=== PATIENT | female | born 1975 | race Caucasian/White ===

== ENCOUNTER 2018-05-11 14:43 | Emergency (ER) | payer OTHER ==
--- NOTE | 2018-05-11 15:55 | ER ---
Nurse's Notes [facility] Name: Negin Earl Age: 43 yrs Sex: Female : 1975 Arrival Date: 05/11/2018 Time: 14:48 Bed Waiting Private MD: Diagnosis: ED Course: 05/11 14:48 Patient arrived in ED. mr 15:40 Patient's name was called from ER lobby. No response. ph 15:54 Patient's name was called from ER lobby. Unable to locate patient. Will disposition as ph left without being seen by a provider. Administered Medications: No medications were administered Outcome: 15:54 Patient left the ED. ph Signatures: Khalida Sargent Patricia, RN RN ph
== END 2018-05-11 15:54 | disposition left against medical advice (07) ==
LOC: ER 14:43
DX: Z53.21 Procedure and treatment not carried out due to patient leaving prior to being seen by health care provider (principal)

== ENCOUNTER 2018-12-18 06:21 | Observation (INO) | payer OTHER, SELFPAY ==
--- OUTSIDE RECORDS SUMMARY | 2018-12-18 06:23 | XMS REPORT ---
:1975 [facility] Address [address] [place] [address] Dr. Horne [address] [place] [id number] Care Team Providers Name Role Phone Unavailable Unavailable Unavailable Problems This patient has no known problems. Allergies, Adverse Reactions, Alerts This patient has no known allergies or adverse reactions. Medications This patient has no known medications.
[2018-12-18] MEDS ORDERED: NA CHLORIDE 0.9% 1,000 ML ONE (06:57)
[2018-12-18] MEDS ORDERED: MORPHINE 4 MG/ML SYR ONE (07:12)
--- NOTE | 2018-12-18 07:23 | ER ---
Nurse's Notes [facility] Name: Negin Earl Age: 43 yrs Sex: Female : 1975 Arrival Date: 12/18/2018 Time: 06:28 Bed 8 Private MD: Diagnosis: Fever, unspecified;Altered mental status, unspecified;Acute tubulo-interstitial nephritis;Bipolar disorder;Urinary tract infection, site not specified;Hypokalemia Presentation: 12/18 06:28 Presenting complaint: EMS states: Pt reports N/V/D for the past 24 hours, EMS reports ea pt temp 102.4 complaining of ABD and back pain. Pt given Zofran 4 mg. Transition of care: patient was not received from another setting of care. Onset of symptoms was December 18, 2018. Risk Assessment: Do you want to hurt yourself or someone else? Patient reports no desire to harm self or others. Initial Sepsis Screen: Does the patient meet any 2 criteria? HR > 90 bpm. Does the patient have a suspected source of infection? Yes: Acute abdominal pain. Care prior to arrival: Medication(s) given: zofran 4 mg. 06:28 Method Of Arrival: EMS: [facility] ea 06:28 Acuity: EVERT 3 ea Triage Assessment: 07:03 General: Appears uncomfortable, Behavior is calm, cooperative, appropriate for age. ea Pain: Complains of pain in right upper quadrant and right lower quadrant and right low back and right mid back and left mid back and left low back. Neuro: Level of Consciousness is awake, alert, obeys commands, Oriented to person, place, time, situation. GI: Reports diarrhea, nausea, vomiting. Derm: Skin is clammy, Skin is normal, Skin temperature is warm. 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 tw2 Historical: - Allergies: 06:59 PENICILLINS; ea - Home Meds: 06:59 Vistaril 50 mg Oral cap [Active]; prozac [Active]; Seroquel Oral [Active]; ea - PMHx: 06:59 Bipolar disorder; insomnia; ea - PSHx: 06:59 None; ea - Immunization history:: Adult Immunizations up to date. - Social history:: Smoking status: Patient/guardian denies using tobacco. - Family history:: not pertinent. - Ebola Screening: : No symptoms or risks identified at this time. Screenin:57 Abuse screen: Denies threats or abuse. Nutritional screening: No deficits noted. ea Tuberculosis screening: No symptoms or risk factors identified. Fall Risk None identified. Assessment: 07:10 General: Appears in no apparent distress. Behavior is calm, cooperative. Pain: Pain hb currently is 8 out of 10 on a pain scale. Neuro: Level of Consciousness is awake, alert, obeys commands, Oriented to person, place, time, situation. Cardiovascular: Heart tones S1 S2 present Capillary refill < 3 seconds Patient's skin is warm and dry. Respiratory: Airway is patent Respiratory effort is even, unlabored, Respiratory pattern is regular, symmetrical, Breath sounds are clear bilaterally. GI: Abdomen is distended, Bowel sounds present X 4 quads. : No signs and/or symptoms were reported regarding the genitourinary system. EENT: No signs and/or symptoms were reported regarding the EENT system. Derm: Skin is intact, is healthy with good turgor, Skin is pink, warm \T\ dry. Musculoskeletal: No signs and/or symptoms reported regarding the musculoskeletal system. 07:15 Reassessment: Pt c/o right flank pain that radiates to RLQ 8/10, requesting pain hb medication. Dr. Culver notified, Morphine and Zofran administered as ordered. Pt to CT via wheelchair with tech. 07:28 Reassessment: Pt returned from CT. Pt to bathroom with assistance, urine specimen hb provided. Assisted back to bed, on monitor. Bed locked in low position, call light within reach. 08:15 Reassessment: Patient appears in no apparent distress at this time. Patient and/or hb family updated on plan of care and expected duration. Pain level reassessed. Patient is alert, oriented x 3, equal unlabored respirations, skin warm/dry/pink. 09:15 Reassessment: Patient appears in no apparent distress at this time. Patient and/or tw2 family updated on plan of care and expected duration. Pain level reassessed. Patient is alert, oriented x 3, equal unlabored respirations, skin warm/dry/pink. Vital Signs: 06:28 BP 108 / 57; Pulse 112; Resp 20; Temp 98.6; Pulse Ox 99% ; ea 07:41 BP 108 / 70; Pulse 118; Resp 15; Temp 99; Pulse Ox 95% on R/A; Pain 5/10; hb 09:15 BP 112 / 66; Pulse 116; Resp 16; Temp 98.3(O); Pulse Ox 97% on R/A; tw2 ED Course: 06:28 Patient arrived in ED. bb 06:28 Patient has correct armband on for positive identification. Bed in low position. Call ea light in reach. Side rails up X 1. 06:28 Arm band placed on right wrist. Patient placed in an exam room, on a stretcher, on ea pulse oximetry. 06:29 Diogenes Culver MD is Attending Physician. elizabeth 06:57 Triage completed. ea 07:08 Jeimy Monaco RN is Primary Nurse. hb 07:17 Charo Angeles MD is Hospitalizing Provider. elizabeth 07:25 CT Stone Protocol In Process Unspecified. EDMS 07:39 XRAY Chest (1 view) In Process Unspecified. EDMS 08:38 EKG done, by aviation technician. reviewed by Jose Garcia MD. at1 08:50 Inserted saline lock: 22 gauge in right antecubital area, using aseptic technique. tw2 ,using aseptic technique. per DOMINIQUE Munson Blood collected. 09:19 Report given to DOMINIQUE Sheikh. tw2 09:19 No provider procedures requiring assistance completed. Patient admitted, IV remains in tw2 place. Administered Medications: 07:03 Drug: NS 0.9% 1000 ml Route: IV; Rate: 1 bolus; Site: right wrist; lp1 07:15 Drug: morphine 4 mg Route: IVP; Site: right antecubital; hb 07:42 Follow up: Response: No adverse reaction; Pain is decreased hb 07:15 Drug: Zofran 4 mg Route: IVP; Site: right antecubital; hb 07:42 Follow up: Response: No adverse reaction hb 07:40 Drug: Rocephin 1 grams Route: IV; Rate: per protocol; Site: right antecubital; hb 08:01 Drug: levofloxacin 750 mg Volume: 150 ml; Route: IVPB; Infused Over: 90 mins; Site: hb right antecubital; 09:17 Follow up: IV Status: Infusion continued upon admission tw2 08:01 Drug: Potassium Effervescent Tablet 25 mEq Route: PO; hb 09:16 Follow up: Response: No adverse reaction tw2 08:01 Drug: Potassium Chloride 20 mEq Route: IV; Rate: per protocol; Site: right antecubital; hb 09:16 Follow up: IV Status: Infusion continued upon admission tw2 09:17 Not Given (K+infusing at this time, will deliver to floor with pt): NS 0.9% with KCl 20 tw2 mEq/L 1000 ml IV at 125 ml/hr continuous Outcome: 07:22 Decision to Hospitalize by Provider. elizabeth 09:19 Admitted to Med/surg accompanied by tech, via wheelchair, room 426, Report called to caitie Sheikh RN 09:19 Condition: stable 09:19 Instructed on the need for admit. 09:21 Patient left the ED. tw2 Signatures: Dispatcher [employer] EDMS Diogenes Culver MD MD cha Ballard, Brenda, RN RN Pilar Zamudio RN RN lp1 Helen Fung, pleater hand EKG Tat1 Jeimy Monaco RN RN hb Wise, Tara, RN RN tw2 Annie Lai, RN DOMINIQUE ea Corrections: (The following items were deleted from the chart) 09:18 09:15 BP 112 / 66; Pulse 116bpm; Resp 16bpm; Pulse Ox 97% RA; tw2 tw2
--- NOTE | 2018-12-18 07:23 | EDPHYS ---
Physician Documentation [facility] Name: Negin Earl Age: 43 yrs Sex: Female : 1975 Arrival Date: 12/18/2018 Time: 06:28 Bed 8 Private MD: FARZANEH Physician Diogenes Culver HPI: 12/18 06:46 This 43 yrs old Female presents to ER via Unassigned with complaints of elizabeth fever, flank pain and ams. 06:46 The patient presents with abdominal pain. Onset: The symptoms/episode began/occurred 3 elizabeth day(s) ago. The patient presents with pain that is acute, with no known mechanism of injury. The symptoms are located in the left low back, left mid back, right mid back and right low back. Onset: The symptoms/episode began/occurred 3 day(s) ago. The pain does not radiate. hx bipolar, fever and pyelonephritis. 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 tw2 Historical: - Allergies: 06:59 PENICILLINS; ea - Home Meds: 06:59 Vistaril 50 mg Oral cap [Active]; prozac [Active]; Seroquel Oral [Active]; ea - PMHx: 06:59 Bipolar disorder; insomnia; ea - PSHx: 06:59 None; ea - Immunization history:: Adult Immunizations up to date. - Social history:: Smoking status: Patient/guardian denies using tobacco. - Family history:: not pertinent. - Ebola Screening: : No symptoms or risks identified at this time. ROS: 06:46 Eyes: Negative for injury, pain, redness, and discharge, ENT: Negative for injury, elizabeth pain, and discharge, Neck: Negative for injury, pain, and swelling, Cardiovascular: Negative for chest pain, palpitations, and edema, Respiratory: Negative for shortness of breath, cough, wheezing, and pleuritic chest pain, Abdomen/GI: Negative for abdominal pain, nausea, vomiting, diarrhea, and constipation, : Negative for injury, bleeding, discharge, and swelling, MS/Extremity: Negative for injury and deformity, Skin: Negative for injury, rash, and discoloration, Neuro: Negative for headache, weakness, numbness, tingling, and seizure, Psych: Negative for depression, anxiety, suicide ideation, homicidal ideation, and hallucinations, Allergy/Immunology: Negative for hives, rash, and allergies, Endocrine: Negative for neck swelling, polydipsia, polyuria, polyphagia, and marked weight changes, Hematologic/Lymphatic: Negative for swollen nodes, abnormal bleeding, and unusual bruising. 06:46 Constitutional: Positive for body aches, fever, malaise. 06:46 Back: Positive for flank pain, bilaterally. Exam: 06:46 Constitutional: This is a well developed, well nourished patient who is awake, alert, elizabeth and in no acute distress. Head/Face: Normocephalic, atraumatic. Eyes: Pupils equal round and reactive to light, extra-ocular motions intact. Lids and lashes normal. Conjunctiva and sclera are non-icteric and not injected. Cornea within normal limits. Periorbital areas with no swelling, redness, or edema. ENT: Nares patent. No nasal discharge, no septal abnormalities noted. Tympanic membranes are normal and external auditory canals are clear. Oropharynx with no redness, swelling, or masses, exudates, or evidence of obstruction, uvula midline. Mucous membranes moist. Neck: Trachea midline, no thyromegaly or masses palpated, and no cervical lymphadenopathy. Supple, full range of motion without nuchal rigidity, or vertebral point tenderness. No Meningismus. Chest/axilla: Normal chest wall appearance and motion. Nontender with no deformity. No lesions are appreciated. Cardiovascular: Regular rate and rhythm with a normal S1 and S2. No gallops, murmurs, or rubs. Normal PMI, no JVD. No pulse deficits. Respiratory: Lungs have equal breath sounds bilaterally, clear to auscultation and percussion. No rales, rhonchi or wheezes noted. No increased work of breathing, no retractions or nasal flaring. Female : Normal external genitalia. Skin: Warm, dry with normal turgor. Normal color with no rashes, no lesions, and no evidence of cellulitis. MS/ Extremity: Pulses equal, no cyanosis. Neurovascular intact. Full, normal range of motion. Neuro: Awake and alert, GCS 15, oriented to person, place, time, and situation. Cranial nerves II-XII grossly intact. Motor strength 5/5 in all extremities. Sensory grossly intact. Cerebellar exam normal. Normal gait. Psych: Awake, alert, with orientation to person, place and time. Behavior, mood, and affect are within normal limits. 06:46 Abdomen/GI: Inspection: abdomen appears normal, Bowel sounds: normal, Palpation: mild abdominal tenderness, in all quadrants, Liver: no appreciated palpable abnormalities, Hernia: not appreciated. 06:46 Back: pain, that is mild, that is moderate, of the left low back and left mid back. 07:49 Neck: ROM/movement: is normal, no acute changes, Meningeal signs: are not present, [facility] Kernig's sign is negative, Brudzinski's sign is negative. Vital Signs: 06:28 BP 108 / 57; Pulse 112; Resp 20; Temp 98.6; Pulse Ox 99% ; ea 07:41 BP 108 / 70; Pulse 118; Resp 15; Temp 99; Pulse Ox 95% on R/A; Pain 5/10; hb 09:15 BP 112 / 66; Pulse 116; Resp 16; Temp 98.3(O); Pulse Ox 97% on R/A; tw2 MDM: 06:29 Patient medically screened. [facility] 06:50 Data reviewed: vital signs, nurses notes, lab test result(s), EKG, radiologic studies, [facility] CT scan, plain films. 12/18 06:47 Order name: Basic Metabolic Panel [facility] 12/18 06:47 Order name: CBC with Diff [facility] 12/18 06:47 Order name: LFT's [facility] 12/18 06:47 Order name: Magnesium [facility] 12/18 06:47 Order name: NT PRO-BNP [facility] 12/18 06:47 Order name: PT-INR; Complete Time: 07:41 [facility] 12/18 06:47 Order name: Troponin (emerg Dept Use Only); Complete Time: 07:47 [facility] 12/18 06:47 Order name: Procalcitonin; Complete Time: 08:12 [facility] 12/18 06:47 Order name: Lactate; Complete Time: 07:47 [facility] 12/18 06:47 Order name: Blood Culture Adult (2) [facility] 12/18 06:47 Order name: Urine Culture [facility] 12/18 06:48 Order name: Basic Metabolic Panel; Complete Time: 07:47 EDMS 12/18 06:48 Order name: CBC with Automated Diff; Complete Time: 07:41 EDMS 12/18 06:48 Order name: Liver (Hepatic) Function; Complete Time: 07:47 EDMS 12/18 06:47 Order name: XRAY Chest (1 view) [facility] 12/18 06:47 Order name: EKG; Complete Time: 06:48 elizabeth 12/18 06:47 Order name: Cardiac monitoring; Complete Time: 07:42 elizabeth 12/18 06:47 Order name: EKG - Nurse/Tech [facility] 12/18 06:47 Order name: CT Stone Protocol; Complete Time: 07:42 elizabeth 12/18 06:48 Order name: Magnesium; Complete Time: 07:47 EDMS 12/18 06:48 Order name: NT PRO-BNP; Complete Time: 07:47 EDMS 12/18 07:43 Order name: Urine Dipstick--Ancillary (enter results); Complete Time: 07:47 em1 12/18 06:47 Order name: IV Saline Lock; Complete Time: 07:42 elizabeth 12/18 06:47 Order name: Labs collected and sent; Complete Time: 07:42 elizabeth 12/18 06:47 Order name: O2 Per Protocol; Complete Time: 07:42 [facility] 12/18 06:47 Order name: O2 Sat Monitoring; Complete Time: 07:42 elizabeth 12/18 06:47 Order name: Urine Dipstick-Ancillary (obtain specimen); Complete Time: 07:42 elizabeth 12/18 06:47 Order name: Urine Test (obtain specimen); Complete Time: 07:42 [facility] Administered Medications: 07:03 Drug: NS 0.9% 1000 ml Route: IV; Rate: 1 bolus; Site: right wrist; lp1 07:15 Drug: morphine 4 mg Route: IVP; Site: right antecubital; hb 07:42 Follow up: Response: No adverse reaction; Pain is decreased hb 07:15 Drug: Zofran 4 mg Route: IVP; Site: right antecubital; hb 07:42 Follow up: Response: No adverse reaction hb 07:40 Drug: Rocephin 1 grams Route: IV; Rate: per protocol; Site: right antecubital; hb 08:01 Drug: levofloxacin 750 mg Volume: 150 ml; Route: IVPB; Infused Over: 90 mins; Site: hb right antecubital; 09:17 Follow up: IV Status: Infusion continued upon admission tw2 08:01 Drug: Potassium Effervescent Tablet 25 mEq Route: PO; hb 09:16 Follow up: Response: No adverse reaction tw2 08:01 Drug: Potassium Chloride 20 mEq Route: IV; Rate: per protocol; Site: right antecubital; hb 09:16 Follow up: IV Status: Infusion continued upon admission tw2 09:17 Not Given (K+infusing at this time, will deliver to floor with pt): NS 0.9% with KCl 20 tw2 mEq/L 1000 ml IV at 125 ml/hr continuous Disposition: 12/18/18 07:22 Hospitalization ordered by Charo Angeles for Inpatient Admission. Preliminary diagnosis are Fever, unspecified, Altered mental status, unspecified, Acute tubulo-interstitial nephritis, Bipolar disorder, Urinary tract infection, site not specified, Hypokalemia. - Bed requested for Telemetry/MedSurg (Inpatient). - Status is Inpatient Admission. tw2 - Condition is Fair. - Problem is new. - Symptoms have improved. UTI on Admission? Yes Signatures: Dispatcher [employer] EDMS Glenny Wright Corey, MD MD cha Pena, Laura, RN RN lp1 Jeimy Monaco RN RN Virginia Porras RN RN tw2 Annie Lai RN DOMINIQUE ea Corrections: (The following items were deleted from the chart) 07:44 07:22 Hospitalization Ordered by Charo Angeles MD for Inpatient Admission. Preliminary [facility] diagnosis is Fever, unspecified; Altered mental status, unspecified; Acute tubulo-interstitial nephritis; Bipolar disorder. Bed requested for Telemetry/MedSurg (Inpatient). Status is Inpatient Admission. Condition is Fair. Problem is new. Symptoms have improved. UTI on Admission? Yes. [facility] 07:49 07:44 12/18/2018 07:22 Hospitalization Ordered by Charo Angeles MD for Inpatient elizabeth Admission. Preliminary diagnosis is Fever, unspecified; Altered mental status, unspecified; Acute tubulo-interstitial nephritis; Bipolar disorder; Urinary tract infection, site not specified. Bed requested for Telemetry/MedSurg (Inpatient). Status is Inpatient Admission. Condition is Fair. Problem is new. Symptoms have improved. UTI on Admission? Yes. elizabeth 08:22 07:49 12/18/2018 07:22 Hospitalization Ordered by Charo Angeles MD for Inpatient bd Admission. Preliminary diagnosis is Fever, unspecified; Altered mental status, unspecified; Acute tubulo-interstitial nephritis; Bipolar disorder; Urinary tract infection, site not specified; Hypokalemia. Bed requested for Telemetry/MedSurg (Inpatient). Status is Inpatient Admission. Condition is Fair. Problem is new. Symptoms have improved. UTI on Admission? Yes. [facility] 09:21 08:22 12/18/2018 07:22 Hospitalization Ordered by Charo Angeles MD for Inpatient tw2 Admission. Preliminary diagnosis is Fever, unspecified; Altered mental status, unspecified; Acute tubulo-interstitial nephritis; Bipolar disorder; Urinary tract infection, site not specified; Hypokalemia. Bed requested for Telemetry/MedSurg (Inpatient). Status is Inpatient Admission. Condition is Fair. Problem is new. Symptoms have improved. UTI on Admission? Yes. bd
[2018-12-18 07:35] LABS: Absolute Lymphocytes (CBC) 0.8 K/uL (0.7-4.9); Basophils % 0.3 % (0-1.3); Hematocrit 34.3 % (36.0-45.0); Lymphocytes % 7.2 % (15.3-44.8); Protime INR 1.09; RBC Red Blood Cell Count 3.88 M/uL (3.86-4.86)
--- NOTE | 2018-12-18 07:41 | RAD REPORT ---
EXAM DESCRIPTION: CT - Stone Protocol - 12/18/2018 7:24 am CLINICAL HISTORY: Abdominal pain, fever of 102, back pain COMPARISON: CT study December 2016 TECHNIQUE: Axial 5 mm thick images were obtained without oral or IV contrast. The [id number] span s the entirety of the system including uppermost abdomen and lung bases. All CT scans are performed using dose optimization technique as appropriate and may include automated exposure control or mA/KV adjustment according to patient size. FINDINGS: Mild dilatation of the right ureter is present including pelvic and caliceal mild dilatati on. No obstructing calculus present. Patient has numerous phleboliths in the pelvis which match up to the calcifications from 2017. No obstructing or nonobstructing calculi are present. There is no calc ulus within the bladder. Right kidney appears mildly edematous relative the left. No suspicious renal masses. Isodense masses and pyelonephritis are not excluded on a stone protocol CT scan. No bladder wall thickening or mass suspected. Bladder is only partially filled. No significant adrenal finding. Uterus and ovaries show no suspicious findings. Imaged portions of the liver, spleen and pancreas show no suspicious findings on non-contrast imaging . No gallbladder or biliary tree abnormality identified. No suspicious bowel findings. Appendix is normal. No hernia, mass or bulky lymphadenopathy noted. No free air, free fluid or pneumatosis. No significant bony abnormality. IMPRESSION: Mild right-sided hydronephrosis without obstructing or nonobstructing calculus present. Patient may have recently passed a stone. Blood within the ureter can cause an obstructive process. I nfectious/inflammatory debris from pyelonephritis or other infectious process can create this pattern . Isodense masses and pyelonephritis are not excluded on stone protocol technique. 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
[2018-12-18 07:47] LABS: ALT/SGPT 43 U/L (12-78); AST/SGOT 43 U/L (15-37); Albumin 3.3 g/dL (3.4-5.0); Alkaline Phosphatase 120 U/L (45-117); BUN Blood Urea Nitrogen 7 mg/dL (7-18); Bicarbonate 22 mmol/L (21-32); Bilirubin Direct < 0.1 mg/dL (0-0.2); Bilirubin Total 0.4 mg/dL (0.2-1.0); Glucose Level 109 mg/dL (74-106); NT PRO-BNP 45 pg/mL (<125); Protein, Total 7.5 g/dL (6.4-8.2); Sodium Level 131 mmol/L (136-145); Troponin (Emerg Dept Use Only) < 0.02 ng/mL (0.0-0.045)
[2018-12-18 07:47] LABS: Urine Blood 2+ (NEG); Urine Glucose NEGATIVE (NEG); Urine Protein 1+ (NEG); Urine Specific Gravity <1.005 (1.005-1.030); Urine pH 6.5 (5.0-7.0)
[2018-12-18] MEDS ORDERED: POTASSIUM 25 MEQ EFFERV TAB ONE (07:58)
[2018-12-18] MEDS ORDERED: Levofloxacin 750mg IV 750 MG/150 ML BAG IV ONE (07:59)
[2018-12-18] MEDS ORDERED: NS KCL 20MEQ 1,000 ML IV ONE (07:59)
[2018-12-18] MEDS ORDERED: KCL 20 MEQ/100 mL IVPB 20 MEQ/100 ML BAG IV ONE (07:59)
[2018-12-18] MEDS ORDERED: CEFTRIAXONE/SWI 1gm 1 GM/10 ML SYR ONE (07:59)
--- NOTE | 2018-12-18 08:47 | RAD REPORT ---
EXAM DESCRIPTION: RAD - Chest Single View - 12/18/2018 7:37 am CLINICAL HISTORY: Cough and congestion COMPARISON: None. TECHNIQUE: AP portable chest image was obtained 0727 hours . FINDINGS: No focal consolidation. There is stranding in each lung base, worse on the left. Baseline for the patient is unknown. This could be atelectasis or minimal interstitial infiltrate. No failure or volume overload findings. Heart and vasculature are normal. No measurable pleural effus ion and no pneumothorax. No acute bony abnormality seen. No acute aortic findings suspected. IMPRESSION: Baseline examination showing mild stranding in each lung base, worse on the left. Minimal left base interstitial infiltrate cannot be excluded.
--- NOTE | 2018-12-18 09:22 | EKG ---
Test Date: 2018-12-18 Test Time: 08:30:46 Motorcoach Operator: ISIDRO MEASUREMENT RESULTS: Intervals: Rate: 111 AR: 150 QRSD: 92 QT: 366 QTc: 497 [place]: P: -83 AR: 150 QRS: 2 T: -87 INTERPRETIVE STATEMENTS: Unusual P axis, possible ectopic atrial tachycardia T wave abnormality, consider anterior ischemia Abnormal ECG Compared to ECG 04/24/2015 08:51:23 Possible ischemia now present Sinus rhythm no longer present Prolonged QT interval no longer present T-wave abnormality still present Electronically Signed On 12-18-18 09:21:22 CDT by Nhan Ramirez
[2018-12-18] MEDS: NA CHLORIDE 0.9% 1,000 ML IV SCH ×2 (09:42→21:44)
[2018-12-18 10:48] LABS: Urine Appearance CLOUDY; Urine Bilirubin NEGATIVE (NEG); Urine Blood 2+ (NEG); Urine Color YELLOW; Urine Glucose NEGATIVE (NEG); Urine Microscopic Reflex ORDER UMIC; Urine Protein NEGATIVE (NEG); Urine Specific Gravity <=1.005 (1.005-1.030); Urine Urobilinogen 0.2 mg/dL (0.2-1.0); Urine pH 6.5 (5.0-7.0)
[2018-12-18 11:35] LABS: Urine Bacteria 20-50 /HPF (<20); Urine Culture Reflex Order REFLEXED; Urine RBC 20-50 /HPF (NONE SEEN)
--- NOTE | 2018-12-18 12:35 | P.HP ---
Certification for Inpatient Patient admitted to: Observation With expected LOS: <2 Midnights Practitioner: I am a practitioner with admitting privileges, knowledge of patient current condition, hospital course, and medical plan of care. Services: Services provided to patient in accordance with Admission requirements found in Title 42 Section 412.3 of the Code of Federal Regulations Patient History Date of Service: 12/18/18 Reason for admission: Right flank pain History of Present Illness: This is a 43 yr old female with a PMH of bipolar disease admitted for right flank pain that started 3 days ago. She is unable to describe the pain for me. She states that pain was radiating down her back. Pain was associated with nausea, vomiting, and fever. There were no alleviating or exacerbating factors. Pain was progressively worsening along wiht the fever, therefore EMS was called. EMS checked temperature to be 102.4, given tylenol and was brought to the ER. In the ED, her bp was 108/57, HR 112, RR 20, Afebrile in the ER, 99% on RA and a BMI of 27.1. Her labs were unremarkable. Her UA was with 3+ leukocyte esterase, nitrite and hematuria. Her abdominal CT was with mild right hydronephrosis without obstructive or non obstructive calculus. She received rocephin, IVF and pain control. At the time of my exam, she was AAOx3, in no acute distress and symptom free. She was tolerating a diet, ambulating without concerns. Allergies Penicillins Allergy (Mild, Verified 07/25/16 18:03) Hives/Rash No Known Allergy (Uncoded 01/14/17 12:47) Unknown Home medications list reviewed: Yes Home Medications: Fluoxetine HCl [Prozac*] 40 mg PO DAILY 07/25/16 Quetiapine Fumarate [Quetiapine Fumarate ER] 50 mg PO BEDTIME 12/18/18 hydrOXYzine HCl [Atarax] 50 mg PO TID 12/18/18 - Past Medical/Surgical History Has patient received pneumonia vaccine in the past: No -: Bipolar -: recurrent UTI -: anxiety -: hysterectomy -: adnoidectomy - Social History Smoking Status: Former smoker Alcohol use: No CD- Drugs: No Caffeine use: No Place of Residence: Home Review of Systems 10-point ROS is otherwise unremarkable Physical Examination - Vital Signs Temperature: 97.1 F Blood Pressure: 101/59 Pulse: 74 Respirations: 20 Pulse Ox (%): 97 - Physical Exam General: Alert, In no apparent distress, Oriented x3 HEENT: Atraumatic, PERRLA, Mucous membr. moist/pink, EOMI, Sclerae nonicteric Neck: Supple, 2+ carotid pulse no bruit, No LAD, Without JVD or thyroid abnormality Respiratory: Clear to auscultation bilaterally, Normal air movement Cardiovascular: Regular rate/rhythm, Normal S1 S2 Gastrointestinal: Normal bowel sounds, No tenderness Musculoskeletal: No tenderness, Other (Negative CVA tenderness) Integumentary: No rashes Neurological: Normal gait, Normal speech, Normal strength at 5/5 x4 extr, Normal tone, Normal affect Lymphatics: No axilla or inguinal lymphadenopathy - Studies Laboratory Data (last 24 hrs) 12/18/18 06:36: PT 12.8 H, INR 1.09 12/18/18 06:36: WBC 11.1 H, Hgb 11.9 L, Hct 34.3 L, Plt Count 298 12/18/18 06:36: Sodium 131 L, Potassium 3.0 L, BUN 7, Creatinine 0.61, Glucose 109 H, Magnesium 2.0, Total Bilirubin 0.4, AST 43 H, ALT 43, Alkaline Phosphatase 120 H Assessment and Plan - Problems (Diagnosis) (1) Right flank pain Current Visit: Yes Status: Acute Plan: Patient with right flank pain, -CT with Mild right-sided hydronephrosis without obstructing or nonobstructing calculus present. Blood within the ureter can cause an obstructive process. Infectious/inflammatory debris from pyelonephritis or other infectious process can create this pattern. Patient may have recently passed a stone. Isodense masses and pyelonephritis are not excluded on stone protocol technique. No acute GI or MARINE UNDERWRITER process. -DDx: Passed kidney stone, pyelonephritis, UTI -IVF -IV antibiotics with Rocephin -Pain control (2) Urinary tract infection Current Visit: Yes Status: Acute Plan: Patient states that she has a hx of multiple UTIs for many years now but has not seen a Urologist as she does not have insurance. -IV Rocephin. Urine cultures are pending. We will adjust antibiotics as needed -Patient may benefit from seeing a urologist as an outpatient. Qualifiers: Urinary tract infection type: acute cystitis Hematuria presence: with hematuria Qualified Code(s): N30.01 - Acute cystitis with hematuria (3) Pyelonephritis Onset Date: 07/26/16 Status: Suspected Plan: Will monitor WBC, vital signs and symptomatic improvement. - Continue IV antibiotics (4) Bipolar disorder Current Visit: No Status: Chronic Plan: Stable, will continue home medications. Qualifiers: Active/Remission status: remission status unspecified Qualified Code(s): F31.9 - Bipolar disorder, unspecified - Plan DVT prophylaxis: Lovenox GI prophylaxis: None Diet: Regular Disposition: Pending symptomatic improvement. Anticipate discharge in the next 24 hrs, if WBC improved, symptomatic improvement and afebrile for 24 hrs. - Advance Directives Does patient have a Living Will: No Does patient have a Durable POA for Healthcare: No
[2018-12-18] MEDS: MORPHINE 2 MG/ML SYR IV PRN ×2 (13:03→19:16)
[2018-12-18] MEDS: hydrOXYzine HCl 25 MG TAB PO SCH ×2 (13:04→21:45)
[2018-12-18] MEDS: ONDANSETRON 4 MG/2 ML VIAL IV PRN ×2 (13:04→19:16)
[2018-12-18] MEDS: ACETAMINOPHEN 500 MG TAB PO PRN (14:39)
[2018-12-18] MEDS: FAMOTIDINE 20 MG TAB PO SCH (21:44)
[2018-12-18] MEDS: QUETIAPINE 25 MG TAB PO SCH (21:45)
[2018-12-18] MEDS: CEFTRIAXONE/SWI 1gm 1 GM/10 ML SYR IV SCH (21:45)
[2018-12-19] MEDS: ONDANSETRON 4 MG/2 ML VIAL IV PRN ×3 (02:00→20:47)
[2018-12-19] MEDS: MORPHINE 2 MG/ML SYR IV PRN ×3 (02:00→15:55)
[2018-12-19 04:34] LABS: Absolute Lymphocytes (CBC) 1.4 K/uL (0.7-4.9); Basophils % 0.4 % (0-1.3); Hematocrit 29.1 % (36.0-45.0); Lymphocytes % 17.1 % (15.3-44.8); MPV 8.1 fL (7.6-11.3); RBC Red Blood Cell Count 3.26 M/uL (3.86-4.86)
[2018-12-19] MEDS: ACETAMINOPHEN 500 MG TAB PO PRN ×2 (04:34→08:26)
[2018-12-19 04:57] LABS: ALT/SGPT 33 U/L (12-78); AST/SGOT 25 U/L (15-37); Albumin 2.6 g/dL (3.4-5.0); Alkaline Phosphatase 95 U/L (45-117); BUN Blood Urea Nitrogen 2 mg/dL (7-18); Bicarbonate 25 mmol/L (21-32); Bilirubin Total 0.3 mg/dL (0.2-1.0); Glucose Level 100 mg/dL (74-106); Protein, Total 6.2 g/dL (6.4-8.2); Sodium Level 141 mmol/L (136-145)
[2018-12-19] MEDS: NA CHLORIDE 0.9% 1,000 ML IV SCH ×2 (06:52→15:53)
[2018-12-19] MEDS: FLUOXETINE 20 MG CAP PO SCH (08:26)
[2018-12-19] MEDS: hydrOXYzine HCl 25 MG TAB PO SCH ×3 (08:27→20:42)
[2018-12-19] MEDS: CEFTRIAXONE/SWI 1gm 1 GM/10 ML SYR IV SCH ×2 (09:00→20:41)
[2018-12-19] MEDS: FAMOTIDINE 20 MG TAB PO SCH ×2 (10:35→20:42)
--- NOTE | 2018-12-19 19:08 | PN ---
Date of Progress Note: 12/19/2018 Subjective: Patient is seen and examined. Chart reviewed and case discussed with RN. The patient s till having some pain on her right flank, complaining of some nausea. Medications: List reviewed. Physical Examination: Vital Signs: Temperature 97.1, heart rate 84, blood pressure 107/63, respirations 16, O2 100% on brianna m air. General: Awake, alert, and oriented x3, ill-appearing female, in mild distress. CV: S1, S2. Regular rate and rhythm. Peripheral pulses present. Respiratory: Moving air well bilaterally. No wheezing or stridor. Gastrointestinal: Abdomen is soft, nontender, nondistended. Positive bowel sounds. The patient has positive CVA tenderness, flank tenderness on the right. Extremities: No clubbing, cyanosis, or edema. Neuro: Cranial nerves 2 through 12 intact grossly. No focal neurological deficits. Speech is eliezer l. Skin: No rashes. Normal skin turgor. Laboratory Data: Sodium 141, potassium 3, chloride 110, CO2 25, BUN 2, creatinine 0.53, glucose 100, calcium 7.9, albumin 2.6. WBC 7.9, H and H 10.1 and 29.1, platelets 240. Blood cultures, no growth to date. Urine cultures growing 3+ gram-negative rods. Assessment And Plan: 1.Right flank pain. CT showed mild right-sided hydronephrosis without obstructing calculus, likely secondary to pyelonephritis or recently passed stone. We will continue with IV antibiotics. The pat ient still has tenderness on the right flank. 2.Acute pyelonephritis secondary to gram-negative rods. Continue with IV antibiotics and follow up on cultures. The patient does have history of multiple UTIs for several years and is at risk for mul ti-drug resistant bacteria. 3.Bipolar disorder, stable. 4.Hypokalemia. We will replace and monitor. 5.Moderate protein-calorie malnutrition. Albumin is 2.6. Plan: Continue with IV antibiotics. Follow up on urine culture. Likely discharge in the next 24 ho urs depending on clinical response. SA/MODL Voice ID: [id number] Report ID: [id number]
[2018-12-19] MEDS ORDERED: TRAMADOL HCL 50 MG TAB PO PRN (20:11)
[2018-12-19] MEDS: HYDROCODONE/APAP 7.5/325 MG TAB PO PRN (20:42)
[2018-12-19] MEDS: QUETIAPINE 25 MG TAB PO SCH (20:42)
[2018-12-20] MEDS: NA CHLORIDE 0.9% 1,000 ML IV SCH ×2 (02:28→11:42)
[2018-12-20] MEDS: HYDROCODONE/APAP 7.5/325 MG TAB PO PRN (07:54)
[2018-12-20] MEDS: FLUOXETINE 20 MG CAP PO SCH (08:10)
[2018-12-20] MEDS: hydrOXYzine HCl 25 MG TAB PO SCH (08:11)
[2018-12-20] MEDS: FAMOTIDINE 20 MG TAB PO SCH (08:11)
[2018-12-20] MEDS: CEFTRIAXONE/SWI 1gm 1 GM/10 ML SYR IV SCH (08:12)
--- NOTE | 2018-12-21 11:02 | DS ---
Date of Discharge: 12/20/2018 Admitting Diagnoses: 1.Acute right flank pain. 2.Urinary tract infection. 3.Pyelonephritis. 4.Bipolar disorder. Discharge Diagnoses: 1.Right flank pain secondary to pyelonephritis. 2.Acute pyelonephritis secondary to gram-negative rods. 3.Bipolar disorder, stable. 4.Hypokalemia, replaced. 5.Moderate protein-calorie malnutrition. Albumin 2.6. 6.Hypernatremia. Hospital Course: Patient is a 43-year-old female with past medical history of bipolar disorder, came in with right flank pain, was found to have pyelonephritis. CT scan of the abdomen did not show any kidney stones. She did well with IV antibiotics and IV fluids. Her culture showed gram-negative ro ds. ID and sensitivities are pending at this time. Her lactate level was normal; however, procalcit onin was elevated. She did not develop sepsis. She had some mild electrolyte abnormalities includin g hypernatremia and hypokalemia, which were corrected. Patient overall did well. She was able to am bulate. Her white blood cell count normalized. She was afebrile. Her confusion resolved. Her bloo d cultures were negative. Flank pain was improving. She understands that she will need to continue with IV hydration and follow up with primary care physician in the next week. Return to ER for worse mateo condition. Diet: Regular. Activity: As tolerated. Medications: As per medication reconciliation list. Physical Examination: General: Awake, alert, oriented x3. No acute distress. CV: S1, S2. No murmurs. Respiratory: Moving air well bilaterally. Abdomen: Soft, nontender, nondistended. Positive bowel sounds. Extremities: No clubbing, cyanosis, or edema. Neurologic: Nonfocal. Back: Patient does have some right-sided flank pain. SA/MODL Voice ID: [id number] Report ID: [id number]
== END 2018-12-20 12:25 | disposition home or self-care (01) ==
LOC: ER 06:21 → ERHOLD 07:48 → 4TH 09:17
PROVIDERS: ADMIT Family Medicine; ATTEND Family Medicine
DX: N10 Acute pyelonephritis (principal); N30.01 Acute cystitis with hematuria; F31.9 Bipolar disorder, unspecified; E87.6 Hypokalemia; E44.0 Moderate protein-calorie malnutrition; E87.0 Hyperosmolality and hypernatremia; Z79.899 Other long term (current) drug therapy; Z87.891 Personal history of nicotine dependence; Z87.440 Personal history of urinary (tract) infections; R94.31 Abnormal electrocardiogram [ECG] [EKG]
CPT/HCPCS: 96365; 96368; 93005; 87040 ×2; 87088; 85025 ×2; 87086; 80048; 36415; 83735; 85610; 80076; 83605; 87077; 87186; 84484; 80053; 84145; 83880; 76377; 74176; 71045; 94760 ×5; 96375; 99285; J2270 ×5; J0696 ×5; J7030 ×6; J2405 ×6; G0378 ×2; 81003; 81015

== ENCOUNTER 2019-09-02 19:03 | Emergency (ER) | payer OTHER ==
--- OUTSIDE RECORDS SUMMARY | 2019-09-02 19:05 | XMS REPORT ---
:1975 Author Organization [facility] t Address [address] [place] [address] [address] [place] [address] Care Team Providers Name Role Phone Unavailable Unavailable Unavailable Problems This patient has no known problems. Allergies, Adverse Reactions, Alerts This patient has no known allergies or adverse reactions. Medications This patient has no known medications.
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
--- OUTSIDE RECORDS SUMMARY | 2019-09-02 19:06 | XMS REPORT | Summary of Care ---
:1975 Author Organization [facility] Address [address] [place] [address] Care Team Providers Name Role Phone Miles Vinnie Pineda Primary Care Provider Reason for Visit Reason Comments ABNORMAL PAP Encounter Details Date Type Department Care Team Description 06/06/2019 [facility]phone [facility] Cherise Mcgarry, ABNORMAL PAP [address] [place] [address] [phone] [place]ANY[place] A [place], [place] [address] [phone] Allergies No Known Allergiesdocumented as of this encounter (statuses as of 06/06/2019) Medications Medication Sig Dispensed Refills Start Date [...] as of this encounter (statuses as of 06/06/2019) Active Problems Problem Noted Date Atypical squamous [...] as of this encounter (statuses as of 06/06/2019) Immunizations Name Administration Dates Next Due Td [...] BOX Medicare A & B t 2 [id number] [place] [phone] [facility] MEDICAID OF xxxxxxxxx 2019-Prese [phone] Medicaid [facility] [id number] [place] [address] documented as of this encounter
--- OUTSIDE RECORDS SUMMARY | 2019-09-02 19:06 | XMS REPORT | Summary of Care ---
:1975 Author Organization [facility] Address [address] [place] [address] Care Team Providers Name Role Phone Miles Vinnie Pineda Primary Care Provider Reason for Visit Reason Comments ABNORMAL PAP Encounter Details Date Type Department Care Team Description 06/06/2019 [facility] Cherise [facility]gar[facility], ABNORMAL PAP [address] [place] [address] [phone] [place], [place] [address] [phone] Allergies No Known Allergiesdocumented as of this [...] Treatment Date Type Specialty Care Team Description 06/19/2019 Office Visit OB Satellites Res-Colpo/Leep, [facility] Health Maintenance Due Date Last Done [...] BOX Medicare A & B t 2 [id number] [place] [phone] [facility] MEDICAID OF xxxxxxxxx 2019-Robbi [phone] [address] Medicaid [place] nt 0 [id number] [place] [address] documented as of this encounter
[2019-09-02] MEDS ORDERED: ONDANSETRON 4 MG/2 ML VIAL ONE ×2 (19:38→20:36)
[2019-09-02] MEDS ORDERED: NA CHLORIDE 0.9% 1,000 ML ONE (19:38)
[2019-09-02] MEDS ORDERED: KETOROLAC 30 MG/ML INJ ONE (19:38)
[2019-09-02 19:56] LABS: Urine Blood 2+ (NEG); Urine Glucose NEGATIVE (NEG); Urine Protein NEGATIVE (NEG); Urine pH 8.5 (5.0-7.0)
[2019-09-02 20:05] LABS: Absolute Lymphocytes (CBC) 1.9 K/uL (0.7-4.9); Basophils % 0.5 % (0-1.3); Hematocrit 39.2 % (36.0-45.0); Lymphocytes % 11.9 % (15.3-44.8); MPV 8.2 fL (7.6-11.3); RBC Red Blood Cell Count 4.41 M/uL (3.86-4.86)
[2019-09-02 20:10] LABS: Urine Bacteria 20-50 /HPF (<20); Urine Culture Reflex Order REFLEXED
[2019-09-02 20:19] LABS: ALT/SGPT 24 U/L (12-78); AST/SGOT 18 U/L (15-37); Albumin 3.8 g/dL (3.4-5.0); Alkaline Phosphatase 102 U/L (45-117); BUN Blood Urea Nitrogen 8 mg/dL (7-18); Bicarbonate 26 mmol/L (21-32); Bilirubin Direct < 0.1 mg/dL (0-0.2); Bilirubin Total 0.5 mg/dL (0.2-1.0); Glucose Level 104 mg/dL (74-106); Lipase 170 U/L (73-393); Potassium 3.6 mmol/L (3.5-5.1); Protein, Total 8.4 g/dL (6.4-8.2); Sodium Level 137 mmol/L (136-145)
--- NOTE | 2019-09-02 20:24 | RAD REPORT ---
EXAM DESCRIPTION: CT - Stone Protocol - 09/02/2019 8:09 pm CLINICAL HISTORY: FLANK PAIN COMPARISON: Stone Protocol dated 12/18/2018 TECHNIQUE: Axial 3 mm thick images were obtained without oral or IV contrast. The [id number] span s the entirety of the system including uppermost abdomen and lung bases. All CT scans are performed using dose optimization technique as appropriate and may include automated exposure control or mA/KV adjustment according to patient size. FINDINGS: No hydronephrosis is present and no obstructing ureteral calculi. No suspicious renal mass es. Isodense masses and pyelonephritis are not excluded on a stone protocol CT scan. No significant a drenal finding. Partially filled urinary bladder shows no suspicious findings. No uterine or ovarian suspicious finding. Phleboliths are present in the pelvis. Imaged portions of the liver, spleen and pancreas show no suspicious findings on non-contrast imaging . No gallbladder or biliary tree abnormality identified. No dilated bowel loops or bowel wall thickening. No bowel mass seen. Trace amount of stranding is see n in the mesenteric fat adjacent to the descending colon. This is not likely an acute process given t he history of bilateral back and flank pain and right lower extremity radiculopathy. No hernia, mass or bulky lymphadenopathy noted. No free air, free fluid or inflammatory stranding. No significant bony abnormality. Central canal detail is limited. However, no gross evidence for a la rge disc herniation or significant central canal finding. Facet degenerative changes are present. IMPRESSION: No hydronephrosis, obstructing calculus or acute finding. Isodense masses and pyelonephritis are not excluded on stone protocol technique. As detailed above, no acute findings are suspected.
[2019-09-02] MEDS ORDERED: MORPHINE 4 MG/ML SYR ONE (20:35)
[2019-09-02] MEDS ORDERED: NITROFURAN MACRO 100 MG CAP PO ONE (20:47)
--- NOTE | 2019-09-02 20:49 | ER ---
Nurse's Notes [facility] Name: Negin Earl Age: 44 yrs Sex: Female : 1975 Arrival Date: 09/02/2019 Time: 19:09 Bed 2 Private MD: Jose Cunningham E Diagnosis: Acute pyelonephritis Presentation: 09/01 19:14 Chief complaint: Patient states: Flank pain, both sides radiating down the R leg. ca1 Reports chronic kidney stones. Pt states, "I passed out last night, I got dizzy and fell, hurt L wrist, R shoulder". Reports burning with urination, urinary urgency and frequency. Coronavirus screen: Proceed with normal triage. Patient denies a cough. Patient denies shortness of breath or difficulty breathing. Patient denies measured and/or subjective temperature greater than 100.4F prior to today's visit. Patient denies travel on a cruise ship or to a country the [facility] currently lists as an affected area. Patient denies contact with known and/or suspected case of COVID-19. Ebola Screen: Patient negative for fever greater than or equal to 101.5 degrees Fahrenheit, and additional compatible Ebola Virus Disease symptoms Patient denies exposure to infectious person. Patient denies travel to an Ebola-affected area in the 21 days before illness onset. No symptoms or risks identified at this time. Initial Sepsis Screen: Does the patient meet any 2 criteria? No. Patient's initial sepsis screen is negative. Does the patient have a suspected source of infection? No. Patient's initial sepsis screen is negative. Risk Assessment: Do you want to hurt yourself or someone else? Patient reports no desire to harm self or others. Onset of symptoms was September 02, 2019. 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 - Social history:: Smoking status: Patient reports the use of cigarette tobacco products, smokes one-half pack cigarettes per day. Screenin:42 Abuse screen: Denies threats or abuse. Nutritional screening: No deficits noted. jd3 Tuberculosis screening: No symptoms or risk factors identified. Fall Risk IV access (20 points). Ambulatory Aid- None/Bed Rest/Nurse Assist (0 pts). Gait- Normal/Bed Rest/Wheelchair (0 pts) Mental Status- Oriented to own ability (0 pts). Total Reid Fall Scale indicates No Risk (0-24 pts). Assessment: 19:28 General: Appears in no apparent distress. uncomfortable, Behavior is calm, cooperative, jd3 appropriate for age. Pain: Complains of pain in left flank, right flank, right lower quadrant and left lower quadrant Quality of pain is described as radiating, sharp, tender. Neuro: Level of Consciousness is awake, alert, obeys commands, Oriented to person, place, time, situation. Cardiovascular: Denies chest pain, Capillary refill < 3 seconds Patient's skin is warm and dry. Respiratory: Airway is patent Respiratory effort is even, unlabored, Respiratory pattern is regular, symmetrical, Breath sounds are clear bilaterally. Denies cough, shortness of breath. GI: Abdomen is round Bowel sounds present X 4 quads. Abd is soft X 4 quads Abdomen is tender to palpation in right lower quadrant and left lower quadrant Reports nausea, Patient currently denies diarrhea. : Reports pain in bilateral flank(s), urinary frequency. EENT: No signs and/or symptoms were reported regarding the EENT system. Derm: Skin is intact, Skin is dry, Skin is normal, Skin temperature is warm. Musculoskeletal: Circulation, motion, and sensation intact. Range of motion: intact in all extremities. 20:36 Reassessment: No changes from previously documented assessment. Patient and/or family jd3 updated on plan of care and expected duration. Pain level reassessed. Patient is alert, oriented x 3, equal unlabored respirations, skin warm/dry/pink. 21:03 Reassessment: Patient appears in no apparent distress at this time. Patient and/or jd3 family updated on plan of care and expected duration. Pain level reassessed. Patient is alert, oriented x 3, equal unlabored respirations, skin warm/dry/pink. pt reported decreased pain, pt reported understanding of discharge instructions, even and steady gait to lobby to wait for a ride. Patient states feeling better. Vital Signs: 19:14 BP 114 / 66; Pulse 105; Resp 20; Temp 99.6(O); Pulse Ox 98% on R/A; Weight 86.18 kg; ca1 Height 5 ft. 5 in. (165.10 cm) (R); Pain 8/10; 20:36 BP 98 / 59; Pulse 97; Resp 17 S; Pulse Ox 96% on R/A; Pain 10/10; jd3 21:04 BP 101 / 60; Pulse 89; Resp 16 S; Pulse Ox 97% on R/A; Pain 3/10; jd3 19:14 Body Mass Index 31.62 (86.18 kg, 165.10 cm) ca1 ED Course: 19:09 Patient arrived in ED. mr 19:09 Jose Cunningham MD is Private Physician. mr 19:17 Luis Alberto Griffin MD is Attending Physician. tw4 19:18 Triage completed. ca1 19:19 Arm band placed on right wrist. ca1 19:24 Bee Vital RN is Primary Nurse. jl7 19:25 Urine collected: clean catch specimen, clear, odette colored. Patient maintains SpO2 jp3 saturation greater than 95% on room air. 19:26 Primary Nurse role handed off by Bee Vital RN jd3 19:26 Demond Davis RN is Primary Nurse. jd3 19:38 Initial lab(s) drawn, by me, sent to lab. Inserted saline lock: 20 gauge in right jp3 antecubital area, using aseptic technique. Blood collected. 19:41 Bed in low position. Call light in reach. Side rails up X 1. Warm blanket given. Verbal jp3 reassurance given. Pulse ox on. NIBP on. 20:08 CT Stone Protocol In Process Unspecified. EDMS 20:46 Jose Cunningham MD is Referral Physician. tw4 21:00 No provider procedures requiring assistance completed. IV discontinued, intact, jd3 bleeding controlled, No redness/swelling at site. Pressure dressing applied. Administered Medications: 19:41 Drug: NS 0.9% 1000 ml Route: IV; Rate: 1 bolus; Site: right antecubital; jd3 20:40 Follow up: Response: No adverse reaction; IV Status: Completed infusion; IV Intake: jd3 1000ml 19:41 Drug: TORadol 30 mg Route: IVP; Site: right antecubital; jd3 20:40 Follow up: Response: No adverse reaction jd3 19:41 Drug: Zofran (Ondansetron) 4 mg Route: IVP; Site: right antecubital; jd3 20:40 Follow up: Response: No adverse reaction jd3 20:34 CANCELLED (Duplicate Order): morphine 4 mg IVP once; RASS on ADMIN: Combtv4, Very jd3 Agttd3, Agttd2, Rstlss1, AlertClm0, Drwsy-1, Lt Sdtn-2, Mod Sdtn-3, Dp Sdtn-4, UnArsble-5 20:35 Drug: morphine 4 mg Route: IVP; Site: right antecubital; jd3 21:02 Follow up: Response: No adverse reaction; Pain is decreased; RASS: Alert and Calm (0) jd3 20:35 Drug: Zofran (Ondansetron) 4 mg Route: IVP; Site: right antecubital; jd3 21:03 Follow up: Response: No adverse reaction jd3 20:43 Drug: Macrobid 100 mg Route: PO; jd3 21:03 Follow up: Response: No adverse reaction jd3 Intake: 20:40 IV: 1000ml; Total: 1000ml. jd3 Outcome: 20:48 Discharge ordered by . tw4 21:00 Discharged to home ambulatory, with family. jd3 21:00 Condition: stable 21:00 Discharge instructions given to patient, Instructed on discharge instructions, follow up and referral plans. medication usage, Demonstrated understanding of instructions, follow-up care, medications, Prescriptions given X 2. 21:04 Patient left the ED. jd3 Signatures: Dispatcher [employer] EDCO Arie Khalida VitalBee RN RN jl7 Demond Davis RN RN jd3 Luis Alberto Griffin MD MD tw4 Castillo Barr jp3 Cha Yan RN RN ca1 Corrections: (The following items were deleted from the chart) 19:40 19:14 Chief complaint: Patient states: Flank pain, both sides radiating down the R leg. ca1 Reports chronic kidney stones. Pt states, "I passed out last night, I got dizzy and fell, hurt L wrist, R shoulder. Reports burning with urination, urinary urgency and frequency. ca1
--- NOTE | 2019-09-02 20:49 | EDPHYS ---
Physician Documentation [facility] Name: Negin Earl Age: 44 yrs Sex: Female : 1975 Arrival Date: 09/02/2019 Time: 19:09 Bed 2 Private MD: Jose Cunningham E ED Physician Luis Alberto Griffin HPI: 09/01 19:51 This 44 yrs old Female presents to ER via Wheelchair with complaints of Back tw4 Pain, Urinary Problem. 19:51 The patient presents with pain that is acute. The symptoms are located in the left low tw4 back. Onset: The symptoms/episode began/occurred 4 day(s) ago. The pain radiates to the right lower quadrant and left lower quadrant. Associated signs and symptoms: The patient has no apparent associated signs or symptoms. The problem was sustained from unknown cause. Modifying factors: The patient symptoms are alleviated by nothing, the patient symptoms are aggravated by any movement. The patient has not experienced similar symptoms in the past. 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 - Social history:: Smoking status: Patient reports the use of cigarette tobacco products, smokes one-half pack cigarettes per day. ROS: 19:51 Constitutional: Negative for fever, chills, and weight loss, Eyes: Negative for injury, tw4 pain, redness, and discharge, Cardiovascular: Negative for chest pain, palpitations, and edema, Respiratory: Negative for shortness of breath, cough, wheezing, and pleuritic chest pain, Abdomen/GI: Negative for abdominal pain, nausea, vomiting, diarrhea, and constipation, MS/Extremity: Negative for injury and deformity, Skin: Negative for injury, rash, and discoloration, Neuro: Negative for headache, weakness, numbness, tingling, and seizure. 19:51 Back: Positive for flank pain, bilaterally. Exam: 19:51 Constitutional: This is a well developed, well nourished patient who is awake, alert, tw4 and in no acute distress. Head/Face: Normocephalic, atraumatic. Cardiovascular: Regular rate and rhythm with a normal S1 and S2. No gallops, murmurs, or rubs. Normal PMI, no JVD. No pulse deficits. Respiratory: Lungs have equal breath sounds bilaterally, clear to auscultation and percussion. No rales, rhonchi or wheezes noted. No increased work of breathing, no retractions or nasal flaring. Abdomen/GI: Soft, non-tender, with normal bowel sounds. No distension or tympany. No guarding or rebound. No evidence of tenderness throughout. Back: No spinal tenderness. No costovertebral tenderness. Full range of motion. MS/ Extremity: Pulses equal, no cyanosis. Neurovascular intact. Full, normal range of motion. Neuro: Awake and alert, GCS 15, oriented to person, place, time, and situation. Cranial nerves II-XII grossly intact. Motor strength 5/5 in all extremities. Sensory grossly intact. Cerebellar exam normal. Normal gait. Vital Signs: 19:14 BP 114 / 66; Pulse 105; Resp 20; Temp 99.6(O); Pulse Ox 98% on R/A; Weight 86.18 kg; ca1 Height 5 ft. 5 in. (165.10 cm) (R); Pain 8/10; 20:36 BP 98 / 59; Pulse 97; Resp 17 S; Pulse Ox 96% on R/A; Pain 10/10; jd3 21:04 BP 101 / 60; Pulse 89; Resp 16 S; Pulse Ox 97% on R/A; Pain 3/10; jd3 19:14 Body Mass Index 31.62 (86.18 kg, 165.10 cm) ca1 MDM: 19:25 Patient medically screened. 09/01 19:18 Order name: Urine Microscopic Only; Complete Time: 20:30 09/01 20:30 Interpretation: Normal except: UBACT 20-50; UWBC 20-50; URBC 5-10. 09/01 19:32 Order name: Basic Metabolic Panel; Complete Time: 20:30 09/01 20:30 Interpretation: Normal except: GFR 72. 09/01 19:32 Order name: CBC with Diff; Complete Time: 20:30 09/01 20:31 Interpretation: Normal except: WBC 15.8; LYM% 11.9; MARTHA% 81.7; NEUT A 12.9. [facility] 09/01 19:32 Order name: Creatinine for Radiology; Complete Time: 20:30 [facility] 09/01 20:31 Interpretation: Within normal limits: CRE 0.85. 09/01 19:32 Order name: Hepatic Function; Complete Time: 20:30 [facility] 09/01 20:31 Interpretation: Normal except: TP 8.4; GLOB 4.6; A/G 0.8. 09/01 19:32 Order name: Lipase; Complete Time: 20:30 [facility] 09/01 20:31 Interpretation: Within normal limits: LIP 170. [facility] 09/01 19:47 Order name: CT Stone Protocol; Complete Time: 20:30 [facility] 09/01 19:48 Order name: Urine Dipstick--Ancillary (enter results); Complete Time: 20:30 [facility] 09/01 20:31 Interpretation: Normal except: UPH 8.5; UBLD 2+; UESTR TRACE. [facility] 09/01 19:48 Order name: Urine --Ancillary (enter results); Complete Time: 20:30 [facility] 09/01 20:32 Interpretation: Within normal limits: URINE PREG NEG. [facility] 09/01 20:11 Order name: Urine Culture [facility] 09/01 19:18 Order name: Urine Dipstick-Ancillary (obtain specimen); Complete Time: 19:31 [facility] 09/01 19:32 Order name: IV Saline Lock; Complete Time: 19:41 [facility] 09/01 19:32 Order name: Labs collected and sent; Complete Time: 19:41 Administered Medications: 19:41 Drug: NS 0.9% 1000 ml Route: IV; Rate: 1 bolus; Site: right antecubital; jd3 20:40 Follow up: Response: No adverse reaction; IV Status: Completed infusion; IV Intake: jd3 1000ml 19:41 Drug: TORadol 30 mg Route: IVP; Site: right antecubital; jd3 20:40 Follow up: Response: No adverse reaction jd3 19:41 Drug: Zofran (Ondansetron) 4 mg Route: IVP; Site: right antecubital; jd3 20:40 Follow up: Response: No adverse reaction jd3 20:34 CANCELLED (Duplicate Order): morphine 4 mg IVP once; RASS on ADMIN: Combtv4, Very jd3 Agttd3, Agttd2, Rstlss1, AlertClm0, Drwsy-1, Lt Sdtn-2, Mod Sdtn-3, Dp Sdtn-4, UnArsble-5 20:35 Drug: morphine 4 mg Route: IVP; Site: right antecubital; jd3 21:02 Follow up: Response: No adverse reaction; Pain is decreased; RASS: Alert and Calm (0) jd3 20:35 Drug: Zofran (Ondansetron) 4 mg Route: IVP; Site: right antecubital; jd3 21:03 Follow up: Response: No adverse reaction jd3 20:43 Drug: Macrobid 100 mg Route: PO; jd3 21:03 Follow up: Response: No adverse reaction jd3 Disposition: 09/02/19 20:48 Discharged to Home. Impression: Acute pyelonephritis. - Condition is Stable. - Discharge Instructions: Pyelonephritis, Adult, Smbn-et-Roxe. - Prescriptions for Ibuprofen 800 mg Oral Tablet - take 1 tablet by ORAL route every 8 hours As needed take with food; 30 tablet. Macrobid 100 mg Oral Capsule - take 1 capsule by ORAL route every 12 hours for 14 days; 28 capsule. - Medication Reconciliation Form, Thank You Letter, Antibiotic Education, Prescription Opioid Use form. - Follow up: Jose Cunningham MD; When: Upon discharge from the Emergency Department; Reason: Recheck today's complaints, Continuance of care, Re-evaluation by your physician. - Problem is new. - Symptoms have improved. Signatures: Dis[facility] Demond Huang RN RN jd3 Luis Alberto Griffin MD MD tw4 Cha Yan RN RN ca1 Corrections: (The following items were deleted from the chart) 20:34 20:34 morphine 4 mg IVP once; RASS on ADMIN: Combtv4, Very Agttd3, Agttd2, Rstlss1, jd3 AlertClm0, Drwsy-1, Lt Sdtn-2, Mod Sdtn-3, Dp Sdtn-4, UnArsble-5 ordered. jd3 21:04 20:48 09/02/2019 20:48 Discharged to Home. Impression: Acute pyelonephritis. Condition jd3 is Stable. Forms are Medication Reconciliation Form, Thank You Letter, Antibiotic Education, Prescription Opioid Use. Follow up: Jose Cunningham; When: Upon discharge from the Emergency Department; Reason: Recheck today's complaints, Continuance of care, Re-evaluation by your physician. Problem is new. Symptoms have improved. tw4
[2019-09-02 21:22] VITALS: TEMP 99.6
[2019-09-02 21:28] VITALS: BP 101/60; O2SAT 97
== END 2019-09-02 21:04 | disposition home or self-care (01) ==
LOC: ER 19:03
DX: N10 Acute pyelonephritis (principal); Z88.0 Allergy status to penicillin; F17.210 Nicotine dependence, cigarettes, uncomplicated
CPT/HCPCS: 87088; 85025; 87086; 80048; 36415; 81025; 80076; 83690; 76377; 74176; J7030; J2405 ×2; 81003; 81015; 96361; 96374; 96375; 99284

== ENCOUNTER 2019-11-07 23:02 | Emergency (ER) | payer OTHER ==
--- OUTSIDE RECORDS SUMMARY | 2019-11-07 23:04 | XMS REPORT | Continuity of Care Document ---
:1975 Author Organization [facility] t Address [address] [place] [address] Dr. Pined[address] [place] [address] Care Team Providers Name Role Phone Dinesh MCCOY Attending Clinician Betito DOWD Attending Clinician Doctor Unassigned, Name Attending Clinician Unavailable Problems This patient has no known problems. Allergies, Adverse Reactions, Alerts This patient has no known allergies or adverse reactions. Medications This patient has no known medications. Procedures This patient has no known procedures. Encounters Start End Encounter Admission Attending Care Care Encounter Source Date/Time Date/Time Type Type Clinicians Facility Department ID 2019-10-24 2019-10-24 Office NAVARRO Montiel [id number] 13:42:32 16:44:36 Visit Alfonso Zarate [id number] [facility] [id number] [facility] [id number] BLDG. [id number] 2019-10-24 2019-10-24 Ancillary NAVARRO Cisse [id number] 14:13:22 16:24:43 Visit Tiffany Tessa [id number] [facility] [id number] [facility] [id number] BLDG. [id number] 2019-10-24 2019-10-24 Orders Doctor JUNIOR [id number] 00:00:00 00:00:00 Only UnassignedBEKA [id number] [place] [facility] [id number] Results This patient has no known results.
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
--- OUTSIDE RECORDS SUMMARY | 2019-11-07 23:05 | XMS REPORT | Summary of Care ---
:1975 Author Organization [facility] - [facility] Address [address] [place] [address] Care Team Providers Name Role Phone Vinnie Aquino Primary Care Provider Reason for Referral (Routine) Status Reason Specialty Diagnoses / Referred By Referred To Procedures Contact Contact Authorized Audiology Procedures Alfonso Montiel MD CONSULT/REFERRAL 301 [facility] AUDIOLOGY [id number] [place] [address] Reason for Visit Reason Comments Loss Of Hearing Establish Care Encounter Details Date Type Department Care Team Description 10/24/[address] [facility] Ear, Nose Alfonso Montiel Bila teral otitis media with effusion (Primary Dx); & Th[facility]at Consultants- Mixed conductive and sensorineural heari ng loss, bilateral; [address] Asymmetrical left sensorineu ral hearing loss; [address] [place] [address]. [id number] Pulsatile tinnitus; [place], [place] Communication impairment [id number] Allergies No Known Allergiesdocumented as of this [...] Date: 10/24/2019 Name: Negin Earl MR No: [id number] Pre-Op Diagnosis- ICD9: ICD-10-CM ICD-9-CM 1. Bilateral [...] 5. Communication impairment F80.9 307.9 Treatment CPT: 29756-69 Bilateral Myringotomy with Tympanostomy with Tube Insertion [...] PM CDT Name: Negin Earl MR No: [id number] Provider: Alfonso Montiel M.D. Date: 10/24/2019 History: [...] (three) times daily as needed for Cough. tzmltssucxwbaga-waaprqlgwjjglez-DX (BROMFED DM) 2-30-10 mg/5 mL syrup Take [...] Description 11/01/2019 Office Visit OB Satellites Res-Colpo/Leep, [facility] 11/28/2019 Ancillary Visit Audiology , [facility] Audio Sound Suite 11/28/2019 Office Visit Otolaryngology Alfonso Montiel M D [address] [facility] [address] [place] [address] Health Maintenance Due Date Last Done [...] Effective Phone Address T ype Group Dates [facility] MEDICAID OF xxxxxxxxx 2019-Pre [phone] [address] [facility] [place] sent [phone] [place] [address] [facility] [id number] 2019-Pres Medica re HEALTHCARE - HEALTHCARE ent Adv HM O MANAGED DUAL COMPLETE MEDICARE HMO documented as of this encounter
--- OUTSIDE RECORDS SUMMARY | 2019-11-07 23:06 | XMS REPORT | Summary of Care ---
:1975 Author Organization [facility] Address [address] [place] [address] Care Team Providers Name Role Phone Vinnie Aquino Primary Care Provider Reason for Visit Reason Comments Loss Of Hearing (Routine) Status Reason Specialty Diagnoses / Referred By Referred To Procedures Contact Contact Authorized Audiology Procedures Alfonso Montiel MD CONSULT/REFERRAL 301 [facility] AUDIOLOGY [id number] [place] [address] Encounter Details Date Type Department Care Team Description 10/24/2019 Ancillary Visit [facility] Cntr Tiffany Cisse, NOEMÍ Bilateral hearing for Audiology & [address] loss, unspecified Speech [place], [place] [address] [facility] [phone] (Primary Dx) [address] [place] [address] [place] [address] Allergies No Known Allergiesdocumented as of this [...] Signs Not on filedocumented in this encounter Progress Notes Tiffany Cisse AUD - 10/24/2019 1:45 PM CDTAudiogram/Hearing Evaluation will be scanned and will be available in Chart Review under the Procedures tab. Mando Lopez, [facility]-A Clinical Audiologist documented in this encounter Plan of Treatment Date Type Specialty Care Team Description 11/01/2019 Office Visit OB Satellites Res-Colpo/Leep, [facility]-R[facility] 11/28/2019 Ancillary Visit Audiology 1, [facility] Audio Sound Suite 11/28/2019 Office Visit Otolaryngology Alfonso Montiel M D [address] [place] [address] Health Maintenance Due Date Last Done [...] in this encounter Visit Diagnoses Diagnosis Bilateral hearing loss, unspecified hear ing loss type - Primary documented in this encounter Insurance Payer Benefit Plan / Subscriber ID Effective Phone Address T ype Group Dates [facility] MEDICAID OF xxxxxxxxx 2019-Pre [phone] Medi caid [place] sent [phone] [place] [address] [facility] [id number] 2019-Pres Medica re HEALTHCARE - HEALTHCARE ent Adv HM O MANAGED DUAL COMPLETE MEDICARE HMO documented as of this encounter
--- OUTSIDE RECORDS SUMMARY | 2019-11-07 23:06 | XMS REPORT | Summary of Care ---
:1975 Author Organization [facility] - Health Address [address] [place] [address] Care Team Providers Name Role Phone Miles Vinnie Pineda Primary Care Provider Encounter Details Date Type Department Care Team Description 10/24/2019 Orders Only [facility] Doctor Unassigned, No [address] [facility] [address] [address] [place] [address] Allergies No Known Allergiesdocumented as of this encounter (statuses as of 10/26/2019) Medications Medication Sig Dispensed Refills Start Date [...] as of this encounter (statuses as of 10/26/2019) Active Problems Problem Noted Date Atypical squamous cell changes of undetermined signifi cance (ASCUS) on 06/06/2019 cervical cytology with positive high risk human papill mihaeal virus (HPV) Overview: See scanned results 03/2019 [...] as of this encounter (statuses as of 10/26/2019) Immunizations Name Administration Dates Next Due Td [...] Description 11/01/2019 Office Visit OB [facility]ell[facility], [facility] 11/28/2019 Ancillary Visit Audiology , [facility] 11/28/2019 Office Visit Otolaryngology Alfonso Montiel M D [address] [place] [id number] Health Maintenance Due Date Last Done [...] Name Priority Date/Time Associated Diagnosis Comme nts DISCLOSURE AND CONSENT, Routine 10/24/2019 12:01 AM MEDICAL AND SURGICAL CDT PROCEDURES documented in this encounter Results Not on filedocumented in this encounter Insurance Payer Benefit Plan / Subscriber ID Effective Phone Address T ype Group Dates [facility] [id number] 2019-Pres Medica re HEALTHCARE - HEALTHCARE ent Adv HM O MANAGED DUAL COMPLETE MEDICARE HMO [employer] MEDICAID OF xxxxxxxxx 2019-Pre [phone] [place] [place] [phone] [place] [address] documented as of this encounter
--- NOTE | 2019-11-08 00:20 | ER ---
Nurse's Notes [facility] Name: Negin Earl Age: 44 yrs Sex: Female : 1975 Arrival Date: 11/07/2019 Time: 23:05 Bed Waiting Private MD: Diagnosis: Presentation: 11/06 23:30 Chief complaint: Patient states: Bit by a spider 2 days ago to right forearm; abscess lp1 noted to right forearm, no drainage at this time. Coronavirus screen: Proceed with normal triage. Ebola Screen: No symptoms or risks identified at this time. Initial Sepsis Screen: Does the patient meet any 2 criteria? No. Patient's initial sepsis screen is negative. Does the patient have a suspected source of infection? No. Patient's initial sepsis screen is negative. Risk Assessment: Do you want to hurt yourself or someone else? Patient reports no desire to harm self or others. Onset of symptoms was November 05, 2019. 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 Vital Signs: 23:30 BP 110 / 60; Pulse 85; Resp 18; Temp 98.1(TE); Pulse Ox 98% on R/A; Weight 95.25 kg lp1 (R); Height 5 ft. 6 in. (167.64 cm); 23:30 Body Mass Index 33.89 (95.25 kg, 167.64 cm) lp1 ED Course: 23:05 Patient arrived in ED. cl3 23:31 Triage completed. lp1 Administered Medications: No medications were administered Outcome: 11/07 00:19 Patient left the ED. lp1 Signatures: Pilar Ely RN RN lp1 Michael Qiu cl3
[2019-11-08 01:02] VITALS: BP 110/60; TEMP 98.1; O2SAT 98
== END 2019-11-08 00:19 | disposition left against medical advice (07) ==
LOC: ER 23:02
DX: Z53.21 Procedure and treatment not carried out due to patient leaving prior to being seen by health care provider (principal)
CPT/HCPCS: 99281

== ENCOUNTER 2021-09-08 15:05 | Emergency (ER) | payer OTHER ==
--- OUTSIDE RECORDS SUMMARY | 2021-09-08 15:15 | XMS REPORT | Continuity of Care Document ---
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 HCl 2-04 mouth. ity of (CYMBALTA 21:22: [place] ORAL) [address] [place] [address] VITAMIN B 2018-05 Yes Take by [facility] COMPLEX 2-04 mouth. ity of ORAL 21:22: [address] FLUOXETINE 2018-05 Yes 30mg Take 30 mg [facility] nivers HCL (PROZAC 2-04 by mouth. ity of ORAL) 21:22: [address] hydrOXYzine 2018-05 Yes 50mg Take 50 mg [facility] (VISTARIL) 2-04 by mouth 3 ity of 50 mg 21:22: (three) [place] capsule 35 times Medical daily as Branch needed for Itching. DOCUSATE 2018-05 Yes Take by [facility] rs CALCIUM 2-04 mouth. ity of (STOOL 21:22: [place] [facility] Medical ORAL) Branch POT 2018-05 Yes Take by [facility] BICARB/POTA 2-04 mouth ity of SSIUM 21:22: daily. [place] [facility] Medical (POTASSIUM Branch BICARBONATE ORAL) POT 2018- Yes Take by [facility] BICARB/POTA 2-04 mouth ity of SSIUM 21:22: daily. [place] [facility] Medical (POTASSIUM Branch BICARBONATE ORAL) bupropion 2018- Yes Take by [facility] HCl 2-04 mouth. ity of (WELLBUTRIN 21:22: [place] ORAL) [address] [place] [address] Branch buspirone 2018- Yes Take by [facility] HCl (BUSPAR 2-04 mouth. ity of ORAL) 21:22: [address] duloxetine 2018- Yes Take by Uni vers HCl 2-04 mouth. ity of (CYMBALTA 21:22: [place] ORAL) [address] [place] [address] VITAMIN B 2018- Yes Take by [facility] COMPLEX 2-04 mouth. ity of ORAL 21:22: [address] FLUOXETINE 2018-05 Yes 30mg Take 30 mg [facility] nivers HCL (PROZAC 2-04 by mouth. ity of ORAL) 21:22: [address] hydrOXYzine 2018- Yes 50mg Take 50 mg [facility] (VISTARIL) 2-04 by mouth 3 ity of 50 mg 21:22: (three) [place] capsule 35 times Medical daily as Branch needed for Itching. DOCUSATE 2018- Yes Take by [facility] rs CALCIUM 2-04 mouth. ity of (STOOL 21:22: [place] [facility] 35 Medical ORAL) Branch POT 2018-05 Yes Take by [facility] BICARB/POTA 2-04 mouth ity of SSIUM 21:22: daily. [place] [facility] Medical (POTASSIUM Branch BICARBONATE ORAL) bupropion 2018- Yes Take by [facility] ers HCl 2-04 mouth. ity of (WELLBUTRIN 21:22: [place] ORAL) [address] [place] [address] buspirone 2018- Yes Take by [facility] HCl (BUSPAR 2-04 mouth. ity of ORAL) 21:22: [address] duloxetine 2018- Yes Take by Uni vers HCl 2-04 mouth. ity of (CYMBALTA 21:22: [place] ORAL) [address] [place] [address] VITAMIN B 2018- Yes Take by [facility] COMPLEX 2-04 mouth. ity of ORAL 21:22: [address] FLUOXETINE 2018-05 Yes 30mg Take 30 mg [facility] nivers HCL (PROZAC 2-04 by mouth. ity of ORAL) 21:22: [address] Branch hydrOXYzine 2018-05 Yes 50mg Take 50 mg [facility] (VISTARIL) 2-04 by mouth 3 ity of 50 mg 21:22: (three) [place] capsule 35 times Medical daily as Branch needed for Itching. DOCUSATE 2018-05 Yes Take by [facility] rs CALCIUM 2-04 mouth. ity of (STOOL 21:22: [place] [facility] Medical ORAL) Branch POT 2018-05 Yes Take by [facility] BICARB/POTA 2-04 mouth ity of SSIUM 21:22: daily. [place] [facility] Medical (POTASSIUM Branch BICARBONATE ORAL) bupropion 2018-05 Yes Take by [facility] ers HCl 2-04 mouth. ity of (WELLBUTRIN 21:22: [place] ORAL) [address] [place] [address] Branch buspirone 2018-05 Yes Take by [facility] HCl (BUSPAR 2-04 mouth. ity of ORAL) 21:22: [address] duloxetine 2018-05 Yes Take by Uni vers HCl 2-04 mouth. ity of (CYMBALTA 21:22: [place] ORAL) [address] [place] [address] Branch bupropion 2018-05 Yes Take by [facility] HCl 2-04 mouth. ity of (WELLBUTRIN 21:22: [place] ORAL) [address] [place] [address] Branch buspirone 2018-05 Yes Take by [facility] ers HCl (BUSPAR 2-04 mouth. ity of ORAL) 21:22: [address] VITAMIN B 2018-05 Yes Take by [facility] COMPLEX 2-04 mouth. ity of ORAL 21:22: [address] FLUOXETINE 2018-05 Yes 30mg Take 30 mg U nivers HCL (PROZAC 2-04 by mouth. ity of ORAL) 21:22: [address] Branch hydrOXYzine 2018-05 Yes 50mg Take 50 mg [facility] (VISTARIL) 2-04 by mouth 3 ity of 50 mg 21:22: (three) [place] capsule 35 times Medical daily as Branch needed for Itching. DOCUSATE 2018-05 Yes Take by [facility] rs CALCIUM 2-04 mouth. ity of (STOOL 21:22: [place] [facility] Medical ORAL) Branch POT 2018-05 Yes Take by [facility] BICARB/POTA 2-04 mouth ity of SSIUM 21:22: daily. [place] [facility] Medical (POTASSIUM Branch BICARBONATE ORAL) duloxetine 2018-05 Yes Take by Uni vers HCl 2-04 mouth. ity of (CYMBALTA 21:22: [place] ORAL) [address] [place] [address] Branch bupropion 2018- Yes Take by [facility] HCl 2-04 mouth. ity of (WELLBUTRIN 21:22: [place] ORAL) [address] [place] [address] Branch buspirone 2018-05 Yes Take by [facility] HCl (BUSPAR 2-04 mouth. ity of ORAL) 21:22: [address] duloxetine 2018- Yes Take by Uni vers HCl 2-04 mouth. ity of (CYMBALTA 21:22: [place] ORAL) [address] [place] [address] VITAMIN B 2018-05 Yes Take by [facility] COMPLEX 2-04 mouth. ity of ORAL 21:22: [address] FLUOXETINE 2018-05 Yes 30mg Take 30 mg U nivers HCL (PROZAC 2-04 by mouth. ity of ORAL) 21:22: [address] hydrOXYzine 2018-05 Yes 50mg Take 50 mg [facility] (VISTARIL) 2-04 by mouth 3 ity of 50 mg 21:22: (three) [place] capsule 35 times Medical daily as Branch needed for Itching. DOCUSATE 2018-05 Yes Take by [facility] rs CALCIUM 2-04 mouth. ity of (STOOL 21:22: [place] [facility] Medical ORAL) Branch POT 2018-05 Yes Take by [facility] BICARB/POTA 2-04 mouth ity of SSIUM 21:22: daily. [place] [facility] (POTASSIUM Branch BICARBONATE ORAL) bupropion 2018-05 Yes Take by [facility] HCl 2-04 mouth. ity of (WELLBUTRIN 21:22: [place] ORAL) [address] [place] [address] buspirone 2018-05 Yes Take by [facility] ers HCl (BUSPAR 2-04 mouth. ity of ORAL) 21:22: [address] duloxetine 2018- Yes Take by Uni vers HCl 2-04 mouth. ity of (CYMBALTA 21:22: [place] ORAL) [address] [place] [address] VITAMIN B 2018- Yes Take by [facility] COMPLEX 2-04 mouth. ity of ORAL 21:22: [address] FLUOXETINE 2018-05 Yes 30mg Take 30 mg U nivers HCL (PROZAC 2-04 by mouth. ity of ORAL) 21:22: [address] hydrOXYzine 2018- Yes 50mg Take 50 mg [facility] (VISTARIL) 2-04 by mouth 3 ity of 50 mg 21:22: (three) [place] capsule 35 times Medical daily as Branch needed for Itching. DOCUSATE 2018-05 Yes Take by [facility] rs CALCIUM 2-04 mouth. ity of (STOOL 21:22: [place] SOFT[facility] 35 Medical ORAL) Branch POT 2018-05 Yes Take by [facility] BICARB/POTA 2-04 mouth ity of SSIUM 21:22: daily. [place] [facility] (POTASSIUM Branch BICARBONATE ORAL) bupropion 2018- Yes Take by [facility] HCl 2-04 mouth. ity of (WELLBUTRIN 21:22: [place] ORAL) [address] [place] [address] Branch buspirone 2018- Yes Take by [facility] ers HCl (BUSPAR 2-04 mouth. ity of ORAL) 21:22: [address] duloxetine 2018-05 Yes Take by Uni vers HCl 2-04 mouth. ity of (CYMBALTA 21:22: [place] ORAL) [address] [place] [address] VITAMIN B 2018- Yes Take by [facility] COMPLEX 2-04 mouth. ity of ORAL 21:22: [address] FLUOXETINE 2018- Yes 30mg Take 30 mg U nivers HCL (PROZAC 2-04 by mouth. ity of ORAL) 21:22: [address] hydrOXYzine 2018- Yes 50mg Take 50 mg Univers (VISTARIL) 2-04 by mouth 3 ity of 50 mg 21:22: (three) [place] capsule 35 times Medical daily as Branch needed for Itching. DOCUSATE 2018-05 Yes Take by [facility] rs CALCIUM 2-04 mouth. ity of (STOOL 21:22: [place] [facility] Medical ORAL) Branch POT 2018-05 Yes Take by [facility] BICARB/POTA 2-04 mouth ity of SSIUM 21:22: daily. [place] [facility] (POTASSIUM Branch BICARBONATE ORAL) VITAMIN B 2018- Yes Take by [facility] COMPLEX 2-04 mouth. ity of ORAL 21:22: [address] bupropion 2018- Yes Take by [facility] HCl 2-04 mouth. ity of (WELLBUTRIN 21:22: [place] ORAL) [address] [place] [address] Branch buspirone 2018- Yes Take by [facility] ers HCl (BUSPAR 2-04 mouth. ity of ORAL) 21:22: [address] Branch duloxetine 2018-05 Yes Take by Uni vers HCl 2-04 mouth. ity of (CYMBALTA 21:22: [place] ORAL) [address] [place] [address] Branch VITAMIN B 2018- Yes Take by [facility] COMPLEX 2-04 mouth. ity of ORAL 21:22: [address] FLUOXETINE 2018-05 Yes 30mg Take 30 mg U nivers HCL (PROZAC 2-04 by mouth. ity of ORAL) 21:22: [address] FLUOXETINE 2018- Yes 30mg Take 30 mg U nivers HCL (PROZAC 2-04 by mouth. ity of ORAL) 21:22: [address] hydrOXYzine 2018-05 Yes 50mg Take 50 mg [facility] (VISTARIL) 2-04 by mouth 3 ity of 50 mg 21:22: (three) [place] capsule 35 times Medical daily as Branch needed for Itching. DOCUSATE 2018-05 Yes Take by Unive rs CALCIUM 2-04 mouth. ity of (STOOL 21:22: [place] [facility] Medical ORAL) Branch POT 2018-05 Yes Take by [facility] BICARB/POTA 2-04 mouth ity of SSIUM 21:22: daily. [place] [facility] Medical (POTASSIUM Branch BICARBONATE ORAL) hydrOXYzine 2018-05 Yes 50mg Take 50 mg Univers (VISTARIL) 2-04 by mouth 3 ity of 50 mg 21:22: (three) [place] capsule 35 times Medical daily as Branch needed for Itching. bupropion 2018- Yes Take by [facility] HCl 2-04 mouth. ity of (WELLBUTRIN 21:22: [place] ORAL) [address] [place] [address] Branch buspirone 2018- Yes Take by [facility] HCl (BUSPAR 2-04 mouth. ity of ORAL) 21:22: [address] Branch duloxetine 2018- Yes Take by Uni vers HCl 2-04 mouth. ity of (CYMBALTA 21:22: [place] ORAL) [address] [place] [address] Branch DOCUSATE 2018-05 Yes Take by [facility]ive rs CALCIUM 2-04 mouth. ity of (STOOL 21:22: [place] [facility] Medical ORAL) Branch POT 2018-05 Yes Take by [facility] BICARB/POTA 2-04 mouth ity of SSIUM 21:22: daily. [place] [facility] Medical (POTASSIUM Branch BICARBONATE ORAL) bupropion 2018- Yes Take by [facility] HCl 2-04 mouth. ity of (WELLBUTRIN 21:22: [place] ORAL) [address] [place] [address] Branch buspirone 2018-05 Yes Take by [facility] ers HCl (BUSPAR 2-04 mouth. ity of ORAL) 21:22: [address] duloxetine 2018-05 Yes Take by Uni vers HCl 2-04 mouth. ity of (CYMBALTA 21:22: [place] ORAL) [address] [place] [address] VITAMIN B 2018-05 Yes Take by [facility] ers COMPLEX 2-04 mouth. ity of ORAL 21:22: [address] FLUOXETINE 2018-05 Yes 30mg Take 30 mg U nivers HCL (PROZAC 2-04 by mouth. ity of ORAL) 21:22: [address] hydrOXYzine 2018-05 Yes 50mg Take 50 mg [facility] (VISTARIL) 2-04 by mouth 3 ity of 50 mg 21:22: (three) [place] capsule 35 times Medical daily as Branch needed for Itching. DOCUSATE 2018-05 Yes Take by [facility] rs CALCIUM 2-04 mouth. ity of (STOOL 21:22: [place] [facility] Medical ORAL) Branch POT 2018-05 Yes Take by [facility] BICARB/POTA 2-04 mouth ity of SSIUM 21:22: daily. [place] [facility] (POTASSIUM Branch BICARBONATE ORAL) bupropion 2018-05 Yes Take by [facility] HCl 2-04 mouth. ity of (WELLBUTRIN 21:22: [place] ORAL) [address] [place] [address] buspirone 2018-05 Yes Take by [facility] HCl (BUSPAR 2-04 mouth. ity of ORAL) 21:22: [address] duloxetine 2018-05 Yes Take by [facility] vers HCl 2-04 mouth. ity of (CYMBALTA 21:22: [place] ORAL) [address] [place] [address] VITAMIN B 2018- Yes Take by [facility] COMPLEX 2-04 mouth. ity of ORAL 21:22: [address] FLUOXETINE 2018- Yes 30mg Take 30 mg U nivers HCL (PROZAC 2-04 by mouth. ity of ORAL) 21:22: [address] hydrOXYzine 2018-05 Yes 50mg Take 50 mg [facility] (VISTARIL) 2-04 by mouth 3 ity of 50 mg 21:22: (three) [place] capsule 35 times Medical daily as Branch needed for Itching. DOCUSATE 2019- Yes Take by [facility]ive rs CALCIUM 2-04 mouth. ity of (STOOL 21:22: [place] SOFTENER 35 Medical ORAL) Branch POT 2019- Yes Take by [facility] BICARB/POTA 2-04 mouth ity of SSIUM 21:22: daily. [place] [facility] (POTASSIUM Branch BICARBONATE ORAL) bupropion 2018- Yes Take by [facility] ers HCl 2-04 mouth. ity of (WELLBUTRIN 21:22: [place] ORAL) 35 Medical Branch buspirone 2018- Yes Take by [facility] ers HCl (BUSPAR 2-04 mouth. ity of ORAL) 21:22: [place] [address] Medical Branch duloxetine 2018- Yes Take by Uni vers HCl 2-04 mouth. ity of (CYMBALTA 21:22: [place] ORAL) 35 Medical Branch QUEtiapine 2018-0 Yes 50mg Take 1 Unive rs (SEROQUEL) 8-22 tablet by ity of 50 mg 00:00: mouth 2 [place] tablet 00 (two) Medical times Branch daily. QUEtiapine 2018-0 Yes 50mg Take 1 Unive rs (SEROQUEL) 8-22 tablet by ity of 50 mg 00:00: mouth 2 [place] tablet 00 (two) Medical times Branch daily. QUEtiapine 2018-0 Yes 50mg Take 1 Unive rs (SEROQUEL) 8-22 tablet by ity of 50 mg 00:00: mouth 2 [place] tablet 00 (two) Medical times Branch daily. QUEtiapine 2018-0 Yes 50mg Take 1 Unive rs (SEROQUEL) 8-22 tablet by ity of 50 mg 00:00: mouth 2 [place] tablet 00 (two) Medical times Branch daily. QUEtiapine 2018-0 Yes 50mg Take 1 Unive rs (SEROQUEL) 8-22 tablet by ity of 50 mg 00:00: mouth 2 [place] tablet 00 (two) Medical times Branch daily. QUEtiapine 2018-0 Yes 50mg Take 1 Unive rs (SEROQUEL) 8-22 tablet by ity of 50 mg 00:00: mouth 2 [place] tablet 00 (two) Medical times Branch daily. QUEtiapine 2018-0 Yes 50mg Take 1 Unive rs (SEROQUEL) 8-22 tablet by ity of 50 mg 00:00: mouth 2 [place] tablet 00 (two) Medical times Branch daily. QUEtiapine 2018-0 Yes 50mg Take 1 Unive rs (SEROQUEL) 8-22 tablet by ity of 50 mg 00:00: mouth 2 [place] tablet 00 (two) Medical times Branch daily. QUEtiapine 2018-0 Yes 50mg Take 1 Unive rs (SEROQUEL) 8-22 tablet by ity of 50 mg 00:00: mouth 2 [place] tablet 00 (two) Medical times Branch daily. QUEtiapine 2018-0 Yes 50mg Take 1 Unive rs (SEROQUEL) 8-22 tablet by ity of 50 mg 00:00: mouth 2 [place] tablet 00 (two) Medical times Branch daily. QUEtiapine 2018-0 Yes 50mg Take 1 Unive rs (SEROQUEL) 8-22 tablet by ity of 50 mg 00:00: mouth 2 [place] tablet 00 (two) Medical times Branch daily. QUEtiapine 2018-0 Yes 50mg Take 1 Unive rs (SEROQUEL) 8-22 tablet by ity of 50 mg 00:00: mouth 2 [place] tablet 00 (two) Medical times Branch daily. QUEtiapine 2018-0 Yes 50mg Take 1 Unive rs (SEROQUEL) 8-22 tablet by ity of 50 mg 00:00: mouth 2 [place] tablet 00 (two) Medical times Branch daily. QUEtiapine 2018-0 Yes 50mg Take 1 Unive rs (SEROQUEL) 8-22 tablet by ity of 50 mg 00:00: mouth 2 [place] tablet 00 (two) Medical times Branch daily. QUEtiapine 2018-0 Yes 50mg Take 1 Unive rs (SEROQUEL) 8-22 tablet by ity of 50 mg 00:00: mouth 2 [place] tablet 00 (two) Medical times Branch daily. QUEtiapine 2018-0 Yes 50mg Take 1 Unive rs (SEROQUEL) 8-22 tablet by ity of 50 mg 00:00: mouth 2 [place] tablet 00 (two) Medical times Branch daily. QUEtiapine 2018-0 Yes 50mg Take 1 Unive rs (SEROQUEL) 8-22 tablet by ity of 50 mg 00:00: mouth 2 [place] tablet 00 (two) Medical times Branch daily. QUEtiapine 2018-0 Yes 50mg Take 1 Unive rs (SEROQUEL) 8-22 tablet by ity of 50 mg 00:00: mouth 2 [place] tablet 00 (two) Medical times Branch daily. QUEtiapine 2018-0 Yes 50mg Take 1 Unive rs (SEROQUEL) 8-22 tablet by ity of 50 mg 00:00: mouth 2 [place] tablet 00 (two) Medical times Branch daily. QUEtiapine 2018-0 Yes 50mg Take 1 Unive rs (SEROQUEL) 8-22 tablet by ity of 50 mg 00:00: mouth 2 [place] tablet 00 (two) Medical times Branch daily. QUEtiapine 2018-0 Yes 50mg Take 1 Unive rs (SEROQUEL) 8-22 tablet by ity of 50 mg 00:00: mouth 2 [place] tablet 00 (two) Medical times Branch daily. QUEtiapine 2018-0 Yes 50mg Take 1 Unive rs (SEROQUEL) 8-22 tablet by ity of 50 mg 00:00: mouth 2 [place] tablet 00 (two) Medical times Branch daily. QUEtiapine 2018-0 Yes 50mg Take 1 Unive rs (SEROQUEL) 8-22 tablet by ity of 50 mg 00:00: mouth 2 [place] tablet 00 (two) Medical times Branch daily. traMADOL 50 2018-0 Yes 50mg Take 1 Univ ers mg tablet 5-09 tablet by ity o f 00:00: mouth [place] 00 every 6 Medical (six) Branch hours as needed for Pain (scale 7-10). ibuprofen 2018-0 Yes 800mg Take 1 Unive rs 800 mg 5-09 tablet by ity of tablet 00:00: mouth 3 [place] 00 (three) Medical times Branch daily with meals. proMETHazin 2018-0 Yes 25mg Take 1 Univ ers e 25 mg 5-09 tablet by ity of tablet 00:00: mouth [place] 00 every 6 Medical (six) Branch hours as needed for Nausea and Vomiting (N/V). traMADOL 50 2018-0 Yes 50mg Take 1 [facility] ers mg tablet 5-09 tablet by ity o f 00:00: mouth [place] 00 every 6 Medical (six) Branch hours as needed for Pain (scale 7-10). ibuprofen 2018-0 Yes 800mg Take 1 Unive rs 800 mg 5-09 tablet by ity of tablet 00:00: mouth 3 [place] 00 (three) Medical times Branch daily with meals. proMETHazin 2018-0 Yes 25mg Take 1 [facility] ers e 25 mg 5-09 tablet by ity of tablet 00:00: mouth [place] 00 every 6 Medical (six) Branch hours as needed for Nausea and Vomiting (N/V). traMADOL 50 2018-0 Yes 50mg Take 1 [facility] ers mg tablet 5-09 tablet by ity o f 00:00: mouth [place] 00 every 6 Medical (six) Branch hours as needed for Pain (scale 7-10). ibuprofen 2018-0 Yes 800mg Take 1 Unive rs 800 mg 5-09 tablet by ity of tablet 00:00: mouth 3 [place] 00 (three) Medical times Branch daily with meals. proMETHazin 2018-0 Yes 25mg Take 1 [facility] ers e 25 mg 5-09 tablet by ity of tablet 00:00: mouth [place] 00 every 6 Medical (six) Branch hours as needed for Nausea and Vomiting (N/V). traMADOL 50 2018-0 Yes 50mg Take 1 [facility] ers mg tablet 5-09 tablet by ity o f 00:00: mouth [place] 00 every 6 Medical (six) Branch hours as needed for Pain (scale 7-10). ibuprofen 2018-0 Yes 800mg Take 1 Unive rs 800 mg 5-09 tablet by ity of tablet 00:00: mouth 3 00 (three) Medical times Branch daily with meals. proMETHazin 2018-0 Yes 25mg Take 1 [facility] ers e 25 mg 5-09 tablet by ity of tablet 00:00: mouth [place] 00 every 6 Medical (six) Branch hours as needed for Nausea and Vomiting (N/V). traMADOL 50 2018-0 Yes 50mg Take 1 [facility] ers mg tablet 5-09 tablet by ity o f 00:00: mouth [place] 00 every 6 Medical (six) Branch hours as needed for Pain (scale 7-10). ibuprofen 2018-0 Yes 800mg Take 1 Unive rs 800 mg 5-09 tablet by ity of tablet 00:00: mouth 3 00 (three) Medical times Branch daily with meals. proMETHazin 2018-0 Yes 25mg Take 1 Univ ers e 25 mg 5-09 tablet by ity of tablet 00:00: mouth [place] 00 every 6 Medical (six) Branch hours as needed for Nausea and Vomiting (N/V). traMADOL 50 2018-0 Yes 50mg Take 1 Univ ers mg tablet 5-09 tablet by ity o f 00:00: mouth [place] 00 every 6 Medical (six) Branch hours as needed for Pain (scale 7-10). ibuprofen 2018-0 Yes 800mg Take 1 Unive rs 800 mg 5-09 tablet by ity of tablet 00:00: mouth 3 [place] 00 (three) Medical times Branch daily with meals. proMETHazin 2018-0 Yes 25mg Take 1 [facility] ers e 25 mg 5-09 tablet by ity of tablet 00:00: mouth [place] 00 every 6 Medical (six) Branch hours as needed for Nausea and Vomiting (N/V). traMADOL 50 2018-0 Yes 50mg Take 1 [facility] ers mg tablet 5-09 tablet by ity o f 00:00: mouth [place] 00 every 6 Medical (six) Branch hours as needed for Pain (scale 7-10). ibuprofen 2018-0 Yes 800mg Take 1 Unive rs 800 mg 5-09 tablet by ity of tablet 00:00: mouth 3 [place] 00 (three) Medical times Branch daily with meals. proMETHazin 2018-0 Yes 25mg Take 1 Univ ers e 25 mg 5-09 tablet by ity of tablet 00:00: mouth [place] 00 every 6 Medical (six) Branch hours as needed for Nausea and Vomiting (N/V). traMADOL 50 2018-0 Yes 50mg Take 1 [facility] ers mg tablet 5-09 tablet by ity o f 00:00: mouth [place] 00 every 6 Medical (six) Branch hours as needed for Pain (scale 7-10). ibuprofen 2018-0 Yes 800mg Take 1 Unive rs 800 mg 5-09 tablet by ity of tablet 00:00: mouth 3 [place] 00 (three) Medical times Branch daily with meals. proMETHazin 2018-0 Yes 25mg Take 1 [facility] ers e 25 mg 5-09 tablet by ity of tablet 00:00: mouth [place] 00 every 6 Medical (six) Branch hours as needed for Nausea and Vomiting (N/V). traMADOL 50 2018-0 Yes 50mg Take 1 [facility] ers mg tablet 5-09 tablet by ity o f 00:00: mouth [place] 00 every 6 Medical (six) Branch hours as needed for Pain (scale 7-10). ibuprofen 2018-0 Yes 800mg Take 1 Unive rs 800 mg 5-09 tablet by ity of tablet 00:00: mouth 3 [place] 00 (three) Medical times Branch daily with meals. proMETHazin 2018-0 Yes 25mg Take 1 [facility] e 25 mg 5-09 tablet by ity of tablet 00:00: mouth [place] 00 every 6 Medical (six) Branch hours as needed for Nausea and Vomiting (N/V). traMADOL 50 2018-0 Yes 50mg Take 1 [facility] ers mg tablet 5-09 tablet by ity o f 00:00: mouth [place] 00 every 6 Medical (six) Branch hours as needed for Pain (scale 7-10). traMADOL 50 2018-0 Yes 50mg Take 1 [facility] ers mg tablet 5-09 tablet by ity o f 00:00: mouth [place] 00 every 6 Medical (six) Branch hours as needed for Pain (scale 7-10). ibuprofen 2018-0 Yes 800mg Take 1 Unive rs 800 mg 5-09 tablet by ity of tablet 00:00: mouth 3 [place] 00 (three) Medical times Branch daily with meals. ibuprofen 2018-0 Yes 800mg Take 1 Unive rs 800 mg 5-09 tablet by ity of tablet 00:00: mouth 3 [place] 00 (three) Medical times Branch daily with meals. proMETHazin 2018-0 Yes 25mg Take 1 [facility] ers e 25 mg 5-09 tablet by ity of tablet 00:00: mouth [place] 00 every 6 Medical (six) Branch hours as needed for Nausea and Vomiting (N/V). proMETHazin 2018-0 Yes 25mg Take 1 [facility] ers e 25 mg 5-09 tablet by ity of tablet 00:00: mouth [place] 00 every 6 Medical (six) Branch hours as needed for Nausea and Vomiting (N/V). traMADOL 50 2018-0 Yes 50mg Take 1 [facility] ers mg tablet 5-09 tablet by ity o f 00:00: mouth [place] 00 every 6 Medical (six) Branch hours as needed for Pain (scale 7-10). ibuprofen 2018-0 Yes 800mg Take 1 Unive rs 800 mg 5-09 tablet by ity of tablet 00:00: mouth 3 [place] 00 (three) Medical times Branch daily with meals. proMETHazin 2018-0 Yes 25mg Take 1 [facility] ers e 25 mg 5-09 tablet by ity of tablet 00:00: mouth [place] 00 every 6 Medical (six) Branch hours as needed for Nausea and Vomiting (N/V). traMADOL 50 2018-0 Yes 50mg Take 1 [facility] ers mg tablet 5-09 tablet by ity o f 00:00: mouth [place] 00 every 6 Medical (six) Branch hours as needed for Pain (scale 7-10). ibuprofen 2018-0 Yes 800mg Take 1 Unive rs 800 mg 5-09 tablet by ity of tablet 00:00: mouth 3 [place] 00 (three) Medical times Branch daily with meals. proMETHazin 2018-0 Yes 25mg Take 1 Univ ers e 25 mg 5-09 tablet by ity of tablet 00:00: mouth [place] 00 every 6 Medical (six) Branch hours as needed for Nausea and Vomiting (N/V). traMADOL 50 2018-0 Yes 50mg Take 1 [facility] ers mg tablet 5-09 tablet by ity o f 00:00: mouth [place] 00 every 6 Medical (six) Branch hours as needed for Pain (scale 7-10). ibuprofen 2018-0 Yes 800mg Take 1 Un[facility] rs 800 mg 5-09 tablet by ity of tablet 00:00: mouth 3 [place] 00 (three) Medical times Branch daily with meals. proMETHazin 2018-0 Yes 25mg Take 1 [facility] ers e 25 mg 5-09 tablet by ity of tablet 00:00: mouth [place] 00 every 6 Medical (six) Branch hours as needed for Nausea and Vomiting (N/V). traMADOL 50 2018-0 Yes 50mg Take 1 [facility] ers mg tablet 5-09 tablet by ity o f 00:00: mouth [place] 00 every 6 Medical (six) Branch hours as needed for Pain (scale 7-10). ibuprofen 2018-0 Yes 800mg Take 1 Un[facility] rs 800 mg 5-09 tablet by ity of tablet 00:00: mouth 3 [place] 00 (three) Medical times Branch daily with meals. proMETHazin 2018-0 Yes 25mg Take 1 [facility] ers e 25 mg 5-09 tablet by ity of tablet 00:00: mouth [place] 00 every 6 Medical (six) Branch hours as needed for Nausea and Vomiting (N/V). traMADOL 50 2018-0 Yes 50mg Take 1 Univ ers mg tablet 5-09 tablet by ity o f 00:00: mouth [place] 00 every 6 Medical (six) Branch hours as needed for Pain (scale 7-10). ibuprofen 2018-0 Yes 800mg Take 1 [facility] rs 800 mg 5-09 tablet by ity of tablet 00:00: mouth 3 [place] 00 (three) Medical times Branch daily with meals. proMETHazin 2018-0 Yes 25mg Take 1 Univ ers e 25 mg 5-09 tablet by ity of tablet 00:00: mouth [place] 00 every 6 Medical (six) Branch hours as needed for Nausea and Vomiting (N/V). traMADOL 50 2018-0 Yes 50mg Take 1 Univ ers mg tablet 5-09 tablet by ity o f 00:00: mouth [place] 00 every 6 Medical (six) Branch hours as needed for Pain (scale 7-10). ibuprofen 2018-0 Yes 800mg Take 1 [facility] rs 800 mg 5-09 tablet by ity of tablet 00:00: mouth 3 [place] 00 (three) Medical times Branch daily with meals. proMETHazin 2018-0 Yes 25mg Take 1 [facility] ers e 25 mg 5-09 tablet by ity of tablet 00:00: mouth [place] 00 every 6 Medical (six) Branch hours as needed for Nausea and Vomiting (N/V). traMADOL 50 2018-0 Yes 50mg Take 1 Univ ers mg tablet 5-09 tablet by ity o f 00:00: mouth [place] 00 every 6 Medical (six) Branch hours as needed for Pain (scale 7-10). ibuprofen 2018-0 Yes 800mg Take 1 [facility] rs 800 mg 5-09 tablet by ity of tablet 00:00: mouth 3 00 (three) Medical times Branch daily with meals. proMETHazin 2018-0 Yes 25mg Take 1 [facility] ers e 25 mg 5-09 tablet by ity of tablet 00:00: mouth [place] 00 every 6 Medical (six) Branch hours as needed for Nausea and Vomiting (N/V). traMADOL 50 2018-0 Yes 50mg Take 1 Univ ers mg tablet 5-09 tablet by ity o f 00:00: mouth [place] 00 every 6 Medical (six) Branch hours as needed for Pain (scale 7-10). ibuprofen 2018-0 Yes 800mg Take 1 [facility] rs 800 mg 5-09 tablet by ity of tablet 00:00: mouth 3 [place] 00 (three) Medical times Branch daily with meals. proMETHazin 2018-0 Yes 25mg Take 1 [facility] ers e 25 mg 5-09 tablet by ity of tablet 00:00: mouth [place] 00 every 6 Medical (six) Branch hours as needed for Nausea and Vomiting (N/V). traMADOL 50 2018-0 Yes 50mg Take 1 [facility] ers mg tablet 5-09 tablet by ity o f 00:00: mouth [place] 00 every 6 Medical (six) Branch hours as needed for Pain (scale 7-10). ibuprofen 2018-0 Yes 800mg Take 1 [facility] rs 800 mg 5-09 tablet by ity of tablet 00:00: mouth 3 [place] 00 (three) Medical times Branch daily with meals. proMETHazin 2018-0 Yes 25mg Take 1 [facility] ers e 25 mg 5-09 tablet by ity of tablet 00:00: mouth [place] 00 every 6 Medical (six) Branch hours as needed for Nausea and Vomiting (N/V). traMADOL 50 2018-0 Yes 50mg Take 1 [facility] ers mg tablet 5-09 tablet by ity o f 00:00: mouth [place] 00 every 6 Medical (six) Branch hours as needed for Pain (scale 7-10). ibuprofen 2018-0 Yes 800mg Take 1 [facility] rs 800 mg 5-09 tablet by ity of tablet 00:00: mouth 3 [place] 00 (three) Medical times Branch daily with meals. proMETHazin 2018-0 Yes 25mg Take 1 [facility] ers e 25 mg 5-09 tablet by ity of tablet 00:00: mouth [place] 00 every 6 Medical (six) Branch hours as needed for Nausea and Vomiting (N/V). traMADOL 50 2018-0 Yes 50mg Take 1 [facility] ers mg tablet 5-09 tablet by ity o f 00:00: mouth [place] 00 every 6 Medical (six) Branch hours as needed for Pain (scale 7-10). ibuprofen 2018-0 Yes 800mg Take 1 [facility] rs 800 mg 5-09 tablet by ity of tablet 00:00: mouth 3 [place] 00 (three) Medical times Branch daily with meals. proMETHazin 2018-0 Yes 25mg Take 1 [facility] ers e 25 mg 5-09 tablet by ity of tablet 00:00: mouth [place] 00 every 6 Medical (six) Branch hours as needed for Nausea and Vomiting (N/V). traMADOL 50 2018-0 Yes 50mg Take 1 [facility] ers mg tablet 5-09 tablet by ity o f 00:00: mouth [place] 00 every 6 Medical (six) Branch hours as needed for Pain (scale 7-10). ibuprofen 2018-0 Yes 800mg Take 1 [facility] rs 800 mg 5-09 tablet by ity of tablet 00:00: mouth 3 [place] 00 (three) Medical times Branch daily with meals. proMETHazin 2018-0 Yes 25mg Take 1 [facility] ers e 25 mg 5-09 tablet by ity of tablet 00:00: mouth every 6 Medical (six) Branch hours as needed for Nausea and Vomiting (N/V). benzonatate 2018-0 Yes [id number] 200mg Take 1 [facility] 200 mg 5-01 capsule by ity of capsule 00:00: mouth 3 (three) Medical times Branch daily as needed for Cough. bromphenira 2018-0 Yes [id number] 5mL Take 5 mL [facility] mine-pseudo 5-01 by mouth 4 it y of ephedrine-D 00:00: (four[place] times Medical DM) 2-30-10 daily as Bran ch mg/5 mL needed for syrup Congestion /Allergies . ipratropium 2018-0 Yes [id number] 2{spray Use 2 [facility] 0.03 % 5-01 } Sprays in ity of nasal spray 00:00: each nostril Medical every 12 Branch (twelve) hours. benzonatate 2018-0 Yes [id number] 200mg Take 1 [facility] 200 mg 5-01 capsule by ity of capsule 00:00: mouth (three) Medical times Branch daily as needed for Cough. bromphenira 2018-0 Yes [id number] 5mL Take 5 mL [facility] mine-pseudo 5-01 by mouth 4 it y of ephedrine-D 00:00: (four[place] ([facility] times Medical DM) 2-30-10 daily as Bran ch mg/5 mL needed for syrup Congestion /Allergies . ipratropium 2018-0 Yes [id number] 2{spray Use 2 [facility] 0.03 % 5-01 } Sprays in ity of nasal spray 00:00: each nostril Medical every 12 Branch (twelve) hours. benzonatate 2018-0 Yes [id number] 200mg Take 1 [facility] 200 mg 5-01 capsule by ity of capsule 00:00: mouth 3 (three) Medical times Branch daily as needed for Cough. bromphenira 2018-0 Yes [id number] 5mL Take 5 mL [facility] mine-pseudo 5-01 by mouth 4 it y of ephedrine-D 00:00: (four) [place] times Medical DM) 2-30-10 daily as Bran ch mg/5 mL needed for syrup Congestion /Allergies . ipratropium 2018-0 Yes [id number] 2{spray Use 2 [facility] 0.03 % 5-01 } Sprays in ity of nasal spray 00:00: each nostril Medical every 12 Branch (twelve) hours. benzonatate 2018-0 Yes [id number] 200mg Take 1 [facility] 200 mg 5-01 capsule by ity of capsule 00:00: mouth 3 (three) Medical times Branch daily as needed for Cough. bromphenira 2018-0 Yes [id number] 5mL Take 5 mL [facility] mine-pseudo 5-01 by mouth 4 it y of ephedrine-D 00:00: (four) [place] ([facility] times Medical DM) 2-30-10 daily as Bran ch mg/5 mL needed for syrup Congestion /Allergies . ipratropium 2018-0 Yes [id number] 2{spray Use 2 [facility] 0.03 % 5-01 } Sprays in ity of nasal spray 00:00: each nostril Medical every 12 Branch (twelve) hours. benzonatate 2018-0 Yes [id number] 200mg Take 1 [facility] 200 mg 5-01 capsule by ity of capsule 00:00: mouth 3 (three) Medical times Branch daily as needed for Cough. bromphenira 2018-0 Yes [id number] 5mL Take 5 mL [facility] mine-pseudo 5-01 by mouth 4 it y of ephedrine-D 00:00: (four) [place] times Medical DM) 2-30-10 daily as Bran ch mg/5 mL needed for syrup Congestion /Allergies . ipratropium 2018-0 Yes [id number] 2{spray Use 2 [facility] 0.03 % 5-01 } Sprays in ity of nasal spray 00:00: each nostril Medical every 12 Branch (twelve) hours. benzonatate 2018-0 Yes [id number] 200mg Take 1 [facility] 200 mg 5-01 capsule by ity of capsule 00:00: mouth 3 (three) Medical times Branch daily as needed for Cough. bromphenira 2018-0 Yes [id number] 5mL Take 5 mL [facility] mine-pseudo 5-01 by mouth 4 it y of ephedrine-D 00:00: (four) [place] times Medical DM) 2-30-10 daily as Bran ch mg/5 mL needed for syrup Congestion /Allergies . ipratropium 2018-0 Yes [id number] 2{spray Use 2 Univers 0.03 % 5-01 } Sprays in ity of nasal spray 00:00: each nostril Medical every 12 Branch (twelve) hours. benzonatate 2018-0 Yes [id number] 200mg Take 1 [facility] 200 mg 5-01 capsule by ity of capsule 00:00: mouth 3 (three) Medical times Branch daily as needed for Cough. bromphenira 2018-0 Yes [id number] 5mL Take 5 mL [facility] mine-pseudo 5-01 by mouth 4 it y of ephedrine-D 00:00: (four) [place] ([facility] times Medical DM) 2-30-10 daily as Bran ch mg/5 mL needed for syrup Congestion /Allergies . ipratropium 2018-0 Yes [id number] 2{spray Use 2 [facility] 0.03 % 5-01 } Sprays in ity of nasal spray 00:00: each nostril Medical every 12 Branch (twelve) hours. benzonatate 2018-0 Yes [id number] 200mg Take 1 [facility] 200 mg 5-01 capsule by ity of capsule 00:00: mouth 3 (three) Medical times Branch daily as needed for Cough. bromphenira 2018-0 Yes [id number] 5mL Take 5 mL [facility] mine-pseudo 5-01 by mouth 4 it y of ephedrine-D 00:00: (four) [place] ([facility] times Medical DM) 2-30-10 daily as Bran ch mg/5 mL needed for syrup Congestion /Allergies . ipratropium 2018-0 Yes [id number] 2{spray Use 2 [facility] 0.03 % 5-01 } Sprays in ity of nasal spray 00:00: each nostril Medical every 12 Branch (twelve) hours. benzonatate 2018-0 Yes [id number] 200mg Take 1 [facility] 200 mg 5-01 capsule by ity of capsule 00:00: mouth 3 (three) Medical times Branch daily as needed for Cough. bromphenira 2018-0 Yes [id number] 5mL Take 5 mL [facility] mine-pseudo 5-01 by mouth 4 it y of ephedrine-D 00:00: (four) [place] ([facility] times Medical DM) 2-30-10 daily as Bran ch mg/5 mL needed for syrup Congestion /Allergies . ipratropium 2018-0 Yes [id number] 2{spray Use 2 Univers 0.03 % 5-01 } Sprays in ity of nasal spray 00:00: each nostril Medical every 12 Branch (twelve) hours. benzonatate 2018-0 Yes [id number] 200mg Take 1 [facility] 200 mg 5-01 capsule by ity of capsule 00:00: mouth 3 [place] (three) Medical times Branch daily as needed for Cough. bromphenira 2018-0 Yes [id number] 5mL Take 5 mL [facility] mine-pseudo 5-01 by mouth 4 it y of ephedrine-D 00:00: (four) [place] ([facility] times Medical ) 2-30-10 daily as Bran ch mg/5 mL needed for syrup Congestion /Allergies . ipratropium 2018-0 Yes [id number] 2{spray Use 2 Univers 0.03 % 5-01 } Sprays in ity of nasal spray 00:00: each nostril Medical every 12 Branch (twelve) hours. benzonatate 2018-0 Yes [id number] 200mg Take 1 [facility] 200 mg 5-01 capsule by ity of capsule 00:00: mouth 3 [place] [address] (three) Medical times Branch daily as needed for Cough. bromphenira 2018-0 Yes [id number] 5mL Take 5 mL [facility] mine-pseudo 5-01 by mouth 4 it y of ephedrine-D 00:00: (four) [place] ([facility] times Medical DM) 2-30-10 daily as Bran ch mg/5 mL needed for syrup Congestion /Allergies . ipratropium 2018-0 Yes [id number] 2{spray Use 2 Univers 0.03 % 5-01 } Sprays in ity of nasal spray 00:00: each nostril Medical every 12 Branch (twelve) hours. bromphenira 2018-0 Yes [id number] 5mL Take 5 mL [facility] mine-pseudo 5-01 by mouth 4 it y of ephedrine-D 00:00: (four) [place] ([facility] times Medical DM) 2-30-10 daily as Bran ch mg/5 mL needed for syrup Congestion /Allergies . ipratropium 2018- Yes [id number] 2{spray Use 2 Univers 0.03 % 5-01 } Sprays in ity of nasal spray 00:00: each [place] nostril Medical every 12 Branch (twelve) hours. bromphenira 2018-0 Yes [id number] 5mL Take 5 mL [facility] mine-pseudo 5-01 by mouth 4 it y of ephedrine-D 00:00: (four) [place] ([facility] times Medical DM) 2-30-10 daily as Bran ch mg/5 mL needed for syrup Congestion /Allergies . ipratropium 2018- Yes [id number] 2{spray Use 2 Univers 0.03 % 5-01 } Sprays in ity of nasal spray 00:00: each [place] nostril Medical every 12 Branch (twelve) hours. bromphenira 2018-0 Yes [id number] 5mL Take 5 mL [facility] mine-pseudo 5-01 by mouth 4 it y of ephedrine-D 00:00: (four) [place] ([facility] times Medical DM) 2-30-10 daily as Bran ch mg/5 mL needed for syrup Congestion /Allergies . ipratropium 2018- Yes [id number] 2{spray Use 2 Univers 0.03 % 5-01 } Sprays in ity of nasal spray 00:00: each [place] nostril Medical every 12 Branch (twelve) hours. bromphenira 2018-0 Yes [id number] 5mL Take 5 mL [facility] mine-pseudo 5-01 by mouth 4 it y of ephedrine-D 00:00: (four) [place] ([facility] times Medical DM) 2-30-10 daily as Bran ch mg/5 mL needed for syrup Congestion /Allergies . ipratropium 2018-0 Yes [id number] 2{spray Use 2 Univers 0.03 % 5-01 } Sprays in ity of nasal spray 00:00: each [place] nostril Medical every 12 Branch (twelve) hours. bromphenira 2018-0 Yes [id number] 5mL Take 5 mL [facility] mine-pseudo 5-01 by mouth 4 it y of ephedrine-D 00:00: (four) [place] ([facility] times Medical DM) 2-30-10 daily as Bran ch mg/5 mL needed for syrup Congestion /Allergies . ipratropium 2018-0 Yes [id number] 2{spray Use 2 Univers 0.03 % 5-01 } Sprays in ity of nasal spray 00:00: each [place] 00 nostril Medical every 12 Branch (twelve) hours. bromphenira 2018-0 Yes [id number] 5mL Take 5 mL [facility] mine-pseudo 5-01 by mouth 4 it y of ephedrine-D 00:00: (four) [place] ([facility] times Medical DM) 2-30-10 daily as Bran ch mg/5 mL needed for syrup Congestion /Allergies . ipratropium 2018-0 Yes [id number] 2{spray Use 2 Univers 0.03 % 5-01 } Sprays in ity of nasal spray 00:00: each [place] nostril Medical every 12 Branch (twelve) hours. benzonatate 2018-0 Yes [id number] 200mg Take 1 [facility] 200 mg 5-01 capsule by ity of capsule 00:00: mouth 3 [place] [address] (three) Medical times Branch daily as needed for Cough. bromphenira 2018-0 Yes [id number] 5mL Take 5 mL [facility] mine-pseudo 5-01 by mouth 4 it y of ephedrine-D 00:00: (four) [place] ([facility] 00 times Medical DM) 2-30-10 daily as Bran ch mg/5 mL needed for syrup Congestion /Allergies . ipratropium 2018-0 Yes [id number] 2{spray Use 2 Univers 0.03 % 5-01 } Sprays in ity of nasal spray 00:00: each [place] 00 nostril Medical every 12 Branch (twelve) hours. bromphenira 2018-0 Yes [id number] 5mL Take 5 mL [facility] mine-pseudo 5-01 by mouth 4 it y of ephedrine-D 00:00: (four) [place] ([facility] 00 times Medical DM) 2-30-10 daily as Bran ch mg/5 mL needed for syrup Congestion /Allergies . ipratropium 2018-0 Yes [id number] 2{spray Use 2 Univers 0.03 % 5-01 } Sprays in ity of nasal spray 00:00: each 00 nostril Medical every 12 Branch (twelve) hours. bromphenira 2018-0 Yes [id number] 5mL Take 5 mL [facility] mine-pseudo 5-01 by mouth 4 it y of ephedrine-D 00:00: (four) [place] ([facility] 00 times Medical DM) 2-30-10 daily as Bran ch mg/5 mL needed for syrup Congestion /Allergies . ipratropium 2018- Yes [id number] 2{spray Use 2 Univers 0.03 % 5-01 } Sprays in ity of nasal spray 00:00: each [place] nostril Medical every 12 Branch (twelve) hours. benzonatate 2018-0 Yes [id number] 200mg Take 1 [facility] 200 mg 5-01 capsule by ity of capsule 00:00: mouth 3 [place] 00 (three) Medical times Branch daily as needed for Cough. bromphenira 2018-0 Yes [id number] 5mL Take 5 mL [facility] mine-pseudo 5-01 by mouth 4 it y of ephedrine-D 00:00: (four) [place] ([facility] times Medical DM) 2-30-10 daily as Bran ch mg/5 mL needed for syrup Congestion /Allergies . ipratropium 2018-0 Yes [id number] 2{spray Use 2 Univers 0.03 % 5-01 } Sprays in ity of nasal spray 00:00: each nostril Medical every 12 Branch (twelve) hours. bromphenira 2018-0 Yes [id number] 5mL Take 5 mL [facility] mine-pseudo 5-01 by mouth 4 it y of ephedrine-D 00:00: (four) [place] ([facility] 00 times Medical DM) 2-30-10 daily as Bran ch mg/5 mL needed for syrup Congestion /Allergies . ipratropium 2018-0 Yes [id number] 2{spray Use 2 Univers 0.03 % 5-01 } Sprays in ity of nasal spray 00:00: each 00 nostril Medical every 12 Branch (twelve) hours. benzonatate 2018-0 Yes [id number] 200mg Take 1 [facility] 200 mg 5-01 capsule by ity of capsule 00:00: mouth 3 [place] 00 (three) Medical times Branch daily as needed for Cough. bromphenira Yes [id number] 5mL Take 5 mL [facility] mine-pseudo 5- by mouth 4 it y of ephedrine-D 00:00: (four) [place] ([facility] 00 times Medical DM) 2-30-10 daily as Bran ch mg/5 mL needed for syrup Congestion /Allergies . ipratropium Yes [id number] 2{spray Use 2 Univers 0.03 % 09-13 } Sprays in ity of nasal spray 00:00: each [place] 00 nostril Medical every 12 Branch (twelve) hours. benzonatate 2020- No [id number] 200mg Take 1 [facility] 200 mg 5-01 11-10 capsule by ity of capsule 00:00: 00:00 mouth 3 [place] 00 :00 (three) Medical times Branch daily as needed for Cough. benzonatate 2020- No [id number] 200mg Take 1 [facility] 200 mg 5- 11-10 capsule by ity of capsule 00:00: 00:00 mouth 3 [place] 00 :00 (three) Medical times Branch daily as needed for Cough. benzonatate 2020- No [id number] 200mg Take 1 [facility] 200 mg 5- 11-10 capsule by ity of capsule 00:00: 00:00 mouth 3 [place] 00 :00 (three) Medical times Branch daily as needed for Cough. estradiol 2 Yes [id number] 2mg Take 1 [facility] mg tablet 4-18 tablet by ity o f 00:00: mouth [place] 00 daily. Medical Branch estradiol 2 Yes [id number] 2mg Take 1 [facility] mg tablet 4-18 tablet by ity o f 00:00: mouth [place] 00 daily. Medical Branch estradiol 2 Yes [id number] 2mg Take 1 [facility] mg tablet 4-18 tablet by ity o f 00:00: mouth [place] 00 daily. Medical Branch estradiol 2 Yes [id number] 2mg Take 1 [facility] mg tablet 4-18 tablet by ity o f 00:00: mouth [place] 00 daily. Medical Branch estradiol 2 Yes [id number] 2mg Take 1 [facility] mg tablet 4-18 tablet by ity o f 00:00: mouth [place] 00 daily. Medical Branch estradiol 2 Yes [id number] 2mg Take 1 [facility] mg tablet 4-18 tablet by ity o f 00:00: mouth [place] 00 daily. Medical Branch estradiol 2 Yes [id number] 2mg Take 1 [facility] mg tablet 4-18 tablet by ity o f 00:00: mouth [place] 00 daily. Medical Branch estradiol 2 Yes [id number] 2mg Take 1 [facility] mg tablet 4-18 tablet by ity o f 00:00: mouth [place] 00 daily. Medical Branch estradiol 2 Yes [id number] 2mg Take 1 [facility] mg tablet 4-18 tablet by ity o f 00:00: mouth [place] 00 daily. Medical Branch estradiol 2 Yes [id number] 2mg Take 1 [facility] mg tablet 4-18 tablet by ity o f 00:00: mouth [place] 00 daily. Medical Branch estradiol 2 Yes [id number] 2mg Take 1 [facility] mg tablet 4-18 tablet by ity o f 00:00: mouth [place] 00 daily. Medical Branch estradiol 2 Yes [id number] 2mg Take 1 [facility] mg tablet 4-18 tablet by ity o f 00:00: mouth [place] 00 daily. Medical Branch estradiol 2 Yes [id number] 2mg Take 1 [facility] mg tablet 4-18 tablet by ity o f 00:00: mouth [place] 00 daily. Medical Branch estradiol 2 Yes [id number] 2mg Take 1 [facility] mg tablet 4-18 tablet by ity o f 00:00: mouth [place] 00 daily. Medical Branch estradiol 2 Yes [id number] 2mg Take 1 [facility] mg tablet 4-18 tablet by ity o f 00:00: mouth [place] 00 daily. Medical Branch estradiol 2 Yes [id number] 2mg Take 1 [facility] mg tablet 4-18 tablet by ity o f 00:00: mouth [place] 00 daily. Medical Branch estradiol 2 Yes [id number] 2mg Take 1 [facility] mg tablet 4-18 tablet by ity o f 00:00: mouth [place] 00 daily. Medical Branch estradiol 2 Yes [id number] 2mg Take 1 [facility] mg tablet 4-18 tablet by ity o f 00:00: mouth [place] 00 daily. Medical Branch estradiol 2 Yes [id number] 2mg Take 1 [facility] mg tablet 4-18 tablet by ity o f 00:00: mouth [place] 00 daily. Medical Branch estradiol 2 2017- Yes [id number] 2mg Take 1 [facility] mg tablet 4-18 tablet by ity o f 00:00: mouth [place] 00 daily. Medical Branch estradiol 2 2017- Yes [id number] 2mg Take 1 [facility] mg tablet 4-18 tablet by ity o f 00:00: mouth [place] 00 daily. Medical Branch estradiol 2 2017- Yes [id number] 2mg Take 1 [facility] mg tablet 4-18 tablet by ity o f 00:00: mouth [place] 00 daily. Medical Branch estradiol 2 2017- Yes [id number] 2mg Take 1 [facility] mg tablet 4-18 tablet by ity o f 00:00: mouth [place] 00 daily. [facility] Branch Immunizations Ordered Filled Immunization Date Status Comments [facility] e Immunization Name Name Td 2003-05-16 Completed [facility] of 00:00:00 [facility] Td 2003-05-16 Completed [facility] of 00:00:00 [facility] Td 2003-05-16 Completed [facility] of 00:00:00 [facility] Td 2003-05-16 Completed University of 00:00:00 [facility] Td 2003-05-16 Completed [facility] of 00:00:00 [facility] Td 2003-05-16 Completed [facility] of 00:00:00 [facility] Td 2003-05-16 Completed University of 00:00:00 [facility] Td 2003-05-16 Completed University of 00:00:00 [facility] Td 2003-05-16 Completed [facility] of 00:00:00 [facility] Td 2003-05-16 Completed [facility] of 00:00:00 [facility] Td 2003-05-16 Completed University of 00:00:00 [facility] Td 2003-05-16 Completed University of 00:00:00 [facility] Td 2003-05-16 Completed [facility] of 00:00:00 [facility] Td 2003-05-16 Completed University of 00:00:00 [facility] Td 2003-05-16 Completed University of 00:00:00 [facility] Td 2003-05-16 Completed University of 00:00:00 [facility] Td 2003-05-16 Completed University of 00:00:00 [facility] Td 2003-05-16 Completed University of 00:00:00 [facility] Td 2003-05-16 Completed University of 00:00:00 [facility] Td 2003-05-16 Completed University of 00:00:00 [facility] Td 2003-05-16 Completed [facility] of 00:00:00 [place] [facility] Td 2003-05-16 Completed [facility] of 00:00:00 [place] [facility] Td 2003-05-16 Completed [facility] of 00:00:00 [facility] Vital Signs Vital Name Observation Time Observation Value Comments Source Systolic blood 2021-05-29 10:01:00 100 mm[Hg] Univer sity of pressure [facility] Diastolic blood 2021-05-29 10:01:00 60 mm[Hg] Unive rsity of pressure [facility] Heart rate 2021-05-29 10:01:00 74 /min [facility] [place] [facility] [place] Body temperature 2021-05-29 10:01:00 36.33 Tika Univ ersity of [facility] Respiratory rate 2021-05-29 10:01:00 18 /min [facility] [place] [facility] Body weight 2021-05-29 10:01:00 99.791 kg [facility] [place] [facility] [place] BMI 2021-05-29 10:01:00 35.11 kg/m2 [facility] [place] [facility] Oxygen saturation in 2021-05-29 10:01:00 95 /min [facility] of Arterial blood by [employer] [facility] oximetry Branch Body height 2021-05-28 01:32:00 168.6 cm [facility] [place] [facility] Systolic blood 2020-03-25 19:31:00 111 mm[Hg] Univer sity of pressure [facility] Diastolic blood 2020-03-25 19:31:00 74 mm[Hg] Unive rsity of pressure [facility] Heart rate 2020-03-25 19:31:00 77 /min [facility] [place] [facility] Body temperature 2020-03-25 19:31:00 37.06 Tika Univ ersity of [facility] Respiratory rate 2020-03-25 19:31:00 20 /min Univ ersity of [facility] Body height 2020-03-25 19:31:00 165.1 cm [facility] [place] [facility] Body weight 2020-03-25 19:31:00 100.517 kg [facility] [place] [facility] BMI 2020-03-25 19:31:00 36.88 kg/m2 [facility] [place] [facility] [place] Oxygen saturation in 2020-03-25 19:31:00 100 /min room air University of Arterial blood by [facility] Pulse oximetry Branch Systolic blood 2020-03-23 16:51:10 116 mm[Hg] Univer sity of pressure [place] [facility] Diastolic blood 2020-03-23 16:51:10 59 mm[Hg] Unive rsity of pressure [place] [facility] Heart rate 2020-03-23 16:51:10 84 /min [facility] [place] [facility] Respiratory rate 2020-03-23 16:51:10 20 /min [facility] [place] [facility] Oxygen saturation in 2020-03-23 16:51:10 97 /min [facility] of Arterial blood by [facility] Pulse oximetry Branch Body temperature 2020-03-23 14:38:00 37.5 Tika [facility] [place] [facility] Body weight 2020-03-23 14:38:00 97.523 kg [facility] [place] [facility] BMI 2020-03-23 14:38:00 34.70 kg/m2 [facility] [place] [facility] Systolic blood 2019-11-15 18:00:00 114 mm[Hg] Univer sity of pressure [facility] Branch Diastolic blood 2019-11-15 18:00:00 74 mm[Hg] Unive rsity of pressure [facility] Branch Heart rate 2019-11-15 18:00:00 81 /min [facility] [place] [facility] Body temperature 2019-11-15 18:00:00 36.67 Tika [facility] [place] [facility] Respiratory rate 2019-11-15 18:00:00 18 /min [facility] [place] [facility] Body weight 2019-11-15 18:00:00 98.068 kg [facility] [place] [facility] BMI 2019-11-15 18:00:00 34.90 kg/m2 [facility] [place] [facility] Body temperature 2019-10-24 19:00:00 36.67 Tika [facility] [place] [facility] Body height 2019-10-24 19:00:00 167.6 cm [facility] [place] [facility] Body weight 2019-10-24 19:00:00 95.89 kg [facility] [place] [facility] BMI 2019-10-24 19:00:00 34.12 kg/m2 Universi ty of [facility] Body temperature 2019-10-24 19:00:00 36.67 [facility] Body height 2019-10-24 19:00:00 167.6 cm [facility] Body weight 2019-10-24 19:00:00 95.89 kg [facility] BMI 2019-10-24 19:00:00 34.12 kg/m2 [facility] Procedures Procedure Date / Time Performing Clinician Source Performed MR LUMBAR SPINE WO 2021-08-27 20:20:25 Requisition, Paper [facility] CONTRAST [facility] CONSENT/REFUSAL FOR 2021-08-27 18:46:18 Doctor Unassigned, [facility] DIAGNOSIS AND TREATMENT [place] [facility] ASSIGNMENT OF BENEFITS 2021-08-27 18:46:08 Doctor Unassigned, [facility] BASIC METABOLIC PANEL 2021-05-29 10:22:00 Samreen Soto [facility] (NA, K, CL, CO2, GLUCOSE, Medica l Branch BUN, CREATININE, CA) CBC WITH DIFF 2021-05-29 10:22:00 Samreen Soto [facility] CAROTID DUPLEX BILATERAL 2021-05-28 17:50:00 Onel García [facility] - BY VASCULAR LAB [facility] MAGNESIUM 2021-05-28 07:11:00 Karan Mendez [facility] AMMONIA, PLASMA 2021-05-28 07:11:00 Vinnie Paulson [facility] COMP. METABOLIC PANEL 2021-05-28 07:11:00 Vinnie Paulson [facility] ([id number]) [facility] LIPID PANEL ([id number])(TOTAL 2021-05-28 07:11:00 Karan Mendez [facility] CHOLESTEROL, [facility] TRIGLYCERIDES, HDL) CBC WITH DIFF 2021-05-28 07:11:00 [facility] PRO-BNP 2021-05-28 07:11:00 Onel García [facility] AC VBG + LACTIC ACID 2021-05-28 07:11:00 Vinnie Paulson [facility] TROPONIN I 2021-05-28 04:19:00 [facility] 2021-05-27 22:02:00 Karan Mendez [facility] TRANSTHORACIC ECHO (TTE) 2021-05-27 19:57:[address] [facility] COMPLETE [facility] CONSENT/REFUSAL FOR 2021-05-27 16:25:09 Doctor Sharlenesssawyer [facility] DIAGNOSIS AND TREATMENT [facility] NOTICE OF PRIVACY 2021-05-27 16:24:35 Doctor Unassigned, [facility] PRACTICES [facility] HEAD WO CONTRAST 2021-05-27 15:59:51 Imer Cheung [facility] URINALYSIS 2021-05-27 15:33:00 Singer [facility] URINE DRUG (IMMUNOASSAY) 2021-05-27 15:33:00 Imer Cheung [facility] DRUG Medical Bra nch SCREEN W/O REFLEX POCT TEST 2021-05-27 15:32:00 Singer [facility] XR CHEST 1 VW 2021-05-27 15:26:29 Singer [facility] COVID-19 (ID NOW RAPID 2021-05-27 15:10:00 Singer [facility] TESTING) Medical Branch LAB ONLY COVID 2021-05-27 15:10:00 Singer [facility] INTERPRETATION [facility] MAGNESIUM 2021-05-27 15:05:00 Andrea [facility] TROPONIN I 2021-05-27 15:05:00 Singer [facility] THYROID STIMULATING 2021-05-27 15:05:00 [facility] COMP. METABOLIC PANEL 2021-05-27 15:05:00 Singer [facility] ([id number]) [facility] CBC WITH DIFF 2021-05-27 15:05:00 Singer [facility] GLYCOSYLATED HEMOGLOBIN 2021-05-27 15:05:00 Andrea [facility] (A1C) Medical Branch D-DIMER 2021-05-27 15:05:00 Singer [facility] HB ECG ROUTINE & RHYTHM 2021-05-27 14:54:32 Imer Cheung [facility] HOSPITAL ADMISSION 2021-05-27 06:01:00 Doctor Unassigned, [facility] [place] PATIENT CORRESPONDENCE 2020-05-01 06:01:00 Doctor Unassigned, [facility] (LETTERS, USPS [facility] DOCUMENTATION) GALV ONLY - INFLUENZA A B 2020-03-23 15:31:00 Evin ArcenioEdmond [facility] RSV PCR Medical Branch XR CHEST 1 VW 2020-03-23 15:23:17 Evin, [facility] POCT TEST 2020-03-23 15:20:00 Evin [facility] LIPASE 2020-03-23 15:17:00 Evin, [facility] TROPONIN I 2020-03-23 15:17:00 Evin, [facility] HEPATIC FUNCTION PANEL 2020-03-23 15:17:00 Evin, [facility] ([id number]) (ALB,T.PRO,BILI [facility] T,BU/BC,ALT,AST,ALK PHOS) BASIC METABOLIC PANEL 2020-03-23 15:17:00 Evin, [facility] (NA, K, CL, CO2, GLUCOSE, Medica l Branch BUN, CREATININE, CA) CBC WITH DIFF 2020-03-23 15:17:00 Evin [facility] URINALYSIS 2020-03-23 15:17:00 Evin, [facility] N-TERMINAL PRO-BNP 2020-03-23 15:17:00 Evin, [facility] EXTRA TUBE LT. BLUE 2020-03-23 15:17:00 Evin, [facility] EXTRA TUBE ORANGE 2020-03-23 15:17:00 Evin, [facility] COVID-19 (ID NOW RAPID 2020-03-23 15:17:00 Evin, Arcenio-David [facility] DISCLOSURE AND CONSENT, 2019-10-24 05:01:00 Doctor Unassigned, [facility] MEDICAL AND SURGICAL [facility] PROCEDURES EXTERNAL PROVIDER RECORDS 2019-05-30 06:01:00 Doctor Unassigned, [facility] Encounters Start End Encounter Admission Attending Care Care Encounter Source Date/Time Date/Time Type Type Clinicians Facility Department ID 2021-03-14 Emergency [facility] [id number] Univers 03:55:18 ity of [facility] 2021-08-27 2021-08-27 Outpatient R RADIOLOGY [facility] [id number] Univers 13:47:25 23:59:00 ity [facility] 2021-08-27 2021-08-27 Hospital Radiology [facility] [id number] Univers 13:47:25 23:59:00 [facility] [place] [id number] 4[facility]2.7.2.686 [facility] [id number] [facility] 804 Branch 2021-08-27 2021-08-27 Outpatient R RADIOLOGY [facility] [id number] Univers 00:00:00 00:00:00 [id number] ity [facility] 2021-08-27 2021-08-27 Orders Doctor JUNIOR 1.2.840.114 [id number] Univers 00:00:00 00:00:00 Only Unassigned, BEKA [id number] ity [place] [facility] 4.2.7.2.686 [facility] [id number] [facility] 009 Branch 2021-07-17 2021-07-17 Outpatient R RADIOLOGY [facility] [id number] Univers 00:00:00 00:00:00 [id number] ity [facility] 2021-07-10 2021-07-10 Outpatient R RADIOLOGY [facility] [id number] Univers 00:00:00 00:00:00 [id number] [facility] 2021-05-27 2021-05-29 Inpatient X ANDREA, [facility] MARQUIS [id number] Univers 09:00:00 08:25:00 [facility] 2021-05-27 2021-05-29 [facility] Imer Cheung [facility] [id number] Univers 09:00:00 08:25:00 Encounter Karan Mendez [id number] ity of [place] [id number] [facility] 081 Branch 2021-05-27 2021-05-27 Outpatient R RADIOLOGY [facility] [id number] Univers 13:00:00 13:00:00 [id number] ity of [facility] 2021-05-27 2021-05-27 Outpatient R RADIOLOGY [facility] [id number] Univers 00:00:00 00:00:00 ity of [facility] 2021-05-11 2021-05-11 Outpatient R RADIOLOGY [facility] [id number] Univers 09:30:00 09:30:00 [id number] ity of [facility] 2021-05-11 2021-05-11 Outpatient R RADIOLOGY [facility] [id number] Univers 00:00:00 00:00:00 ity of [facility] 2020-06-23 2020-06-23 Outpatient R [facility] [id number] Univers 13:20:00 13:20:00 [id number] ity of [facility] 2020-06-23 2020-06-23 Outpatient R JANET, [facility] [id number] Univers 13:20:00 13:20:00 LIV connors o f [facility] 2020-05-01 2020-05-01 Orders Doctor VERNON 1.2.840.114 [id number] Univers 00:00:00 00:00:00 Only Unassigned, BEKA 350.1.13.10 ity of [place] [facility] 4.2.7.2.686 Greg as [phone] [facility] 009 Branch 2020-04-24 2020-04-24 NAVARRO Mccracken [id number] Univers 00:00:00 00:00:00 Management [facility] [id number] ity of [place] [id number] [facility] 113 Branch 2020-04-06 2020-04-06 JOCELINE MccrackenIT [id number] Univers 00:00:00 00:00:00 Management Kassandra Y HEALTH [id number] it[place] [id number] [facility] 113 Branch 2020-03-25 2020-03-25 Office Jaydon Calderon [facility] 1.2.840.11 [id number] Univers 12:49:01 13:09:01 Visit Osbaldo Reyna PRIMARY [id number] ity of [facility] 4.2.7.2.686 [place] PAVILLI [id number] Co dical 042 Branch 2020-03-25 2020-03-25 Outpatient R [facility] [id number] -[id number] Univers 13:00:00 13:00:00 ity of [facility] 2020-03-25 2020-03-25 [facility] [id number] Univers 13:00:00 13:00:00 OSBALDO ity of [facility] 2020-03-24 2020-03-24 [facility] [id number] Univers 00:00:00 00:00:00 [place] PRIMARY [id number] it [place] [id number] Co dical 044 Branch 2020-03-23 2020-03-23 Emergency Evin, TRAU[place] [id number] Univers 08:40:00 14:22:00 [facility] 350.1.13.10 [place] [id number] [facility] 014 Branch 2020-03-14 2020-03-14 JOCELINE MccrackenIT [id number] Univers 00:00:00 00:00:00 Management Kassandra Y HEALTH [id number] ity [place] [id number] [facility] 113 Branch 2020-01-22 2020-01-22 Outpatient R [facility] [id number] -[id number] Univers 10:00:00 10:00:00 ity [facility] 2019-12-25 2019-12-25 Outpatient R DAVID [facility] [id number] Univers 10:30:00 10:30:00 DENNY [id number] ity [facility] 2019-12-25 2019-12-25 Outpatient R DAVID [facility] [id number] Univers 10:30:00 10:30:00 DENNY ity [facility] 2019-12-24 2019-12-24 Outpatient R [facility] [id number] -[id number] Univers 13:00:00 13:00:00 ity [facility] 2019-11-28 2019-11-28 Outpatient R KARON [facility] [id number] -[id number] Univers 15:00:00 15:00:00 ALFONSO [id number] [facility] 2019-11-28 2019-11-28 [facility] [id number] Univers 11:15:00 11:15:00 [facility] 2019-11-15 2019-11-15 [facility] [id number]-20 Univers 13:00:00 13:00:00 OTILIA [facility] 2019-11-15 2019-11-15 Outpatient [facility] [id number] Univers 13:00:00 13:00:00 [facility] 2019-11-15 2019-11-15 Office [facility] 1.2.840.114 [id number] Univers 12:31:16 12:51:16 Visit Otilia [facility] [id number] it y of CARE 4.2.7.2.686 Joseluis MCFADDEN [id number] [address] 2019-11-06 2019-11-06 [facility] [id number] Univers 10:15:00 10:15:00 BRIAN [id number] smotohy o f [facility] 2019-11-06 2019-11-06 Outpatient [facility] [id number] Univers 10:15:00 10:15:00 BRIAN connors o f [facility] 2019-11-01 2019-11-01 Outpatient R [facility] [id number] Univers 08:30:00 08:30:00 [id number] ity [facility] 2019-11-01 2019-11-01 Outpatient R [facility] [id number] Univers 08:30:00 08:30:00 ity [facility] 2019-10-29 2019-10-29 Outpatient R GRIGGS, [facility] [id number] Univers 08:15:00 08:15:00 BRIAN [id number] ity o f [facility] 2019-10-24 2019-10-24 Office Karon, UNIVERSIT [id number] 13:42:32 16:44:36 Visit Alfonso Y [id number] NATIONAL 4.2.7.2.686 BANK [id number] BLDG. 144 2019-10-24 2019-10-24 Office Karon, UNIVERSIT [id number] Univers 13:42:32 16:44:36 Visit [place] Y 350.1.13.10 it y of NATIONAL 4.2.7.2.686 Greg as BANK [id number] [facility]ai BLDG. 144 [place] 2019-10-24 2019-10-24 Ancillary Betito, UN[facility]ERS[facility] 1.2.840.114 [id number] 14:13:22 16:24:43 Visit Tiffany Y 350.1.13.10 NATIONAL 4.2.7.2.686 BANK [id number] BLDG. 141 2019-10-24 2019-10-24 Ancillary Betito, UNIVERSIT 1.2.840.114 [id number] Univers 14:13:22 16:24:43 Visit Tiffany Y 350.1.13.10 it y of NATIONAL 4.2.7.2.686 Greg as BANK [phone] [facility] BLDG. 141 [place] 2019-10-24 2019-10-24 Outpatient R KARON [facility] [id number] Univers 14:15:00 14:15:00 ALFONSO ity [facility] 2019-10-24 2019-10-24 Outpatient R ITZEL, [facility] [id number] Univers 10:00:00 10:00:00 REEMA ity [facility] 2019-10-24 2019-10-24 Orders Doctor JUNIOR 1.2.840.114 [id number] Univers 00:00:00 00:00:00 Only Unassigned, [place] 350.1.13.10 ity of [place] [facility] 4.2.7.2.686 Greg as [id number] [facility] 009 [place] 2019-10-24 2019-10-24 Orders Doctor JUNIOR 1.2.840.114 [id number] 00:00:00 00:00:00 Only Unassigned, [place] 350.1.13.10 Republic [facility] 4.2.7.2.686 [id number] 2019-10-23 2019-10-23 [facility] [id number] Univers 14:30:00 14:30:00 MARY ALICE ity [facility] 2019-10-23 2019-10-23 Outpatient [facility] [id number] Univers 14:30:00 14:30:00 MARY ALICE ity [facility] 2019-08-02 2019-08-02 Outpatient R [facility] [id number] Univers 15:00:00 15:00:00 [id number] ity [facility] 2019-08-02 2019-08-02 Outpatient R [facility] [id number] Univers 15:00:00 15:00:00 ity [facility] 2019-07-25 2019-07-25 Telephone NAVARRO Magana 1.2.840.114 [id number] Univers 00:00:00 00:00:00 [facility] [id number] i ty of [facility] [place] [id number] [facility] 113 Branch 2019-06-06 2019-06-06 Telephone Courtney [facility] 1.2.840.114 [id number] Univers 00:00:00 00:00:00 Keisha James CASE MAKER 350.1.13.10 ity of [facility] 4.2.7.2.686 Greg as MATERNAL [id number] Med ical & CHILD [address] [place] [address] 2019-05-30 2019-05-30 Orders Doctor JUNIOR 1.2.840.114 [id number] Univers 00:00:00 00:00:00 Only Unassigned, BEKA 350.1.13.10 ity of [place] [facility] 4.2.7.2.686 [facility] as [id number] [address] 2019-05-04 2019-05-04 Outpatient R COURTNEY, [facility] [id number] [facility] 16:48:40 23:59:00 KEISHA laura f [facility] 2019-04-18 2019-04-18 Outpatient [facility] [id number] [facility] 13:45:00 15:54:30 MALICK waylon [facility] Results Test Description Test Time Test Comments Results Result Comments Source COMPREHENSIVE METABOLIC PANEL 2021-08-22 07:00:47 Test Item Value Reference Range Interpretation Comme nts GLUCOSE (test code = 2217) 89 MG/DL 70-99 BUN (test code = 2208) 11 MG/DL 6-20 CREATININE (test code = 0.54 MG/DL 0.60-1.30 L 2213) eGFR (2020 CKD-EPI) (test 116 ML/MIN/1.73 >60 code = 35791) CALC BUN/CREAT (test code = 20 RATIO 6-28 2234) SODIUM (test code = 2231) 140 MEQ/L 133-146 POTASSIUM (test code = 2228) 4.5 MEQ/L 3.5-5.4 CHLORIDE (test code = 2215) 102 MEQ/L 95-107 CARBON DIOXIDE (test code = 27 MEQ/L 19-31 2205) CALCIUM (test code = 2209) 10.0 MG/DL 8.5-10.5 PROTEIN, TOTAL (test code = 7.2 G/DL 6.1-8.3 2228) ALBUMIN (test code = 2201) 4.6 G/DL 3.5-5.2 CALC GLOBULIN (test code = 2.6 G/DL 1.9-3.7 2239) CALC A/G RATIO (test code = 1.8 RATIO 1.0-2.6 2233) BILIRUBIN, TOTAL (test code <0.2 MG/DL See_Comment [Automated message] The = 2206) system which ge nerated this result transmit martinez reference range : <=1.2. The reference range was not used to interpr et this result as eliezer l/abnormal. ALKALINE PHOSPHATASE (test 93 U/L 40-116 code = 2204) AST (test code = 2218) 14 U/L 9-40 ALT (test code = 2219) 15 U/L 5-40 TSH, THIRD [id number] 06:20:41 Test Item Value Reference Range Interpretation Comments TSH, THIRD 1.500 UIU/ML 0.400-4.100 UNLESS GENERATION (test OTHERWISE I NDICATED, code = 2821) ALL TESTING PER FORMED ATCLINICAL PATH OLOGY LABORATORIES, I [place]. [address] [place] [address] LABORATORY DIRE CTOR: TELLO FLORIAN M.D. CLIA NUMBER [id number] CAP ACCREDITATION N O. [id number] CBC W/AUTO DIFF WITH [id number] 03:22:30 Test Item Value Reference Range Interpretation Comments WBC (test code = 6.1 K/UL 3.5-11.0 1001) RBC (test code = 4.35 M/UL 3.80-5.40 1002) HEMOGLOBIN (test code 13.2 G/DL 11.5-15.5 = 1003) HEMATOCRIT (test code 38.4 % 34.0-45.0 = 1004) MCV (test code = 88.3 fL 80.0-99.0 1005) MCH (test code = 30.3 PG 25.0-33.0 1006) MCHC (test code = 34.4 G/DL 31.0-36.0 1007) RDW (test code = 12.7 % 11.5-15.0 1038) NEUTROPHILS (test 50.9 % code = 1008) LYMPHOCYTES (test 39.8 % code = 1010) MONOCYTES (test code 6.1 % = 1011) EOSINOPHILS (test 2.3 % code = 1012) BASOPHILS (test code 0.7 % = 1013) IMMATURE GRANULOCYTES 0.2 % (test code = 1036) NUCLEATED RBCS (test 0.0 /100 See_Comment [Autom ated code = 1065) WBC'S message] The sy stem which generated this result transmitted reference range : 0.0. The refere nce range was not u sed to interpret th is result as normal/abnormal . PLATELET COUNT (test 323 K/UL 130-400 code = 1015) ABSOLUTE NEUTROPHILS 3.12 K/UL 1.50-7.50 (test code = 1066) ABSOLUTE LYMPHOCYTES 2.43 K/UL 1.00-4.00 (test code = 1067) ABSOLUTE MONOCYTES 0.37 K/UL 0.20-1.00 (test code = 1068) ABSOLUTE EOSINOPHILS 0.14 K/UL 0.00-0.50 (test code = 1040) ABSOLUTE BASOPHILS 0.04 K/UL 0.00-0.20 (test code = 1069) ABS IMMATURE 0.01 K/UL 0.00-0.10 GRANULOCYTES (test code = 1020) ABS NUCLEATED RBCS 0.00 K/UL 0.00-0.11 (test code = 49714) BASIC METABOLIC PANEL (NA, K, CL, CO2, GLUCOSE, BUN, CREATININE, CA)2021-05-29 11:36:22 Test Item Value Reference Range Interpretation Comments NA (test code = 138 mmol/L 135-145 5676709332) K (test code = 3.8 mmol/L 3.5-5.0 4659021331) CL (test code = 105 mmol/L 98-108 5757087245) CO2 TOTAL (test code 29 mmol/L 23-31 = 3263818524) AGAP (test code = 2-16 5858544070) BUN (test code = 10 mg/dL 7-23 9435839004) GLUCOSE (test code = 94 mg/dL 70-110 7412069088) CREATININE (test code 0.60 mg/dL 0.50-1.04 = 9742837049) CALCIUM (test code = 9.0 mg/dL 8.6-10.6 1297720786) eGFR (test code = mL/min/1.73m2 5564989081) RICHA (test code = RICHA) Association of Glomerular Filtration Rate (GFR) and Staging of Kidney Disease* + + +- +| GFR (mL/min/1.73 m2) ?| With Kidney Damage ?| ?Without Kidney Damage+ ------+ ----+ ------+| ?>90 ?| ?Stage one ?| ? Normal ?+ -+ + -+| ?60-89 ?| ?Stage two ?| ? Decreased GFR ? + + +- +| ?30-59 ?| ?Stage three ?| ? Stage three ? + + +- +| ?15-29 ?| ?Stage four ? | ? Stage four ?+ -+ + -+| ?<15 (or dialysis) ? ?| ?Stage five ? | ? Stage five ?+ -+ + -+ *Each stage assumes the associated GFR level has been in effect for at least three months. ?Stages 1 to 5, with or without kidney disease, indicate chronic kidney disease. Notes: Determination of stages one and two (with eGFR >59mL/min/1.73 m2) requires estimation of kidney damage for at least three months as defined by structural or functional abnormalities of the kidney, manifested by either:Pathological abnormalities or Markers of kidney damage (including abnormalities in the composition of the blood or urine or abnormalities in imaging tests). [facility] WITH [id number] 11:06:36 Test Item Value Reference Range Interpretation Comments WBC (test code = See_Comment [Automated 1190-2) message] The sy stem which generated this result transmitted reference range : 4.30 - 11.10 10*3/?L. The reference range was not used to interpret this result as normal/abnormal . RBC (test code = See_Comment L [Automated 319-8) message] The sy stem which generated this result transmitted reference range : 3.93 - 5.25 10*6/?L. The reference range was not used to interpret this result as normal/abnormal . HGB (test code = 11.9 g/dL 11.6-15.0 718-7) HCT (test code = 36.0 % 35.7-45.2 4544-3) MCV (test code = 93.0 fL 80.6-95.5 787-2) MCH (test code = 30.7 pg 25.9-32.8 785-6) MCHC (test code = 33.1 g/dL 31.6-35.1 786-4) RDW-SD (test code = 42.1 fL 39.0-49.9 43169-6) RDW-CV (test code = 12.1 % 12.0-15.5 788-0) PLT (test code = See_Comment [Automated 777-3) message] The sy stem which generated this result transmitted reference range : 166 - 358 10*3/ ?L. The reference r fatou was not used to interpret this result as normal/abnormal . MPV (test code = 9.6 fL 9.5-12.9 86166-5) NRBC/100 WBC (test See_Comment [Automat ed code = 8047486723) message] The system which generated this result transmitted reference range : 0.0 - 10.0 /100 WBCs. The refer ence range was not u sed to interpret th is result as normal/abnormal . NRBC x10^3 (test code <0.01 See_Comment [Auto mated = 5182022577) message] The s ystem which generated this result transmitted reference range : 10*3/?L. The reference range was not used to interpret this result as normal/abnormal . GRAN MAT (NEUT) % 49.2 % (test code = 770-8) IMM GRAN % (test code 0.20 % = 9717171642) LYMPH % (test code = 41.4 % 736-9) MONO % (test code = 5.9 % 5905-5) EOS % (test code = 2.5 % 713-8) BASO % (test code = 0.8 % 706-2) GRAN MAT x10^3(ANC) 2.57 10*3/uL 1.88-7.09 (test code = 5812168111) IMM GRAN x10^3 (test <0.03 0.00-0.06 code = 9585814183) LYMPH x10^3 (test code 2.16 10*3/uL 1.32-3.29 = 731-0) MONO x10^3 (test code 0.31 10*3/uL 0.33-0.92 L = 742-7) EOS x10^3 (test code = 0.13 10*3/uL 0.03-0.39 711-2) BASO x10^3 (test code 0.04 10*3/uL 0.01-0.07 = 704-7) Lab Interpretation Abnormal (test code = 50712-2) [id number] 15:12:50 Test Item Value Reference Range Interpretation Comments NT-proBNP (test code 38 pg/mL See_Comment [Autom ated = 8115949910) message] The system which generated this result transmitted reference range : <=125. The reference range was not used to interpret this result as normal/abnormal . RICHA (test code = RICHA) Biotin has been reported to cause a negative bias, interpret results relative to patient's use of biotin. Lab Interpretation Normal (test code = 86254-6) [facility] (Total Cholesterol, Triglycerides, HDL)2021-05-28 09:00:45 Test Item Value Reference Range Interpretation Comments CHOL (test code = 293 mg/dL 120-200 H 4643933913) HDL (test code = 49 mg/dL >50 L 1440927486) HDLC RATIO (test code = See_Comment H [Au tomated message] 8896414639) The system [employer] generated this result transmit martinez reference range : <=4.5. The refe rence range was not u sed to interpret th is result as normal/abnormal . TRIG (test code = 194 mg/dL 30-170 H [id number]) LDL CHOL (test code = 205 mg/dL See_Comment H [Auto mated message] 28301-3) The system [employer] generated this result transmit martinez reference range : <=160. The refe rence range was not u sed to interpret th is result as normal/abnormal . VLDL (test code = 39 mg/dL 5-60 [id number]) Lab Interpretation (test Abnormal code = 46858-9) [facility]:25 Test Item Value Reference Range Interpretation Comments MAGNESIUM (test code = 3522800371) 2.1 mg/dL 1.7-2.4 Lab Interpretation (test code = Normal 50332-7) [facility]28 09:00:25 Test Item Value Reference Range Interpretation Comments NA (test code = 136 mmol/L 135-145 [id number]) K (test code = 4.1 mmol/L 3.5-5.0 [id number]) CL (test code = 106 mmol/L 98-108 4270371858) CO2 TOTAL (test code = 28 mmol/L 23-31 0736496027) AGAP (test code = 2-16 2565000597) BUN (test code = 10 mg/dL 7-23 1747824929) GLUCOSE (test code = 92 mg/dL 70-110 2878257504) CREATININE (test code = 0.56 mg/dL 0.50-1.04 4655020599) TOTAL BILI (test code = 0.5 mg/dL 0.1-1.8 8729798233) CALCIUM (test code = 8.5 mg/dL 8.6-10.6 L 9975726466) T PROTEIN (test code = 6.5 g/dL 6.3-8.2 9225966781) ALBUMIN (test code = 3.6 g/dL 3.5-5.0 3065014736) ALK PHOS (test code = 80 U/L 34-122 0754144145) ALTv (test code = 28 U/L 5-35 1742-6) AST(SGOT) (test code = 31 U/L 13-40 3150856243) eGFR (test code = mL/min/1.73m2 9965330427) RICHA (test code = RICHA) Association of Glomerular Filtration Rate (GFR) and Staging of Kidney Disease* + --+ --+ ------+| GFR (mL/min/1.73 m2) ?| With Kidney Damage ?| ?Without Kidney Damage+ --------+ --------+ +| ?>90 ?| ?Stage one ?| ? Normal ?+ ---+ ---+ -------+| ?60-89 ?| ?Stage two ?| ? Decreased GFR ? + --+ --+ ------+| ?30-59 ?| ?Stage three ?| ? Stage three ? + --+ --+ ------+| ?15-29 ?| ?Stage four ? | ? Stage four ?+ ---+ ---+ -------+| ?<15 (or dialysis) ? ?| ?Stage five ? | ? Stage five ?+ ---+ ---+ -------+ *Each stage assumes the associated GFR level has been in effect for at least three months. ?Stages 1 to 5, with or without kidney disease, indicate chronic kidney disease. Notes: Determination of stages one and two (with eGFR >59mL/min/1.73 m2) requires estimation of kidney damage for at least three months as defined by structural or functional abnormalities of the kidney, manifested by either:Pathological abnormalities or Markers of kidney damage (including abnormalities in the composition of the blood or urine or abnormalities in imaging tests). Lab Interpretation Abnormal (test code = 44225-1) [facility] [id number] 07:59:11 Test Item Value Reference Range Interpretation Comments AMMONIA (test code = 6090198974) 9 umol/L 933 Lab Interpretation (test code = Normal 88723-1) [facility] with [id number] 07:54:31 Test Item Value Reference Range Interpretation Comments WBC (test code = See_Comment [Automated 9790-2) message] The sy stem which generated this result transmitted reference range : 4.30 - 11.10 10*3/?L. The reference range was not used to interpret this result as normal/abnormal . RBC (test code = See_Comment L [Automated 319-8) message] The sy stem which generated this result transmitted reference range : 3.93 - 5.25 10*6/?L. The reference range was not used to interpret this result as normal/abnormal . HGB (test code = 11.7 g/dL 11.6-15.0 718-7) HCT (test code = 35.7 % 35.7-45.2 4544-3) MCV (test code = 93.2 fL 80.6-95.5 787-2) MCH (test code = 30.5 pg 25.9-32.8 785-6) MCHC (test code = 32.8 g/dL 31.6-35.1 786-4) RDW-SD (test code = 41.8 fL 39.0-49.9 13731-2) RDW-CV (test code = 12.2 % 12.0-15.5 788-0) PLT (test code = See_Comment [Automated 777-3) message] The sy stem which generated this result transmitted reference range : 166 - 358 10*3/ ?L. The reference r fatou was not used to interpret this result as normal/abnormal . MPV (test code = 9.5 fL 9.5-12.9 19347-7) NRBC/100 WBC (test See_Comment [Automat ed code = 5072702233) message] The system which generated this result transmitted reference range : 0.0 - 10.0 /100 WBCs. The refer ence range was not u sed to interpret th is result as normal/abnormal . NRBC x10^3 (test code <0.01 See_Comment [Auto mated = 2230283490) message] The s ystem which generated this result transmitted reference range : 10*3/?L. The reference range was not used to interpret this result as normal/abnormal . GRAN MAT (NEUT) % 53.3 % (test code = 770-8) IMM GRAN % (test code 0.50 % = 8877138003) LYMPH % (test code = 36.6 % 736-9) MONO % (test code = 6.5 % 5905-5) EOS % (test code = 2.5 % 713-8) BASO % (test code = 0.6 % 706-2) GRAN MAT x10^3(ANC) 3.36 10*3/uL 1.88-7.09 (test code = 8832376807) IMM GRAN x10^3 (test 0.03 10*3/uL 0.00-0.06 code = 6872405366) LYMPH x10^3 (test code 2.31 10*3/uL 1.32-3.29 = 731-0) MONO x10^3 (test code 0.41 10*3/uL 0.33-0.92 = 742-7) EOS x10^3 (test code = 0.16 10*3/uL 0.03-0.39 711-2) BASO x10^3 (test code 0.04 10*3/uL 0.01-0.07 = 704-7) Lab Interpretation Abnormal (test code = 00151-3) [facility] [id number] 05:04:40 Test Item Value Reference Interpretation Comments Range TROPONIN I (test 0.008 ng/mL See_Comment [Automated code = 4923055669) message] The system which generated this result transmitted reference range : <=0.034. The reference range was not used to interpret this result as normal/abnormal . RICHA (test code = Reference (Normal) RICHA) Range (defined by the 99th percentile reference limit): <= 0.034 ng/mL Note: Cardiac troponin begins to rise 3-4 hours after the onset of ischemia. Repeat in 4-6 hours if the sample was drawn within 3-4 hours of the onset of the symptom and found normal. Diagnosis of myocardial injury is made with acute changes in cTn concentrations with at least one serial sample above the 99th percentile upper reference limit (URL), taken together with the patient's clinical presentation. Biotin has been reported to cause a negative bias, interpret results relative to patient's use of biotin. Lab Interpretation Normal (test code = 93935-0) [facility] AllenTroponin [id number] 22:42:55 Test Item Value Reference Interpretation Comments Range TROPONIN I (test 0.004 ng/mL See_Comment [Automated code = 3697554775) message] The system which generated this result transmitted reference range : <=0.034. The reference range was not used to interpret this result as normal/abnormal . RICHA (test code = Reference (Normal) RICHA) Range (defined by the 99th percentile reference limit): <= 0.034 ng/mL Note: Cardiac troponin begins to rise 3-4 hours after the onset of ischemia. Repeat in 4-6 hours if the sample was drawn within 3-4 hours of the onset of the symptom and found normal. Diagnosis of myocardial injury is made with acute changes in cTn concentrations with at least one serial sample above the 99th percentile upper reference limit (URL), taken together with the patient's clinical presentation. Biotin has been reported to cause a negative bias, interpret results relative to patient's use of biotin. Lab Interpretation Normal (test code = 78421-2) [facility] Allen[facility]cos[facility] Hemoglobin (A1C)2021-05-27 21:12:25 Test Item Value Reference Range Interpretation Comments HGB A1C (test code = 5.2 % 4.0-5.7 4548-4) RICHA (test code = RICHA) Reference RangesNormal: <5.7%Prediabetes: 5.7 - 6.4%Diabetes: > 6.5% Lab Interpretation (test Normal code = 47372-8) [facility] AllenThyroid Stimulating Hormone (TSH)2021-05-27 20:10:33 Test Item Value Reference Range Interpretation Comments TSH (test code = See_Comment [Automated message] 4157251009) The system [employer] generated this result transmitted ref erence range: 0.45 - 4 .70 mIU/L. The refe rence range was not u sed to interpret this result as normal/abnor mal. Lab Interpretation (test Normal code = 90651-8) [facility]MAGNESIUM2022-01-12 19:39:01 Test Item Value Reference Range Interpretation Comments MAGNESIUM (test code = 6579587770) 2.1 mg/dL 1.7-2.4 Lab Interpretation (test code = Normal 00009-6) [facility] AllenD-[id number] 15:46:40 Test Item Value Reference Interpretation Comments Range D-DIMER (test code = <0.27 See_Comment [Autom ated 1188759363) message] The system which generated this result transmitted reference range : <0.41 ?g/mL (FEU). The reference range was not used to interpret this result as normal/abnormal . RICHA (test code = This test may be RICHA) used in conjunction with a clinical pretest probability (PTP) assessment model to exclude venous thromboembolism (VTE) in patients suspected of deep venous thrombosis (DVT) and pulmonary embolism (PE) A D-Dimer value less than 0.50 ?g/ml (FEU) has a negative predicative value of 96 to 100% (95% CI)and 97 to 100% (95% CI) as an aid in the diagnosis of deep vein thrombosis (DVT) and pulmonary embolism when there is low or moderate pretest probability of PE or DVT. D-Dimer values are expressed in initial fibrinogen equivalent units (FEU)" The assay results should be used with other information, including the clinical context, in forming a diagnosis. Lab Interpretation Normal (test code = 00779-5) [facility] AllenTROPONIN [id number] 15:40:08 Test Item Value Reference Interpretation Comments Range TROPONIN I (test 0.005 ng/mL See_Comment [Automated code = 5136808033) message] The system which generated this result transmitted reference range : <=0.034. The reference range was not used to interpret this result as normal/abnormal . RICHA (test code = Reference (Normal) RICHA) Range (defined by the 99th percentile reference limit): <= 0.034 ng/mL Note: Cardiac troponin begins to rise 3-4 hours after the onset of ischemia. Repeat in 4-6 hours if the sample was drawn within 3-4 hours of the onset of the symptom and found normal. Diagnosis of myocardial injury is made with acute changes in cTn concentrations with at least one serial sample above the 99th percentile upper reference limit (URL), taken together with the patient's clinical presentation. Biotin has been reported to cause a negative bias, interpret results relative to patient's use of biotin. Lab Interpretation Normal (test code = 96046-2) [facility] AllenPO[facility] [id number] 15:32:00 Test Item Value Reference Range Interpretation Comments POCT PREG (test code = 1605) negative On board controls acceptable with present C Line (test code = 3574) POCT PREG LOT # (test code = 3575) [id number] POCT PREG TEST DATE (test 07/13/2022 code = 3576) Lab Interpretation (test code = Normal 41678-1) [facility]. METABOLIC PANEL (17534)2021-05-27 15:28:28 Test Item Value Reference Range Interpretation Comments NA (test code = 136 mmol/L 135-145 5420131149) K (test code = 4.6 mmol/L 3.5-5.0 3324466634) CL (test code = 103 mmol/L 98-108 7146273877) CO2 TOTAL (test code 27 mmol/L 23-31 = 5953385522) AGAP (test code = 2-16 6880639028) BUN (test code = 14 mg/dL 7-23 1010958545) GLUCOSE (test code = 92 mg/dL 70-110 7864254063) CREATININE (test code 0.55 mg/dL 0.50-1.04 = 8955226182) TOTAL BILI (test code 0.4 mg/dL 0.1-1.1 = 3312114878) CALCIUM (test code = 9.1 mg/dL 8.6-10.6 5127177128) T PROTEIN (test code 7.2 g/dL 6.3-8.2 = 6878806234) ALBUMIN (test code = 4.2 g/dL 3.5-5.0 7390918852) ALK PHOS (test code = 89 U/L 34-122 2260691285) ALTv (test code = 30 U/L 5-35 2-6) AST(SGOT) (test code 30 U/L 13-40 = 3375820501) eGFR (test code = mL/min/1.73m2 1281273568) RICHA (test code = RICHA) Association of Glomerular Filtration Rate (GFR) and Staging of Kidney Disease* + + +- +| GFR (mL/min/1.73 m2) ?| With Kidney Damage ?| ?Without Kidney Damage+ ------+ ----+ ------+| ?>90 ?| ?Stage one ?| ? Normal ?+ -+ + -+| ?60-89 ?| ?Stage two ?| ? Decreased GFR ? + + +- +| ?30-59 ?| ?Stage three ?| ? Stage three ? + + +- +| ?15-29 ?| ?Stage four ? | ? Stage four ?+ -+ + -+| ?<15 (or dialysis) ? ?| ?Stage five ? | ? Stage five ?+ -+ + -+ *Each stage assumes the associated GFR level has been in effect for at least three months. ?Stages 1 to 5, with or without kidney disease, indicate chronic kidney disease. Notes: Determination of stages one and two (with eGFR >59mL/min/1.73 m2) requires estimation of kidney damage for at least three months as defined by structural or functional abnormalities of the kidney, manifested by either:Pathological abnormalities or Markers of kidney damage (including abnormalities in the composition of the blood or urine or abnormalities in imaging tests). [facility] WITH [id number] 15:17:22 Test Item Value Reference Range Interpretation Comments WBC (test code = See_Comment [Automated message] 6690-2) The system [employer] generated this result transmitted ref erence range: 4.30 - 1 1.10 10*3/?L. The re ference range was not u sed to interpret this result as normal/abnor mal. RBC (test code = See_Comment [Automated message] 789-8) The system [employer] generated this result transmitted ref erence range: 3.93 - 5 .25 10*6/?L. The re ference range was not u sed to interpret this result as normal/abnor mal. HGB (test code = 12.3 g/dL 11.6-15.0 718-7) HCT (test code = 36.3 % 35.7-45.2 4544-3) MCV (test code = 91.9 fL 80.6-95.5 787-2) MCH (test code = 31.1 pg 25.9-32.8 785-6) MCHC (test code = 33.9 g/dL 31.6-35.1 786-4) RDW-SD (test code 40.8 fL 39.0-49.9 = 09008-5) RDW-CV (test code 12.1 % 12.0-15.5 = 788-0) PLT (test code = See_Comment [Automated message] 777-3) The system [employer] generated this result transmitted ref erence range: 166 - 35 8 10*3/?L. The re ference range was not u sed to interpret this result as normal/abnor mal. MPV (test code = 9.5 fL 9.5-12.9 24277-3) NRBC/100 WBC (test See_Comment [Automat ed message] code = 3215969444) The syste m which generated this result transmitted ref erence range: 0.0 - 10 .0 /100 WBCs. The refer ence range was not u sed to interpret this result as normal/abnor mal. NRBC x10^3 (test <0.01 See_Comment [Automated message] code = 3016715276) The syste m which generated this result transmitted ref erence range: 10*3/?L. The reference range was not used to interpr et this result as normal/abnormal . GRAN MAT (NEUT) % 57.3 % (test code = 770-8) IMM GRAN % (test 0.40 % code = 4397298166) LYMPH % (test code 33.3 % = 736-9) MONO % (test code 6.3 % = 5905-5) EOS % (test code = 1.9 % 713-8) BASO % (test code 0.8 % = 706-2) GRAN MAT 4.16 10*3/uL 1.88-7.09 x10^3(ANC) (test code = 1496643433) IMM GRAN x10^3 0.03 10*3/uL 0.00-0.06 (test code = 3301234904) LYMPH x10^3 (test 2.42 10*3/uL 1.32-3.29 code = 731-0) MONO x10^3 (test 0.46 10*3/uL 0.33-0.92 code = 742-7) EOS x10^3 (test 0.14 10*3/uL 0.03-0.39 code = 711-2) BASO x10^3 (test 0.06 10*3/uL 0.01-0.07 code = 704-7) [facility] - INFLU[facility] A B RSV [id number] 18:18:00 Test Item Value Reference Range Interpretation Comments Influenza A virus by PCR (test code Negative Negative = 85399-4) Influenza B virus by PCR (test code Negative Negative = 08266-6) RSV by PCR (test code = 74632-6) Positive Negative A Lab Interpretation (test code = Abnormal 82139-4) [facility]COVID[facility] (ID NOW RAPID TESTING)2020-03-23 16:19:00 Test Item Value Reference Range Interpretation Comments SARS-CoV-2 Rapid ID NOW Not Detected Not Detected (test code = 93736-3) RICHA (test code = RICHA) ID NOW COVID-19 Assay is an isothermal nucleic acid amplification test intended for the qualitative detection of nucleic acid from SARS-CoV-2 viral RNA in nasopharyngeal (DAIRY AND FOOD LABORATORY ASSISTANT) specimens. It is used under Emergency Use Authorization (EUA) by FDA. The limit of detection (LOD) of the assay is 125 Genome Equivalents/mL. A positive result is indicative of the presence of SARS-CoV-2 RNA. ?Clinical correlation with patient history and other diagnostic information is necessary to determine patient infection status. A negative (Not Detected) result does not preclude SARS-CoV-2 infection. In patients with clinical symptoms and other tests that are consistent with SARS-CoV-2 infection, negative results should be treated as presumptive negative and a new specimen should be tested with alternative PCR molecular test. Invalid: Please collect a new specimen for repeat patient testing if clinically indicated. Lab Interpretation Normal (test code = 00888-9) [facility] AllenTroponin [id number] 16:08:00 Test Item Value Reference Range Interpretation Comments TROPONIN I (test 0.003 ng/mL See_Comment [Automated code = 5058906121) message] The system which generated this result transmitted reference range : <=0.034. The reference range was not used to interpret this result as normal/abnormal . RICAH (test code = Equal or Less than RICHA) 0.034 ng/ml---Normal ?Note: Cardiac troponin begins to rise 3-4 hours after the onset of ischemia. Repeat in 4-6 hours if the sample was drawn within 3-4 hours of the onset of the symptom and found normal. Between 0.035 and 0.120 ng/mL--- Borderline. Questionable myocardial injury or necrosis ? ?Note: Serial measurement may be necessary to confirm or exclude the diagnosis of myocardial injury or necrosis; Clinical correlation (symptoms, EKGs, imaging studies, and others) required; Repeat in 4-6 hours if clinically indicated. ? Equal or Higher than 0.121 ng/mL---Abnormal. Myocardial Injury or Necrosis Likely ? Biotin has been reported to cause a negative bias, interpret results relative to patient's use of biotin. ? Lab Interpretation Normal (test code = 16872-2) [facility] AllenN-TERMINAL [id number] 16:08:00 Test Item Value Reference Range Interpretation Comments NT-proBNP (test code 51 pg/mL See_Comment [Autom ated = 0376386692) message] The system which generated this result transmitted reference range : <=125. The reference range was not used to interpret this result as normal/abnormal . RICHA (test code = RICHA) Biotin has been reported to cause a negative bias, interpret results relative to patient's use of biotin. Lab Interpretation Normal (test code = 79304-5) [facility] AllenUrinalysis2020-11-08 16:05:00 Test Item Value Reference Range Interpretation Comments APPEARANCE (test code = Clear Clear 1148017954) COLOR (test code = Colorless Yellow A 4672478209) PH (test code = 4.8-8.0 7186727466) SP GRAVITY (test code = 1.003-1.030 9836858285) GLU U QUAL (test code = Normal Normal 1300441171) BLOOD (test code = 2+ Negative A 8269465932) KETONES (test code = Negative Negative 0149158173) PROTEIN (test code = Negative Negative 2887-8) UROBILIN (test code = Normal Normal 2341275416) BILIRUBIN (test code = Negative Negative 5708235433) NITRITE (test code = Negative Negative 5352833387) LEUK TORO (test code = Negative Negative 8804511428) RBC/HPF (test code = <1 See_Comment [Autom ated message] 5159931312) The system [employer] generated this result transmit martinez reference range : 0 - 3 HPF. The refe rence range was not u sed to interpret th is result as normal/abnormal . WBC/HPF (test code = <1 See_Comment [Autom ated message] 8037314789) The system [employer] generated this result transmit martinez reference range : 0 - 5 HPF. The refe rence range was not u sed to interpret th is result as normal/abnormal . BACTERIA (test code = Negative Negative 8975856903) SQ EPITH (test code = See_Comment [Auto mated message] 4587010278) The system [employer] generated this result transmit martinez reference range : <=2 HPF. The refere nce range was not u sed to interpret th is result as normal/abnormal . Lab Interpretation (test Abnormal code = 91372-9) [facility] AllenBasi Metabolic Panel (NA, K, CL, CO2, GLUCOSE, BUN, CREATININE, CA)2020-03-23 15:59:00 Test Item Value Reference Range Interpretation Comments NA (test code = 138 mmol/L 135-145 3993041853) K (test code = 4.0 mmol/L 3.5-5 9472066529) CL (test code = 107 mmol/L 98-108 1679242748) CO2 TOTAL (test code = 25 mmol/L 23-31 4789006470) AGAP (test code = 2-16 7792155420) BUN (test code = 7 mg/dL 7-23 1978448899) GLUCOSE (test code = 98 mg/dL 70-110 1123975946) CREATININE (test code 0.59 mg/dL 0.5-1.04 = 9619650652) CALCIUM (test code = 8.7 mg/dL 8.6-10.6 0931498327) eGFR Calculation mL/min/1.73m2 (Non-) (test code = 4574646879) eGFR Calculation mL/min/1.73m2 () (test code = 9351849633) RICHA (test code = RICHA) Association of Glomerular Filtration Rate (GFR) and Staging of Kidney Disease* + -+ + ---+| GFR (mL/min/1.73 m2) ?| With Kidney Damage ?| ?Without Kidney Damage+ -------+ ------+ ---------+| ?>90 ?| ?Stage one ?| ? Normal ?+ --+ -+ ----+| ?60-89 ?| ?Stage two ?| ? Decreased GFR ? + -+ + ---+| ?30-59 ?| ?Stage three ?| ? Stage three ? + -+ + ---+| ?15-29 ?| ?Stage four ? | ? Stage four ?+ --+ -+ ----+| ?<15 (or dialysis) ? ?| ?Stage five ? | ? Stage five ?+ --+ -+ ----+ *Each stage assumes the associated GFR level has been in effect for at least three months. ?Stages 1 to 5, with or without kidney disease, indicate chronic kidney disease. Notes: Determination of stages one and two (with eGFR >59mL/min/1.73 m2) requires estimation of kidney damage for at least three months as defined by structural or functional abnormalities of the kidney, manifested by either:Pathological abnormalities or Markers of kidney damage (including abnormalities in the composition of the blood or urine or abnormalities in imaging tests). [facility] Panel (ALB, T.PRO, BILI T, BU/BC, ALT, AST, ALK PHOS)2020-03-23 15:59:00 Test Item Value Reference Range Interpretation Comments TOTAL BILI (test code = 7002086788) 0.6 mg/dL 0.1-1.1 BILI UNCON (test code = 0806887313) 0.4 mg/dL 0.1-1.1 BILI CONJ (test code = 0580304804) 0.0 mg/dL 0-0.3 T PROTEIN (test code = 2157995999) 7.1 g/dL 6.3-8.2 ALBUMIN (test code = 0697889954) 3.8 g/dL 3.5-5 ALK PHOS (test code = 9887983826) 88 U/L 34-122 ALTv (test code = 1742-6) 16 U/L 5-35 AST(SGOT) (test code = 3830964673) 42 U/L 13-40 H Lab Interpretation (test code = Abnormal 10616-4) [facility] AllenLipase [id number] 15:59:00 Test Item Value Reference Range Interpretation Comments LIPASE (test code = 9058487512) 120 U/L 0-220 Lab Interpretation (test code = Normal 95748-9) [facility] AllenCB with [id number] 15:54:00 Test Item Value Reference Range Interpretation Comments WBC (test code = See_Comment [Automated 9516-2) message] The sy stem which generated this result transmitted reference range : 4.30 - 11.10 10*3/?L. The reference range was not used to interpret this result as normal/abnormal . RBC (test code = See_Comment L [Automated 347-8) message] The sy stem which generated this result transmitted reference range : 3.93 - 5.25 10*6/?L. The reference range was not used to interpret this result as normal/abnormal . HGB (test code = 11.8 g/dL 11.6-15 718-7) HCT (test code = 35.2 % 35.7-45.2 L 4544-3) MCV (test code = 91.7 fL 80.6-95.5 787-2) MCH (test code = 30.7 pg 25.9-32.8 785-6) MCHC (test code = 33.5 g/dL 31.6-35.1 786-4) RDW-SD (test code = 45.6 fL 39-49.9 80546-7) RDW-CV (test code = 13.5 % 12-15.5 788-0) PLT (test code = See_Comment [Automated 777-3) message] The sy stem which generated this result transmitted reference range : 166 - 358 10*3/ ?L. The reference r fatou was not used to interpret this result as normal/abnormal . MPV (test code = 10.3 fL 9.5-12.9 95013-7) NRBC/100 WBC (test See_Comment [Automat ed code = 9377094180) message] The system which generated this result transmitted reference range : 0.0 - 10.0 /100 WBCs. The refer ence range was not u sed to interpret th is result as normal/abnormal . NRBC x10^3 (test code <0.01 See_Comment [Auto mated = 6510422875) message] The s ystem which generated this result transmitted reference range : 10*3/?L. The reference range was not used to interpret this result as normal/abnormal . GRAN MAT (NEUT) % 77.3 % (test code = 770-8) IMM GRAN % (test code 0.40 % = 8769697733) LYMPH % (test code = 13.1 % 736-9) MONO % (test code = 5.2 % 5905-5) EOS % (test code = 3.4 % 713-8) BASO % (test code = 0.6 % 706-2) GRAN MAT x10^3(ANC) 6.28 10*3/uL 1.88-7.09 (test code = 7712131634) IMM GRAN x10^3 (test 0.03 10*3/uL 0-0.06 code = 6748988492) LYMPH x10^3 (test code 1.06 10*3/uL 1.32-3.29 L = 731-0) MONO x10^3 (test code 0.42 10*3/uL 0.33-0.92 = 742-7) EOS x10^3 (test code = 0.28 10*3/uL 0.03-0.39 711-2) BASO x10^3 (test code 0.05 10*3/uL 0.01-0.07 = 704-7) Lab Interpretation Abnormal (test code = 48270-4) [facility] AllenXR [facility] [id number] 15:29:23 No acute cardiopulmonary abnormality Preliminary Report Dictated by Resident: Speedy Melgar MD., have reviewed this study and agree with theabove report.XR CHEST 1 VW HISTORY:45 years-old; Female; cough COMPARISON: None TECHNIQUE: frontal radiograph of the chest was obtained. FINDINGS: The lungs are clear with no focal consolidation. There is no pleuraleffusion or pneumothorax.The cardiomediastinal silhouette is normal.No acute osseous abnormality is identified. [facility], Radiant Results Inft User - 03/23/2020 9:30 AM CSTXR CHEST 1 VWHISTORY: 45 years-old; Female; cough COMPARISON: NoneTECHNIQUE: frontal radiograph of the chest was obtained.FINDINGS: The lungs are clear with no focal consolidation. There is no pleuraleffusion or pneumothorax.The cardiomediastinal silhouette is normal.No acute osseous abnormality is identified.IMPRESSIONNo acute cardiopulmonary abnormalityPreliminary Report Dictated by Resident: Speedy Thomason MD., have reviewed this study and agree with theabove report.[id number] 15:20:00 Test Item Value Reference Range Interpretation Comments POCT PREG (test code = 1605) negative On board controls acceptable with present C Line (test code = 3574) POCT PREG LOT # (test code = 3575) [id number] POCT PREG TEST DATE (test 08/13/2021 code = 3576) Lab Interpretation (test code = Normal 69342-8) [facility]
[2021-09-08 15:39] LABS: Urine Blood 2+ (Negative); Urine Glucose Negative (Negative); Urine Protein Negative (Negative); Urine Specific Gravity 1.015 (1.005-1.030); Urine pH 6.5 (5.0-7.0)
[2021-09-08 15:46] LABS: Urine Specific Gravity/Preg 1.015 (1.005-1.030)
[2021-09-08] MEDS ORDERED: ONDANSETRON 4 MG/2 ML VIAL ONE (16:05)
[2021-09-08] MEDS ORDERED: FAMOTIDINE 20 MG/2 ML VIAL IV ONE (16:05)
[2021-09-08] MEDS ORDERED: KETOROLAC 30 MG/ML INJ ONE (16:05)
[2021-09-08 16:11] LABS: Hematocrit 38.8 % (36.0-45.0); Lymphocytes % 12.6 % (15.3-44.8); MPV 8.1 fL (7.6-11.3); RBC Red Blood Cell Count 4.35 M/uL (3.86-4.86)
[2021-09-08 16:27] LABS: ALT/SGPT 20 U/L (12-78); AST/SGOT 18 U/L (15-37); Albumin 3.6 g/dL (3.4-5.0); Alkaline Phosphatase 85 U/L (45-117); BUN Blood Urea Nitrogen 5 mg/dL (7-18); Bicarbonate 26 mmol/L (21-32); Bilirubin Total 0.2 mg/dL (0.2-1.0); Glucose Level 96 mg/dL (74-106); Lipase 131 U/L (73-393); NT PRO-BNP 32 pg/mL (<125); Potassium 3.5 mmol/L (3.5-5.1); Protein, Total 7.3 g/dL (6.4-8.2); Sodium Level 136 mmol/L (136-145)
[2021-09-08 16:30] LABS: Bilirubin Direct < 0.1 mg/dL (0-0.2); Troponin High Sensitivity < 3.0 pg/mL (<58.9)
--- NOTE | 2021-09-08 16:35 | RAD REPORT ---
EXAM DESCRIPTION: RAD - Chest Single View - 09/08/2021 4:14 pm CLINICAL HISTORY: CHEST PAIN COMPARISON: Chest Single View dated 12/18/2018; Abdomen 1 View (KUB) dated 07/26/2016; ABDOMEN 1 VIEW K UB dated 01/08/2014 FINDINGS: Lines: None. Lungs: Linear atelectasis at the left lung base. No consolidative airspace disease . Pleural: No significant pleural effusions or pneumothorax. Cardiac: The heart size is within normal limits. Bones: No acute fractures. Other: IMPRESSION: No acute cardiopulmonary disease.
[2021-09-08] MEDS ORDERED: NA CHLORIDE 0.9% 500 ML ONE (16:55)
--- NOTE | 2021-09-08 18:18 | RAD REPORT ---
EXAM DESCRIPTION: CT - Chest For Pe Angio - 09/08/2021 5:56 pm CLINICAL HISTORY: chest pain COMPARISON: No comparisons FINDINGS: Chest Wall: No suspicious thyroid nodules or pathologic lymphadenopathy. Lungs: No acute abnormality. Pleura: No significant effusions or pneumothorax. Mediastinum/nii: No pathologic lymphadenopathy. Mild thickening of the distal esophagus which may re flect esophagitis. Pulmonary arteries/Aorta: No filling defect identified. No aortic aneurysm. Heart: No significant pericardial effusion. Normal heart size. Upper abdomen: No acute abnormality. Bones: No acute abnormality. All CT scans are performed using dose optimization technique as appropriate and may include automated exposure control or mA/KV adjustment according to patient size. IMPRESSION: Negative for pulmonary embolism. No other acute findings in the chest.
--- NOTE | 2021-09-08 18:48 | RAD REPORT ---
EXAM DESCRIPTION: US - Abdomen Exam Limited - 09/08/2021 6:35 pm CLINICAL HISTORY: RUQ tenderness COMPARISON: Stone Protocol dated 09/02/2019 FINDINGS: Cholelithiasis noted. The gallbladder wall measures 2 millimeters. No pericholecystic flui d. Negative sonographic Miranda's sign. No biliary ductal dilatation. The common bile duct measures 3 millimeters. IMPRESSION: Cholelithiasis without sonographic evidence of acute cholecystitis.
[2021-09-08] MEDS ORDERED: FENTANYL CITR 100 MCG/2 ML ONE (19:43)
--- NOTE | 2021-09-08 20:19 | ER ---
Nurse's Notes [facility] Name: Negin Earl Age: 46 yrs Sex: Female : 1975 Arrival Date: 09/08/2021 Time: 15:08 Bed 6 Private MD: Diagnosis: Chest pain, unspecified;Other cholelithiasis without obstruction Presentation: 09/08 15:12 Chief complaint: Patient states: Chest pain with SOB began last night, states pain has vg1 become worse throughout the day; also states headache and NV. Coronavirus screen: Vaccine status: Patient reports being unvaccinated. Client denies travel out of the [place] in the last 14 days. Ebola Screen: Patient denies exposure to infectious person. Patient denies travel to an Ebola-affected area in the 21 days before illness onset. Initial Sepsis Screen: Does the patient meet any 2 criteria? No. Patient's initial sepsis screen is negative. Does the patient have a suspected source of infection? No. Patient's initial sepsis screen is negative. Risk Assessment: Do you want to hurt yourself or someone else? Patient reports no desire to harm self or others. Onset of symptoms was September 07, 2021. 15:12 Method Of Arrival: Ambulatory vg1 15:12 Acuity: EVERT 2 vg1 Triage Assessment: 15:14 General: Appears uncomfortable, Behavior is calm, cooperative. Pain: Complains of pain vg1 in chest Pain radiates to left arm Pain currently is 10 out of 10 on a pain scale. Cardiovascular: Patient's skin is warm and dry. Historical: - Allergies: 15:14 PENICILLINS; vg1 - Home Meds: 15:14 prozac [Active]; Seroquel Oral [Active]; Trazodone Oral [Active]; vg1 - PMHx: 15:14 Bipolar disorder; Depression; insomnia; Kidney stones; vg1 - Immunization history:: Client reports having NOT received the Covid vaccine. - Social history:: Smoking status: Patient reports the use of cigarette tobacco products, smokes one-half pack cigarettes per day. Screenin:30 Abuse screen: Denies threats or abuse. Denies injuries from another. Nutritional bp screening: No deficits noted. Tuberculosis screening: No symptoms or risk factors identified. Fall Risk None identified. Assessment: 15:30 General: SEE TRIAGE NOTE. bp 17:30 Reassessment: No changes from previously documented assessment. Patient and/or family bp updated on plan of care and expected duration. Pain level reassessed. 19:00 Reassessment: No changes from previously documented assessment. Patient is alert, bp oriented x 3, equal unlabored respirations, skin warm/dry/pink. 19:18 General: pt ambulating back from bathroom . Pain: Complains of pain in chest Pain as6 currently is 8 out of 10 on a pain scale. Quality of pain is described as burning. Cardiovascular: Chest pain quality is burning. Respiratory: Respiratory effort is even, unlabored, Respiratory pattern is regular, symmetrical. Vital Signs: 15:12 BP 103 / 66; Pulse 90; Resp 18; Temp 99.0(TE); Pulse Ox 100% on R/A; Weight 102.06 kg; vg1 Height 5 ft. 6 in. (167.64 cm); Pain 10/10; 16:37 BP 108 / 66; Pulse 85; Resp 22; Pulse Ox 97% ; bp 17:00 BP 104 / 54; Pulse 85; Resp 15; Pulse Ox 97% ; bp 18:00 BP 107 / 61; Pulse 89; Resp 20; Pulse Ox 99% ; bp 19:00 BP 106 / 64; Pulse 86; Resp 16; Pulse Ox 100% ; bp 15:12 Body Mass Index 36.32 (102.06 kg, 167.64 cm) vg1 ED Course: 15:08 Patient arrived in ED. as 15:14 Triage completed. vg1 15:14 Arm band placed on. vg1 15:16 Diogenes Ortiz PA is PHCP. cp 15:16 Agustín Narayan MD is Attending Physician. cp 15:21 Gordon Kern, DOMINIQUE is Primary Nurse. bp 15:30 Patient has correct armband on for positive identification. Bed in low position. Call bp light in reach. Side rails up X2. monitoring engineer on. Pulse ox on. NIBP on. 16:00 Inserted saline lock: 22 gauge in right forearm, using aseptic technique. Blood bp collected. 16:16 XRAY Chest (1 view) In Process Unspecified. EDMS 17:57 Chest For Pe Angio In Process Unspecified. EDMS 18:36 Abdomen Exam Limited In Process Unspecified. EDMS 20:18 Kovacev, Ace, MD is Referral Physician. cp 20:29 No provider procedures requiring assistance completed. IV discontinued, intact, as6 bleeding controlled, No redness/swelling at site. Pressure dressing applied. Patient maintains SpO2 saturation greater than 95% on room air. Administered Medications: 16:00 Drug: Zofran (Ondansetron) 4 mg Route: IVP; Site: right forearm; bp 20:28 Follow up: Response: No adverse reaction as6 16:00 Drug: Pepcid (famotidine) 20 mg Route: IVP; Site: right antecubital; bp 20:28 Follow up: Response: No adverse reaction as6 16:00 Drug: Ketorolac 15 mg Route: IVP; Site: right forearm; bp 20:28 Follow up: Response: No adverse reaction as6 16:53 Drug: NS 0.9% 500 ml Route: IV; Rate: bolus; Site: right forearm; jb4 20:28 Follow up: Response: No adverse reaction; IV Status: Completed infusion; IV Intake: as6 500ml 19:42 Drug: fentaNYL (PF) 25 mcg Route: IVP; Site: right forearm; as6 20:28 Follow up: Response: No adverse reaction; RASS: Alert and Calm (0) as6 Intake: 20:28 IV: 500ml; Total: 500ml. as6 Outcome: 20:19 Discharge ordered by MD. cp 20:29 Discharged to home ambulatory. as6 20:29 Condition: stable 20:29 Discharge instructions given to patient, Instructed on discharge instructions, follow up and referral plans. medication usage, Demonstrated understanding of instructions, follow-up care, medications, Prescriptions given X 2. 20:30 Patient left the ED. as6 Signatures: Dispatcher [employer] EDMS Jaki Harding as Diogenes Ortiz PA PA cp Feroz Rodríguez, RN RN jb4 Gordon Kern RN RN bp Garcia, Victoria, DOMINIQUE RN vg1 Ruddy Ch RN RN as6 Corrections: (The following items were deleted from the chart) 20:33 20:29 Discharge instructions given to patient, Instructed on discharge instructions, as6 follow up and referral plans. medication usage, Demonstrated understanding of instructions, follow-up care, medications, Prescriptions given X 3, as6
--- NOTE | 2021-09-08 20:19 | EDPHYS ---
Physician Documentation [facility] Name: Negin Earl Age: 46 yrs Sex: Female : 1975 Arrival Date: 09/08/2021 Time: 15:08 Bed 6 Private MD: ED Physician Agustín Narayan HPI: 09/08 15:40 This 46 yrs old Female presents to ER via Ambulatory with complaints of Chest Pain. cp 15:40 The patient or guardian reports chest pain that is located primarily in the anterior cp chest wall, left. 15:40 Onset: last night, and became worse today. cp 15:40 The pain radiates to back. Associated signs and symptoms: Pertinent positives: cp abdominal pain, dizziness, headache, shortness of breath, Pertinent negatives: cough, diaphoresis, lower extremity pain, lower extremity swelling, syncope. The chest pain is described as burning. Duration: The patient or guardian reports a single episode, that is still ongoing, and worsening. 15:40 Modifying factors: the symptoms are aggravated by deep breath, movement. cp 15:40 Severity of pain: in the emergency department the pain is unchanged despite home cp interventions. Historical: - Allergies: 15:14 PENICILLINS; vg1 - Home Meds: 15:14 prozac [Active]; Seroquel Oral [Active]; Trazodone Oral [Active]; vg1 - PMHx: 15:14 Bipolar disorder; Depression; insomnia; Kidney stones; vg1 - Immunization history:: Client reports having NOT received the Covid vaccine. - Social history:: Smoking status: Patient reports the use of cigarette tobacco products, smokes one-half pack cigarettes per day. ROS: 15:45 Constitutional: Negative for body aches, chills, fever, poor PO intake. cp 15:45 Cardiovascular: Positive for chest pain, of the left side of chest, Negative for edema, cp palpitations. 15:45 Eyes: Negative for injury, pain, redness, and discharge. cp 15:45 ENT: Negative for drainage from ear(s), ear pain, sore throat, difficulty swallowing, difficulty handling secretions. 15:45 Respiratory: Positive for shortness of breath, Negative for cough, wheezing. 15:45 Abdomen/GI: Positive for abdominal pain, Negative for vomiting, diarrhea, constipation. 15:45 Back: Positive for radiated pain. 15:45 : Negative for urinary symptoms. 15:45 Neuro: Positive for dizziness, headache, Negative for altered mental status, syncope, weakness. 15:45 All other systems are negative. Exam: 15:38 ECG was reviewed by the Attending Physician. cp 15:50 Constitutional: The patient appears in no acute distress, alert, awake, cp non-diaphoretic, non-toxic, well developed, well nourished, obese, uncomfortable. 15:50 Head/Face: Normocephalic, atraumatic. cp 15:50 Eyes: Periorbital structures: appear normal, Conjunctiva: normal, no exudate, no injection, Sclera: no appreciated abnormality, Lids and lashes: appear normal, bilaterally. 15:50 ENT: External ear(s): are unremarkable, Nose: is normal, Mouth: Lips: moist, Oral mucosa: pink and intact, moist, Posterior pharynx: Airway: no evidence of obstruction, patent, swelling, is not appreciated, erythema, is not appreciated, exudate, is not appreciated. 15:50 Neck: ROM/movement: is normal, is supple, without pain, no range of motions limitations, no nuchal rigidity. 15:50 Chest/axilla: Inspection: normal, Palpation: crepitus, is not appreciated, tenderness, that is moderate, of the anterior aspect of left upper chest. 15:50 Cardiovascular: Rate: normal, Rhythm: regular, Heart sounds: murmur, not appreciated, Edema: is not appreciated, JVD: is not appreciated. 15:50 Respiratory: the patient does not display signs of respiratory distress, Respirations: normal, no use of accessory muscles, no retractions, labored breathing, is not present, Breath sounds: are clear throughout, no decreased breath sounds, no stridor, no wheezing. 15:50 Abdomen/GI: Inspection: abdomen appears normal, Bowel sounds: active, all quadrants, Palpation: soft, in all quadrants, mild abdominal tenderness, in the epigastric area and right upper quadrant, rebound tenderness, is not appreciated, voluntary guarding, is not appreciated, involuntary guarding, is not appreciated. 15:50 Back: ROM is normal, CVA tenderness, is absent. 15:50 Skin: cellulitis, is not appreciated, no rash present. 15:50 Neuro: Orientation: is normal, Mentation: is normal, Motor: moves all fours, strength is normal, Sensation: is normal. Vital Signs: 15:12 BP 103 / 66; Pulse 90; Resp 18; Temp 99.0(TE); Pulse Ox 100% on R/A; Weight 102.06 kg; vg1 Height 5 ft. 6 in. (167.64 cm); Pain 10/10; 16:37 BP 108 / 66; Pulse 85; Resp 22; Pulse Ox 97% ; bp 17:00 BP 104 / 54; Pulse 85; Resp 15; Pulse Ox 97% ; bp 18:00 BP 107 / 61; Pulse 89; Resp 20; Pulse Ox 99% ; bp 19:00 BP 106 / 64; Pulse 86; Resp 16; Pulse Ox 100% ; bp 15:12 Body Mass Index 36.32 (102.06 kg, 167.64 cm) vg1 MDM: 15:25 Patient medically screened. cp 09/08 15:32 Order name: Basic Metabolic Panel; Complete Time: 16:38 cp 09/08 16:38 Interpretation: Normal except: BUN 5. cp 09/08 15:32 Order name: CBC with Diff; Complete Time: 16:38 cp 09/08 16:38 Interpretation: Normal except: MCV 89.3; MARTHA% 82.4; LYM% 12.6. cp 09/08 15:32 Order name: D-Dimer; Complete Time: 16:38 cp 09/08 20:06 Interpretation: Reviewed. cp 09/08 15:32 Order name: LFT's; Complete Time: 16:38 cp 09/08 15:32 Order name: Magnesium; Complete Time: 16:38 cp 09/08 15:32 Order name: NT PRO-BNP; Complete Time: 16:38 cp 09/08 15:32 Order name: PT-INR; Complete Time: 16:38 cp 09/08 15:32 Order name: Troponin HS; Complete Time: 16:38 cp 09/08 15:32 Order name: XRAY Chest (1 view); Complete Time: 16:38 cp 09/08 15:32 Order name: Lipase; Complete Time: 16:38 cp 09/08 15:39 Order name: Urine --Ancillary (enter results); Complete Time: 16:38 bd 09/08 15:40 Order name: Urine Dipstick-Ancillary; Complete Time: 16:38 EDMS 09/08 20:06 Interpretation: UBLD 2+; UESTR Trace. 09/08 19:21 Order name: Troponin High Sensitivity; Complete Time: 20:15 09/08 15:32 Order name: EKG; Complete Time: 15:33 cp 09/08 15:32 Order name: Cardiac monitoring; Complete Time: 15:56 09/08 15:32 Order name: EKG - Nurse/Tech; Complete Time: 15:39 09/08 15:32 Order name: IV Saline Lock; Complete Time: 15:56 09/08 15:32 Order name: Labs collected and sent; Complete Time: 15:56 09/08 15:32 Order name: O2 Per Protocol; Complete Time: 15:39 09/08 15:32 Order name: O2 Sat Monitoring; Complete Time: 15:39 09/08 17:28 Order name: Chest For Pe Angio; Complete Time: 18:50 EDMS 09/08 18:50 Interpretation: Report reviewed. 09/08 17:29 Order name: Abdomen Exam Limited; Complete Time: 18:50 EDMS EC:38 Rate is 90 beats/min. Rhythm is regular. OH interval is normal. QRS interval is normal. cp QT interval is normal. Interpreted by me. Reviewed by me. Administered Medications: 16:00 Drug: Zofran (Ondansetron) 4 mg Route: IVP; Site: right forearm; bp 20:28 Follow up: Response: No adverse reaction as6 16:00 Drug: Pepcid (famotidine) 20 mg Route: IVP; Site: right antecubital; bp 20:28 Follow up: Response: No adverse reaction as6 16:00 Drug: Ketorolac 15 mg Route: IVP; Site: right forearm; bp 20:28 Follow up: Response: No adverse reaction as6 16:53 Drug: NS 0.9% 500 ml Route: IV; Rate: bolus; Site: right forearm; jb4 20:28 Follow up: Response: No adverse reaction; IV Status: Completed infusion; IV Intake: as6 500ml 19:42 Drug: fentaNYL (PF) 25 mcg Route: IVP; Site: right forearm; as6 20:28 Follow up: Response: No adverse reaction; RASS: Alert and Calm (0) as6 Disposition Summary: 09/08/21 20:19 Discharge Ordered Location: Home cp Problem: new cp Symptoms: have improved cp Condition: Stable cp Diagnosis - Chest pain, unspecified cp - Other cholelithiasis without obstruction cp Followup: cp - With: Ace Mercer MD - When: 2 - 3 days - Reason: gallstones Discharge Instructions: - Discharge Summary Sheet cp - Nonspecific Chest Pain, Adult cp - Cholelithiasis cp - Aspirin and Your Heart cp Forms: - Medication Reconciliation Form cp - Thank You Letter cp - Antibiotic Education cp - Prescription Opioid Use cp Prescriptions: - Zofran 4 mg Oral Tablet - take 1 tablet by ORAL route every 12 hours As needed; 20 tablet; Refills: 0, cp Product Selection Permitted - Diclofenac Sodium 75 mg Oral tablet,delayed release (DR/EC) - take 1 tablet by ORAL route 2 times per day; 20 tablet; Refills: 0, Product cp Selection Permitted - dicyclomine 20 mg Oral Tablet - take 1 tablet by ORAL route 4 times per day; 30 tablet; Refills: 0, Product cp Selection Permitted Signatures: Dispatcher [employer] EDMS Diogenes Ortiz PA PA cp Feroz Rodríguez, RN RN jb4 Gordon Kern RN RN Aletha Serrano RN RN vg1 Ruddy Ch RN RN as6 Corrections: (The following items were deleted from the chart) 09/09 20:02 09/08 15:40 The chest pain is described as sharp, cp cp 09/09 20:04 20:02 Respiratory: Positive for shortness of breath, Negative for cough, wheezing, cp cp 20:04 20:02 Abdomen/GI: Positive for abdominal pain, Negative for vomiting, diarrhea, cp constipation, cp 20:04 20:02 Eyes: Negative for injury, pain, redness, and discharge, cp cp 20:04 20:02 ENT: Negative for drainage from ear(s), ear pain, sore throat, difficulty cp swallowing, difficulty handling secretions, cp 20:04 20:02 Back: Positive for radiated pain, cp cp 20:04 20:02 Neuro: Positive for dizziness, headache, Negative for altered mental status, cp syncope, weakness, cp 20:04 20:02 : Negative for urinary symptoms, cp cp 20:04 20:02 All other systems are negative, cp cp
[2021-09-08 23:22] VITALS: TEMP 99
[2021-09-08 23:27] VITALS: BP 106/64; O2SAT 100
== END 2021-09-08 20:30 | disposition home or self-care (01) ==
LOC: ER 15:05
DX: K80.80 Other cholelithiasis without obstruction (principal); F17.210 Nicotine dependence, cigarettes, uncomplicated; F31.9 Bipolar disorder, unspecified; Z88.0 Allergy status to penicillin
CPT/HCPCS: 85025; 80048; 36415; 83735; 81025; 85610; 85379; 80076; 81003; 84484 ×2; 83690; 83880; 71275; 71045; 76705; Q9967; J3010; J7040; J2405; J3490; 99285

== ENCOUNTER 2021-09-25 08:50 | Day surgery (SDC) | payer OTHER ==
[~2021-09-25 08:50] MED LIST: CEFOXITIN 2 GM in NA CHLORIDE 0.9% 100 ML IVPB ONE
[2021-09-25] MEDS ORDERED: Ringers Lactate 1,000 ML IV ONE ×2 (09:06→12:09)
[2021-09-25] MEDS ORDERED: FENTANYL CITR 100 MCG/2 ML ONE (09:27)
[2021-09-25] MEDS ORDERED: ROCURONIUM 50 MG/5 ML VIAL IV ONE (09:27)
[2021-09-25] MEDS ORDERED: LIDOCAINE 1% MPF 5 ML VIAL ONE (09:27)
[2021-09-25] MEDS ORDERED: MIDAZOLAM HCL 2 MG/2 ML INJ ONE ×2 (09:27→12:09)
[2021-09-25] MEDS ORDERED: propofoL 200 MG/20 ML VIAL IV ONE (09:27)
[2021-09-25] MEDS ORDERED: BUPIVACAINE 0.25% PF 10 ML VIAL ONE (09:36)
[2021-09-25] MEDS ORDERED: dexAMETHasone 10 MG/ML VIAL ONE (10:21)
[2021-09-25] MEDS ORDERED: ONDANSETRON 4 MG/2 ML VIAL ONE ×2 (10:22→11:48)
--- NOTE | 2021-09-25 11:19 | P.OP ---
Preoperative diagnosis: Cholecystitis with Cholelithiasis Postoperative diagnosis: Cholecystitis with Cholelithiasis Primary procedure: Laparoscopic Cholecystectomy with ICG Cholangiography Anesthesia: GETA + Local Estimated blood loss: <10cc Specimen: Gallbladder Findings: Disteneded Gallbladder, gallstones Complications: None Transferred to: Recovery Room Condition: Good
[2021-09-25] MEDS ORDERED: KETOROLAC 30 MG/ML INJ ONE (11:23)
[2021-09-25] MEDS ORDERED: MORPHINE 10 MG/ML VIAL ONE (11:24)
[2021-09-25] MEDS: MORPHINE 4 MG/ML SYR ONE ×2 (11:45→11:52)
[2021-09-25] MEDS: HYDROMORPHONE HCL 1 MG/ML INJ ONE ×4 (11:47→12:15)
[2021-09-25] MEDS ORDERED: HYDROCODONE/APAP 7.5/325 MG TAB PO ONE (12:46)
[2021-09-25] MEDS ORDERED: METOCLOPRAMIDE 10 MG/2mL INJ ONE (12:53)
[2021-09-25 12:54] VITALS: O2SAT 96
[2021-09-25] MEDS ORDERED: METOCLOPRAMIDE 10 MG/2mL INJ IV SCH (13:00)
[2021-09-25] MEDS ORDERED: HYDROCODONE/APAP 7.5/325 MG TAB ONE (13:09)
[2021-09-25 14:17] VITALS: BP 121/78; TEMP 97.2
--- NOTE | 2021-09-25 23:43 | OP ---
Date of Procedure: 09/25/2021 Surgeon: Ace Mercer MD, Preoperative Diagnosis: Cholecystitis with cholelithiasis. Postoperative Diagnosis: Cholecystitis with cholelithiasis. Procedure Performed: Laparoscopic cholecystectomy with ICG cholangiography. Anesthesia: General endotracheal plus local with 0.25% Marcaine. Estimated Blood Loss: Less than 10 cc. Specimen: Gallbladder. Findings: Distended gallbladder and gallstones evident. Complications: None. Condition: Patient transferred to recovery room in good condition. Procedure In Detail: After informed consent was obtained, patient was brought to the operating room, prepped in usual sterile fashion. After adequate anesthesia achieved, a supraumbilical area was ane sthetized with 0.25% Marcaine, sharply incised. A 5 mm trocar was placed under direct visualization without any complication. Insufflation was obtained to 15 mmHg at this time. There was no injury to vital structures upon entering the abdomen. Two additional trocars were placed, one in the epigastr ium and one in the right upper quadrant. All of these were similarly anesthetized and sharply incise d. A 5 mm trocar was placed under direct vision without evidence of any complication. The umbilical trocar was then up-sized to a 12 mm under direct visualization without any complication. Patient po sitioned head up right-side position. A Ratcheted grasper was used to attempt to grasp the patient's gallbladder which required decompression with decompression needle, which was performed at this time . Dark discolored bile was appreciated emanating from the gallbladder fundus. After it was complete ly decompressed, the gallbladder was grasped and paced toward the patient's right shoulder and dissec tion continued down toward the Sebastian's pouch of the gallbladder. ICG cholangiography was performe d to allow for visualization of the cystic duct, common duct junction, and the anatomy was clearly de fined at this point. I skeletonized the structures, identified as both the cystic duct and cystic ar temitope. Both of these were completely skeletonized. The critical view of safety was obtained and the structures were then doubly clipped on the proximal side and singly on the distal side of both cystic duct and cystic artery. Endo Jesus were then used to ligate the structure. The gallbladder was re moved from the hepatic fossa with electrocautery without evidence of any complication. The gallbladd er was then placed in an EndoCatch bag, removed through the umbilical trocar and sent off for patholo gic examination. The abdomen was insufflated at this point. The area was copiously irrigated multip le times until completely clear. The abdomen was then suctioned out in its entirety. After completi on of the neutral position, no additional hemostats were required and clips were found to be in good anatomic position at the end of the procedure. At this point, the umbilical trocar site was closed u sing a Ulices-Belle suture passer with 0 Vicryl in interrupted fashion with good approximation of tissues. The abdomen was then completely desufflated under direct visualization without evidence of complication. All remaining trocar sites were copiously irrigated and closed with a 4-0 Monocryl in a running fashion. Dermabond was placed over the top. The patient tolerated the procedure well with out evidence of complication, transferred to PACU in good condition. All counts were correct at the end of the case. PAUL/PADMINI Voice ID: [id number] Report ID: [id number]
== END 2021-09-25 13:25 | disposition home or self-care (01) ==
LOC: OR 08:50
PROVIDERS: ATTEND Surgery
PROC: BF13YZZ Fluoroscopy of Gallbladder and Bile Ducts using Other Contrast (ICD-10-PCS; 2021-09-25)
PROC: 0FT44ZZ Resection of Gallbladder, Percutaneous Endoscopic Approach (ICD-10-PCS; principal; 2021-09-25 10:30)
DX: K80.10 Calculus of gallbladder with chronic cholecystitis without obstruction (principal); Z20.822 Contact with and (suspected) exposure to COVID-19
CPT/HCPCS: 36415; 88304; 85730; 47563; U0003; J2704; J2765; J2250 ×2; J3010; J1100; J1170 ×2; J7120 ×2; J0694; J2405 ×2

== ENCOUNTER 2021-12-02 07:15 | Emergency (ER) | payer OTHER ==
[2021-12-02] MEDS ORDERED: NA CHLORIDE 0.9% 1,000 ML ONE (07:42)
[2021-12-02] MEDS ORDERED: ASPIRIN 81 MG CHEWABLE TABLET ONE (07:42)
[2021-12-02 08:22] LABS: Absolute Lymphocytes (CBC) 1.6 K/uL (0.7-4.9); Hematocrit 38.3 % (36.0-45.0); Lymphocytes % 20.1 % (15.3-44.8); MCV 88.4 fL (80-100); MPV 8.4 fL (7.6-11.3); RBC Red Blood Cell Count 4.33 M/uL (3.86-4.86)
[2021-12-02 08:33] LABS: BUN Blood Urea Nitrogen 16 mg/dL (7-18); Bicarbonate 23 mmol/L (21-32); Glomerular Filtration Rate 113 ml/min (=/>90); Glucose Level 104 mg/dL (74-106); Potassium 3.8 mmol/L (3.5-5.1); Sodium Level 140 mmol/L (136-145)
[2021-12-02 08:45] LABS: Troponin High Sensitivity < 3.0 pg/mL (<58.9)
[2021-12-02] MEDS ORDERED: ACETAMINOPHEN 500 MG TAB ONE (08:48)
--- NOTE | 2021-12-02 09:32 | RAD REPORT ---
EXAM DESCRIPTION: RAD - Chest Single View - 12/02/2021 8:28 am CLINICAL HISTORY: CHEST PAIN Chest pain. COMPARISON: Chest Single View dated 09/08/2021; Chest Single View dated 12/18/2018; Abdomen 1 View (KUB ) dated 07/26/2016; ABDOMEN 1 VIEW KUB dated 01/08/2014 FINDINGS: Portable technique limits examination quality. The lungs are grossly clear. The heart is normal in size. No displaced fractures. IMPRESSION: No acute intrathoracic process suspected.
--- NOTE | 2021-12-02 10:13 | ER ---
Nurse's Notes [facility] Name: Negin Earl Age: 46 yrs Sex: Female : 1975 Arrival Date: 12/02/2021 Time: 07:16 Bed 6 Private MD: Celestino Figueroa Diagnosis: Chest pain, unspecified Presentation: 12/02 07:30 Chief complaint: Patient states: states sharp chest pain that started yesterday, worse jh6 today. Coronavirus screen: Vaccine status: Patient reports being unvaccinated. Ebola Screen: Patient negative for fever greater than or equal to 101.5 degrees Fahrenheit, and additional compatible Ebola Virus Disease symptoms Patient denies exposure to infectious person. Patient denies travel to an Ebola-affected area in the 21 days before illness onset. Initial Sepsis Screen: Does the patient meet any 2 criteria? RR > 20 per min. No. Patient's initial sepsis screen is negative. Does the patient have a suspected source of infection? No. Patient's initial sepsis screen is negative. Risk Assessment: Do you want to hurt yourself or someone else? Patient reports no desire to harm self or others. Onset of symptoms was December 01, 2021. 07:30 Method Of Arrival: Ambulatory [facility] 07:30 Acuity: EVERT [address] [facility] VALVE TECHNICIAN: 10:50 LMP N/A - control method kr3 Historical: - Allergies: 07:31 PENICILLINS; [facility] - Home Meds: 07:31 prozac [Active]; [facility] - PMHx: 07:31 Bipolar disorder; Depression; insomnia; Kidney stones; [facility] - Immunization history:: Client reports having NOT received the Covid vaccine. - Social history:: Smoking status: Patient/guardian denies using tobacco. Screenin:48 Abuse screen: Denies threats or abuse. Nutritional screening: No deficits noted. kr3 Tuberculosis screening: No symptoms or risk factors identified. Fall Risk Total Reid Fall Scale indicates No Risk (0-24 pts). Assessment: 08:11 General: Appears distressed, uncomfortable, Behavior is calm, cooperative. Pain: kr3 Complains of pain in chest Pain radiates to back Pain began. Cardiovascular: Capillary refill < 3 seconds Patient's skin is warm and dry. Rhythm is sinus rhythm Chest pain. Cardiovascular: Chest pain radiates to right jaw(s) neck. 09:33 Reassessment: No changes from previously documented assessment. Patient and/or family kr3 updated on plan of care and expected duration. Pain level reassessed. Vital Signs: 07:30 BP 112 / 69; Pulse 121; Resp 22; Temp 98.6(O); Pulse Ox 99% ; Weight 99.79 kg; Height 5 jh6 ft. 6 in. (167.64 cm); Pain 10/10; 08:15 BP 113 / 83; Pulse 112; Resp 18; Pulse Ox 99% on R/A; kr3 09:34 BP 114 / 62; Pulse 69; Resp 16; Pulse Ox 99% on R/A; kr3 10:10 BP 111 / 71; Pulse 106; Resp 16; Pulse Ox 97% on R/A; kr3 07:30 Body Mass Index 35.51 (99.79 kg, 167.64 cm) jh6 ED Course: 07:16 Patient arrived in ED. mr 07:16 Celestino Figueroa DO is Private Physician. mr 07:20 Reymundo Valles DO is Attending Physician. ms3 07:21 Arm band placed on Patient placed in an exam room, on a stretcher. kr3 07:31 Triage completed. jh6 07:33 Ana Qiu, RN is Primary Nurse. ll1 08:09 Inserted saline lock: 22 gauge in left wrist, using aseptic technique. kr3 08:23 XRAY Chest (1 view) In Process Unspecified. EDMS 10:12 Celestino Figueroa DO is Referral Physician. ms3 10:48 Bed in low position. Call light in reach. Side rails up X 1. Client placed on kr3 continuous cardiac and pulse oximetry monitoring. NIBP monitoring applied. 10:49 No provider procedures requiring assistance completed. IV discontinued, intact, kr3 bleeding controlled, No redness/swelling at site. Pressure dressing applied. Patient maintains SpO2 saturation greater than 95% on room air. Administered Medications: 07:45 Drug: Aspirin Chewable Tablet 324 mg Route: PO; kr3 09:33 Follow up: Response: No adverse reaction kr3 07:55 Drug: NS 0.9% 1000 ml Route: IV; Rate: 1000 ml; Site: left wrist; kr3 10:51 Follow up: Response: No adverse reaction; IV Status: Completed infusion; IV Intake: kr3 1000ml 08:45 Drug: Tylenol 1000 mg Route: PO; kr3 09:33 Follow up: Response: No adverse reaction kr3 Medication: 10:50 VIS not applicable for this client. kr3 Intake: 10:51 IV: 1000ml; Total: 1000ml. kr3 Outcome: 10:13 Discharge ordered by . ms3 10:34 Patient left the ED. ll1 10:49 Discharged to home kr3 10:49 Condition: stable 10:49 Discharge instructions given to patient, Instructed on discharge instructions, follow up and referral plans. medication usage, Demonstrated understanding of instructions, follow-up care. Signatures: Dispatcher [employer] FARZANEHCA Khalida Sargent mr Ana Qiu, RN RN ll1 Reymundo Valles, DO ms3 Paradise Little, RN RN jh6 Gail Kumar RN RN kr3
--- NOTE | 2021-12-02 10:13 | EDPHYS ---
Physician Documentation [facility] Name: Negin Earl Age: 46 yrs Sex: Female : 1975 Arrival Date: 12/02/2021 Time: 07:16 Bed 6 Private MD: [facility] ED Physician Reymundo Valles HPI: 12/02 08:47 This 46 yrs old Female presents to ER via Ambulatory with complaints of Chest Pain. ms3 08:47 The patient or guardian reports chest pain that is located primarily in the substernal ms3 area. Onset: yesterday. The pain does not radiate. Associated signs and symptoms: The patient has no apparent associated signs or symptoms. The chest pain is described as sharp. Duration: The patient or guardian reports a single episode. Modifying factors: the symptoms are aggravated by laying down. Severity of pain: At its worst the pain was severe in the emergency department the pain is unchanged. 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 - Social history:: Smoking status: Patient/guardian denies using tobacco. ROS: 08:47 Constitutional: Negative for fever, and chills. ENT: Negative for injury, pain, and ms3 discharge, Neck: Negative for injury, pain, and swelling. 08:47 Abdomen/GI: Negative for abdominal pain, nausea, vomiting, diarrhea, and constipation, MS/Extremity: Negative for injury and deformity, Skin: Negative for injury, rash, and discoloration, Allergy/Immunology: Negative for hives, rash, and allergies. 08:47 Cardiovascular: Positive for chest pain. 08:47 Respiratory: Positive for shortness of breath. 08:47 All other systems are negative. Exam: 07:24 ECG was reviewed by the Attending Physician. ms3 08:47 Constitutional: This is a well developed, well nourished patient who is awake, alert, ms3 and in no acute distress. Head/Face: Normocephalic, atraumatic. ENT: Nares patent. No nasal discharge, no septal abnormalities noted. Tympanic membranes are normal and external auditory canals are clear. Oropharynx with no redness, swelling, or masses, exudates, or evidence of obstruction, uvula midline. Mucous membranes moist. Chest/axilla: Normal chest wall appearance and motion. Nontender with no deformity. 08:47 Respiratory: Lungs have equal breath sounds bilaterally, clear to auscultation and percussion. No rales, rhonchi or wheezes noted. No increased work of breathing, no retractions or nasal flaring. Abdomen/GI: Soft, non-tender, with normal bowel sounds. No distension or tympany. No guarding or rebound. No evidence of tenderness throughout. Skin: Warm, dry with normal turgor. Normal color with no rashes, no lesions, and no evidence of cellulitis. MS/ Extremity: Pulses equal, no cyanosis. Neurovascular intact. Full, normal range of motion. Psych: Awake, alert, with orientation to person, place and time. Behavior, mood, and affect are within normal limits. 08:47 Cardiovascular: Rate: tachycardic, Rhythm: regular, Pulses: no pulse deficits are appreciated, Heart sounds: normal. Vital Signs: 07:30 BP 112 / 69; Pulse 121; Resp 22; Temp 98.6(O); Pulse Ox 99% ; Weight 99.79 kg; Height 5 6 ft. 6 in. (167.64 cm); Pain 10/10; 08:15 BP 113 / 83; Pulse 112; Resp 18; Pulse Ox 99% on R/A; kr3 09:34 BP 114 / 62; Pulse 69; Resp 16; Pulse Ox 99% on R/A; kr3 10:10 BP 111 / 71; Pulse 106; Resp 16; Pulse Ox 97% on R/A; kr3 07:30 Body Mass Index 35.51 (99.79 kg, 167.64 cm) [facility] MDM: 07:29 Patient medically screened. ms3 10:13 Differential diagnosis: abnormal EKG, acute myocardial infarction, coronary artery ms3 disease gastritis, pneumonia, pneumothorax, pulmonary embolus. HEART Score: History: Slightly Suspicious (0), ECG: Normal (0), Age: < or = 45 years (0), Risk Factors: No Risk Factors Known (0), Troponin: < or = 1 x Normal Limit (0), Total Score = 0. Data reviewed: vital signs, nurses notes, lab test result(s), EKG, radiologic studies, and as a result, I will discharge patient. Data interpreted: monitoring engineer: rate is 105 beats/min, rhythm is sinus tachycardia, with no ectopy, Interpretation: normal rate, normal rhythm. Counseling: I had a detailed discussion with the patient and/or guardian regarding: the historical points, exam findings, and any diagnostic results supporting the discharge/admit diagnosis, lab results, radiology results, the need for outpatient follow up, to return to the emergency department if symptoms worsen or persist or if there are any questions or concerns that arise at home. ED course: Patient is improved, in NAD, non-toxic appearing, ambulatory in ED, speaking full sentences.. 12/02 07:21 Order name: Basic Metabolic Panel; Complete Time: 08:47 ms3 12/02 07:21 Order name: CBC with Diff; Complete Time: 08:47 ms3 12/02 07:21 Order name: Troponin HS; Complete Time: 08:47 ms3 12/02 07:21 Order name: XRAY Chest (1 view); Complete Time: 10:07 ms3 12/02 07:29 Order name: D-Dimer; Complete Time: 08:47 ms3 12/02 07:21 Order name: EKG; Complete Time: 07:21 ms3 12/02 07:21 Order name: Cardiac monitoring; Complete Time: 07:33 ms3 12/02 07:21 Order name: EKG - Nurse/Tech; Complete Time: 07:33 ms3 12/02 07:21 Order name: IV Saline Lock; Complete Time: 08:09 ms3 12/02 07:21 Order name: Labs collected and sent; Complete Time: 08:09 ms3 12/02 07:21 Order name: O2 Per Protocol; Complete Time: 08:09 ms3 12/02 07:21 Order name: O2 Sat Monitoring; Complete Time: 08:09 ms3 EC:24 Rate is 117 beats/min. Rhythm is regular. QRS [place] is Normal. T waves are Normal. ms3 Clinical impression: Sinus tachycardia and with non-specific st changes. Interpreted by me. Reviewed by me. Administered Medications: 07:45 Drug: Aspirin Chewable Tablet 324 mg Route: PO; kr3 09:33 Follow up: Response: No adverse reaction kr3 07:55 Drug: NS 0.9% 1000 ml Route: IV; Rate: 1000 ml; Site: left wrist; kr3 10:51 Follow up: Response: No adverse reaction; IV Status: Completed infusion; IV Intake: kr3 1000ml 08:45 Drug: Tylenol 1000 mg Route: PO; kr3 09:33 Follow up: Response: No adverse reaction kr3 Disposition Summary: 12/02/21 10:13 Discharge Ordered Location: Home ms3 Condition: Stable ms3 Diagnosis - Chest pain, unspecified ms3 Followup: ms3 - With: Celestino Figueroa DO - When: 2 - 3 days - Reason: Discharge Instructions: - Discharge Summary Sheet ms3 - Nonspecific Chest Pain, Adult ms3 Forms: - Medication Reconciliation Form ms3 - Thank You Letter ms3 - Antibiotic Education ms3 - Prescription Opioid Use ms3 Signatures: Dispatcher [employer] EDReymundo Shah DO DO ms3 Paradise Little RN RN jh6 Gail Kumar RN RN kr3
[2021-12-02 10:48] VITALS: TEMP 98.6; O2SAT 99
[2021-12-02 10:54] VITALS: BP 114/62
--- NOTE | 2021-12-03 08:51 | EKG ---
Test Date: 2021-12-02 Test Time: 07:24:26 Bulb Sorter: IVETT MEASUREMENT RESULTS: Intervals: Rate: 117 WV: 148 QRSD: 76 QT: 324 QTc: 451 [place]: P: WV: 148 QRS: -7 T: -55 INTERPRETIVE STATEMENTS: Sinus tachycardia Nonspecific ST and T wave abnormality Abnormal ECG Compared to ECG 09/08/2021 15:31:12 ST (T wave) deviation now present Sinus rhythm no longer present T-wave abnormality no longer present Electronically Signed On 12-03-21 08:47:12 CDT by Avelino Park
--- OUTSIDE RECORDS SUMMARY | 2021-12-03 15:23 | XMS REPORT | Continuity of Care Document ---
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 hydrOXYzine 2018-05 Yes 50mg Take 50 mg [facility] (VISTARIL) 2-04 by mouth 3 ity of 50 mg 21:22: (three) [place] capsule 35 times Medical daily as Branch needed for Itching. DOCUSATE 2018-05 Yes [facility]-04 mouth. ity of (STOOL 21:22: [place] SOFT[facility] Medical ORAL) Branch POT 2018-05 Yes Take by [facility] BICARB/POTA 2-04 mouth ity of SSIUM 21:22: daily. [place] CIT/CA 35 Medical (POTASSIUM Branch BICARBONATE ORAL) bupropion 2018- Yes Take by Univ ers HCl 2-04 mouth. ity of (WELLBUTRIN 21:22: [place] ORAL) [address] [place] [address] buspirone 2018- Yes Take by Univ ers HCl (BUSPAR 2-04 mouth. ity of ORAL) 21:22: [address] duloxetine 2018- Yes Take by Uni vers HCl 2-04 mouth. ity of (CYMBALTA 21:22: [place] ORAL) [address] [place] [address] VITAMIN B 2018- Yes Take by Univ ers COMPLEX 2-04 mouth. ity of ORAL 21:22: [address] FLUOXETINE 2018- Yes 30mg Take 30 mg U nivers HCL (PROZAC 2-04 by mouth. ity of ORAL) 21:22: [address] Branch hydrOXYzine 2018-05 Yes 50mg Take 50 mg [facility] (VISTARIL) 2-04 by mouth 3 ity of 50 mg 21:22: (three) [place] capsule 35 times Medical daily as Branch needed for Itching. DOCUSATE 2018-05 Yes Take by Unive rs CALCIUM 2-04 mouth. ity of (STOOL 21:22: [place] SOFTENER Medical ORAL) Branch POT 2018-05 Yes Take by [facility] BICARB/POTA 2-04 mouth ity of SSIUM 21:22: daily. [place] [facility] Medical (POTASSIUM Branch BICARBONATE ORAL) bupropion 2018-05 Yes Take by Univ ers HCl 2-04 mouth. ity of (WELLBUTRIN 21:22: [place] ORAL) [address] [place] [address] Branch buspirone 2018-05 Yes Take by Univ ers HCl (BUSPAR 2-04 mouth. ity of ORAL) 21:22: [address] Branch duloxetine 2018-05 Yes Take by Uni vers HCl 2-04 mouth. ity of (CYMBALTA 21:22: [place] ORAL) [address] [place] [address] Branch bupropion 2018-05 Yes Take by Univ ers HCl 2-04 mouth. ity of (WELLBUTRIN 21:22: [place] ORAL) [address] [place] [address] Branch buspirone 2018-05 Yes Take by Univ ers HCl (BUSPAR 2-04 mouth. ity of ORAL) 21:22: [address] VITAMIN B 2018-05 Yes Take by Univ ers COMPLEX 2-04 mouth. ity of ORAL 21:22: [address] FLUOXETINE 2018- Yes 30mg Take 30 mg U nivers HCL (PROZAC 2-04 by mouth. ity of ORAL) 21:22: [address] Branch hydrOXYzine 2018-05 Yes 50mg Take [...] 2-04 mouth ity of SSIUM 21:22: daily. [place] CIT/CA 35 Medical (POTASSIUM Branch BICARBONATE ORAL) duloxetine 2018-05 Yes Take by Uni vers HCl 2-04 mouth. ity of (CYMBALTA 21:22: [place] ORAL) [address] [place] [address] Branch bupropion 2018- Yes Take by Univ ers HCl 2-04 mouth. ity of (WELLBUTRIN 21:22: [place] ORAL) [address] [place] [address] buspirone 2018-05 Yes Take by Univ ers HCl (BUSPAR 2-04 mouth. ity of ORAL) 21:22: [address] duloxetine 2018- Yes Take by Uni vers HCl 2-04 mouth. ity of (CYMBALTA 21:22: [place] ORAL) [address] [place] [address] VITAMIN B 2018-05 Yes Take by Univ ers COMPLEX 2-04 mouth. ity of ORAL 21:22: [address] FLUOXETINE 2018-05 Yes 30mg Take 30 mg U nivers HCL (PROZAC 2-04 by mouth. ity of ORAL) 21:22: [address] hydrOXYzine 2018-05 Yes 50mg Take 50 mg [facility] (VISTARIL) 2-04 by mouth 3 ity of 50 mg 21:22: (three) [place] capsule 35 times Medical daily as Branch needed for Itching. DOCUSATE 2018-05 Yes Take by Unive rs CALCIUM 2-04 mouth. ity of (STOOL 21:22: [place] SOFT[facility] Medical ORAL) Branch POT 2018-05 Yes Take by [facility] BICARB/POTA 2-04 mouth ity of SSIUM 21:22: daily. [place] CIT/CA 35 Medical (POTASSIUM Branch BICARBONATE ORAL) bupropion 2018-05 Yes Take by Univ ers HCl 2-04 mouth. ity of (WELLBUTRIN 21:22: [place] ORAL) [address] [place] [address] buspirone 2018-05 Yes Take by Univ ers HCl (BUSPAR 2-04 mouth. ity of ORAL) 21:22: [address] duloxetine 2018- Yes Take by Uni vers HCl 2-04 mouth. ity of (CYMBALTA 21:22: [place] ORAL) [address] [place] [address] VITAMIN B 2018- Yes Take by Univ ers COMPLEX 2-04 mouth. ity of ORAL 21:22: [address] FLUOXETINE 2018-05 Yes 30mg Take 30 mg U nivers HCL (PROZAC 2-04 by mouth. ity of ORAL) 21:22: [address] hydrOXYzine 2018- Yes 50mg Take 50 [...] 2-04 mouth ity of SSIUM 21:22: daily. [place] [facility] Medical (POTASSIUM Branch BICARBONATE ORAL) bupropion 2018- Yes Take by Univ ers HCl 2-04 mouth. ity of (WELLBUTRIN 21:22: [place] ORAL) [address] [place] [address] Branch buspirone 2018- Yes Take by Univ ers HCl (BUSPAR 2-04 mouth. ity of ORAL) 21:22: [address] duloxetine 2018-05 Yes Take by Uni vers HCl 2-04 mouth. ity of (CYMBALTA 21:22: [place] ORAL) [address] [place] [address] VITAMIN B 2018- Yes Take by Univ ers COMPLEX 2-04 mouth. ity of ORAL 21:22: [address] FLUOXETINE 2018- Yes 30mg Take 30 mg U nivers HCL (PROZAC 2-04 by mouth. ity of ORAL) 21:22: [address] hydrOXYzine 2018- Yes 50mg Take 50 [...] 2-04 mouth ity of SSIUM 21:22: daily. [place] [facility] Medical (POTASSIUM Branch BICARBONATE ORAL) VITAMIN B 2018- Yes Take by Univ ers COMPLEX 2-04 mouth. ity of ORAL 21:22: [address] bupropion 2018- Yes Take by Univ ers HCl 2-04 mouth. ity of (WELLBUTRIN 21:22: [place] ORAL) [address] [place] [address] Branch buspirone 2018- Yes Take by Univ ers HCl (BUSPAR 2-04 mouth. ity of ORAL) 21:22: [address] Branch duloxetine 2018- Yes Take by Uni vers HCl 2-04 mouth. ity of (CYMBALTA 21:22: [place] ORAL) [address] [place] [address] Branch VITAMIN B 2018- Yes Take by Univ ers COMPLEX 2-04 mouth. ity of ORAL 21:22: [address] FLUOXETINE 2018-05 Yes 30mg Take 30 mg U nivers HCL (PROZAC 2-04 by mouth. ity of ORAL) 21:22: [address] FLUOXETINE 2018- Yes 30mg Take 30 mg U nivers HCL (PROZAC 2-04 by mouth. ity of ORAL) 21:22: [address] hydrOXYzine 2018-05 Yes 50mg Take 50 [...] 2-04 mouth ity of SSIUM 21:22: daily. [place] [facility] Medical (POTASSIUM Branch BICARBONATE ORAL) hydrOXYzine 2018-05 Yes 50mg Take 50 mg [facility] (VISTARIL) 2-04 by mouth 3 ity of 50 mg 21:22: (three) [place] capsule 35 times Medical daily as Branch needed for Itching. bupropion 2018- Yes Take by Univ ers HCl 2-04 mouth. ity of (WELLBUTRIN 21:22: [place] ORAL) [address] [place] [address] Branch buspirone 2018- Yes Take by Univ ers HCl (BUSPAR 2-04 mouth. ity of ORAL) 21:22: [address] Branch duloxetine 2018- Yes Take by Uni vers HCl 2-04 mouth. ity of (CYMBALTA 21:22: [place] ORAL) [address] [place] [address] Branch DOCUSATE 2018- Yes Take by Unive rs CALCIUM 2-04 mouth. ity of (STOOL 21:22: [place] SOFTENER Medical ORAL) Branch POT 2018-05 Yes Take by [facility] BICARB/POTA 2-04 mouth ity of SSIUM 21:22: daily. [place] CIT/CA 35 Medical (POTASSIUM Branch BICARBONATE ORAL) bupropion 2018- Yes Take by Univ ers HCl 2-04 mouth. ity of (WELLBUTRIN 21:22: [place] ORAL) [address] [place] [address] Branch buspirone 2018-05 Yes Take by Univ ers HCl (BUSPAR 2-04 mouth. ity of ORAL) 21:22: [address] duloxetine 2018-05 Yes Take by Uni vers HCl 2-04 mouth. ity of (CYMBALTA 21:22: [place] ORAL) [address] [place] [address] VITAMIN B 2018- Yes Take by Univ ers COMPLEX 2-04 mouth. ity of ORAL 21:22: [address] FLUOXETINE 2018-05 Yes 30mg Take 30 mg U nivers HCL (PROZAC 2-04 by mouth. ity of ORAL) 21:22: [address] hydrOXYzine 2018-05 Yes 50mg Take 50 mg [facility] (VISTARIL) 2-04 by mouth 3 ity of 50 mg 21:22: (three) [place] capsule 35 times Medical daily as Branch needed for Itching. DOCUSATE 2018-05 Yes [facility] 2-04 mouth. ity of (STOOL 21:22: [place] SOFT[facility] Medical ORAL) Branch POT 2018-05 Yes Take by [facility] BICARB/POTA 2-04 mouth ity of SSIUM 21:22: daily. [place] CIT/CA 35 Medical (POTASSIUM Branch BICARBONATE ORAL) bupropion 2018-05 Yes Take by Univ ers HCl 2-04 mouth. ity of (WELLBUTRIN 21:22: [place] ORAL) [address] [place] [address] buspirone 2018-05 Yes Take by Univ ers HCl (BUSPAR 2-04 mouth. ity of ORAL) 21:22: [address] duloxetine 2018-05 Yes Take by Uni vers HCl 2-04 mouth. ity of (CYMBALTA 21:22: [place] ORAL) [address] [place] [address] VITAMIN B 2018- Yes Take by Univ ers COMPLEX 2-04 mouth. ity of ORAL 21:22: [address] FLUOXETINE 2018- Yes 30mg Take 30 mg U nivers HCL (PROZAC 2-04 by mouth. ity of ORAL) 21:22: [address] hydrOXYzine 2018- Yes 50mg Take 50 [...] 2-04 mouth ity of SSIUM 21:22: daily. [place] [facility] (POTASSIUM Branch BICARBONATE ORAL) bupropion 2018- Yes Take by Univ ers HCl 2-04 mouth. ity of (WELLBUTRIN 21:22: [place] ORAL) 35 Medical Branch buspirone 2018- Yes Take by Univ ers HCl (BUSPAR 2-04 mouth. ity of ORAL) 21:22: [place] [address] Medical Branch duloxetine 2018- Yes Take by [...] by ity of tablet 00:00: mouth 3 (three) Medical times Branch daily with meals. [...] by ity of tablet 00:00: mouth 3 (three) Medical times Branch daily with meals. ibuprofen 2018-0 Yes 800mg Take 1 Unive rs 800 mg 5-09 tablet by ity of tablet 00:00: mouth 3 (three) Medical times Branch daily with meals. [...] tablet by ity of tablet 00:00: mouth 00 every 6 Medical (six) Branch hours as needed for Nausea and Vomiting (N/V). ibuprofen 2018-0 Yes 800mg Take 1 Unive rs 800 mg 5-09 tablet by ity of tablet 00:00: mouth 3 (three) Medical times Branch daily with meals. proMETHazin 2018-0 Yes 25mg Take 1 Univ ers e 25 mg 5-09 tablet by ity of tablet 00:00: mouth 00 every 6 Medical (six) Branch hours as needed for Nausea and Vomiting (N/V). traMADOL 50 2018-0 Yes 50mg Take 1 Univ ers mg tablet 5-09 tablet by ity o f 00:00: mouth every 6 Medical (six) Branch hours as needed for Pain (scale 7-10). ibuprofen 2018-0 Yes 800mg Take 1 Unive rs 800 mg 5-09 tablet by ity of tablet 00:00: mouth (three) Medical times Branch daily with meals. proMETHazin 2018-0 Yes 25mg Take 1 Univ ers e 25 mg 5-09 tablet by ity of tablet 00:00: mouth every 6 Medical (six) Branch hours as needed for Nausea and Vomiting (N/V). benzonatate 2018-0 Yes [id number] 200mg Take 1 [facility] 200 mg 5-01 capsule by ity of capsule 00:00: mouth (three) Medical times Branch daily as needed for Cough. bromphenira 2018-0 Yes [id number] 5mL Take 5 mL [facility] mine-pseudo 5-01 by mouth 4 it y of ephedrine-D 00:00: (four) [place] (BROMFED 00 times Medical DM) 2-30-10 daily as Bran ch mg/5 mL needed for syrup Congestion /Allergies . ipratropium 2018-0 Yes [id number] 2{spray Use 2 Univers 0.03 % 5-01 } Sprays in ity of nasal spray 00:00: each nostril Medical every 12 Branch (twelve) hours. benzonatate 2018-0 Yes [id number] 200mg Take 1 [facility] 200 mg 5-01 capsule by ity of capsule 00:00: mouth 3 (three) Medical times Branch daily as needed for Cough. bromphenira 2018-0 Yes [id number] 5mL Take 5 mL [facility] mine-pseudo 5-01 by mouth 4 it y of ephedrine-D 00:00: (four) [place] (BROMFED 00 times Medical DM) 2-30-10 daily as Bran ch mg/5 mL needed for syrup Congestion /Allergies . ipratropium 2018-0 Yes [id number] 2{spray Use 2 Univers 0.03 % 5-01 } Sprays in ity of nasal spray 00:00: each nostril Medical every 12 Branch (twelve) hours. benzonatate 2018-0 Yes [id number] 200mg Take 1 [facility] 200 mg 5-01 capsule by ity of capsule 00:00: mouth 3 (three) Medical times Branch daily as needed for Cough. bromphenira 2018-0 Yes [id number] 5mL Take 5 mL [facility] mine-pseudo 5-01 by mouth 4 it y of ephedrine-D 00:00: (four) [place] (BROMFED 00 times Medical DM) 2-30-10 daily as Bran ch mg/5 mL needed for syrup Congestion /Allergies . ipratropium 2018-0 Yes [id number] 2{spray Use 2 Univers 0.03 % 5-01 } Sprays in ity of nasal spray 00:00: each nostril Medical every 12 Branch (twelve) hours. benzonatate 2018-0 Yes [id number] 200mg Take 1 [facility] 200 mg 5-01 capsule by ity of capsule 00:00: mouth 3 (three) Medical times Branch daily as needed for Cough. bromphenira 2018-0 Yes [id number] 5mL Take 5 mL [facility] mine-pseudo 5-01 by mouth 4 it y of ephedrine-D 00:00: (four) [place] (BROMFED 00 times Medical DM) 2-30-10 daily as Bran ch mg/5 mL needed for syrup Congestion /Allergies . ipratropium 2018-0 Yes [id number] 2{spray Use 2 Univers 0.03 % 5-01 } Sprays in ity of nasal spray 00:00: each nostril Medical every 12 Branch (twelve) hours. benzonatate 2018-0 Yes [id number] 200mg Take 1 [facility] 200 mg 5-01 capsule by ity of capsule 00:00: mouth 3 (three) Medical times Branch daily as needed for Cough. bromphenira 2018-0 Yes [id number] 5mL Take 5 mL [facility] mine-pseudo 5-01 by mouth 4 it y of ephedrine-D 00:00: (four) [place] (BROMFED 00 times Medical DM) 2-30-10 daily as Bran ch mg/5 mL needed for syrup Congestion /Allergies . ipratropium 2018-0 Yes [id number] 2{spray Use 2 Univers 0.03 % 5-01 } Sprays in ity of nasal spray 00:00: each 00 nostril Medical every 12 Branch (twelve) hours. benzonatate 2018-0 Yes [id number] 200mg Take 1 [facility] 200 mg 5-01 capsule by ity of capsule 00:00: mouth 3 [place] (three) Medical times Branch daily as needed for Cough. bromphenira 2018-0 Yes [id number] 5mL Take 5 mL [facility] mine-pseudo 5-01 by mouth 4 it y of ephedrine-D 00:00: (four) [place] (BROMFED times Medical ) 2-30-10 daily as Bran ch mg/5 mL needed for syrup Congestion /Allergies . ipratropium 2018-0 Yes [id number] 2{spray Use 2 Univers 0.03 % 5-01 } Sprays in ity of nasal spray 00:00: each nostril Medical every 12 Branch (twelve) hours. benzonatate 2018-0 Yes [id number] 200mg Take 1 [facility] 200 mg 5-01 capsule by ity of capsule 00:00: mouth 3 [place] [address] (three) Medical times Branch daily as needed for Cough. bromphenira 2018-0 Yes [id number] 5mL Take 5 mL [facility] mine-pseudo 5-01 by mouth 4 it y of ephedrine-D 00:00: (four) [place] (BROMFED 00 times Medical DM) 2-30-10 daily as Bran ch mg/5 mL needed for syrup Congestion /Allergies . ipratropium 2018-0 Yes [id number] 2{spray Use 2 Univers 0.03 % 5-01 } Sprays in ity of nasal spray 00:00: each 00 nostril Medical every 12 Branch (twelve) hours. benzonatate 2018-0 Yes [id number] 200mg Take 1 [facility] 200 mg 5-01 capsule by ity of capsule 00:00: mouth 3 [place] (three) Medical times Branch daily as needed for Cough. bromphenira 2018-0 Yes [id number] 5mL Take 5 mL [facility] mine-pseudo 5-01 by mouth 4 it y of ephedrine-D 00:00: (four) [place] (BROMFED times Medical DM) 2-30-10 daily as Bran ch mg/5 mL needed for syrup Congestion /Allergies . ipratropium 2018-0 Yes [id number] 2{spray Use 2 Univers 0.03 % 5-01 } Sprays in ity of nasal spray 00:00: each nostril Medical every 12 Branch (twelve) hours. benzonatate 2018-0 Yes [id number] 200mg Take 1 [facility] 200 mg 5-01 capsule by ity of capsule 00:00: mouth 3 [place] (three) Medical times Branch daily as needed for Cough. bromphenira 2018-0 Yes [id number] 5mL Take 5 mL [facility] mine-pseudo 5-01 by mouth 4 it y of ephedrine-D 00:00: (four) [place] (BROMFED times Medical ) 2-30-10 daily as Bran ch mg/5 mL needed for syrup Congestion /Allergies . ipratropium 2018-0 Yes [id number] 2{spray Use 2 Univers 0.03 % 5-01 } Sprays in ity of nasal spray 00:00: each nostril Medical every 12 Branch (twelve) hours. benzonatate 2018-0 Yes [id number] 200mg Take 1 [facility] 200 mg 5-01 capsule by ity of capsule 00:00: mouth 3 [place] [address] (three) Medical times Branch daily as needed for Cough. bromphenira 2018-0 Yes [id number] 5mL Take 5 mL [facility] mine-pseudo 5-01 by mouth 4 it y of ephedrine-D 00:00: (four) [place] (BROMFED times Medical DM) 2-30-10 daily as Bran ch mg/5 mL needed for syrup Congestion /Allergies . ipratropium 2018-0 Yes [id number] 2{spray Use 2 Univers 0.03 % 5-01 } Sprays in ity of nasal spray 00:00: each nostril Medical every 12 Branch (twelve) hours. benzonatate 2018-0 Yes [id number] 200mg Take 1 [facility] 200 mg 5-01 capsule by ity of capsule 00:00: mouth 3 [place] 00 (three) Medical times Branch daily as needed for Cough. bromphenira 2018-0 Yes [id number] 5mL Take 5 mL [facility] mine-pseudo 5-01 by mouth 4 it y of ephedrine-D 00:00: (four) [place] (BROMFED times Medical DM) 2-30-10 daily as Bran ch mg/5 mL needed for syrup Congestion /Allergies . ipratropium 2018- Yes [id number] 2{spray Use 2 Univers 0.03 % 5-01 } Sprays in ity of nasal spray 00:00: each [place] nostril Medical every 12 Branch (twelve) hours. bromphenira 2018-0 Yes [id number] 5mL Take 5 mL [facility] mine-pseudo 5-01 by mouth 4 it y of ephedrine-D 00:00: (four) [place] ([facility] times Medical ) 2-30-10 daily as Bran ch mg/5 mL needed for syrup Congestion /Allergies . ipratropium 2018- Yes [id number] 2{spray Use 2 Univers 0.03 % 5-01 } Sprays in ity of nasal spray 00:00: each [place] nostril Medical every 12 Branch (twelve) hours. bromphenira 2017-0 Yes [id number] 5mL Take 5 mL [facility] mine-pseudo 5-01 by mouth 4 it y of ephedrine-D 00:00: (four) [place] (BROMFED 00 times Medical DM) 2-30-10 daily as Bran ch mg/5 mL needed for syrup Congestion /Allergies . ipratropium 2018- Yes [id number] 2{spray Use 2 Univers 0.03 % 5-01 } Sprays in ity of nasal spray 00:00: each [place] nostril Medical every 12 Branch (twelve) hours. bromphenira 2018-0 Yes [id number] 5mL Take 5 mL [facility] mine-pseudo 5-01 by mouth 4 it y of ephedrine-D 00:00: (four) [place] (BROMFED 00 times Medical DM) 2-30-10 daily as Bran ch mg/5 mL needed for syrup Congestion /Allergies . ipratropium 2018-0 Yes [id number] 2{spray Use 2 Univers 0.03 % 5-01 } Sprays in ity of nasal spray 00:00: each nostril Medical every 12 Branch (twelve) hours. bromphenira 2018-0 Yes [id number] 5mL Take 5 mL [facility] mine-pseudo 5-01 by mouth 4 it y of ephedrine-D 00:00: (four) [place] (BROMFED times Medical DM) 2-30-10 daily as Bran ch mg/5 mL needed for syrup Congestion /Allergies . ipratropium 2018-0 Yes [id number] 2{spray Use 2 Univers 0.03 % 5-01 } Sprays in ity of nasal spray 00:00: each [place] nostril Medical every 12 Branch (twelve) hours. bromphenira 2018-0 Yes [id number] 5mL Take 5 mL [facility] mine-pseudo 5-01 by mouth 4 it y of ephedrine-D 00:00: (four) [place] (BROMFED 00 times Medical DM) 2-30-10 daily as Bran ch mg/5 mL needed for syrup Congestion /Allergies . ipratropium 2018- Yes [id number] 2{spray Use 2 Univers 0.03 % 5-01 } Sprays in ity of nasal spray 00:00: each [place] nostril Medical every 12 Branch (twelve) hours. bromphenira 2018-0 Yes [id number] 5mL Take 5 mL [facility] mine-pseudo 5-01 by mouth 4 it y of ephedrine-D 00:00: (four) [place] (BROMFED 00 times Medical DM) 2-30-10 daily as Bran ch mg/5 mL needed for syrup Congestion /Allergies . ipratropium 2018-0 Yes [id number] 2{spray Use 2 Univers 0.03 % 5-01 } Sprays in ity of nasal spray 00:00: each nostril Medical every 12 Branch (twelve) hours. benzonatate 2018-0 Yes [id number] 200mg Take 1 [facility] 200 mg 5-01 capsule by ity of capsule 00:00: mouth 3 [place] (three) Medical times Branch daily as needed for Cough. bromphenira 2018-0 Yes [id number] 5mL Take 5 mL [facility] mine-pseudo 5-01 by mouth 4 it y of ephedrine-D 00:00: (four) [place] (BROMFED times Medical DM) 2-30-10 daily as Bran ch mg/5 mL needed for syrup Congestion /Allergies . ipratropium 2018-0 Yes [id number] 2{spray Use 2 Univers 0.03 % 5-01 } Sprays in ity of nasal spray 00:00: each [place] nostril Medical every 12 Branch (twelve) hours. bromphenira 2018-0 Yes [id number] 5mL Take 5 mL [facility] mine-pseudo 5-01 by mouth 4 it y of ephedrine-D 00:00: (four) [place] (BROMFED times Medical DM) 2-30-10 daily as Bran ch mg/5 mL needed for syrup Congestion /Allergies . ipratropium 2018-0 Yes [id number] 2{spray Use 2 [facility] 0.03 % 5-01 } Sprays in ity of nasal spray 00:00: each [place] nostril Medical every 12 Branch (twelve) hours. bromphenira 2018-0 Yes [id number] 5mL Take 5 mL [facility] mine-pseudo 5-01 by mouth 4 it y of ephedrine-D 00:00: (four) [place] (BROMFED times Medical DM) 2-30-10 daily as Bran ch mg/5 mL needed for syrup Congestion /Allergies . ipratropium 2018- Yes [id number] 2{spray Use 2 [facility] 0.03 % 5-01 } Sprays in ity of nasal spray 00:00: each [place] [address] nostril Medical every 12 Branch (twelve) hours. benzonatate 2018-0 Yes [id number] 200mg Take 1 [facility] 200 mg 5-01 capsule by ity of capsule 00:00: mouth 3 [place] (three) Medical times Branch daily as needed for Cough. bromphenira 2018-0 Yes [id number] 5mL Take 5 mL [facility] mine-pseudo 5-01 by mouth 4 it y of ephedrine-D 00:00: (four) [place] (BROMFED 00 times Medical DM) 2-30-10 daily as Bran ch mg/5 mL needed for syrup Congestion /Allergies . ipratropium 2018-0 Yes [id number] 2{spray Use 2 Univers 0.03 % 5-01 } Sprays in ity of nasal spray 00:00: each [place] 00 nostril Medical every 12 Branch (twelve) hours. bromphenira 2018-0 Yes [id number] 5mL Take 5 mL [facility] mine-pseudo 5-01 by mouth 4 it y of ephedrine-D 00:00: (four) [place] (BROMFED 00 times Medical DM) 2-30-10 daily as Bran ch mg/5 mL needed for syrup Congestion /Allergies . ipratropium 2018-0 Yes [id number] 2{spray Use 2 [facility] 0.03 % 5-01 } Sprays in ity of nasal spray 00:00: each [place] 00 nostril Medical every 12 Branch (twelve) hours. bromphenira 2018-0 Yes [id number] 5mL Take 5 mL [facility] mine-pseudo 5-01 by mouth 4 it y of ephedrine-D 00:00: (four) [place] (BROMFED 00 times Medical DM) 2-30-10 daily as Bran ch mg/5 mL needed for syrup Congestion /Allergies . ipratropium 2018-0 Yes [id number] 2{spray Use 2 [facility] 0.03 % 5-01 } Sprays in ity of nasal spray 00:00: each [place] nostril Medical every 12 Branch (twelve) hours. benzonatate 2018-0 Yes [id number] 200mg Take 1 [facility] 200 mg 5-01 capsule by ity of capsule 00:00: mouth 3 [place] 00 (three) Medical times Branch daily as needed for Cough. bromphenira 2018-0 Yes [id number] 5mL Take 5 mL [facility] mine-pseudo 5-01 by mouth 4 it y of ephedrine-D 00:00: (four) [place] (BROMFED 00 times Medical DM) 2-30-10 daily as Bran ch mg/5 mL needed for syrup Congestion /Allergies . ipratropium 2018-0 Yes [id number] 2{spray Use 2 [facility] 0.03 % 5-01 } Sprays in ity of nasal spray 00:00: each [place] 00 nostril Medical every 12 Branch (twelve) hours. benzonatate 2018-0 2020- No [id number] 200mg Take 1 [facility] 200 mg 5-01 11-10 capsule by ity of capsule 00:00: 00:00 mouth 3 [place] 00 :00 (three) Medical times Branch daily as needed for Cough. benzonatate 2020- No [id number] 200mg Take 1 [facility] 200 mg 5- 11-10 capsule by ity of capsule 00:00: 00:00 mouth 3 [place] 00 :00 (three) Medical times Branch daily as needed for Cough. benzonatate 2020- No [id number] 200mg Take 1 [facility] 200 mg 5- 11-10 capsule by ity of capsule 00:00: 00:00 mouth 3 [place] 00 :00 (three) Medical times Branch daily as needed for Cough. estradiol 2 Yes [id number] 2mg Take 1 [facility] mg tablet 4-18 tablet by ity o f 00:00: mouth [place] 00 daily. Medical Branch estradiol 2 Yes [id number] 2mg Take 1 [facility] mg tablet 4-18 tablet by ity o f 00:00: mouth [place] 00 daily. Medical Branch estradiol 2 Yes [id number] 2mg Take 1 [facility] mg tablet 4-18 tablet by ity o f 00:00: mouth [place] 00 daily. Medical Branch estradiol 2 Yes [id number] 2mg Take 1 Univers mg tablet 4-18 tablet by ity o f 00:00: mouth [place] 00 daily. Medical Branch estradiol 2 Yes [id number] 2mg Take 1 Univers mg tablet 4-18 tablet by ity o f 00:00: mouth [place] 00 daily. Medical [facility] estradiol 2 Yes [id number] 2mg Take 1 Univers mg tablet 4-18 tablet by ity o f 00:00: mouth [place] 00 daily. [facility] estradiol 2 Yes [id number] 2mg Take 1 Univers mg tablet 4-18 tablet by ity o f 00:00: mouth [place] 00 daily. [facility] estradiol 2 Yes [id number] 2mg Take 1 Univers mg tablet 4-18 tablet by ity o f 00:00: mouth [place] 00 daily. [facility] Branch estradiol 2 Yes [id number] 2mg Take 1 Univers mg tablet 4-18 tablet by ity o f 00:00: mouth [place] 00 daily. Medical [facility] estradiol 2 Yes [id number] 2mg Take 1 Univers mg tablet 4-18 tablet by ity o f 00:00: mouth [place] 00 daily. [facility] Branch estradiol 2 Yes [id number] 2mg Take 1 Univers mg tablet 4-18 tablet by ity o f 00:00: mouth [place] 00 daily. Medical Branch estradiol 2 Yes [id number] 2mg Take 1 Univers mg tablet 4-18 tablet by ity o f 00:00: mouth [place] 00 daily. [facility] Branch estradiol 2 Yes [id number] 2mg Take 1 Univers mg tablet 4-18 tablet by ity o f 00:00: mouth [place] 00 daily. [facility] Branch estradiol 2 Yes [id number] 2mg Take 1 Univers mg tablet 4-18 tablet by ity o f 00:00: mouth [place] 00 daily. [facility] Branch estradiol 2 Yes [id number] 2mg Take 1 Univers mg tablet 4-18 tablet by ity o f 00:00: mouth [place] 00 daily. [facility] Branch estradiol 2 Yes [id number] 2mg Take 1 Univers mg tablet 4-18 tablet by ity o f 00:00: mouth [place] 00 daily. [facility] Branch estradiol 2 Yes [id number] 2mg Take 1 Univers mg tablet 4-18 tablet by ity o f 00:00: mouth [place] 00 daily. [facility] Branch estradiol 2 Yes [id number] 2mg Take 1 Univers mg tablet 4-18 tablet by ity o f 00:00: mouth [place] 00 daily. [facility] Branch estradiol 2 Yes [id number] 2mg Take 1 Univers mg tablet 4-18 tablet by ity o f 00:00: mouth [place] 00 daily. [facility] Branch estradiol 2 Yes [id number] 2mg Take 1 Univers mg tablet 4-18 tablet by ity o f 00:00: mouth [place] 00 daily. [facility] Branch estradiol 2 Yes [id number] 2mg Take 1 Univers mg tablet 4-18 tablet by ity o f 00:00: mouth [place] 00 daily. [facility] Branch estradiol 2 Yes [id number] 2mg Take 1 Univers mg tablet 4-18 tablet by ity o f 00:00: mouth [place] 00 daily. [facility] Branch estradiol 2 Yes [id number] 2mg Take 1 Univers mg tablet 4-18 tablet by ity o f 00:00: mouth [place] 00 daily. [facility] Branch estradiol 2 Yes [id number] 2mg Take 1 Univers mg tablet 4-18 tablet by ity o f 00:00: mouth [place] 00 daily. [facility] Branch Immunizations Ordered Filled Immunization Date Status Comments Sour e Immunization Name Name Td 2003-05-16 Completed University of 00:00:00 [place] [facility] Td 2003-05-16 Completed University of 00:00:00 [place] [facility] Td 2003-05-16 Completed University of 00:00:00 [place] [facility] Td 2003-05-16 Completed University of 00:00:00 [place] [facility] Td 2003-05-16 Completed University of 00:00:00 [facility] Td 2003-05-16 Completed University of 00:00:00 [place] [facility] Td 2003-05-16 Completed University of 00:00:00 [facility] Td 2003-05-16 Completed University of 00:00:00 [facility] Td 2003-05-16 Completed University of 00:00:00 [facility] Td 2003-05-16 Completed University of 00:00:00 [facility] Td 2003-05-16 Completed University of 00:00:00 [facility] Td 2003-05-16 Completed University of 00:00:00 [facility] Td 2003-05-16 Completed University of 00:00:00 [facility] Td 2003-05-16 Completed University of 00:00:00 [facility] Td 2003-05-16 Completed University of 00:00:00 [facility] Td 2003-05-16 Completed University of 00:00:00 [facility] Td 2003-05-16 Completed University of 00:00:00 [facility] Td 2003-05-16 Completed University of 00:00:00 [place] [facility] Td 2003-05-16 Completed University of 00:00:00 [facility] Branch Td 2003-05-16 Completed University of 00:00:00 [place] [facility] Td 2003-05-16 Completed University of 00:00:00 [facility] Td 2003-05-16 Completed University of 00:00:00 [facility] Td 2003-05-16 Completed University of 00:00:00 [facility] Branch Td 2003-05-16 Completed University of 00:00:00 [facility] Branch Vital Signs Vital Name Observation Time Observation Value Comments Source Systolic blood 2021-05-29 10:01:00 100 mm[Hg] Univer sity of pressure [facility] Diastolic blood 2021-05-29 10:01:00 60 mm[Hg] Unive rsity of pressure [facility] Heart rate 2021-05-29 10:01:00 74 /min Universi [facility] [place] [facility] Body temperature 2021-05-29 10:01:00 36.33 Tika Univ ersity of [place] [facility] Respiratory rate 2021-05-29 10:01:00 18 /min Univ ersity of [place] [facility] Body weight 2021-05-29 10:01:00 99.791 kg [facility]i [facility] [place] [facility] BMI 2021-05-29 10:01:00 35.11 kg/m2 [facility]i [facility] [place] [facility] Oxygen saturation in 2021-05-29 10:01:00 95 /min University of Arterial blood by Cartour Pulse oximetry Branch Body height 2021-05-28 01:32:00 168.6 cm Universi ty of [place] [facility] Systolic blood 2020-03-25 19:31:00 111 mm[Hg] Univer sity of pressure [place] [facility] Diastolic blood 2020-03-25 19:31:00 74 mm[Hg] Unive rsity of pressure [facility] [place] Heart rate 2020-03-25 19:31:00 77 /min Universi ty of [place] [facility] Body temperature 2020-03-25 19:31:00 37.06 Tika Univ ersity of [place] [facility] Respiratory rate 2020-03-25 19:31:00 20 /min Univ ersity of [place] [facility] Body height 2020-03-25 19:31:00 165.1 cm [facility]i [facility] [place] [facility] Body weight 2020-03-25 19:31:00 100.517 kg [facility]i [facility] [place] [facility] BMI 2020-03-25 19:31:00 36.88 kg/m2 [facility]i [facility] [place] [facility] Oxygen saturation in 2020-03-25 19:31:00 100 /min room air University of Arterial blood by [facility] Pulse oximetry Branch Systolic blood 2020-03-23 16:51:10 116 mm[Hg] Univer sity of pressure [place] [facility] Diastolic blood 2020-03-23 16:51:10 59 mm[Hg] Unive rsity of pressure [place] [facility] Heart rate 2020-03-23 16:51:10 84 /min Universi ty [facility] [place] [facility] Respiratory rate 2020-03-23 16:51:10 20 /min Univ ersity of [place] [facility] [place] Oxygen saturation in 2020-03-23 16:51:10 97 /min University of Arterial blood by [place] [facility] Pulse oximetry Branch Body temperature 2020-03-23 14:38:00 37.5 Tika Univ ersity of [place] [facility] Body weight 2020-03-23 14:38:00 97.523 kg Universi ty of [place] [facility] BMI 2020-03-23 14:38:00 34.70 kg/m2 Universi ty of [place] [facility] Systolic blood 2019-11-15 18:00:00 114 mm[Hg] Univer sity of pressure [facility] Diastolic blood 2019-11-15 18:00:00 74 mm[Hg] Unive rsity of pressure [facility] Heart rate 2019-11-15 18:00:00 81 /min Universi ty of [place] [facility] Body temperature 2019-11-15 18:00:00 36.67 Tika Univ ersity of [place] [facility] Respiratory rate 2019-11-15 18:00:00 18 /min Univ ersity of [place] [facility] Body weight 2019-11-15 18:00:00 98.068 kg Universi ty of [place] [facility] BMI 2019-11-15 18:00:00 34.90 kg/m2 Universi ty of [place] [facility] Body temperature 2019-10-24 19:00:00 36.67 Tika Univ ersity of [place] [facility] Body height 2019-10-24 19:00:00 167.6 cm Universi ty of [place] [facility] Body weight 2019-10-24 19:00:00 95.89 kg [facility]i [facility] [place] [facility] BMI 2019-10-24 19:00:00 34.12 kg/m2 Universi ty of [place] [facility] Body temperature 2019-10-24 19:00:00 36.67 Tika Univ ersity of [place] [facility] Body height 2019-10-24 19:00:00 167.6 cm Universi ty of [place] [facility] Body weight 2019-10-24 19:00:00 95.89 kg Universi ty of [facility] Branch BMI 2019-10-24 19:00:00 34.12 kg/m2 Universi ty of [facility] Branch Procedures Procedure Date / Time Performing Clinician Source Performed AUTHORIZATION FOR RELEASE 2021-10-05 05:01:00 Doctor Unassigned, [facility] [place] [facility] MR LUMBAR SPINE WO 2021-08-27 20:20:25 Requisition, Paper Univer [facility] CONSENT/REFUSAL FOR 2021-08-27 18:46:18 Doctor Martine, [facility] DIAGNOSIS AND TREATMENT [place] [facility] [place] ASSIGNMENT OF BENEFITS 2021-08-27 18:46:08 Doctor Martine, [facility] Name Medical [place] BASIC METABOLIC PANEL 2021-05-29 10:22:00 Samreen Soto [facility] (NA, K, CL, CO2, GLUCOSE, Medica l Branch BUN, CREATININE, CA) CBC WITH DIFF 2021-05-29 10:22:00 Samreen Soto [facility] CAROTID DUPLEX BILATERAL 2021-05-28 17:50:00 Onel García [facility] - BY VASCULAR LAB [facility] MAGNESIUM 2021-05-28 07:11:00 Andrea [facility] AMMONIA, PLASMA 2021-05-28 07:11:00 Vinnie Paulson [facility] COMP. METABOLIC PANEL 2021-05-28 07:11:00 Vinnie Paulson [facility] ([id number]) [facility] LIPID PANEL ([id number])(TOTAL 2021-05-28 07:11:00 Karan Mendez [facility] CHOLESTEROL, [facility] TRIGLYCERIDES, HDL) CBC WITH DIFF 2021-05-28 07:11:00 Andrea [facility] N-TERMINAL PRO-BNP 2021-05-28 07:11:00 Onel García [facility] AC VBG + LACTIC ACID 2021-05-28 07:11:00 Vinnie Paulson [facility] TROPONIN I 2021-05-28 04:19:00 [facility] 2021-05-27 22:02:00 Andrea [facility] TRANSTHORACIC ECHO (TTE) 2021-05-27 19:57:00 Karan Mendez [facility] COMPLETE Medical [place] CONSENT/REFUSAL FOR 2021-05-27 16:25:09 Doctor Farley [facility] DIAGNOSIS AND TREATMENT [place] [facility] [place] NOTICE OF PRIVACY 2021-05-27 16:24:35 [facility] [place] [facility] CT HEAD WO CONTRAST 2021-05-27 15:59:51 Singer [facility] URINALYSIS 2021-05-27 15:33:00 Singer [facility] URINE DRUG (IMMUNOASSAY) 2021-05-27 15:33:00 Imer Cheung [facility] - COMPREHENSIVE DRUG Medical Bra nch SCREEN W/O REFLEX POCT TEST 2021-05-27 15:32:00 Singer [facility] XR CHEST 1 VW 2021-05-27 15:26:29 [facility] COVID-19 (ID NOW RAPID 2021-05-27 15:10:00 Singer Imer [facility] TESTING) Medical Branch LAB ONLY COVID 2021-05-27 15:10:00 Singer [facility] INTERPRETATION [facility] MAGNESIUM 2021-05-27 15:05:00 Andrea [facility] TROPONIN I 2021-05-27 15:05:00 [facility] THYROID STIMULATING 2021-05-27 15:05:00 Andrea [facility] HORMONE [facility] COMP. METABOLIC PANEL 2021-05-27 15:05:00 Singer [facility] ([id number]) [facility] CBC WITH DIFF 2021-05-27 15:05:00 Singer [facility] GLYCOSYLATED HEMOGLOBIN 2021-05-27 15:05:00 Andrea [facility] (A1C) [facility] D-DIMER 2021-05-27 15:05:00 Singer [facility] HB ECG ROUTINE & RHYTHM 2021-05-27 14:54:32 Singer [facility] Branch HOSPITAL ADMISSION 2021-05-27 06:01:00 Doctor Unassigned, [facility] Name Medical [place] PATIENT CORRESPONDENCE 2020-05-01 06:01:00 Doctor Unassigned, [facility] (LETTERS, USPS [place] [facility] DOCUMENTATION) GALV ONLY - INFLUENZA A B 2020-03-23 15:31:00 EvinKirill laura [facility] RSV PCR Medical Branch XR CHEST 1 VW 2020-03-23 15:23:17 Evin, [facility] POCT TEST 2020-03-23 15:20:00 Evin, [facility] LIPASE 2020-03-23 15:17:00 Evin, [facility] TROPONIN I 2020-03-23 15:17:00 Evin, [facility] HEPATIC FUNCTION PANEL 2020-03-23 15:17:00 Evin, [facility] ([id number]) (ALB,T.PRO,BILI [facility] T,BU/BC,ALT,AST,ALK PHOS) BASIC METABOLIC PANEL 2020-03-23 15:17:00 Evin, [facility] (NA, K, CL, CO2, GLUCOSE, Medica l Branch BUN, CREATININE, CA) CBC WITH DIFF 2020-03-23 15:17:00 Evin, [facility] URINALYSIS 2020-03-23 15:17:00 Evin, [facility] N-TERMINAL PRO-BNP 2020-03-23 15:17:00 Evin, [facility] EXTRA TUBE LT. BLUE 2020-03-23 15:17:00 Evin, [facility] EXTRA TUBE ORANGE 2020-03-23 15:17:00 Evin, [facility] COVID-19 (ID NOW RAPID 2020-03-23 15:17:00 Evin, [facility] TESTING) Medical Branch DISCLOSURE AND CONSENT, 2019-10-24 05:01:00 Doctor Unassigned, [facility] MEDICAL AND SURGICAL [place] [facility] PROCEDURES EXTERNAL PROVIDER RECORDS 2019-05-30 06:01:00 Doctor Unassigned, [facility] [place] [facility] Encounters Start End Encounter Admission Attending Care Care Encounter Source Date/Time Date/Time Type Type Clinicians Facility Department ID 2021-12-01 Outpatient STLMLC STLMLC [id number] Common 09:29:01 [facility] 2021-11-17 Outpatient STLMLC STLMLC [id number] Common 09:42:00 [facility] 2021-11-12 Outpatient Jose, STLMLC STLMLC [id number] Common 11:00:01 Yves [facility] 2021-03-14 Emergency [facility] [id number] Univers 03:55:18 ity of [facility] 2021-11-24 2021-11-24 ambulatory STLMLC STLMLC [id number] Common 00:00:00 00:00:00 [facility] 2021-10-05 2021-10-05 Orders Doctor VERNON [id number] Univers 00:00:00 00:00:00 Only Unassigned, BEKA [id number] ity of [place] [facility] [id number] Greg as [phone] [facility] 009 [place] 2021-08-27 2021-08-27 Outpatient R RADIOLOGY [facility] [id number] Univers 13:47:25 23:59:00 ity of [facility] 2021-08-27 2021-08-[address] [facility] [id number] Univers 13:47:25 23:59:00 Encounter [place] [id number] ity [facility] [id number] [facility] [id number] [facility] 804 Branch 2021-08-27 2021-08-27 Outpatient R RADIOLOGY [facility] [id number] Univers 00:00:00 00:00:00 [id number] ity of [facility] 2021-08-27 2021-08-27 Orders Doctor VERNON [id number] Univers 00:00:00 00:00:00 Only Unassigned, [place] [id number] ity of [place] [facility] [id number] Greg as [id number] [facility] 009 Branch 2021-07-17 2021-07-17 Outpatient R RADIOLOGY [facility] [id number] Univers 00:00:00 00:00:00 [id number] ity [facility] 2021-07-10 2021-07-10 Outpatient R RADIOLOGY [facility] [id number] Univers 00:00:00 00:00:00 [id number] ity [facility] 2021-05-27 2021-05-29 Inpatient X ANDREA MICARLOS ALBERTO MARQUIS [id number] Univers 09:00:00 08:25:00 KARAN ity [facility] 2021-05-27 2021-05-29 [facility] Imer Cheung [facility] [id number] Univers 09:00:00 08:25:00 Encounter Karan Mendez [place] [id number] ity [facility] [id number] [facility] [id number] [place] [address] Branch 2021-05-27 2021-05-27 Outpatient R RADIOLOGY [facility] [id number] Univers 13:00:00 13:00:00 [id number] ity [facility] 2021-05-27 2021-05-27 Outpatient R RADIOLOGY [facility] [id number] Univers 00:00:00 00:00:00 ity [facility] 2021-05-11 2021-05-11 Outpatient R RADIOLOGY [facility] [id number] Univers 09:30:00 09:30:00 [id number] ity of [facility] 2021-05-11 2021-05-11 Outpatient R RADIOLOGY [facility] [id number] Univers 00:00:00 00:00:00 ity [facility] 2020-06-23 2020-06-23 Outpatient R [facility] [id number] Univers 13:20:00 13:20:00 [id number] ity [facility] 2020-06-23 2020-06-23 Outpatient R JANET, [facility] [id number] Univers 13:20:00 13:20:00 LIV laura f [facility] 2020-05-01 2020-05-01 Jh JUNIOR [id number] Univers 00:00:00 00:00:00 Only Unassigned, [place] [id number] ity of [place] [facility] [id number] Greg as [id number] [facility] 009 Branch 2020-04-24 2020-04-24 Abraham Magana UNIVERSIT [id number] Univers 00:00:00 00:00:00 Management Kassandra Y HEALTH [id number] ity [place] [id number] [facility] 113 Branch 2020-04-06 2020-04-06 Abraham Magana, UNIVERSIT [id number] Univers 00:00:00 00:00:00 Management Kassandra Y HEALTH [id number] ity [id number] [id number] [facility] 113 [place] 2020-03-25 2020-03-[address] [facility] [id number] Univers 12:49:01 13:09:01 Visit Osbaldo Reyna PRIMARY [id number] ity of [facility] [id number] [facility] [id number] Vt dical 042 Branch 2020-03-25 2020-03-25 Outpatient R [facility] [id number] Univers 13:00:00 13:00:00 [id number] ity of [facility] 2020-03-25 2020-03-25 [facility] [id number] Univers 13:00:00 13:00:00 OSBALDO ity of [facility] 2020-03-24 2020-03-[address] [facility] [id number] Univers 00:00:00 00:00:00 Alfonso PRIMARY [id number] it y of [id number] [facility] [id number] Vt dical 044 Branch 2020-03-23 2020-03-23 Emergency Evin, TRAU[facility] [id number] Univers 08:40:00 14:22:00 [facility] [id number] [id number] [phone] [facility] 014 Branch 2020-03-14 2020-03-14 NAVARRO Mccracken [id number] Univers 00:00:00 00:00:00 Management [facility] [id number] ity [place] [id number] [facility] 113 Branch 2020-01-22 2020-01-22 Outpatient R [facility] [id number] Univers 10:00:00 10:00:00 ity [facility] 2019-12-25 2019-12-25 [facility] [id number] Univers 10:30:00 10:30:00 DENNY [id number] ity [facility] 2019-12-25 2019-12-25 Out[facility] [id number] Univers 10:30:00 10:30:00 DENNY y [facility] 2019-12-24 2019-12-24 Outpatient R [facility] [id number] Univers 13:00:00 13:00:00 ity [facility] 2019-11-28 2019-11-28 Outpatient R KARON, [facility] [id number] Univers 15:00:00 15:00:00 ALFONSO [id number] ity [facility] 2019-11-28 2019-11-28 Outpatient [facility] [id number] Univers 11:15:00 11:15:00 JAYDON [facility] 2019-11-15 2019-11-15 Outpatient R JASMYNE [facility] [id number] Univers 13:00:00 13:00:00 CHENCHO Hinojosa02 ity [facility] 2019-11-15 2019-11-15 Outpatient [facility] [id number] Univers 13:00:00 13:00:00 CHENCHO [facility] 2019-11-15 2019-11-[address] [facility] [id number] Univers 12:31:16 12:51:16 Visit [facility] [id number] it y of CARE [id number] Joseluis MCFADDEN [id number] Vt dical [address] [place] [address] 2019-11-06 2019-11-06 Outpatient [facility] [id number] Univers 10:15:00 10:15:00 BRIAN [id number] ity o f [facility] 2019-11-06 2019-11-06 Outpatient [facility] [id number] Univers 10:15:00 10:15:00 BRIAN ity o f [facility] 2019-11-01 2019-11-01 Outpatient R [facility] [id number] Univers 08:30:00 08:30:00 [id number] ity [facility] 2019-11-01 2019-11-01 Outpatient R [facility] [id number] Univers 08:30:00 08:30:00 ity [facility] 2019-10-29 2019-10-29 Outpatient [facility] [id number] Univers 08:15:00 08:15:00 BRIAN [id number] ity o f [facility] 2019-10-24 2019-10-24 Office Karon, UNIVERSIT [id number] 13:42:32 16:44:36 Visit Alfonso Zarate [id number] NATIONAL [id number] BANK [id number] BLDG. 144 2019-10-24 2019-10-24 Office Karon, UNIVERSIT [id number] Univers 13:42:32 16:44:36 Visit Alfonso Zarate [id number] it y of NATIONAL [id number] Greg as BANK [id number] [facility] BLDG. 144 [place] 2019-10-24 2019-10-24 Ancillary Betito, UNIVERSIT [id number] 14:13:22 16:24:43 Visit Tiffany Zarate [id number] NATIONAL [id number] BANK [id number] BLDG. 141 2019-10-24 2019-10-24 Ancillary Betito, UNIVERSIT 1.2.840.114 [id number] Univers 14:13:22 16:24:43 Visit Tiffany Zarate [id number] it y of [facility] [id number] Greg as BANK [id number] [facility] BLDG. 141 [place] 2019-10-24 2019-10-24 Outpatient [facility] [id number] Univers 14:15:00 14:15:00 ALFONSO ity [facility] 2019-10-24 2019-10-24 Outpatient [facility] [id number] Univers 10:00:00 10:00:00 REEMA ity [facility] 2019-10-24 2019-10-24 Orders Doctor JUNIOR [id number] 00:00:00 00:00:00 Only Unassigned, [place] [id number] [place] [facility] 4.2.7.2.686 [id number] 2019-10-24 2019-10-24 Orders Doctor JUNIOR [id number] Univers 00:00:00 00:00:00 Only Unassigned, [place] [id number] ity of [place] [facility] [id number] Greg as [id number] [facility] 009 [place] 2019-10-23 2019-10-23 Outpatient R [facility] [id number] Univers 14:30:00 14:30:00 MARY ALICE ity [facility] 2019-10-23 2019-10-23 Outpatient [facility] [id number] Univers 14:30:00 14:30:00 MARY ALICE ity [facility] 2019-08-02 2019-08-02 Outpatient R [facility] [id number] Univers 15:00:00 15:00:00 [id number] ity of [facility] 2019-08-02 2019-08-02 Outpatient R [facility] [id number] Univers 15:00:00 15:00:00 ity [facility] 2019-07-25 2019-07-25 Telephone NAVARRO Magana 1.2.840.114 [id number] Univers 00:00:00 00:00:00 [facility] [id number] i ty [place] [id number] [facility] 113 Branch 2019-06-06 2019-06-[address] [facility] [id number] Univers 00:00:00 00:00:00 Keisha James [employer] [id number] [facility] [id number] Greg as MATERNAL [phone] Med ical & CHILD [address] [place] [address] 2019-05-30 2019-05-30 Orders Doctor VERNON 1.2.840.114 [id number] Univers 00:00:00 00:00:00 Only Unassigned, [place] [id number] ity of [place] [facility] 4.2.7.2.686 Greg as [id number] [facility] 009 [place] 2019-05-04 2019-05-04 Outpatient [facility] [id number] Univers 16:48:40 23:59:00 KEISHA laura f [facility] 2019-04-18 2019-04-18 [facility]patient [facility] [id number] [facility] 13:45:00 15:54:30 MALICK connors [facility] Results Test Description Test Time Test Comments Results Result Comments Source VAGINAL PATHOGENS DNA PANEL 2021-10-27 14:21:23 Test Item Value Reference Range Interpretation Comme nts [place] SPECIES (test code = POSITIVE NEGATIVE A ) G. VAGINALIS (test code = NEGATIVE NEGATIVE ) T. VAGINALIS (test code = NEGATIVE NEGATIVE UNLESS OTHERWISE INDICATED, ) ALL TESTING PER [facility] [address] [place] [address] LABORATORY DIRE CTOR: TELLO OHARA M.D. CLIA NUMBER [id number] [place]. [id number] CULTURE, [id number] 16:46:52SPECIMEN NUMBER: [id number] CULTURE, URINE SPECIMEN NUMBER: [id number] SPECIMEN COMMENT: URINE SOURCE: URINE REPORT STATUS: FINAL ISOLATE NUMBER 1: IDENTIFICATION: 10/17/2021 >100,000 CFU/ML BETA-STREPTOCOCCUS GROUP B ADDITIONAL OBSERVATIONS: PENICILLIN AND AMPICILLIN ARE DRUGS OF CHOICE FOR TREATMENT OF B-HEMOLYTIC STREPTOCOCCAL INFECTIONS. SUSCEPTIBILITY TESTING OF PENICILLIN AND OTHER B-LACTAMS APPROVED BY THE US FOOD AND DRUG ADMINISTRATION FOR TREATMENT OF B-HEMOLYTIC STREPTOCOCCAL INFECTIONS NEED NOT BE PERFORMED ROUTINELY. ISOLATE NUMBER 2: ORGANISM: 10/17/2021 10-50,000 CFU/ML GRAM NEGATIVE BACILLI IDENTIFICATION: 10/18/2021 DUSTIN ROSA AMOXICILLIN/CA INTERMED 16/8AMPICILLIN RESISTANT >16CEFAZOLIN RESISTANT >16CEFTRI AXONE SENSITIVE <=1CIPROFLOXACIN SENSITIVE <=1LEVOFLOXACIN SENSITIVE <=2NITROFURANTOIN SENSITIVE <=32PIP/TAZOBAC SENSITIVE <=16TETRACYCLINE RESISTANT >8TOBRAMYCIN SENSITIVE <=4TRIMETH/SULFA RESISTANT > NOTE: NUMBERS DISPLAYED REP RESENT MINIMUM INHIBITORY CONCENTRATION (TIFFANY) WHICH IS EXPRESSED IN MCG/ML. UNLESS OTHERWISE INDICATED, ALL TESTING PER[facility]MED [facility] [address] [place] [address] DRYER OPERATOR: TELLO OHARA M.D. CLIA NUMBER [id number] [facility] [place]. [id number] METABOLIC [id number] 07:00:47 Test Item Value Reference Range Interpretation Comments GLUCOSE (test code = 89 MG/DL 70-99 2216) BUN (test code = 11 MG/DL -2207) CREATININE (test 0.54 MG/DL 0.60-1.30 L code = 2214) eGFR (2020 CKD-EPI) 116 >60 (test code = 43060) ML/MIN/1.73 CALC BUN/CREAT (test 20 RATIO 6-28 code = 2235) SODIUM (test code = 140 MEQ/L 314-063 3319) POTASSIUM (test code 4.5 MEQ/L 3.5-5.4 = 8) CHLORIDE (test code 102 MEQ/L 95-107 = 2215) CARBON DIOXIDE (test 27 MEQ/L 19-31 code = 2206) CALCIUM (test code = 10.0 MG/DL 8.5-10.5 2208) PROTEIN, TOTAL (test 7.2 G/DL 6.1-8.3 code = 2229) ALBUMIN (test code = 4.6 G/DL 3.5-5.2 220) CALC GLOBULIN (test 2.6 G/DL 1.9-3.7 code = 2240) CALC A/G RATIO (test 1.8 RATIO 1.0-2.6 code = 2234) BILIRUBIN, TOTAL <0.2 MG/DL See_Comment [Automated message] (test code = 2207) The syste m which generated this result transmit martinez reference range : <=1.2. The refe rence range was not u sed to interpret th is result as normal/abnormal . ALKALINE PHOSPHATASE 93 U/L 40-116 (test code = 2204) AST (test code = 14 U/L 9-40 2217) ALT (test code = 15 U/L 5-40 2218) TSH, THIRD [id number] 06:20:41 Test Item Value Reference Range Interpretation Comments TSH, THIRD 1.500 UIU/ML 0.400-4.100 UNLESS GENERATION (test OTHERWISE I NDICATED, code = 2821) ALL TESTING PER [facility] [place]. [address] [place] [address] LABORATORY DIRE CTOR: TELLO FLORIAN M.D. CLIA NUMBER [id number] CAP ACCREDITATION N O. [id number] CBC W/AUTO DIFF WITH [id number] 03:22:30 Test Item Value Reference Range Interpretation [...] RBCS 0.00 K/UL 0.00-0.11 (test code = 44853) BASIC METABOLIC PANEL (NA, K, CL, CO2, GLUCOSE, BUN, CREATININE, CA)2021-05-29 11:36:22 Test Item Value Reference Range Interpretation Comments NA (test code = 138 mmol/L 135-145 5655900108) K (test code = 3.8 mmol/L 3.5-5.0 6269489674) CL (test code = 105 mmol/L 98-108 2627251974) CO2 TOTAL (test code 29 mmol/L 23-31 = 6792956899) AGAP (test code = 2-16 9457173563) BUN (test code = 10 mg/dL 7-23 2432333553) GLUCOSE (test code = 94 mg/dL 70-110 2048285215) CREATININE (test code 0.60 mg/dL 0.50-1.04 = 5080597192) CALCIUM (test code = 9.0 mg/dL 8.6-10.6 7350879887) eGFR (test code = mL/min/1.73m2 0207824350) RICHA (test code = RICHA) Association of [...] or urine or abnormalities in imaging tests). [facility] WITH [id number] 11:06:36 Test Item Value Reference Range Interpretation Comments WBC (test code = See_Comment [Automated 8001-2) message] The sy stem which generated this result transmitted reference range : 4.30 - 11.10 10*3/?L. The reference range was not used to interpret this result as normal/abnormal . RBC (test code = See_Comment L [Automated 461-8) message] The sy stem which generated this [...] RDW-SD (test code = 42.1 fL 39.0-49.9 24954-4) RDW-CV (test code = 12.1 % 12.0-15.5 788-0) PLT (test code = See_Comment [Automated 777-3) message] The sy stem which generated this result transmitted reference range : 166 - 358 10*3/ ?L. The reference r fatou was not used to interpret this result as normal/abnormal . MPV (test code = 9.6 fL 9.5-12.9 21562-9) NRBC/100 WBC (test See_Comment [Automat ed code = 0857075531) message] The system which generated this result transmitted reference range : 0.0 - 10.0 /100 WBCs. The refer ence range was not u sed to interpret th is result as normal/abnormal . NRBC x10^3 (test code <0.01 See_Comment [Auto mated = 5041350707) message] The s ystem which generated this result transmitted reference range : 10*3/?L. The reference range was not used to interpret this result as normal/abnormal . GRAN MAT (NEUT) % 49.2 % (test code = 770-8) IMM GRAN % (test code 0.20 % = 7544626664) LYMPH % (test code = 41.4 % 736-9) MONO % (test code = 5.9 % 5905-5) EOS % (test code = 2.5 % 713-8) BASO % (test code = 0.8 % 706-2) GRAN MAT x10^3(ANC) 2.57 10*3/uL 1.88-7.09 (test code = 7035972769) IMM GRAN x10^3 (test <0.03 0.00-0.06 code = 2962370853) LYMPH x10^3 (test code 2.16 10*3/uL 1.32-3.29 = 731-0) MONO x10^3 (test code 0.31 10*3/uL 0.33-0.92 L = 742-7) EOS x10^3 (test code = 0.13 10*3/uL 0.03-0.39 711-2) BASO x10^3 (test code 0.04 10*3/uL 0.01-0.07 = 704-7) Lab Interpretation Abnormal (test code = 07511-6) [id number] 15:12:50 Test Item Value Reference Range Interpretation Comments NT-proBNP (test code 38 pg/mL See_Comment [Autom ated = 6890408590) message] The system which generated this result transmitted reference range : <=125. The reference range was not used to interpret this result as normal/abnormal . RICHA (test code = RICHA) Biotin has been reported to cause a negative bias, interpret results relative to patient's use of biotin. Lab Interpretation Normal (test code = 03591-1) [facility] (Total Cholesterol, Triglycerides, HDL)2021-05-28 09:00:45 Test Item Value Reference Range Interpretation Comments CHOL (test code = 293 mg/dL 120-200 H 1533807338) HDL (test code = 49 mg/dL >50 L 4523464883) HDLC RATIO (test code = See_Comment H [Au tomated message] 6879763868) The system [employer] generated this result transmit martinez reference range : <=4.5. The refe rence range was not u sed to interpret th is result as normal/abnormal . TRIG (test code = 194 mg/dL 30-170 H 4345371379) LDL CHOL (test code = 205 mg/dL See_Comment H [Auto mated message] 24011-2) The system [employer] generated this result transmit martinez reference range : <=160. The refe rence range was not u sed to interpret th is result as normal/abnormal . VLDL (test code = 39 mg/dL 5-60 8414726640) Lab Interpretation (test Abnormal code = 22584-9) [facility] HospitalMagn[facility] [id number] 09:00:25 Test Item Value Reference Range Interpretation Comments MAGNESIUM (test code = 5716018371) 2.1 mg/dL 1.7-2.4 Lab Interpretation (test code = Normal 05429-9) [facility]. METABOLIC PANEL (18008)2021-05-28 09:00:25 Test Item Value Reference Range Interpretation Comments NA (test code = 136 mmol/L 135-145 1133294205) K (test code = 4.1 mmol/L 3.5-5.0 1500042053) CL (test code = 106 mmol/L 98-108 2734118957) CO2 TOTAL (test code = 28 mmol/L 23-31 4433245825) AGAP (test code = 2-16 2228814046) BUN (test code = 10 mg/dL 7-23 8567427176) GLUCOSE (test code = 92 mg/dL 70-110 5824051391) CREATININE (test code = 0.56 mg/dL 0.50-1.04 1886128140) TOTAL BILI (test code = 0.5 mg/dL 0.1-1.3 0218870301) CALCIUM (test code = 8.5 mg/dL 8.6-10.6 L 4648521740) T PROTEIN (test code = 6.5 g/dL 6.3-8.2 1087295077) ALBUMIN (test code = 3.6 g/dL 3.5-5.0 4440657830) ALK PHOS (test code = 80 U/L 34-122 7490663360) ALTv (test code = 28 U/L 5-35 1742-6) AST(SGOT) (test code = 31 U/L 13-40 3075536020) eGFR (test code = mL/min/1.73m2 4625210495) RICHA (test code = RICHA) Association of [...] tests). Lab Interpretation Abnormal (test code = 77420-1) [facility]AMMON[facility], [id number] 07:59:11 Test Item Value Reference Range Interpretation Comments AMMONIA (test code = 1923951101) 9 umol/L 933 Lab Interpretation (test code = Normal 80383-7) [facility] with [id number] 07:54:31 Test Item Value Reference Range Interpretation Comments WBC (test code = See_Comment [Automated 8690-2) message] The sy stem which generated this result transmitted reference range : 4.30 - 11.10 10*3/?L. The reference range was not used to interpret this result as normal/abnormal . RBC (test code = See_Comment L [Automated 149-8) message] The sy stem which generated this [...] RDW-SD (test code = 41.8 fL 39.0-49.9 46667-9) RDW-CV (test code = 12.2 % 12.0-15.5 788-0) PLT (test code = See_Comment [Automated 777-3) message] The sy stem which generated this result transmitted reference range : 166 - 358 10*3/ ?L. The reference r fatou was not used to interpret this result as normal/abnormal . MPV (test code = 9.5 fL 9.5-12.9 71307-2) NRBC/100 WBC (test See_Comment [Automat ed code = 5972027953) message] The system which generated this result transmitted reference range : 0.0 - 10.0 /100 WBCs. The refer ence range was not u sed to interpret th is result as normal/abnormal . NRBC x10^3 (test code <0.01 See_Comment [Auto mated = 5589558142) message] The s ystem which generated this result transmitted reference range : 10*3/?L. The reference range was not used to interpret this result as normal/abnormal . GRAN MAT (NEUT) % 53.3 % (test code = 770-8) IMM GRAN % (test code 0.50 % = 2905762633) LYMPH % (test code = 36.6 % 736-9) MONO % (test code = 6.5 % 5905-5) EOS % (test code = 2.5 % 713-8) BASO % (test code = 0.6 % 706-2) GRAN MAT x10^3(ANC) 3.36 10*3/uL 1.88-7.09 (test code = 0120994761) IMM GRAN x10^3 (test 0.03 10*3/uL 0.00-0.06 code = 6777502348) LYMPH x10^3 (test code 2.31 10*3/uL 1.32-3.29 = 731-0) MONO x10^3 (test code 0.41 10*3/uL 0.33-0.92 = 742-7) EOS x10^3 (test code = 0.16 10*3/uL 0.03-0.39 711-2) BASO x10^3 (test code 0.04 10*3/uL 0.01-0.07 = 704-7) Lab Interpretation Abnormal (test code = 26316-3) [facility] [id number] 05:04:40 Test Item Value Reference Interpretation Comments Range TROPONIN I (test 0.008 ng/mL See_Comment [Automated code = 5683944208) message] The system which generated this result [...] biotin. Lab Interpretation Normal (test code = 00530-8) [facility] [id number] 22:42:55 Test Item Value Reference Interpretation Comments Range TROPONIN I (test 0.004 ng/mL See_Comment [Automated code = 3173225343) message] The system which generated this result [...] biotin. Lab Interpretation Normal (test code = 76975-5) [facility]2021-[facility]-27 21:12:25 Test Item Value Reference Range Interpretation Comments HGB A1C (test code = 5.2 % 4.0-5.7 4548-4) RICHA (test code = RICHA) Reference RangesNormal: <5.7%Prediabetes: 5.7 - 6.4%Diabetes: > 6.5% Lab Interpretation (test Normal code = 99372-0) [facility] HospitalThyroid Stimulating Hormone (TSH)2021-05-27 20:10:33 Test Item Value Reference Range Interpretation Comments TSH (test code = See_Comment [Automated message] 7203973625) The system [employer] generated this result transmitted ref erence range: 0.45 - 4 .70 mIU/L. The refe rence range was not u sed to interpret this result as normal/abnor mal. Lab Interpretation (test Normal code = 22495-8) [facility]MAGN[facility]IUM2022-01-12 19:39:01 Test Item Value Reference Range Interpretation Comments MAGNESIUM (test code = 5253589155) 2.1 mg/dL 1.7-2.4 Lab Interpretation (test code = Normal 01370-0) [facility] HospitalD-[id number] 15:46:40 Test Item Value Reference Interpretation Comments Range D-DIMER (test code = <0.27 See_Comment [Autom ated 1216717178) message] The system which generated this result [...] diagnosis. Lab Interpretation Normal (test code = 55063-2) [facility] HospitalTROPONIN [id number] 15:40:08 Test Item Value Reference Interpretation Comments Range TROPONIN I (test 0.005 ng/mL See_Comment [Automated code = 6742397339) message] The system which generated this result [...] biotin. Lab Interpretation Normal (test code = 46422-3) [facility] HospitalPOCT [id number] 15:32:00 Test Item Value Reference Range Interpretation Comments POCT PREG (test code = 1605) negative On board controls acceptable with present C Line (test code = 3574) POCT PREG LOT # (test code = 3575) [id number] POCT PREG TEST DATE (test 07/13/2022 code = 3576) Lab Interpretation (test code = Normal 98890-8) [facility]COMP. METABOLIC PANEL (17626)2021-05-27 15:28:28 Test Item Value Reference Range Interpretation Comments NA (test code = 136 mmol/L 135-145 3220885032) K (test code = 4.6 mmol/L 3.5-5.0 8380990400) CL (test code = 103 mmol/L 98-108 1979253710) CO2 TOTAL (test code 27 mmol/L 23-31 = 2556732005) AGAP (test code = 2-16 9401123251) BUN (test code = 14 mg/dL 7-23 2350852307) GLUCOSE (test code = 92 mg/dL 70-110 9319462222) CREATININE (test code 0.55 mg/dL 0.50-1.04 = 2580492628) TOTAL BILI (test code 0.4 mg/dL 0.1-1.1 = 4164894857) CALCIUM (test code = 9.1 mg/dL 8.6-10.6 6017795672) T PROTEIN (test code 7.2 g/dL 6.3-8.2 = 9612964870) ALBUMIN (test code = 4.2 g/dL 3.5-5.0 2597481630) ALK PHOS (test code = 89 U/L 34-122 1456009484) ALTv (test code = 30 U/L 5-35 2-6) AST(SGOT) (test code 30 U/L 13-40 = 9097827226) eGFR (test code = mL/min/1.73m2 5027876506) RICHA (test code = RICHA) Association of [...] or urine or abnormalities in imaging tests). [facility] WITH [id number] 15:17:22 Test Item Value Reference Range Interpretation Comments WBC (test code = See_Comment [Automated message] 6690-2) The system [employer] generated this result transmitted ref erence range: 4.30 - 1 1.10 10*3/?L. The re ference range was not u sed to interpret this result as normal/abnor mal. RBC (test code = See_Comment [Automated message] 789-8) The system [employer] generated this result transmitted ref erence range: [...] RDW-SD (test code 40.8 fL 39.0-49.9 = 94480-4) RDW-CV (test code 12.1 % 12.0-15.5 = 788-0) PLT (test code = See_Comment [Automated message] 117-3) The system [employer] generated this result transmitted ref erence range: 166 - 35 8 10*3/?L. The re ference range was not u sed to interpret this result as normal/abnor mal. MPV (test code = 9.5 fL 9.5-12.9 67432-5) NRBC/100 WBC (test See_Comment [Automat ed message] code = 7195608315) The [employer] which generated this result transmitted ref erence range: 0.0 - 10 .0 /100 WBCs. The refer ence range was not u sed to interpret this result as normal/abnor mal. NRBC x10^3 (test <0.01 See_Comment [Automated message] code = 2112080086) The syste m which generated this result transmitted ref erence range: 10*3/?L. The reference range was not used to interpr et this result as normal/abnormal . GRAN MAT (NEUT) % 57.3 % (test code = 770-8) IMM GRAN % (test 0.40 % code = 7049369931) LYMPH % (test code 33.3 % = 736-9) MONO % (test code 6.3 % = 5905-5) EOS % (test code = 1.9 % 713-8) BASO % (test code 0.8 % = 706-2) GRAN MAT 4.16 10*3/uL 1.88-7.09 x10^3(ANC) (test code = 8952525763) IMM GRAN x10^3 0.03 10*3/uL 0.00-0.06 (test code = 0652068405) LYMPH x10^3 (test 2.42 10*3/uL 1.32-3.29 code = 731-0) MONO x10^3 (test 0.46 10*3/uL 0.33-0.92 code = 742-7) EOS x10^3 (test 0.14 10*3/uL 0.03-0.39 code = 711-2) BASO x10^3 (test 0.06 10*3/uL 0.01-0.07 code = 704-7) [facility]GALV ONLY - INFLUENZA A B RSV [id number] 18:18:00 Test Item Value Reference Range Interpretation Comments Influenza A virus by PCR (test code Negative Negative = 60629-0) Influenza B virus by PCR (test code Negative Negative = 52327-4) RSV by PCR (test code = 07679-1) Positive Negative A Lab Interpretation (test code = Abnormal 68555-9) [facility]COVID[facility] (ID NOW RAPID TESTING)2020-03-23 16:19:00 Test Item Value Reference Range Interpretation Comments SARS-CoV-2 Rapid ID NOW Not Detected Not Detected (test code = 24265-1) RICHA (test code = RICHA) ID NOW COVID-19 Assay is an isothermal nucleic acid amplification test intended for the qualitative detection of nucleic acid from SARS-CoV-2 viral RNA in nasopharyngeal (WELLNESS CONSULTANT) specimens. It is used under Emergency Use [...] indicated. Lab Interpretation Normal (test code = 58222-4) [facility] [id number] 16:08:00 Test Item Value Reference Range Interpretation Comments TROPONIN I (test 0.003 ng/mL See_Comment [Automated code = 2206268324) message] The system which generated this result transmitted reference range : <=0.034. The reference range was not used to interpret this result as normal/abnormal . RICHA (test code = Equal or Less than [...] ? Lab Interpretation Normal (test code = 00280-7) [facility] [id number] 16:08:00 Test Item Value Reference Range Interpretation Comments NT-proBNP (test code 51 pg/mL See_Comment [Autom ated = 4536520279) message] The system which generated this result transmitted reference range : <=125. The reference range was not used to interpret this result as normal/abnormal . RICHA (test code = RICHA) Biotin has been reported to cause a negative bias, interpret results relative to patient's use of biotin. Lab Interpretation Normal (test code = 50668-7) [facility] HospitalUrinalysis2020-11-08 16:05:00 Test Item Value Reference Range Interpretation Comments APPEARANCE (test code = Clear Clear 8210723886) COLOR (test code = Colorless Yellow A 5310677278) PH (test code = 4.8-8.0 9069835534) SP GRAVITY (test code = 1.003-1.030 3015465460) GLU U QUAL (test code = Normal Normal 5439426248) BLOOD (test code = 2+ Negative A 9377570211) KETONES (test code = Negative Negative 0112549595) PROTEIN (test code = Negative Negative 2887-8) UROBILIN (test code = Normal Normal 9060111847) BILIRUBIN (test code = Negative Negative 7749359490) NITRITE (test code = Negative Negative 3950408988) LEUK TORO (test code = Negative Negative 8623739760) RBC/HPF (test code = <1 See_Comment [Autom ated message] 2732408783) The system [employer] generated this result transmit martinez reference range : 0 - 3 HPF. The refe rence range was not u sed to interpret th is result as normal/abnormal . WBC/HPF (test code = <1 See_Comment [Autom ated message] 5088547704) The system [employer] generated this result transmit martinez reference range : 0 - 5 HPF. The refe rence range was not u sed to interpret th is result as normal/abnormal . BACTERIA (test code = Negative Negative 7681983313) SQ EPITH (test code = See_Comment [Auto mated message] 0423795015) The system [employer] generated this result transmit martinez reference range : <=2 HPF. The refere nce range was not u sed to interpret th is result as normal/abnormal . Lab Interpretation (test Abnormal code = 63946-2) [facility] (NA, K, CL, CO2, GLUCOSE, BUN, CREATININE, CA)2020-03-23 15:59:00 Test Item Value Reference Range Interpretation Comments NA (test code = 138 mmol/L 135-145 4490237562) K (test code = 4.0 mmol/L 3.5-5 9529922691) CL (test code = 107 mmol/L 98-108 1715842963) CO2 TOTAL (test code = 25 mmol/L 23-31 7894654616) AGAP (test code = 2-16 8637424251) BUN (test code = 7 mg/dL 7-23 8715909731) GLUCOSE (test code = 98 mg/dL 70-110 6836209965) CREATININE (test code 0.59 mg/dL 0.5-1.04 = 1936193167) CALCIUM (test code = 8.7 mg/dL 8.6-10.6 7976794640) eGFR Calculation mL/min/1.73m2 (Non-) (test code = 5200241693) eGFR Calculation mL/min/1.73m2 () (test code = 7604412108) RICHA (test code = RICHA) Association of [...] or urine or abnormalities in imaging tests). [facility] HospitalHepatic Function Panel (ALB, T.PRO, BILI T, BU/BC, ALT, AST, ALK PHOS)2020-03-23 15:59:00 Test Item Value Reference Range Interpretation Comments TOTAL BILI (test code = 6968003700) 0.6 mg/dL 0.1-1.1 BILI UNCON (test code = 4365805862) 0.4 mg/dL 0.1-1.1 BILI CONJ (test code = 0255968385) 0.0 mg/dL 0-0.3 T PROTEIN (test code = 7224821132) 7.1 g/dL 6.3-8.2 ALBUMIN (test code = 7543371454) 3.8 g/dL 3.5-5 ALK PHOS (test code = 5774486456) 88 U/L 34-122 ALTv (test code = 1742-6) 16 U/L 5-35 AST(SGOT) (test code = 4300354076) 42 U/L 13-40 H Lab Interpretation (test code = Abnormal 22316-7) [facility] HospitalLipase [id number] 15:59:00 Test Item Value Reference Range Interpretation Comments LIPASE (test code = 7771710193) 120 U/L 0-220 Lab Interpretation (test code = Normal 98165-1) [facility] HospitalCBC with [id number] 15:54:00 Test Item Value Reference Range Interpretation Comments WBC (test code = See_Comment [Automated 6690-2) message] The sy stem which generated this result transmitted reference range : 4.30 - 11.10 10*3/?L. The reference range was not used to interpret this result as normal/abnormal . RBC (test code = See_Comment L [Automated 789-8) message] The sy stem which generated this [...] RDW-SD (test code = 45.6 fL 39-49.9 35174-1) RDW-CV (test code = 13.5 % 12-15.5 788-0) PLT (test code = See_Comment [Automated 777-3) message] The sy stem which generated this result transmitted reference range : 166 - 358 10*3/ ?L. The reference r fatou was not used to interpret this result as normal/abnormal . MPV (test code = 10.3 fL 9.5-12.9 49429-7) NRBC/100 WBC (test See_Comment [Automat ed code = 9893866509) message] The system which generated this result transmitted reference range : 0.0 - 10.0 /100 WBCs. The refer ence range was not u sed to interpret th is result as normal/abnormal . NRBC x10^3 (test code <0.01 See_Comment [Auto mated = 6051624215) message] The s ystem which generated this result transmitted reference range : 10*3/?L. The reference range was not used to interpret this result as normal/abnormal . GRAN MAT (NEUT) % 77.3 % (test code = 770-8) IMM GRAN % (test code 0.40 % = 2844163448) LYMPH % (test code = 13.1 % 736-9) MONO % (test code = 5.2 % 5905-5) EOS % (test code = 3.4 % 713-8) BASO % (test code = 0.6 % 706-2) GRAN MAT x10^3(ANC) 6.28 10*3/uL 1.88-7.09 (test code = 6944840108) IMM GRAN x10^3 (test 0.03 10*3/uL 0-0.06 code = 6882076813) LYMPH x10^3 (test code 1.06 10*3/uL 1.32-3.29 L = 731-0) MONO x10^3 (test code 0.42 10*3/uL 0.33-0.92 = 742-7) EOS x10^3 (test code = 0.28 10*3/uL 0.03-0.39 711-2) BASO x10^3 (test code 0.05 10*3/uL 0.01-0.07 = 704-7) Lab Interpretation Abnormal (test code = 89002-3) [facility] [id number] 15:29:23 No acute cardiopulmonary abnormality Preliminary Report [...] reviewed this study and agree with theabove report.[id number] 15:20[facility]00 Test Item Value Reference Range Interpretation Comments POCT PREG (test code = 1605) negative On board controls acceptable with present C Line (test code = 3574) POCT PREG LOT # (test code = 3575) [id number] POCT PREG TEST DATE (test 08/13/2021 code = 3576) Lab Interpretation (test code = Normal 38406-0) [facility]
== END 2021-12-02 10:34 | disposition home or self-care (01) ==
LOC: ER 07:15
DX: R07.89 Other chest pain (principal); R06.02 Shortness of breath; Z88.0 Allergy status to penicillin
CPT/HCPCS: 85025; 80048; 36415; 85379; 84484; 71045; J7030; 93005

== ENCOUNTER 2022-01-27 06:05 | Emergency (ER) | payer OTHER ==
--- OUTSIDE RECORDS SUMMARY | 2022-01-27 06:14 | XMS REPORT | Continuity of Care Document ---
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 Unive rs COMPLEX 2-04 mouth. ity of ORAL 21:22: [address] Branch FLUOXETINE 2018- Yes 30mg Take 30 mg U nivers HCL (PROZAC 2-04 by mouth. ity of ORAL) 21:22: [address] Branch hydrOXYzine 2018- Yes 50mg Take 50 mg [facility] (VISTARIL) 2-04 by mouth 3 ity of 50 mg 21:22: (three) [place] capsule 35 times Medical daily as Branch needed for Itching. DOCUSATE 2018-05 Yes Take by Univer s CALCIUM 2-04 mouth. ity of (STOOL 21:22: [place] SOFT[facility] Medical ORAL) Branch hydrOXYzine 2018- Yes 50mg Take 50 mg [facility] (VISTARIL) 2-04 by mouth 3 ity of 50 mg 21:22: (three) [place] capsule 35 times Medical daily as Branch needed for Itching. POT 2018- Yes Take by [facility] BICARB/POTA 2-04 mouth ity of SSIUM 21:22: daily. [place] [facility] Medical (POTASSIUM Branch BICARBONATE ORAL) bupropion 2018- Yes Take by Unive rs HCl 2-04 mouth. ity of (WELLBUTRIN 21:22: [place] ORAL) Medical Branch DOCUSATE 2018- Yes Take by Univer s CALCIUM 2-04 mouth. ity of (STOOL 21:22: [place] SOFTENER 35 Medical ORAL) Branch buspirone 2018- Yes Take by Unive rs HCl (BUSPAR 2-04 mouth. ity of ORAL) 21:22: [address] Branch duloxetine 2018- Yes Take by Univ ers HCl 2-04 mouth. ity of (CYMBALTA 21:22: [place] ORAL) [address] [place] [address] VITAMIN B 2018- Yes Take by Unive rs COMPLEX 2-04 mouth. ity of ORAL 21:22: [address] FLUOXETINE 2018- Yes 30mg Take 30 mg U nivers HCL (PROZAC 2-04 by mouth. ity of ORAL) 21:22: [address] hydrOXYzine 2018- Yes 50mg Take 50 mg [facility] (VISTARIL) 2-04 by mouth 3 ity of 50 mg 21:22: (three) [place] capsule 35 times Medical daily as Branch needed for Itching. DOCUSATE 2018- Yes Take by Univer s CALCIUM 2-04 mouth. ity of (STOOL 21:22: [place] SO[facility] Medical ORAL) Branch POT 2018-05 Yes Take by [facility] BICARB/POTA 2-04 mouth ity of SSIUM 21:22: daily. [place] [facility] Medical (POTASSIUM Branch BICARBONATE ORAL) POT 2018-05 Yes Take by Univers BICARB/POTA 2-04 mouth ity of SSIUM 21:22: daily. [place] [facility] Medical (POTASSIUM Branch BICARBONATE ORAL) bupropion 2018- Yes Take by Unive rs HCl 2-04 mouth. ity of (WELLBUTRIN 21:22: [place] ORAL) [address] [place] [address] buspirone 2018- Yes Take by Unive rs HCl (BUSPAR 2-04 mouth. ity of ORAL) 21:22: [address] duloxetine 2018- Yes Take by Univ ers HCl 2-04 mouth. ity of (CYMBALTA 21:22: [place] ORAL) [address] [place] [address] VITAMIN B 2018- Yes Take by Unive rs COMPLEX 2-04 mouth. ity of ORAL 21:22: [address] FLUOXETINE 2018- Yes 30mg Take 30 mg U nivers HCL (PROZAC 2-04 by mouth. ity of ORAL) 21:22: [address] hydrOXYzine 2018- Yes 50mg Take 50 mg [facility] (VISTARIL) 2-04 by mouth 3 ity of 50 mg 21:22: (three) [place] capsule 35 times Medical daily as Branch needed for Itching. DOCUSATE 2018- Yes Take by Univer s CALCIUM 2-04 mouth. ity of (STOOL 21:22: [place] SOFTENER 35 Medical ORAL) Branch POT 2018-05 Yes Take by Univers BICARB/POTA 2-04 mouth ity of SSIUM 21:22: daily. [place] CIT/CA 35 Medical (POTASSIUM Branch BICARBONATE ORAL) bupropion 2018- Yes Take by Unive rs HCl 2-04 mouth. ity of (WELLBUTRIN 21:22: [place] ORAL) [address] [place] [address] Branch buspirone 2018-05 Yes Take by Unive rs HCl (BUSPAR 2-04 mouth. ity of ORAL) 21:22: [address] Branch duloxetine 2018- Yes Take by Univ ers HCl 2-04 mouth. ity of (CYMBALTA 21:22: [place] ORAL) [address] [place] [address] VITAMIN B 2018- Yes Take by Unive rs COMPLEX 2-04 mouth. ity of ORAL 21:22: [address] FLUOXETINE 2018-05 Yes 30mg Take 30 mg U nivers HCL (PROZAC 2-04 by mouth. ity of ORAL) 21:22: [address] hydrOXYzine 2018-05 Yes 50mg Take 50 mg Univers (VISTARIL) 2-04 by mouth 3 ity of 50 mg 21:22: (three) [place] capsule 35 times Medical daily as Branch needed for Itching. DOCUSATE 2018-05 Yes Take by Univer s CALCIUM 2-04 mouth. ity of (STOOL 21:22: [place] SOFTENER Medical ORAL) Branch POT 2018-05 Yes Take by Univers BICARB/POTA 2-04 mouth ity of SSIUM 21:22: daily. [place] CIT/CA 35 Medical (POTASSIUM Branch BICARBONATE ORAL) bupropion 2018- Yes Take by Unive rs HCl 2-04 mouth. ity of (WELLBUTRIN 21:22: [place] ORAL) [address] [place] [address] Branch buspirone 2018- Yes Take by Unive rs HCl (BUSPAR 2-04 mouth. ity of ORAL) 21:22: [address] duloxetine 2018- Yes Take by Univ ers HCl 2-04 mouth. ity of (CYMBALTA 21:22: [place] ORAL) [address] [place] [address] Branch bupropion 2018- Yes Take by Unive rs HCl 2-04 mouth. ity of (WELLBUTRIN 21:22: [place] ORAL) [address] [place] [address] Branch buspirone 2018-05 Yes Take by Unive rs HCl (BUSPAR 2-04 mouth. ity of ORAL) 21:22: [address] Branch VITAMIN B 2018- Yes Take by Unive rs COMPLEX 2-04 mouth. ity of ORAL 21:22: [address] FLUOXETINE 2018- Yes 30mg Take 30 mg U nivers HCL (PROZAC 2-04 by mouth. ity of ORAL) 21:22: [address] hydrOXYzine 2018- Yes 50mg Take 50 mg Univers (VISTARIL) 2-04 by mouth 3 ity of 50 mg 21:22: (three) [place] capsule 35 times Medical daily as Branch needed for Itching. DOCUSATE 2018-05 Yes Take by Univer s CALCIUM 2-04 mouth. ity of (STOOL 21:22: [place] SOFTENER Medical ORAL) Branch POT 2018-05 Yes Take by Univers BICARB/POTA 2-04 mouth ity of SSIUM 21:22: daily. [place] [facility] Medical (POTASSIUM Branch BICARBONATE ORAL) duloxetine 2018-05 Yes Take by Univ ers HCl 2-04 mouth. ity of (CYMBALTA 21:22: [place] ORAL) [address] [place] [address] Branch bupropion 2018- Yes Take by Unive rs HCl 2-04 mouth. ity of (WELLBUTRIN 21:22: [place] ORAL) [address] [place] [address] Branch buspirone 2018- Yes Take by Unive rs HCl (BUSPAR 2-04 mouth. ity of ORAL) 21:22: [address] duloxetine 2018- Yes Take by Univ ers HCl 2-04 mouth. ity of (CYMBALTA 21:22: [place] ORAL) [address] [place] [address] VITAMIN B 2018- Yes Take by Unive rs COMPLEX 2-04 mouth. ity of ORAL 21:22: [address] FLUOXETINE 2018- Yes 30mg Take 30 mg U nivers HCL (PROZAC 2-04 by mouth. ity of ORAL) 21:22: [address] Branch hydrOXYzine 2018- Yes 50mg Take 50 mg Univers (VISTARIL) 2-04 by mouth 3 ity of 50 mg 21:22: (three) [place] capsule 35 times Medical daily as Branch needed for Itching. DOCUSATE 2018-05 Yes Take by Univer s CALCIUM 2-04 mouth. ity of (STOOL 21:22: [place] SOFTENER Medical ORAL) Branch POT 2018-05 Yes Take by Univers BICARB/POTA 2-04 mouth ity of SSIUM 21:22: daily. [place] CIT/CA 35 Medical (POTASSIUM Branch BICARBONATE ORAL) bupropion 2018- Yes Take by Unive rs HCl 2-04 mouth. ity of (WELLBUTRIN 21:22: [place] ORAL) [address] [place] [address] Branch buspirone 2018- Yes Take by Unive rs HCl (BUSPAR 2-04 mouth. ity of ORAL) 21:22: [address] duloxetine 2018- Yes Take by Univ ers HCl 2-04 mouth. ity of (CYMBALTA 21:22: [place] ORAL) [address] [place] [address] VITAMIN B 2018- Yes Take by Unive rs COMPLEX 2-04 mouth. ity of ORAL 21:22: [address] FLUOXETINE 2018- Yes 30mg Take 30 mg U nivers HCL (PROZAC 2-04 by mouth. ity of ORAL) 21:22: [address] hydrOXYzine 2018-05 Yes 50mg Take 50 mg Univers (VISTARIL) 2-04 by mouth 3 ity of 50 mg 21:22: (three) [place] capsule 35 times Medical daily as Branch needed for Itching. DOCUSATE 2018- Yes Take by Univer s CALCIUM 2-04 mouth. ity of (STOOL 21:22: [place] SOFTENER Medical ORAL) Branch POT 2018-05 Yes Take by Univers BICARB/POTA 2-04 mouth ity of SSIUM 21:22: daily. [place] CIT/CA 35 Medical (POTASSIUM Branch BICARBONATE ORAL) bupropion 2018- Yes Take by Unive rs HCl 2-04 mouth. ity of (WELLBUTRIN 21:22: [place] ORAL) [address] [place] [address] buspirone 2018- Yes Take by Unive rs HCl (BUSPAR 2-04 mouth. ity of ORAL) 21:22: [address] duloxetine 2018- Yes Take by Univ ers HCl 2-04 mouth. ity of (CYMBALTA 21:22: [place] ORAL) [address] [place] [address] VITAMIN B 2018- Yes Take by Unive rs COMPLEX 2-04 mouth. ity of ORAL 21:22: [address] FLUOXETINE 2018- Yes 30mg Take 30 mg U nivers HCL (PROZAC 2-04 by mouth. ity of ORAL) 21:22: [address] hydrOXYzine 2018- Yes 50mg Take 50 mg Univers (VISTARIL) 2-04 by mouth 3 ity of 50 mg 21:22: (three) [place] capsule 35 times Medical daily as Branch needed for Itching. DOCUSATE 2018-05 Yes Take by Univer s CALCIUM 2-04 mouth. ity of (STOOL 21:22: [place] SOFTENER 35 Medical ORAL) Branch POT 2018-05 Yes Take by Univers BICARB/POTA 2-04 mouth ity of SSIUM 21:22: daily. [place] [facility] Medical (POTASSIUM Branch BICARBONATE ORAL) VITAMIN B 2018-05 Yes Take by Unive rs COMPLEX 2-04 mouth. ity of ORAL 21:22: [address] bupropion 2018-05 Yes Take by Unive rs HCl 2-04 mouth. ity of (WELLBUTRIN 21:22: [place] ORAL) [address] [place] [address] buspirone 2018-05 Yes Take by Unive rs HCl (BUSPAR 2-04 mouth. ity of ORAL) 21:22: [address] duloxetine 2018-05 Yes Take by Univ ers HCl 2-04 mouth. ity of (CYMBALTA 21:22: [place] ORAL) [address] [place] [address] VITAMIN B 2018-05 Yes Take by Unive rs COMPLEX 2-04 mouth. ity of ORAL 21:22: [address] FLUOXETINE 2018-05 Yes 30mg Take 30 mg U nivers HCL (PROZAC 2-04 by mouth. ity of ORAL) 21:22: [address] FLUOXETINE 2018- Yes 30mg Take 30 mg U nivers HCL (PROZAC 2-04 by mouth. ity of ORAL) 21:22: [address] hydrOXYzine 2018- Yes 50mg Take 50 mg Univers (VISTARIL) 2-04 by mouth 3 ity of 50 mg 21:22: (three) [place] capsule 35 times Medical daily as Branch needed for Itching. DOCUSATE 2018-05 Yes Take by Univer s CALCIUM 2-04 mouth. ity of (STOOL 21:22: [place] SOFTENER 35 Medical ORAL) Branch POT 2018-05 Yes Take by Univers BICARB/POTA 2-04 mouth ity of SSIUM 21:22: daily. [place] CIT/CA 35 Medical (POTASSIUM Branch BICARBONATE ORAL) hydrOXYzine 2018-05 Yes 50mg Take 50 mg Univers (VISTARIL) 2-04 by mouth 3 ity of 50 mg 21:22: (three) [place] capsule 35 times Medical daily as Branch needed for Itching. bupropion 2018- Yes Take by Unive rs HCl 2-04 mouth. ity of (WELLBUTRIN 21:22: [place] ORAL) [address] [place] [address] Branch buspirone 2018- Yes Take by Unive rs HCl (BUSPAR 2-04 mouth. ity of ORAL) 21:22: [address] duloxetine 2018- Yes Take by Univ ers HCl 2-04 mouth. ity of (CYMBALTA 21:22: [place] ORAL) [address] [place] [address] Branch DOCUSATE 2018- Yes Take by Univer s CALCIUM 2-04 mouth. ity of (STOOL 21:22: [place] SOFTENER Medical ORAL) Branch POT 2018- Yes Take by Univers BICARB/POTA 2-04 mouth ity of SSIUM 21:22: daily. [place] [facility] Medical (POTASSIUM Branch BICARBONATE ORAL) bupropion 2018- Yes Take by Unive rs HCl 2-04 mouth. ity of (WELLBUTRIN 21:22: [place] ORAL) [address] [place] [address] buspirone 2018- Yes Take by Unive rs HCl (BUSPAR 2-04 mouth. ity of ORAL) 21:22: [address] duloxetine 2018- Yes Take by Univ ers HCl 2-04 mouth. ity of (CYMBALTA 21:22: [place] ORAL) [address] [place] [address] VITAMIN B 2018- Yes Take by Unive rs COMPLEX 2-04 mouth. ity of ORAL 21:22: [address] FLUOXETINE 2018- Yes 30mg Take 30 mg U nivers HCL (PROZAC 2-04 by mouth. ity of ORAL) 21:22: [address] hydrOXYzine 2018- Yes 50mg Take 50 mg Univers (VISTARIL) 2-04 by mouth 3 ity of 50 mg 21:22: (three) [place] capsule 35 times Medical daily as Branch needed for Itching. DOCUSATE 2018-05 Yes Take by Unive rs CALCIUM 2-04 mouth. ity of (STOOL 21:22: [place] SOFTENER Medical ORAL) Branch POT 2018- Yes Take by Univers BICARB/POTA 2-04 mouth ity of SSIUM 21:22: daily. [place] CIT/CA 35 Medical (POTASSIUM Branch BICARBONATE ORAL) bupropion 2018- Yes Take by Unive rs HCl 2-04 mouth. ity of (WELLBUTRIN 21:22: [place] ORAL) Medical Branch buspirone 2018- Yes Take by Unive rs HCl (BUSPAR 2-04 mouth. ity of ORAL) 21:22: [address] Branch duloxetine 2018- Yes Take by Univ ers HCl 2-04 mouth. ity of (CYMBALTA 21:22: [place] ORAL) [address] [place] [address] Branch VITAMIN B 2018- Yes Take by Unive rs COMPLEX 2-04 mouth. ity of ORAL 21:22: [address] FLUOXETINE 2018- Yes 30mg Take 30 mg U nivers HCL (PROZAC 2-04 by mouth. ity of ORAL) 21:22: [address] hydrOXYzine 2018- Yes 50mg Take 50 mg Univers (VISTARIL) 2-04 by mouth 3 ity of 50 mg 21:22: (three) [place] capsule 35 times Medical daily as Branch needed for Itching. DOCUSATE 2018- Yes [facility]-04 mouth. ity of (STOOL 21:22: [place] SOFTENER Medical ORAL) Branch POT 2018- Yes Take by [facility] BICARB/POTA 2-04 mouth ity of SSIUM 21:22: daily. [place] [facility] Medical (POTASSIUM Branch BICARBONATE ORAL) bupropion 2018- Yes Take by Unive rs HCl 2-04 mouth. ity of (WELLBUTRIN 21:22: [place] ORAL) [address] [place] [address] Branch buspirone 2018- Yes Take by Unive rs HCl (BUSPAR 2-04 mouth. ity of ORAL) 21:22: [address] Branch duloxetine 2018- Yes Take by Univ ers HCl 2-04 mouth. ity of (CYMBALTA 21:22: [place] ORAL) [address] [place] [address] Branch QUEtiapine 2018-0 Yes 50mg Take 1 [...] Nausea and Vomiting (N/V). benzonatate 2018-0 Yes [id number] 200mg Take 1 [facility] 200 mg 5-01 capsule by ity of capsule 00:00: mouth 3 [place] 00 (three) Medical times Branch daily as needed for Cough. bromphenira 2018-0 Yes [id number] 5mL Take 5 mL Univers mine-pseudo 5-01 by mouth 4 it y of ephedrine-D 00:00: (four) [place] [facility] 2-[facility]10 daily as Bran ch mg/5 mL needed for syrup Congestion /Allergies . ipratropium 2018-0 Yes [id number] 2{spray Use 2 Univers 0.03 % 5-01 } Sprays in ity of nasal spray 00:00: each [place] [address] nostril Medical every 12 Branch (twelve) hours. benzonatate 2018-0 Yes [id number] 200mg Take 1 Univers 200 mg 5-01 capsule by ity of capsule 00:00: mouth 3 [place] [address] [address]) Medical times Branch daily as needed for Cough. bromphenira 2018-0 Yes [id number] 5mL Take 5 mL [facility] mine-pseudo 5-01 by mouth 4 it y of ephedrine-D 00:00: (four[place] ([address]) 2-30-10 daily as Bran ch mg/5 mL needed for syrup Congestion /Allergies . ipratropium 2018-0 Yes [id number] 2{spray Use 2 Univers 0.03 % 5-01 } Sprays in ity of nasal spray 00:00: each [place] [address] nostril Medical every 12 Branch (twelve) hours. benzonatate 2018-0 Yes [id number] 200mg Take 1 [facility] 200 mg 5-01 capsule by ity of capsule 00:00: mouth 3 [place] [address] (three) Medical times Branch daily as needed for Cough. bromphenira 2018-0 Yes [id number] 5mL Take 5 mL [facility] mine-pseudo 5-01 by mouth 4 it y of ephedrine-D 00:00: (four) [place] ([place] [address] times Medical ) 2-30-10 daily as Bran ch mg/5 mL needed for syrup Congestion /Allergies . ipratropium 2018-0 Yes [id number] 2{spray Use 2 Univers 0.03 % 5-01 } Sprays in ity of nasal spray 00:00: each [place] [address] nostril Medical every 12 Branch (twelve) hours. benzonatate 2018-0 Yes [id number] 200mg Take 1 [facility] 200 mg 5-01 capsule by ity of capsule 00:00: mouth 3 [place] (three) Medical times Branch daily as needed for Cough. bromphenira 2018-0 Yes [id number] 5mL Take 5 mL [facility] mine-pseudo 5-01 by mouth 4 it y of ephedrine-D 00:00: (four) [place] ([facility] times Medical DM) 2-30-10 daily as Bran ch mg/5 mL needed for syrup Congestion /Allergies . ipratropium 2018-0 Yes [id number] 2{spray Use 2 Univers 0.03 % 5-01 } Sprays in ity of nasal spray 00:00: each nostril Medical every 12 Branch (twelve) hours. benzonatate 2018-0 Yes [id number] 200mg Take 1 [facility] 200 mg 5-01 capsule by ity of capsule 00:00: mouth 3 (three) Medical times Branch daily as needed for Cough. bromphenira 2018-0 Yes [id number] 5mL Take 5 mL [facility] mine-pseudo 5-01 by mouth 4 it y of ephedrine-D 00:00: (four[place] ([facility] times Medical DM) 2-30-10 daily as Bran ch mg/5 mL needed for syrup Congestion /Allergies . ipratropium 2018-0 Yes [id number] 2{spray Use 2 Univers 0.03 % 5-01 } Sprays in ity of nasal spray 00:00: each nostril Medical every 12 Branch (twelve) hours. benzonatate 2018-0 Yes [id number] 200mg Take 1 [facility] 200 mg 5-01 capsule by ity of capsule 00:00: mouth 3 [place] [address] (three) Medical times Branch daily as needed for Cough. bromphenira 2018-0 Yes [id number] 5mL Take 5 mL [facility] mine-pseudo 5-01 by mouth 4 it y of ephedrine-D 00:00: (four) [place] ([facility]OMF[facility] 00 times Medical DM) 2-30-10 daily as Bran ch mg/5 mL needed for syrup Congestion /Allergies . ipratropium 2018-0 Yes [id number] 2{spray Use 2 Univers 0.03 % 5-01 } Sprays in ity of nasal spray 00:00: each nostril Medical every 12 Branch (twelve) hours. benzonatate 2018-0 Yes [id number] 200mg Take 1 [facility] 200 mg 5-01 capsule by ity of capsule 00:00: mouth 3 (three) Medical times Branch daily as needed for Cough. bromphenira 2018-0 Yes [id number] 5mL Take 5 mL [facility] mine-pseudo 5-01 by mouth 4 it y of ephedrine-D 00:00: (four[place] [facility]) 2-30-10 daily as Bran ch mg/5 mL needed for syrup Congestion /Allergies . ipratropium 2018-0 Yes [id number] 2{spray Use 2 Univers 0.03 % 5-01 } Sprays in ity of nasal spray 00:00: each nostril Medical every 12 Branch (twelve) hours. benzonatate 2018-0 Yes [id number] 200mg Take 1 [facility] 200 mg 5-01 capsule by ity of capsule 00:00: mouth 3 [place] (three) Medical times Branch daily as needed for Cough. bromphenira 2018-0 Yes [id number] 5mL Take 5 mL [facility] mine-pseudo 5-01 by mouth 4 it y of ephedrine-D 00:00: (four) [place] [facility] 2-30-10 daily as Bran ch mg/5 mL needed for syrup Congestion /Allergies . ipratropium 2018-0 Yes [id number] 2{spray Use 2 Univers 0.03 % 5-01 } Sprays in ity of nasal spray 00:00: each nostril Medical every 12 Branch (twelve) hours. benzonatate 2018-0 Yes [id number] 200mg Take 1 [facility] 200 mg 5-01 capsule by ity of capsule 00:00: mouth 3 [place] (three) Medical times Branch daily as needed for Cough. bromphenira 2018-0 Yes [id number] 5mL Take 5 mL [facility] mine-pseudo 5-01 by mouth 4 it y of ephedrine-D 00:00: (four[place] ([facility] 00 times Medical DM) 2-30-10 daily as Bran ch mg/5 mL needed for syrup Congestion /Allergies . ipratropium 2018-0 Yes [id number] 2{spray Use 2 Univers 0.03 % 5-01 } Sprays in ity of nasal spray 00:00: each nostril Medical every 12 Branch (twelve) hours. benzonatate 2018-0 Yes [id number] 200mg Take 1 [facility] 200 mg 5-01 capsule by ity of capsule 00:00: mouth 3 [place] (three) Medical times Branch daily as needed for Cough. bromphenira 2018-0 Yes [id number] 5mL Take 5 mL [facility] mine-pseudo 5-01 by mouth 4 it y of ephedrine-D 00:00: (four) [place] ([facility] 00 times Medical DM) 2-30-10 daily as Bran ch mg/5 mL needed for syrup Congestion /Allergies . ipratropium 2018-0 Yes [id number] 2{spray Use 2 [facility] 0.03 % 5-01 } Sprays in ity of nasal spray 00:00: each nostril Medical every 12 Branch (twelve) hours. benzonatate 2018-0 Yes [id number] 200mg Take 1 [facility] 200 mg 5-01 capsule by ity of capsule 00:00: mouth 3 [place] [address] (three) Medical times Branch daily as needed for Cough. bromphenira 2018-0 Yes [id number] 5mL Take 5 mL [facility] mine-pseudo 5-01 by mouth 4 it y of ephedrine-D 00:00: (four) [place] ([facility] 00 times Medical DM) 2-30-10 daily as Bran ch mg/5 mL needed for syrup Congestion /Allergies . ipratropium 2018-0 Yes [id number] 2{spray Use 2 Univers 0.03 % 5-01 } Sprays in ity of nasal spray 00:00: each nostril Medical every 12 Branch (twelve) hours. bromphenira 2018-0 Yes [id number] 5mL Take 5 mL [facility] mine-pseudo 5-01 by mouth 4 it y of ephedrine-D 00:00: (four) [place] ([facility] 00 times Medical DM) 2-30-10 daily as Bran ch mg/5 mL needed for syrup Congestion /Allergies . ipratropium 2018-0 Yes [id number] 2{spray Use 2 Univers 0.03 % 5-01 } Sprays in ity of nasal spray 00:00: each nostril Medical every 12 Branch (twelve) hours. bromphenira 2018-0 Yes [id number] 5mL Take 5 mL [facility] mine-pseudo 5-01 by mouth 4 it y of ephedrine-D 00:00: (four) [place] ([facility] 00 times Medical DM) 2-30-10 daily as Bran ch mg/5 mL needed for syrup Congestion /Allergies . ipratropium 2018-0 Yes [id number] 2{spray Use 2 Univers 0.03 % 5-01 } Sprays in ity of nasal spray 00:00: each [place] nostril Medical every 12 Branch (twelve) hours. bromphenira 2018-0 Yes [id number] 5mL Take 5 mL [facility] mine-pseudo 5-01 by mouth 4 it y of ephedrine-D 00:00: (four) [place] ([facility] 00 times Medical DM) 2-30-10 daily as Bran ch mg/5 mL needed for syrup Congestion /Allergies . ipratropium 2018- Yes [id number] 2{spray Use 2 [facility] 0.03 % 5-01 } Sprays in ity of nasal spray 00:00: each [place] nostril Medical every 12 Branch (twelve) hours. bromphenira 2018-0 Yes [id number] 5mL Take 5 mL [facility] mine-pseudo 5-01 by mouth 4 it y of ephedrine-D 00:00: (four) [place] ([facility] 00 times Medical DM) 2-30-10 daily as Bran ch mg/5 mL needed for syrup Congestion /Allergies . ipratropium 2018-0 Yes [id number] 2{spray Use 2 [facility] 0.03 % 5-01 } Sprays in ity of nasal spray 00:00: each nostril Medical every 12 Branch (twelve) hours. bromphenira 2018-0 Yes [id number] 5mL Take 5 mL [facility] mine-pseudo 5-01 by mouth 4 it y of ephedrine-D 00:00: (four) [place] ([facility] 00 times Medical DM) 2-30-10 daily as Bran ch mg/5 mL needed for syrup Congestion /Allergies . ipratropium 2018-0 Yes [id number] 2{spray Use 2 Univers 0.03 % 5-01 } Sprays in ity of nasal spray 00:00: each nostril Medical every 12 Branch (twelve) hours. bromphenira 2018-0 Yes [id number] 5mL Take 5 mL [facility] mine-pseudo 5-01 by mouth 4 it y of ephedrine-D 00:00: (four[place] ([facility] times Medical ) 2-30-10 daily as Bran ch mg/5 mL needed for syrup Congestion /Allergies . ipratropium 2018-0 Yes [id number] 2{spray Use 2 [facility] 0.03 % 5-01 } Sprays in ity of nasal spray 00:00: each nostril Medical every 12 Branch (twelve) hours. benzonatate 2018-0 Yes [id number] 200mg Take 1 [facility] 200 mg 5-01 capsule by ity of capsule 00:00: mouth 3 (three) Medical times Branch daily as needed for Cough. bromphenira 2018-0 Yes [id number] 5mL Take 5 mL [facility] mine-pseudo 5-01 by mouth 4 it y of ephedrine-D 00:00: (four[place] ([facility]) 2-30-10 daily as Bran ch mg/5 mL needed for syrup Congestion /Allergies . ipratropium 2018-0 Yes [id number] 2{spray Use 2 [facility] 0.03 % 5-01 } Sprays in ity of nasal spray 00:00: each nostril Medical every 12 Branch (twelve) hours. bromphenira 2018-0 Yes [id number] 5mL Take 5 mL [facility] mine-pseudo 5-01 by mouth 4 it y of ephedrine-D 00:00: (four[place] ([facility] times Medical ) 2-30-10 daily as Bran ch mg/5 mL needed for syrup Congestion /Allergies . ipratropium 2018-0 Yes [id number] 2{spray Use 2 [facility] 0.03 % 5-01 } Sprays in ity of nasal spray 00:00: each nostril Medical every 12 Branch (twelve) hours. bromphenira 2018-0 Yes [id number] 5mL Take 5 mL [facility] mine-pseudo 5-01 by mouth 4 it y of ephed[place]-D 00:00: [place] [facility] ) 2-30-10 daily as Bran ch mg/5 mL needed for syrup Congestion /Allergies . ipratropium 2018- Yes [id number] 2{spray Use 2 Univers 0.03 % 5-01 } Sprays in ity of nasal spray 00:00: each [place] nostril Medical every 12 Branch (twelve) hours. benzonatate 2018-0 Yes [id number] 200mg Take 1 Univers 200 mg 5-01 capsule by ity of capsule 00:00: mouth 3 [place] [id number] (three) Medical times Branch daily as needed for Cough. bromphenira 2018-0 Yes [id number] 5mL Take 5 mL Univers mine-pseudo 5-01 by mouth 4 it y of [place]hedrine-D 00:00: ([place] ([facility] times Medical DM) 2-30-10 daily as Bran ch mg/5 mL needed for syrup Congestion /Allergies . ipratropium 2018- Yes [id number] 2{spray Use 2 Univers 0.03 % 5-01 } Sprays in ity of nasal spray 00:00: each [place] nostril Medical every 12 Branch (twelve) hours. bromphenira 2018-0 Yes [id number] 5mL Take 5 mL Univers mine-pseudo 5-01 by mouth 4 it y of [place]hedrine-D 00:00: ([place] ([facility] times Medical DM) 2-30-10 daily as Bran ch mg/5 mL needed for syrup Congestion /Allergies . ipratropium 2018- Yes [id number] 2{spray Use 2 Univers 0.03 % 5-01 } Sprays in ity of nasal spray 00:00: each [place] nostril Medical every 12 Branch (twelve) hours. bromphenira 2018-0 Yes [id number] 5mL Take 5 mL Univers mine-pseudo 5-01 by mouth 4 it y of [place]hedrine-D 00:00: (four[place] ([facility] times Medical DM) 2-30-10 daily as Bran ch mg/5 mL needed for syrup Congestion /Allergies . ipratropium 2018- Yes [id number] 2{spray Use 2 Univers 0.03 % 5-01 } Sprays in ity of nasal spray 00:00: each nostril Medical every 12 Branch (twelve) hours. benzonatate 2018-0 Yes [id number] 200mg Take 1 Univers 200 mg 5-01 capsule by ity of capsule 00:00: mouth 3 [place] 00 (three) Medical times Branch daily as needed for Cough. bromphenira Yes [id number] 5mL Take 5 mL Univers mine-pseudo 5-01 by mouth 4 it y of ephedrine-D 00:00: (four[place] ([facility]OM[facility] 00 times Medical DM) 2-30-10 daily as Bran ch mg/5 mL needed for syrup Congestion /Allergies . ipratropium Yes [id number] 2{spray Use 2 Univers 0.03 % 5- } Sprays in ity of nasal spray 00:00: each [place] 00 nostril Medical every 12 Branch (twelve) hours. benzonatate 2019- No [id number] 200mg Take 1 Univers 200 mg 5-01 11-10 capsule by ity of capsule 00:00: 00:00 mouth 3 [place] 00 :00 (three) Medical times Branch daily as needed for Cough. benzonatate 2020- No [id number] 200mg Take 1 Univers 200 mg 5-01 11-10 capsule by ity of capsule 00:00: 00:00 mouth 3 [place] 00 :00 (three) Medical times Branch daily as needed for Cough. benzonatate 2020- No [id number] 200mg Take 1 Univers 200 mg 5-01 11-10 capsule by ity of capsule 00:00: 00:00 mouth 3 [place] 00 :00 (three) Medical times Branch daily as needed for Cough. estradiol 2 Yes [id number] 2mg Take 1 Univers mg tablet 4-18 tablet by ity o f 00:00: mouth [place] 00 daily. Medical Branch estradiol 2 Yes [id number] 2mg Take 1 Univers mg tablet 4-18 tablet by ity o f 00:00: mouth [place] 00 daily. Medical Branch estradiol 2 Yes [id number] 2mg Take 1 Univers mg tablet 4-18 tablet by ity o f 00:00: mouth [place] 00 daily. Medical Branch estradiol 2 Yes [id number] 2mg Take 1 Univers mg tablet 4-18 tablet by ity o f 00:00: mouth [place] 00 daily. Medical Branch estradiol 2 Yes [id number] 2mg Take 1 Univers mg tablet 4-18 tablet by ity o f 00:00: mouth [place] 00 daily. Medical Branch estradiol 2 Yes [id number] 2mg Take 1 Univers mg tablet 4-18 tablet by ity o f 00:00: mouth [place] 00 daily. Medical Branch estradiol 2 Yes [id number] 2mg Take 1 Univers mg tablet 4-18 tablet by ity o f 00:00: mouth [place] 00 daily. Medical Branch estradiol 2 Yes [id number] 2mg Take 1 Univers mg tablet 4-18 tablet by ity o f 00:00: mouth [place] 00 daily. Medical Branch estradiol 2 Yes [id number] 2mg Take 1 Univers mg tablet 4-18 tablet by ity o f 00:00: mouth [place] 00 daily. Medical Branch estradiol 2 Yes [id number] 2mg Take 1 Univers mg tablet 4-18 tablet by ity o f 00:00: mouth [place] 00 daily. Medical Branch estradiol 2 Yes [id number] 2mg Take 1 Univers mg tablet 4-18 tablet by ity o f 00:00: mouth [place] 00 daily. Medical Branch estradiol 2 Yes [id number] 2mg Take 1 Univers mg tablet 4-18 tablet by ity o f 00:00: mouth [place] 00 daily. Medical Branch estradiol 2 Yes [id number] 2mg Take 1 Univers mg tablet 4-18 tablet by ity o f 00:00: mouth [place] 00 daily. Medical Branch estradiol 2 Yes [id number] 2mg Take 1 Univers mg tablet 4-18 tablet by ity o f 00:00: mouth [place] 00 daily. [facility] Branch estradiol 2 Yes [id number] 2mg Take 1 Univers mg tablet 4-18 tablet by ity o f 00:00: mouth [place] 00 daily. Medical Branch estradiol 2 Yes [id number] 2mg Take 1 Univers mg tablet 4-18 tablet by ity o f 00:00: mouth [place] 00 daily. [facility] Branch estradiol 2 Yes [id number] 2mg Take 1 Univers mg tablet 4-18 tablet by ity o f 00:00: mouth [place] 00 daily. Medical Branch estradiol 2 Yes [id number] 2mg Take 1 Univers mg tablet 4-18 tablet by ity o f 00:00: mouth [place] 00 daily. [facility] Branch estradiol 2 Yes [id number] 2mg Take 1 Univers mg tablet 4-18 tablet by ity o f 00:00: mouth [place] 00 daily. Medical Branch estradiol 2 2017- Yes [id number] 2mg Take 1 Univers mg tablet 4-18 tablet by ity o f 00:00: mouth [place] 00 daily. Medical Branch estradiol 2 2017- Yes [id number] 2mg Take 1 Univers mg tablet 4-18 tablet by ity o f 00:00: mouth [place] 00 daily. Medical Branch estradiol 2 Yes [id number] 2mg Take 1 Univers mg tablet 4-18 tablet by ity o f 00:00: mouth [place] 00 daily. Medical Branch estradiol 2 Yes [id number] 2mg Take 1 Univers mg tablet 4-18 tablet by ity o f 00:00: mouth [place] 00 daily. Medical Branch estradiol 2 Yes [id number] 2mg Take 1 Univers mg tablet 4-18 tablet by ity o f 00:00: mouth [place] 00 daily. [facility] Immunizations Ordered Filled Immunization Date Status Comments Sour e Immunization Name Name Td 2003-05-16 Completed University of 00:00:00 [facility] [place] Td 2003-05-16 Completed University of 00:00:00 [facility] [place] Td 2003-05-16 Completed University of 00:00:00 [facility] [place] Td 2003-05-16 Completed University of 00:00:00 [facility] [place] Td 2003-05-16 Completed University of 00:00:00 [facility] [place] Td 2003-05-16 Completed University of 00:00:00 [facility] [place] Td 2003-05-16 Completed University of 00:00:00 [facility] [place] Td 2003-05-16 Completed University of 00:00:00 [facility] [place] Td 2003-05-16 Completed University of 00:00:00 [facility] [place] Td 2003-05-16 Completed University of 00:00:00 [facility] [place] Td 2003-05-16 Completed University of 00:00:00 [facility] [place] Td 2003-05-16 Completed University of 00:00:00 [facility] [place] Td 2003-05-16 Completed University of 00:00:00 [facility] [place] Td 2003-05-16 Completed University of 00:00:00 [facility] [place] Td 2003-05-16 Completed University of 00:00:00 [facility] [place] Td 2003-05-16 Completed University of 00:00:00 [facility] [place] Td 2003-05-16 Completed University of 00:00:00 [place] [facility] Td 2003-05-16 Completed University of 00:00:00 [place] [facility] Td 2003-05-16 Completed University of 00:00:00 [place] [facility] Td 2003-05-16 Completed University of 00:00:00 [place] [facility] Td 2003-05-16 Completed University of 00:00:00 [place] [facility] Td 2003-05-16 Completed University of 00:00:00 [place] [facility] Td 2003-05-16 Completed University of 00:00:00 [place] [facility] Td 2003-05-16 Completed University of 00:00:00 [facility] [place] Vital Signs Vital Name Observation Time Observation Value Comments Source Systolic blood 2021-05-29 10:01:00 100 mm[Hg] Univer sity of pressure [facility] [place] Diastolic blood 2021-05-29 10:01:00 60 mm[Hg] Unive rsity of pressure [facility] [place] Heart rate 2021-05-29 10:01:00 74 /min Universi ty [facility] Body temperature 2021-05-29 10:01:00 36.33 [facility] Res[facility] rate 2021-05-29 10:01:00 18 /min [facility] Body weight 2021-05-29 10:01:00 99.791 kg Universi ty [facility] BMI 2021-05-29 10:01:00 35.11 kg/m2 Universi ty [facility] Oxygen saturation in 2021-05-29 10:01:00 95 /min University of Arterial blood by [facility] Pulse oximetry [place] Body height 2021-05-28 01:32:00 168.6 cm Universi ty [facility] Systolic blood 2020-03-25 19:31:00 111 mm[Hg] Univer sity of pressure [facility] [place] Diastolic blood 2020-03-25 19:31:00 74 mm[Hg] Unive rsity of pressure [facility] [place] Heart rate 2020-03-25 19:31:00 77 /min Universi ty of [facility] [place] Body temperature 2020-03-25 19:31:00 37.06 Tika Univ ersity of [facility] [place] Respiratory rate 2020-03-25 19:31:00 20 /min Univ ersity of [facility] [place] Body height 2020-03-25 19:31:00 165.1 cm Universi ty of [place] [facility] Body weight 2020-03-25 19:31:00 100.517 kg Universi ty of [place] [facility] BMI 2020-03-25 19:31:00 36.88 kg/m2 Universi ty of [place] [facility] Oxygen saturation in 2020-03-25 19:31:00 100 /min room air University of Arterial blood by [facility] Pulse oximetry Branch Systolic blood 2020-03-23 16:51:10 116 mm[Hg] Univer sity of pressure [place] [facility] Diastolic blood 2020-03-23 16:51:10 59 mm[Hg] Unive rsity of pressure [place] [facility] Heart rate 2020-03-23 16:51:10 84 /min Universi ty of [place] [facility] Respiratory rate 2020-03-23 16:51:10 20 /min Univ ersity of [place] [facility] Oxygen saturation in 2020-03-23 16:51:10 97 /min University of Arterial blood by [facility] Pulse oximetry Branch Body temperature 2020-03-23 14:38:00 37.5 Tika Univ ersity of [place] [facility] Body weight 2020-03-23 14:38:00 97.523 kg Universi ty of [place] [facility] BMI 2020-03-23 14:38:00 34.70 kg/m2 Universi ty of [place] [facility] Systolic blood 2019-11-15 18:00:00 114 mm[Hg] Univer sity of pressure [place] [facility] Diastolic blood 2019-11-15 18:00:00 74 mm[Hg] Unive rsity of pressure [place] [facility] Heart rate 2019-11-15 18:00:00 81 /min Universi ty of [place] [facility] Body temperature 2019-11-15 18:00:00 36.67 Tika Univ ersity of [place] [facility] Respiratory rate 2019-11-15 18:00:00 18 /min Univ ersity of [place] [facility] Body weight 2019-11-15 18:00:00 98.068 kg Universi ty of [place] [facility] BMI 2019-11-15 18:00:00 34.90 kg/m2 Universi ty of [place] [facility] Body temperature 2019-10-24 19:00:00 36.67 Tika Univ ersity of [place] [facility] Body height 2019-10-24 19:00:00 167.6 cm Universi ty of [place] [facility] Body weight 2019-10-24 19:00:00 95.89 kg [facility] BMI 2019-10-24 19:00:00 34.12 kg/m2 [facility] Body temperature 2019-10-24 19:00:00 36.67 Tika [facility] Body height 2019-10-24 19:00:00 167.6 cm [facility] Body weight 2019-10-24 19:00:00 95.89 kg [facility] BMI 2019-10-24 19:00:00 34.12 kg/m2 [facility] Procedures Procedure Date / Time Performing Clinician Source Performed AUTHORIZATION FOR RELEASE 2021-10-05 05:01:00 Doctor Unassigned, [facility] [place] [facility] [place] MR LUMBAR SPINE WO 2021-08-27 20:20:25 Requisition, Paper [facility] CONSENT/REFUSAL FOR 2021-08-27 18:46:18 Doctor Unasssawyer, [facility] DIAGNOSIS AND TREATMENT [place] [facility] [place] ASSIGNMENT OF BENEFITS 2021-08-27 18:46:08 Doctor Unassigned, [facility] [place] [facility] BASIC METABOLIC PANEL 2021-05-29 10:22:00 Samreen Soto [facility] (NA, K, CL, CO2, GLUCOSE, Medica l Branch BUN, CREATININE, CA) CBC WITH DIFF 2021-05-29 10:22:00 Samreen Soto [facility] CAROTID DUPLEX BILATERAL 2021-05-28 17:50:00 Onel García [facility] - BY VASCULAR LAB [facility] Branch MAGNESIUM 2021-05-28 07:11:00 Andrea Karan [facility] AMMONIA, PLASMA 2021-05-28 07:11:00 Vinnie Paulson [facility] COMP. METABOLIC PANEL 2021-05-28 07:11:00 Vinnie Paulson [facility] ([id number]) [facility] LIPID PANEL ([id number])(TOTAL 2021-05-28 07:11:00 Andrea Karan [facility] CHOLESTEROL, [facility] TRIGLYCERIDES, HDL) CBC WITH DIFF 2021-05-28 07:11:[address] [facility] N-TERMINAL PRO-BNP 2021-05-28 07:11:00 Onel García [facility] AC VBG + LACTIC ACID 2021-05-28 07:11:00 Vinnie Paulson [facility] TROPONIN I 2021-05-28 04:19:00 [facility] 2021-05-27 22:02:[address] [facility] TRANSTHORACIC ECHO (TTE) 2021-05-27 19:57:00 Karan Mendez [facility] CONSENT/REFUSAL FOR 2021-05-27 16:25:09 Doctor Unaabbi [facility] DIAGNOSIS AND TREATMENT [place] [facility] NOTICE OF PRIVACY 2021-05-27 16:24:35 Doctor Unaabbi, [facility] PRACTICES [place] [facility] [place] CT HEAD WO CONTRAST 2021-05-27 15:59:51 Imer Cheung [facility] URINALYSIS 2021-05-27 15:33:00 [facility] URINE DRUG (IMMUNOASSAY) 2021-05-27 15:33:00 Imer Cheung [facility] DRUG Medical [facility] SCREEN W/O REFLEX POCT TEST 2021-05-27 15:32:00 Imer Cheung [facility] XR CHEST 1 VW 2021-05-27 15:26:29 Singer [facility] COVID-19 (ID NOW RAPID 2021-05-27 15:10:00 Imer Cheung [facility] TESTING) Medical Branch LAB ONLY COVID 2021-05-27 15:10:00 Singer [facility] INTERPRETATION [facility] MAGNESIUM 2021-05-27 15:05:[address] [facility] TROPONIN I 2021-05-27 15:05:00 Singer [facility] THYROID STIMULATING 2021-05-27 15:05:00 Karan Mendez [facility] HORMONE [facility] COMP. METABOLIC PANEL 2021-05-27 15:05:00 Singer [facility] ([id number]) Medical Branch CBC WITH DIFF 2021-05-27 15:05:00 Singer [facility] GLYCOSYLATED HEMOGLOBIN 2021-05-27 15:05:00 Karan Mendez [facility] (A1C) Medical Branch D-DIMER 2021-05-27 15:05:00 [facility] HB ECG ROUTINE & RHYTHM 2021-05-27 14:54:32 Singer [facility] STRIP [facility] Branch HOSPITAL ADMISSION 2021-05-27 06:01:00 Doctor Unassigned, [facility] [place] [facility] PATIENT CORRESPONDENCE 2020-05-01 06:01:00 Doctor Unassigned, [facility] (LETTERS, USPS [place] [facility] DOCUMENTATION) GALV ONLY - INFLUENZA A B 2020-03-23 15:31:00 Kirill Cleary [facility] RSV PCR Medical Branch XR CHEST 1 VW 2020-03-23 15:23:17 Evin [facility] [place] POCT TEST 2020-03-23 15:20:00 Arcenio ClearyDavid [facility] LIPASE 2020-03-23 15:17:00 Evin [facility] [place] TROPONIN I 2020-03-23 15:17:00 Evin [facility] [place] HEPATIC FUNCTION PANEL 2020-03-23 15:17:00 [facility] ([id number]) (ALB,T.PRO,BILI [facility] Branch T,BU/BC,ALT,AST,ALK PHOS) BASIC METABOLIC PANEL 2020-03-23 15:17:00 Evin [facility] (NA, K, CL, CO2, GLUCOSE, Medica l Branch BUN, CREATININE, CA) CBC WITH DIFF 2020-03-23 15:17:00 Evin [facility] [place] URINALYSIS 2020-03-23 15:17:00 Evin [facility] [place] N-TERMINAL PRO-BNP 2020-03-23 15:17:00 Kirill Cleary [facility] EXTRA TUBE LT. BLUE 2020-03-23 15:17:[address] [facility] ty [facility] EXTRA TUBE ORANGE 2020-03-23 15:17:00 Kirill Cleary [facility] COVID-19 (ID NOW RAPID 2020-03-23 15:17:00 Kirill Cleary [facility] TESTING) [facility] DISCLOSURE AND CONSENT, 2019-10-24 05:01:00 Doctor [facility] MEDICAL AND SURGICAL [place] [facility] PROCEDURES EXTERNAL PROVIDER RECORDS 2019-05-30 06:01:00 Doctor Unassigned, [facility] [place] [facility] Branch Encounters Start End Encounter Admission Attending Care Care Encounter Source Date/Time Date/Time Type Type Clinicians Facility Department ID 2022-01-05 Outpatient [facility], STLMLC STLMLC [id number] Common 12:35:00 Avnee [facility] 2022-01-01 Outpatient Sol[facility], STLMLC STLMLC [id number] Common 15:38:00 Avnee [facility] 2021-12-04 Outpatient [facility], STLMLC STLMLC [id number] Common 08:49:00 Avnee [facility] 2021-12-01 Outpatient STLMLC STLMLC [id number] Common 09:29:01 [facility] 2021-11-17 Outpatient STLMLC STLMLC [id number] Common 09:42:00 [facility] 2021-11-12 Outpatient zzzGowda, STLMLC STLMLC [id number] Common 11:00:01 Yves [facility] 2021-03-14 Emergency [facility] [id number] Univers 03:55:18 ity [facility] 2022-01-19 2022-01-19 ambulatory STLMLC STLMLC [id number] Common 00:00:00 00:00:00 [facility] 2022-01-04 2022-01-04 ambulatory STLMLC STLMLC [id number] Common 00:00:00 00:00:00 [facility] 2022-01-04 2022-01-04 ambulatory STLMLC STLMLC [id number] Common 00:00:00 00:00:00 [facility] 2021-12-14 2021-12-14 ambulatory STLMLC STLMLC [id number] Common 00:00:00 00:00:00 [facility] 2021-12-04 2021-12-04 ambulatory STLMLC STLMLC [id number] Common 00:00:00 00:00:00 [facility] 2021-12-04 2021-12-04 ambulatory STLMLC STLMLC [id number] Common 00:00:00 00:00:00 [facility] 2021-11-24 2021-11-24 ambulatory STLMLC STLMLC [id number] Common 00:00:00 00:00:00 [facility] 2021-10-05 2021-10-05 Orders Doctor JUNIOR [id number] Univers 00:00:00 00:00:00 Only Unassigned, [place] [id number] ity of Community [facility] [id number] [facility] [phone] [facility] 009 Branch 2021-08-27 2021-08-27 Outpatient R RADIOLOGY [facility] [id number] Univers 13:47:25 23:59:00 ity of [facility] [place] 2021-08-27 2021-08-[address] [facility] [id number] Univers 13:47:25 23:59:00 Encounter [place] [id number] ity [facility] [id number] [facility] [phone] [facility] 804 Branch 2021-08-27 2021-08-27 Outpatient R RADIOLOGY [facility] [id number] Univers 00:00:00 00:00:00 [id number] ity [facility] 2021-08-27 2021-08-27 Orders Doctor VERNON [id number] Univers 00:00:00 00:00:00 Only Unassigned, [place] [id number] ity of Community [facility] [id number] [facility] [phone] [facility] 009 Branch 2021-07-17 2021-07-17 Outpatient R RADIOLOGY [facility] [id number] Univers 00:00:00 00:00:00 [id number] ity [facility] 2021-07-10 2021-07-10 Outpatient R RADIOLOGY [facility] [id number] Univers 00:00:00 00:00:00 [id number] ity [facility] 2021-05-27 2021-05-29 Inpatient X ANDREA MOCARLOS ALBERTO MARQUIS [id number] Univers 09:00:00 08:25:00 KARAN ity [facility] 2021-05-27 2021-05-29 [facility] Imer Cheung [facility] [id number] Univers 09:00:00 08:25:00 Encounter Karan Mendez [facility] [id number] ity [facility] [id number] [facility] [phone] [facility] 081 Branch 2021-05-27 2021-05-27 Outpatient R RADIOLOGY [facility] [id number] Univers 13:00:00 13:00:00 [id number] ity [facility] 2021-05-27 2021-05-27 Outpatient R RADIOLOGY [facility] [id number] Univers 00:00:00 00:00:00 ity of [facility] [place] 2021-05-11 2021-05-11 Outpatient R RADIOLOGY [facility] [id number] Univers 09:30:00 09:30:00 [id number] ity of [facility] [place] 2021-05-11 2021-05-11 Outpatient R RADIOLOGY [facility] [id number] Univers 00:00:00 00:00:00 ity of [facility] [place] 2020-06-23 2020-06-23 Outpatient R [facility] [id number] Univers 13:20:00 13:20:00 [id number] ity [facility] 2020-06-23 2020-06-23 Outpatient R JANET, [facility] [id number] Univers 13:20:00 13:20:00 LIV rebollary o f [facility] [place] 2020-05-01 2020-05-01 Orders Doctor VERNON [id number] Univers 00:00:00 00:00:00 Only Unassigned, [place] [id number] ity of [place] [facility] [id number] Greg as [id number] [address] 2020-04-24 2020-04-24 Case [place], [facility] [id number] Univers 00:00:00 00:00:00 Management [facility] HEALTH [id number] ity of [id number] [id number] [facility] [address] [place] 2020-04-06 2020-04-06 Abraham Magana, [facility] [id number] Univers 00:00:00 00:00:00 Management [facility] HEALTH [id number] ity [id number] [id number] [address] 2020-03-25 2020-03-25 Office Jaydon Calderon [facility] [id number] Univers 12:49:01 13:09:01 Visit Osbaldo Reyna PRIMARY [id number] ity of [place] [id number] [facility] [id number] [address] 2020-03-25 2020-03-25 Outpatient R [facility] [id number] Univers 13:00:00 13:00:00 [id number] ity of [facility] [place] 2020-03-25 2020-03-25 Outpatient R CON [facility] [id number] Univers 13:00:00 13:00:00 OSBALDO ity of [facility] [place] 2020-03-24 2020-03-[address] [facility] [id number] Univers 00:00:00 00:00:00 [place] PRIMARY [id number] it y of [id number] [id number] [facility] 044 Branch 2020-03-23 2020-03-23 Emergency Evin, TRAUMA [id number] Univers 08:40:00 14:22:00 [facility] [id number] [id number] [id number] [facility] 014 Branch 2020-03-14 2020-03-14 Case [place], UNIVERSIT [id number] Univers 00:00:00 00:00:00 Management [facility] [id number] ity of [id number] [id number] [facility] 113 Branch 2020-01-22 2020-01-22 Outpatient R [facility] [id number] Univers 10:00[facility]00 [facility] 2019-12-25 [facility] [id number] P-20 Univers 10:30:00 10:30:00 DENNY [id number] ity [facility] 2019-12-25 2019-12-25 Outpatient R DAVID, [facility] [id number] Univers 10:30:00 10:30:00 DENNY [facility] 2019-12-24 2019-12-24 Outpatient R [facility] [id number] -[id number] Univers 13:00:00 13:00:00 ity [facility] 2019-11-28 2019-11-28 Outpatient R KARON [facility] [id number] -[id number] Univers 15:00:00 15:00:00 ALFONSO [id number] ity [facility] 2019-11-28 2019-11-28 Outpatient R CHRISTINA, [facility] [id number] Univers 11:15:00 11:15:00 [facility] 2019-11-15 2019-11-15 [facility] [id number] P-20 Univers 13:00:00 13:00:00 OTILIA ity [facility] 2019-11-15 2019-11-15 Outpatient [facility] [id number] Univers 13:00:00 13:00:00 OTILIA connors [facility] 2019-11-15 2019-11-[address] [facility] 1.2.840.114 [id number] Univers 12:31:16 12:51:16 Visit Otilia GORDON 350.1.13.10 it y [place] [phone] Co dical [address] [place] 2019-11-06 2019-11-06 [facility] [id number] P-20 Univers 10:15:00 10:15:00 BRIAN [id number] ity o f [facility] 2019-11-06 2019-11-06 Outpatient [facility] [id number] Univers 10:15:00 10:15:00 BRIAN rebollary o f [facility] 2019-11-01 2019-11-01 Outpatient R [facility] [id number] -[id number] Univers 08:30:00 08:30:00 [id number] ity [facility] 2019-11-01 2019-11-01 Outpatient R [facility] [id number] Univers 08:30:00 08:30:00 ity [facility] 2019-10-29 2019-10-29 Outpatient [facility] [id number] P-20 Univers 08:15:00 08:15:00 BRIAN [id number] ity o f [facility] 2019-10-24 2019-10-24 Office Karon UNIVERSIT [id number] Univers 13:42:32 16:44:36 Visit Alfonso Zarate 350.1.13.10 it y of NATIONAL 4.2.7.2.686 Greg as BANK [phone] [facility] BLDG. [address] 2019-10-24 2019-10-24 Office Karon, UNIVERSIT [id number] 2037 13:42:32 16:44:36 Visit Alfonso Y 350.1.13.10 NATIONAL 4.2.7.2.686 BANK [phone] BLDG. 144 2019-10-24 2019-10-24 Ancillary JOCELINE CisseIT 1.2.840.114 [id number] Univers 14:13:22 16:24:43 Visit Tiffany Zarate 350.1.13.10 it y of NATIONAL 4.2.7.2.686 Greg as BANK [phone] [facility]. [address] [place] 2019-10-24 2019-10-24 Ancillary JOCELINE CisseIT 1.2.840.114 [id number] 14:13:22 16:24:43 Visit Tiffany Zarate 350.1.13.10 NATIONAL 4.2.7.2.686 BANK [phone] [facility]. 141 2019-10-24 2019-10-24 [facility]patient [facility] [id number] Univers 14:15:00 14:15:00 ALFONSO ity [facility] 2019-10-24 2019-10-24 Outpatient [facility] [id number] P-20 Univers 10:00:00 10:00:00 REEMA ity [facility] 2019-10-24 2019-10-24 Orders Doctor JUNIOR 1.2.840.114 [id number] Univers 00:00:00 00:00:00 Only Unassigned, BEKA 350.1.13.10 ity of [place] [facility] 4.2.7.2.686 Greg as [phone] [facility] [address] [place] 2019-10-24 2019-10-24 Orders Doctor JUNIOR 1.2.840.114 [id number] 00:00:00 00:00:00 Only Unassigned, BEKA 350.1.13.10 [place] [facility] 4.2.7.2.686 [id number] 009 2019-10-23 2019-10-23 Outpatient R [facility] [id number] -[id number] Univers 14:30:00 14:30:00 MARY ALICE ity [facility] 2019-10-23 2019-10-23 Outpatient R [facility] [id number] Univers 14:30:00 14:30:00 MARY ALICE ity [facility] 2019-08-02 2019-08-02 Outpatient R [facility] [id number] -[id number] Univers 15:00:00 15:00:00 [id number] ity [facility] 2019-08-02 2019-08-02 Outpatient R [facility] [id number] Univers 15:00:00 15:00:00 ity of [facility] 2019-07-25 2019-07-25 Telephone NAVARRO Magana 1.2.840.114 [id number] Univers 00:00:00 00:00:00 Kassandra Y HEALTH 350.1.13.[address] [facility] [place] [phone] [facility] [address] 2019-06-06 2019-06-06 Telephone [facility] 1.2.840.114 [id number] Univers 00:00:00 00:00:00 Keisha James ASSEMBLER TYPE BAR AND SEGMENT 350.1.13.10 ity of [facility] 4.2.7.2.686 Greg as MATERNAL [phone] Med ical & CHILD [address] [place] [address] 2019-05-30 2019-05-30 Orders Doctor VERNON 1.2.840.114 [id number] Univers 00:00:00 00:00:00 Only Unassigned, BEKA 350.1.13.10 ity of [place] [facility] 4.2.7.2.686 Greg as [phone] [facility] [address] 2019-05-04 2019-05-04 Outpatient [facility] [id number] [facility] 16:48:40 23:59:00 KEISHA laura f [facility] 2019-04-18 2019-04-18 Outpatient [facility] [id number] [facility] 13:45:00 15:54:30 MALICK connors [facility] Results Test Description Test Time Test Comments Results Result Comments Source VAGINAL PATHOGENS DNA PANEL 2021-10-27 14:21:23 Test Item Value Reference Range Interpretation Comme nts [place] SPECIES (test code = POSITIVE NEGATIVE A ) G. VAGINALIS (test code = NEGATIVE NEGATIVE ) T. VAGINALIS (test code = NEGATIVE NEGATIVE UNLESS OTHERWISE INDICATED, ALL ) TESTING PERFORM ED ATCLINICAL PATHOLOGY LABOR [facility]ENTERMemory [employer], [employer] [address] [place] [address] LABORATORY DIRE CTOR: TELLO OHARA M.D. CLIA NUMBER [id number] [place]. [id number] CULTURE, [id number] 16:46:52SPECIMEN NUMBER: [id number] CULTURE, URINE SPECIMEN NUMBER: [id number] SPECIMEN COMMENT: URINE SOURCE:URINE REPORT STATUS: FINAL ISOLATE NUMBER 1: IDENTIFICATION: 10/17/2021 >100,000 CFU/ML BETA-STREP TOCOCCUS GROUP B ADDITIONAL OBSERVATIONS: PENICILLIN AND AMPICILLIN ARE DRUGS OF CHOICE FOR TREATMENT OF B-HEMOLYTIC STREPTOCOCCAL INFECTIONS. SUSCEPTIBILITY TESTING OF PENICILLIN AND OTHER B-LACTAMS APPROVED BY THE US FOOD AND DRUG ADMINISTRATION FOR TREATMENT OF B-HEMOLYTIC STREPTOCOCCAL INFECTIONSNEED NOT BE PERFORMED ROUTINELY. ISOLATE NUMBER 2: ORGANISM: 10/17/2021 10-50,000 CFU/ML GRAM NEGATIVE BACILLI IDENTIFICATION: 10/18/2021 KLANABELA ASCORBATA Angie. ASCORBATA AMOXICILLIN/CA INTERMED 16/8AMPICILLIN RESISTANT >16CEFAZOLIN RESISTANT >16CEFTRIAXONE SENSITIVE <=1CIPROFLOXACIN SENSITIVE <=1LEVOFLOXACIN SENSITIVE <=2NITROFURANTOIN SENSITIVE <=32PIP/TAZOBAC SENSITIVE <=16TETRACYCLINE RESISTANT >8TOBRAMYCIN SENSITIVE <=4TRIMETH/SULFA RESISTANT >2/38 NOTE: NUMBERS DISPLAYED REPRESENT MINIMUM INHIBITORY CONCENTRATION (TIFFANY) WHICH IS EXPRESSED IN MCG/ML. UNLESS OTHERWISE INDICATED, ALL TESTING PERFORMED ATCLINICAL PATHOLOGY LABORATORIES, INC. [address] [place] [address] ANESTHETIST: TELLO OHARA M.D. CLIA NUMBER [id number] [facility] [place]. [id number] COMPREHENSIVE METABOLIC [id number] 07:00:47 Test Item Value Reference Range Interpretation Comments GLUCOSE (test code = 89 MG/DL 70-99 2216) BUN (test code = 11 MG/DL -2207) CREATININE (test 0.54 MG/DL 0.60-1.30 L code = 2214) eGFR (2020 CKD-EPI) 116 >60 (test code = 15788) ML/MIN/1.73 CALC BUN/CREAT (test 20 RATIO - code = 2235) SODIUM (test code = 140 MEQ/L 558-323 2534) POTASSIUM (test code 4.5 MEQ/L 3.5-5.4 = 8) CHLORIDE (test code 102 MEQ/L 95-107 = 2215) CARBON DIOXIDE (test 27 MEQ/L 19-31 code = 220) CALCIUM (test code = 10.0 MG/DL 8.5-10.5 2208) PROTEIN, TOTAL (test 7.2 G/DL 6.1-8.3 code = 222) ALBUMIN (test code = 4.6 G/DL 3.5-5.2 2200) CALC GLOBULIN (test 2.6 G/DL 1.9-3.7 code = 224) CALC A/G RATIO (test 1.8 RATIO 1.0-2.6 code = 223) BILIRUBIN, TOTAL <0.2 MG/DL See_Comment [Automated message] (test code = 2206) The syste m which generated this result transmit martinez reference range : <=1.2. The refe rence range was not u sed to interpret th is result as normal/abnormal . ALKALINE PHOSPHATASE 93 U/L 40-116 (test code = 2203) AST (test code = 14 U/L 9-40 2217) ALT (test code = 15 U/L 5-40 2218) TSH, THIRD [id number] 06:20:41 Test Item Value Reference Range Interpretation Comments TSH, THIRD 1.500 UIU/ML 0.400-4.100 UNLESS OTHERWI SE GENERATION (test INDICATED, ALL TESTING code = 2821) PERFORMED [facility], [facility]. [address] [place] [address] DIRECTOR: TELLO OHARA M.D. CLIA NUMBER [id number] CAP ACCREDITATION N O. [id number] CBC W/AUTO DIFF WITH [id number] 03:22:30 Test Item Value Reference Range Interpretation [...] = 1036) NUCLEATED RBCS (test 0.0 /100 WBC'S See_Comment [Aut omated code = 1065) message] The sy stem which generated this [...] RBCS 0.00 K/UL 0.00-0.11 (test code = 16591) BASIC METABOLIC PANEL (NA, K, CL, CO2, GLUCOSE, BUN, CREATININE, CA)2021-05-29 11:36:22 Test Item Value Reference Range Interpretation Comments NA (test code = 138 mmol/L 135-145 3306336753) K (test code = 3.8 mmol/L 3.5-5.0 6749071440) CL (test code = 105 mmol/L 98-108 7622136141) CO2 TOTAL (test code 29 mmol/L 23-31 = 9657284813) AGAP (test code = 2-16 1988330639) BUN (test code = 10 mg/dL 7-23 7504793243) GLUCOSE (test code = 94 mg/dL 70-110 9467222919) CREATININE (test code 0.60 mg/dL 0.50-1.04 = 7027112934) CALCIUM (test code = 9.0 mg/dL 8.6-10.6 8392260641) eGFR (test code = mL/min/1.73m2 7304051429) RICHA (test code = RICHA) Association of [...] or urine or abnormalities in imaging tests). [facility] WITH [id number] 11:06:36 Test Item Value Reference Range Interpretation Comments WBC (test code = See_Comment [Automated 4988-2) message] The sy stem which generated this result transmitted reference range : 4.30 - 11.10 10*3/?L. The reference range was not used to interpret this result as normal/abnormal . RBC (test code = See_Comment L [Automated 709-8) message] The sy stem which generated this [...] RDW-SD (test code = 42.1 fL 39.0-49.9 96918-1) RDW-CV (test code = 12.1 % 12.0-15.5 788-0) PLT (test code = See_Comment [Automated 777-3) message] The sy stem which generated this result transmitted reference range : 166 - 358 10*3/ ?L. The reference r fatou was not used to interpret this result as normal/abnormal . MPV (test code = 9.6 fL 9.5-12.9 56167-3) NRBC/100 WBC (test See_Comment [Automat ed code = 2908482345) message] The system which generated this result transmitted reference range : 0.0 - 10.0 /100 WBCs. The refer ence range was not u sed to interpret th is result as normal/abnormal . NRBC x10^3 (test code <0.01 See_Comment [Auto mated = 1645144999) message] The s ystem which generated this result transmitted reference range : 10*3/?L. The reference range was not used to interpret this result as normal/abnormal . GRAN MAT (NEUT) % 49.2 % (test code = 770-8) IMM GRAN % (test code 0.20 % = 9366447558) LYMPH % (test code = 41.4 % 736-9) MONO % (test code = 5.9 % 5905-5) EOS % (test code = 2.5 % 713-8) BASO % (test code = 0.8 % 706-2) GRAN MAT x10^3(ANC) 2.57 10*3/uL 1.88-7.09 (test code = 2481144352) IMM GRAN x10^3 (test <0.03 0.00-0.06 code = 7580070977) LYMPH x10^3 (test code 2.16 10*3/uL 1.32-3.29 = 731-0) MONO x10^3 (test code 0.31 10*3/uL 0.33-0.92 L = 742-7) EOS x10^3 (test code = 0.13 10*3/uL 0.03-0.39 711-2) BASO x10^3 (test code 0.04 10*3/uL 0.01-0.07 = 704-7) Lab Interpretation Abnormal (test code = 56015-2) [facility] [id number] 15:12:50 Test Item Value Reference Range Interpretation Comments NT-proBNP (test code 38 pg/mL See_Comment [Autom ated = 2218724313) message] The system which generated this result transmitted reference range : <=125. The reference range was not used to interpret this result as normal/abnormal . RICHA (test code = RICHA) Biotin has been reported to cause a negative bias, interpret results relative to patient's use of biotin. Lab Interpretation Normal (test code = 66052-2) [facility]ie[facility]id Panel (Total Cholesterol, Triglycerides, HDL)2021-05-28 09:00:45 Test Item Value Reference Range Interpretation Comments CHOL (test code = 293 mg/dL 120-200 H 0311298945) HDL (test code = 49 mg/dL >50 L 3421238709) HDLC RATIO (test code = See_Comment H [Au tomated message] 4920012936) The system [employer] generated this result transmit martinez reference range : <=4.5. The refe rence range was not u sed to interpret th is result as normal/abnormal . TRIG (test code = 194 mg/dL 30-170 H 6040777774) LDL CHOL (test code = 205 mg/dL See_Comment H [Auto mated message] 97083-2) The system [employer] generated this result transmit martinez reference range : <=160. The refe rence range was not u sed to interpret th is result as normal/abnormal . VLDL (test code = 39 mg/dL 5-60 5639571512) Lab Interpretation (test Abnormal code = 04027-3) [facility]ieMagnesium [id number] 09:00:25 Test Item Value Reference Range Interpretation Comments MAGNESIUM (test code = 2507064054) 2.1 mg/dL 1.7-2.4 Lab Interpretation (test code = Normal 30397-6) [facility]ieCOMP. METABOLIC PANEL (51521)2021-05-28 09:00:25 Test Item Value Reference Range Interpretation Comments NA (test code = 136 mmol/L 135-145 2187284595) K (test code = 4.1 mmol/L 3.5-5.0 1786083659) CL (test code = 106 mmol/L 98-108 5454278482) CO2 TOTAL (test code = 28 mmol/L 23-31 9019615402) AGAP (test code = 2-16 5094951609) BUN (test code = 10 mg/dL 7-23 2172145579) GLUCOSE (test code = 92 mg/dL 70-110 6582276665) CREATININE (test code = 0.56 mg/dL 0.50-1.04 0864383424) TOTAL BILI (test code = 0.5 mg/dL 0.1-1.0 9298673567) CALCIUM (test code = 8.5 mg/dL 8.6-10.6 L 3530069365) T PROTEIN (test code = 6.5 g/dL 6.3-8.2 4555932141) ALBUMIN (test code = 3.6 g/dL 3.5-5.0 4865219603) ALK PHOS (test code = 80 U/L 34-122 2737185458) ALTv (test code = 28 U/L 5-35 1742-6) AST(SGOT) (test code = 31 U/L 13-40 0739812098) eGFR (test code = mL/min/1.73m2 9158210629) RICHA (test code = RICHA) Association of [...] tests). Lab Interpretation Abnormal (test code = 53069-1) [facility]ieAMMONIA, [id number] 07:59:11 Test Item Value Reference Range Interpretation Comments AMMONIA (test code = 0295707296) 9 umol/L 9-33 Lab Interpretation (test code = Normal 10091-4) [facility] with [id number] 07:54:31 Test Item Value Reference Range Interpretation Comments WBC (test code = See_Comment [Automated 6948-2) message] The sy stem which generated this result transmitted reference range : 4.30 - 11.10 10*3/?L. The reference range was not used to interpret this result as normal/abnormal . RBC (test code = See_Comment L [Automated 203-4) message] The sy stem which generated this [...] RDW-SD (test code = 41.8 fL 39.0-49.9 03498-6) RDW-CV (test code = 12.2 % 12.0-15.5 788-0) PLT (test code = See_Comment [Automated 777-3) message] The sy stem which generated this result transmitted reference range : 166 - 358 10*3/ ?L. The reference r fatou was not used to interpret this result as normal/abnormal . MPV (test code = 9.5 fL 9.5-12.9 23008-2) NRBC/100 WBC (test See_Comment [Automat ed code = 7722134494) message] The system which generated this result transmitted reference range : 0.0 - 10.0 /100 WBCs. The refer ence range was not u sed to interpret th is result as normal/abnormal . NRBC x10^3 (test code <0.01 See_Comment [Auto mated = 8955012670) message] The s ystem which generated this result transmitted reference range : 10*3/?L. The reference range was not used to interpret this result as normal/abnormal . GRAN MAT (NEUT) % 53.3 % (test code = 770-8) IMM GRAN % (test code 0.50 % = 7438733040) LYMPH % (test code = 36.6 % 736-9) MONO % (test code = 6.5 % 5905-5) EOS % (test code = 2.5 % 713-8) BASO % (test code = 0.6 % 706-2) GRAN MAT x10^3(ANC) 3.36 10*3/uL 1.88-7.09 (test code = 8236632088) IMM GRAN x10^3 (test 0.03 10*3/uL 0.00-0.06 code = 5529560530) LYMPH x10^3 (test code 2.31 10*3/uL 1.32-3.29 = 731-0) MONO x10^3 (test code 0.41 10*3/uL 0.33-0.92 = 742-7) EOS x10^3 (test code = 0.16 10*3/uL 0.03-0.39 711-2) BASO x10^3 (test code 0.04 10*3/uL 0.01-0.07 = 704-7) Lab Interpretation Abnormal (test code = 01977-2) [facility] [id number] 05:04:40 Test Item Value Reference Interpretation Comments Range TROPONIN I (test 0.008 ng/mL See_Comment [Automated code = 0353311593) message] The system which generated this result [...] biotin. Lab Interpretation Normal (test code = 96507-5) [facility] [id number] 22:42:55 Test Item Value Reference Interpretation Comments Range TROPONIN I (test 0.004 ng/mL See_Comment [Automated code = 8204699247) message] The system which generated this result [...] biotin. Lab Interpretation Normal (test code = 66249-5) [facility]ieGlycosylated Hemoglobin (A1C)2021-05-27 21:12:25 Test Item Value Reference Range Interpretation Comments HGB A1C (test code = 5.2 % 4.0-5.7 4548-4) RICHA (test code = RICHA) Reference RangesNormal: <5.7%Prediabetes: 5.7 - 6.4%Diabetes: > 6.5% Lab Interpretation (test Normal code = 69232-9) [facility]achieThyroid Stimulating Hormone (TSH)2021-05-27 20:10:33 Test Item Value Reference Range Interpretation Comments TSH (test code = See_Comment [Automated message] 6750308593) The system [employer] generated this result transmitted ref erence range: 0.45 - 4 .70 mIU/L. The refe rence range was not u sed to interpret this result as normal/abnor mal. Lab Interpretation (test Normal code = 44610-5) [facility]ieMAGNESIUM2022-01-12 19:39:01 Test Item Value Reference Range Interpretation Comments MAGNESIUM (test code = 1869147939) 2.1 mg/dL 1.7-2.4 Lab Interpretation (test code = Normal 70335-3) [facility]achieD-[id number] 15:46:40 Test Item Value Reference Interpretation Comments Range D-DIMER (test code = <0.27 See_Comment [Autom ated 0675375113) message] The system which generated this result [...] diagnosis. Lab Interpretation Normal (test code = 43978-2) [facility]achieTROPONIN [id number] 15:40:08 Test Item Value Reference Interpretation Comments Range TROPONIN I (test 0.005 ng/mL See_Comment [Automated code = 4132895197) message] The system which generated this result [...] biotin. Lab Interpretation Normal (test code = 84459-4) [facility]iePOCT [id number] 15:32:00 Test Item Value Reference Range Interpretation Comments POCT PREG (test code = 1605) negative On board controls acceptable with present C Line (test code = 3574) POCT PREG LOT # (test code = 3575) [id number] POCT PREG TEST DATE (test 07/13/2022 code = 3576) Lab Interpretation (test code = Normal 10528-2) [facility]. METABOLIC PANEL (00984)2021-05-27 15:28:28 Test Item Value Reference Range Interpretation Comments NA (test code = 136 mmol/L 135-145 1596879153) K (test code = 4.6 mmol/L 3.5-5.0 4255838296) CL (test code = 103 mmol/L 98-108 7025846024) CO2 TOTAL (test code 27 mmol/L 23-31 = 2172850407) AGAP (test code = 2-16 7750185100) BUN (test code = 14 mg/dL 7-23 9181438888) GLUCOSE (test code = 92 mg/dL 70-110 5579164320) CREATININE (test code 0.55 mg/dL 0.50-1.04 = 1951246888) TOTAL BILI (test code 0.4 mg/dL 0.1-1.1 = 9974380659) CALCIUM (test code = 9.1 mg/dL 8.6-10.6 0687486779) T PROTEIN (test code 7.2 g/dL 6.3-8.2 = 8773397315) ALBUMIN (test code = 4.2 g/dL 3.5-5.0 8695399952) ALK PHOS (test code = 89 U/L 34-122 1108042398) ALTv (test code = 30 U/L 5-35 2-6) AST(SGOT) (test code 30 U/L 13-40 = 9089012696) eGFR (test code = mL/min/1.73m2 5911765218) RICHA (test code = RICHA) Association of [...] or urine or abnormalities in imaging tests). [facility] WITH [id number] 15:17:22 Test Item Value Reference Range Interpretation Comments WBC (test code = See_Comment [Automated message] 7090-2) The system [employer] generated this result transmitted ref erence range: 4.30 - 1 1.10 10*3/?L. The re ference range was not u sed to interpret this result as normal/abnor mal. RBC (test code = See_Comment [Automated message] 289-8) The system [employer] generated this result transmitted ref erence range: [...] RDW-SD (test code 40.8 fL 39.0-49.9 = 95992-9) RDW-CV (test code 12.1 % 12.0-15.5 = 788-0) PLT (test code = See_Comment [Automated message] 777-3) The system [employer] generated this result transmitted ref erence range: 166 - 35 8 10*3/?L. The re ference range was not u sed to interpret this result as normal/abnor mal. MPV (test code = 9.5 fL 9.5-12.9 98719-7) NRBC/100 WBC (test See_Comment [Automat ed message] code = 7198074397) The syste m which generated this result transmitted ref erence range: 0.0 - 10 .0 /100 WBCs. The refer ence range was not u sed to interpret this result as normal/abnor mal. NRBC x10^3 (test <0.01 See_Comment [Automated message] code = 1023012981) The syste m which generated this result transmitted ref erence range: 10*3/?L. The reference range was not used to interpr et this result as normal/abnormal . GRAN MAT (NEUT) % 57.3 % (test code = 770-8) IMM GRAN % (test 0.40 % code = 4608075545) LYMPH % (test code 33.3 % = 736-9) MONO % (test code 6.3 % = 5905-5) EOS % (test code = 1.9 % 713-8) BASO % (test code 0.8 % = 706-2) GRAN MAT 4.16 10*3/uL 1.88-7.09 x10^3(ANC) (test code = 7810415522) IMM GRAN x10^3 0.03 10*3/uL 0.00-0.06 (test code = 3144383410) LYMPH x10^3 (test 2.42 10*3/uL 1.32-3.29 code = 731-0) MONO x10^3 (test 0.46 10*3/uL 0.33-0.92 code = 742-7) EOS x10^3 (test 0.14 10*3/uL 0.03-0.39 code = 711-2) BASO x10^3 (test 0.06 10*3/uL 0.01-0.07 code = 704-7) [facility]ieGALV ONLY - INFLUENZA A B RSV [id number] 18:18:00 Test Item Value Reference Range Interpretation Comments Influenza A virus by PCR (test code Negative Negative = 28598-4) Influenza B virus by PCR (test code Negative Negative = 62901-2) RSV by PCR (test code = 81057-8) Positive Negative A Lab Interpretation (test code = Abnormal 00988-3) [facility]ieCOVID-19 (ID NOW RAPID TESTING)2020-03-23 16:19:00 Test Item Value Reference Range Interpretation Comments SARS-CoV-2 Rapid ID NOW Not Detected Not Detected (test code = 52556-3) RICHA (test code = RICHA) ID NOW COVID-19 Assay is an isothermal nucleic acid amplification test intended for the qualitative detection of nucleic acid from SARS-CoV-2 viral RNA in nasopharyngeal ([employer]RIER) specimens. It is used under Emergency Use [...] indicated. Lab Interpretation Normal (test code = 08506-7) [facility] [id number] 16:08:00 Test Item Value Reference Range Interpretation Comments TROPONIN I (test 0.003 ng/mL See_Comment [Automated code = [id number]) message] The system which generated this result [...] ? Lab Interpretation Normal (test code = 87503-3) [facility] [id number] 16:08:00 Test Item Value Reference Range Interpretation Comments NT-proBNP (test code 51 pg/mL See_Comment [Autom ated = [id number]) message] The system which generated this result transmitted reference range : <=125. The reference range was not used to interpret this result as normal/abnormal . RICHA (test code = RICHA) Biotin has been reported to cause a negative bias, interpret results relative to patient's use of biotin. Lab Interpretation Normal (test code = 02502-9) [facility]ysis2020-[facility]-08 16:05:00 Test Item Value Reference Range Interpretation Comments APPEARANCE (test code = Clear Clear [id number]) COLOR (test code = Colorless Yellow A 1392032970) PH (test code = 4.8-8.0 2790481122) SP GRAVITY (test code = 1.003-1.030 6343948672) GLU U QUAL (test code = Normal Normal 6584477233) BLOOD (test code = 2+ Negative A 4905801074) KETONES (test code = Negative Negative 0626054812) PROTEIN (test code = Negative Negative 2887-8) UROBILIN (test code = Normal Normal 4145510740) BILIRUBIN (test code = Negative Negative 4374443675) NITRITE (test code = Negative Negative 2870763293) LEUK TORO (test code = Negative Negative 4405644205) RBC/HPF (test code = <1 See_Comment [Autom ated message] 6661851473) The system [employer] generated this result transmit martinez reference range : 0 - 3 HPF. The refe rence range was not u sed to interpret th is result as normal/abnormal . WBC/HPF (test code = <1 See_Comment [Autom ated message] 4907537013) The system [employer] h generated this result transmit martinez reference range : 0 - 5 HPF. The refe rence range was not u sed to interpret th is result as normal/abnormal . BACTERIA (test code = Negative Negative 5893840707) SQ EPITH (test code = See_Comment [Auto mated message] 4975203274) The system [employer] generated this result transmit martinez reference range : <=2 HPF. The refere nce range was not u sed to interpret th is result as normal/abnormal . Lab Interpretation (test Abnormal code = 07772-4) [facility] Metabolic Panel (NA, K, CL, CO2, GLUCOSE, BUN, CREATININE, CA)2020-03-23 15:59:00 Test Item Value Reference Range Interpretation Comments NA (test code = 138 mmol/L 135-145 5648654614) K (test code = 4.0 mmol/L 3.5-5 2602409722) CL (test code = 107 mmol/L 98-108 1471486904) CO2 TOTAL (test code = 25 mmol/L 23-31 7371313879) AGAP (test code = 2-16 2585479323) BUN (test code = 7 mg/dL 7-23 7755174344) GLUCOSE (test code = 98 mg/dL 70-110 7882721522) CREATININE (test code 0.59 mg/dL 0.5-1.04 = 8931133122) CALCIUM (test code = 8.7 mg/dL 8.6-10.6 0270708586) eGFR Calculation mL/min/1.73m2 (Non-) (test code = 5401747094) eGFR Calculation mL/min/1.73m2 () (test code = 8250716337) RICHA (test code = RICHA) Association of [...] or urine or abnormalities in imaging tests). [facility] (ALB, T.PRO, BILI T, BU/BC, ALT, AST, ALK PHOS)2020-03-23 15:59:00 Test Item Value Reference Range Interpretation Comments TOTAL BILI (test code = 0333077101) 0.6 mg/dL 0.1-1.1 BILI UNCON (test code = 7621861672) 0.4 mg/dL 0.1-1.1 BILI CONJ (test code = 1994870534) 0.0 mg/dL 0-0.3 T PROTEIN (test code = 9952329563) 7.1 g/dL 6.3-8.2 ALBUMIN (test code = 8312194669) 3.8 g/dL 3.5-5 ALK PHOS (test code = 5821620367) 88 U/L 34-122 ALTv (test code = 1742-6) 16 U/L 5-35 AST(SGOT) (test code = 2419392837) 42 U/L 13-40 H Lab Interpretation (test code = Abnormal 19645-7) [facility] [id number] 15:59:00 Test Item Value Reference Range Interpretation Comments LIPASE (test code = 3142400215) 120 U/L 0-220 Lab Interpretation (test code = Normal 91406-1) [facility] with [id number] 15:54:00 Test Item Value Reference Range Interpretation [...] RDW-SD (test code = 45.6 fL 39-49.9 37981-7) RDW-CV (test code = 13.5 % 12-15.5 788-0) PLT (test code = See_Comment [Automated 777-3) message] The sy stem which generated this result transmitted reference range : 166 - 358 10*3/ ?L. The reference r fatou was not used to interpret this result as normal/abnormal . MPV (test code = 10.3 fL 9.5-12.9 14973-4) NRBC/100 WBC (test See_Comment [Automat ed code = 4308433827) message] The system which generated this result transmitted reference range : 0.0 - 10.0 /100 WBCs. The refer ence range was not u sed to interpret th is result as normal/abnormal . NRBC x10^3 (test code <0.01 See_Comment [Auto mated = 2640437553) message] The s ystem which generated this result transmitted reference range : 10*3/?L. The reference range was not used to interpret this result as normal/abnormal . GRAN MAT (NEUT) % 77.3 % (test code = 770-8) IMM GRAN % (test code 0.40 % = 8888054786) LYMPH % (test code = 13.1 % 736-9) MONO % (test code = 5.2 % 5905-5) EOS % (test code = 3.4 % 713-8) BASO % (test code = 0.6 % 706-2) GRAN MAT x10^3(ANC) 6.28 10*3/uL 1.88-7.09 (test code = 9845430930) IMM GRAN x10^3 (test 0.03 10*3/uL 0-0.06 code = 9215656408) LYMPH x10^3 (test code 1.06 10*3/uL 1.32-3.29 L = 731-0) MONO x10^3 (test code 0.42 10*3/uL 0.33-0.92 = 742-7) EOS x10^3 (test code = 0.28 10*3/uL 0.03-0.39 711-2) BASO x10^3 (test code 0.05 10*3/uL 0.01-0.07 = 704-7) Lab Interpretation Abnormal (test code = 58840-9) [facility] 1 [id number] 15:29:23 No acute cardiopulmonary abnormality Preliminary Report Dictated by Resident: Speedy Melgar MD., have reviewed this study and agree with theabove report.XR CHEST 1 VW HISTORY:45 years-old; Female; cough COMPARISON: None TECHNIQUE: frontal radiograph of the chest was obtained. FINDINGS: The lungs are clear with no focal consolidation. There is no pleuraleffusion or pneumothorax.The cardiomediastinal silhouette is normal.No acute osseous abnormality is identified. [place], Radiant Results Inft User - 03/23/2020 9:30 AM CSTXR CHEST 1 VWHISTORY: 45 years-old; Female; cough COMPARISON: NoneTECHNIQUE: frontal radiograph of the chest was obtained.FINDINGS: The lungs are clear with no focal consolidation. There is no pleuraleffusion or pneumothorax.The cardiomediastinal silhouetteis normal.No acute osseous abnormality is identified.IMPRESSIONNo acute cardiopulmonary abnormalityPreliminary Report Dictated by Resident: Speedy Thomason MD., have reviewed this study and agree with theabove report.[facility] [id number] 15:20:00 Test Item Value Reference Range Interpretation Comments POCT PREG (test code = 1605) negative On board controls acceptable with present C Line (test code = 3574) POCT PREG LOT # (test code = 3575) [id number] POCT PREG TEST DATE (test 08/13/2021 code = 3576) Lab Interpretation (test code = Normal 56233-8) [facility]
[2022-01-27] MEDS ORDERED: METHYLPREDNISOLONE 125 MG INJ ONE (07:17)
--- NOTE | 2022-01-27 07:30 | RAD REPORT ---
EXAM DESCRIPTION: RAD - Chest Single View - 01/27/2022 6:58 am CLINICAL HISTORY: Chest pain COMPARISON: Portable 12/02/2021 TECHNIQUE: AP portable chest image was obtained 01/27/2022 6:58 am . FINDINGS: Lung volumes are low. Under penetrated technique and overlying chest soft tissues accentua te the lung walter. A focal consolidation is not seen. Significant failure or volume overload are not suspected. Interstitial pattern is not substantially different from prior imaging though a mild inte rstitial edema or infiltrate cannot be excluded. Heart and vasculature are normal. No measurable pleu ral effusion and no pneumothorax. No acute bony abnormality seen. No acute aortic findings suspected. IMPRESSION: No focal mass or consolidation. Interstitial markings are accentuated by shallow inspiration body habitus and under penetrated portab le technique. Mild interstitial edema or infiltrate could be masked.
--- NOTE | 2022-01-27 07:34 | RAD REPORT ---
EXAM DESCRIPTION: CT - CTHCSPWOC - 01/27/2022 7:09 am CLINICAL HISTORY: Right arm pain COMPARISON: No comparisons TECHNIQUE: Axial 5 mm thick images of the head were obtained. Axial 2 mm thick images of the cervic al spine were obtained with sagittal and coronal reconstruction images generated and reviewed. All CT scans are performed using dose optimization technique as appropriate and may include automated exposure control or mA/KV adjustment according to patient size. FINDINGS: No intracranial hemorrhage, mass, edema or acute intracranial finding. No suspicion for ac lake infarction. No extra-axial fluid collections. Mastoid air cells and paranasal sinuses are clear. No globe or orbit abnormality seen. Asymmetry is created by slight head tilt. Cervical body height and alignment are normal. C5-6 disc space narrowing present with anterior and po sterior endplate spurs. There is uncovertebral joint hypertrophy at this level causing mild left-side and moderate right-sided foraminal stenosis. Central spinal stenosis to as low as 8 millimeter seen at this level. Posterior spurring off the midportion of the C6 body causes encroachment into the cent ral canal as well. Facet joint degenerative changes are mild. No fracture or acute bony abnormality. Central canal detail is inherently limited. No paraspinal mass or hematoma. IMPRESSION: Negative CT head examination for acute or significant finding. No acute CT cervical spine finding. C5-6 degenerative change causes central spinal stenosis and right greater than left foraminal stenosis. Central canal detail is inherently limited on CT imaging. Follow-up outpatient MRI imaging could be p erformed to better assess the canal encroachment from the C5-6 degenerative change.
[2022-01-27 07:44] LABS: Absolute Lymphocytes (CBC) 1.7 K/uL (0.7-4.9); Hematocrit 36.2 % (36.0-45.0); Lymphocytes % 28.7 % (15.3-44.8); MCV 89.3 fL (80-100); MPV 7.9 fL (7.6-11.3); RBC Red Blood Cell Count 4.05 M/uL (3.86-4.86)
[2022-01-27 08:01] LABS: Potassium 4.1 mmol/L (3.5-5.1); Troponin High Sensitivity 3.4 pg/mL (<58.9)
--- NOTE | 2022-01-27 08:07 | ER ---
Nurse's Notes [facility] Name: Negin Earl Age: 47 yrs Sex: Female : 1975 Arrival Date: 01/27/2022 Time: 06:10 Bed 18 Private MD: Diagnosis: Radiculopathy, lumbosacral region;Radiculopathy, cervical region;Paresthesia of skin Presentation: 01/27 06:30 Chief complaint: Patient states: RIGHT ARM NUMBNESS, TINGLING, AND PAIN X1 WK. ALSO jj7 HAVING SOME CP AND SOB. Coronavirus screen: At this time, the client does not indicate any symptoms associated with coronavirus-19. Ebola Screen: No symptoms or risks identified at this time. Initial Sepsis Screen: Does the patient meet any 2 criteria? Yes No. Patient's initial sepsis screen is negative. Does the patient have a suspected source of infection?. Risk Assessment: Do you want to hurt yourself or someone else? Patient reports no desire to harm self or others. Onset of symptoms was January 14, 2022. 06:30 Method Of Arrival: Ambulatory [facility] 06:30 Acuity: EVERT 3 j Triage Assessment: 07:00 General: Appears in no apparent distress. Behavior is calm, appropriate for age. j7 Respiratory: Reports shortness of breath at rest Historical: - Allergies: 06:55 PENICILLINS; ja4 - Immunization history:: Adult Immunizations up to date. - Family history:: not pertinent. - Social history:: Smoking status: unknown. - Hospitalizations: : No recent hospitalization is reported. Screenin:55 Abuse screen: Denies threats or abuse. Nutritional screening: No deficits noted. ja4 Tuberculosis screening: No symptoms or risk factors identified. Fall Risk None identified. Assessment: 06:54 Pain: Complains of pain in chest right side Pain currently is 8 out of 10 on a pain ja4 scale. Cardiovascular: No deficits noted. Respiratory: No deficits noted. Musculoskeletal: Reports weakness in right arm, right hand, right leg and right foot numbness in right arm. 07:15 Reassessment: Patient appears in no apparent distress at this time. No changes from 7 previously documented assessment. Patient and/or family updated on plan of care and expected duration. Pain level reassessed. Patient is alert, oriented x 3, equal unlabored respirations, skin warm/dry/pink. 07:30 Reassessment: Inserted 20 G IV into right AC, catheter would not advance all the way in jl7 but blood flowed easily and was easy to flush. Attempted to tape IV in place to administer ordered IV medication and pt excitedly said "Take it out! Take it out!" Pt reported burning to site. No redness or swelling noted, IV catheter removed at this time and, per pt request, no additional IV attempts at this time. Vital Signs: 06:30 BP 110 / 59; Pulse 115; Resp 20; Temp 98.9; Pulse Ox 98% ; Weight 95.71 kg; Height 5 j7 ft. 5 in. (165.10 cm); Pain 8/10; 06:55 BP 104 / 49; Pulse 107; Resp 14; Pulse Ox 97% on R/A; Pain 8/10; ja4 06:30 Body Mass Index 35.11 (95.71 kg, 165.10 cm) [facility] ED Course: 06:10 Patient arrived in ED. ja2 06:42 Brian Morales MD is Attending Physician. kdr 06:50 Waqar Estrada RN is Primary Nurse. ja4 06:55 Bed in low position. Call light in reach. Side rails up X2. ja4 06:55 No provider procedures requiring assistance completed. 4 07:00 Triage completed. j7 07:00 XRAY Chest (1 view) In Process Unspecified. EDMS 07:11 CT Head C Spine In Process Unspecified. EDMS 07:15 Initial lab(s) drawn, by ma, sent to lab. Inserted saline lock: 20 gauge in right jl7 antecubital area, using aseptic technique. Blood collected. 07:40 Attending Physician role handed off by Brian Morales MD rn 07:40 Agustín Narayan MD is Attending Physician. rn Administered Medications: 08:19 Not Given (pt refused IV): SOLU-Medrol (methylPrednisoLONE) 125 mg IVP once jl7 Medication: 06:55 VIS not applicable for this client. ja4 Outcome: 08:07 Discharge ordered by . rn 08:23 Discharged to home ambulatory. jl7 08:23 Condition: stable 08:23 Discharge instructions given to patient, Instructed on discharge instructions, follow up and referral plans. medication usage, Demonstrated understanding of instructions, follow-up care, medications, Prescriptions given X 1. 08:29 Patient left the ED. jl7 Signatures: Dispatcher [employer] EDMS Brian Morales MD MD kdr Nieto, Roman, MD MD rn Leal, Jahala RN RN jl7 Sandee Ureña Jeremy, RN RN ja4 Lucinda Liang RN RN jj7
--- NOTE | 2022-01-27 08:08 | EDPHYS ---
Physician Documentation [facility] Name: Negin Earl Age: 47 yrs Sex: Female : 1975 Arrival Date: 01/27/2022 Time: 06:10 Bed 18 Private MD: ED Physician Agustín Narayan HPI: 01/27 07:40 This 47 yrs old Female presents to ER via Ambulatory with complaints of right arm pain. rn 07:40 The patient presents to the emergency department with paresthesias of the right upper rn extremity, tingling. Onset: The symptoms/episode began/occurred 2 year(s) ago. Associated signs and symptoms: Pertinent positives: paresthesias, Pertinent negatives: fever, weakness. Severity of symptoms: At their worst the symptoms were moderate in the emergency department the symptoms are unchanged. The patient has experienced similar episodes in the past. The patient has been recently seen by a physician:. Pt reports 2 years of right arm pain, usually improves with massage, last night did not improve with massage so came in for evaluation. Reports similar pain as before. No injury recently. No fever. Reports some right sided chest pain that has also been going on and off. Recently had stress test with cardiology as well as holter monitor. Has carotid U/S scheduled this next week. Reports also has been having right leg pain and tingling for atleast 8 years. Sees pain management. . Historical: - Allergies: 06:55 PENICILLINS; ja4 - Immunization history:: Adult Immunizations up to date. - Family history:: not pertinent. - Social history:: Smoking status: unknown. - Hospitalizations: : No recent hospitalization is reported. ROS: 07:40 Constitutional: Negative for fever, chills, and weight loss, Eyes: Negative for injury, rn pain, redness, and discharge, Neck: Negative for injury, pain, and swelling, Cardiovascular: Negative for palpitations, and edema Respiratory: Negative for shortness of breath, cough, wheezing, and pleuritic chest pain, Abdomen/GI: Negative for abdominal pain, nausea, vomiting, diarrhea, and constipation, Back: Negative for injury and pain, MS/Extremity: Negative for injury and deformity, Skin: Negative for injury, rash, and discoloration, Neuro: Negative for headache, weakness, and seizure Exam: 07:40 Constitutional: This is a well developed, well nourished patient who is awake, alert, rn and in no acute distress. Tearful. Head/Face: Normocephalic, atraumatic. Eyes: Pupils equal round and reactive to light, extra-ocular motions intact. Lids and lashes normal. Conjunctiva and sclera are non-icteric and not injected. Cornea within normal limits. Periorbital areas with no swelling, redness, or edema. Neck: Supple, full range of motion without nuchal rigidity, or vertebral point tenderness. No Meningismus. Cardiovascular: Tachycardic, regular. No pulse deficits. Respiratory: No increased work of breathing, no retractions or nasal flaring. Abdomen/GI: Soft, non-tender Skin: Warm, dry with normal turgor. Normal color with no rashes, no lesions, and no evidence of cellulitis. MS/ Extremity: Pulses equal, no cyanosis. Neurovascular intact. Full, normal range of motion. Equal circumference. Neuro: Awake and alert, GCS 15, oriented to person, place, time, and situation. Cranial nerves II-XII grossly intact. Motor strength 5/5 in all extremities. Sensory grossly intact. Cerebellar exam normal. Vital Signs: 06:30 BP 110 / 59; Pulse 115; Resp 20; Temp 98.9; Pulse Ox 98% ; Weight 95.71 kg; Height 5 jj7 ft. 5 in. (165.10 cm); Pain 8/10; 06:55 BP 104 / 49; Pulse 107; Resp 14; Pulse Ox 97% on R/A; Pain 8/10; ja4 06:30 Body Mass Index 35.11 (95.71 kg, 165.10 cm) jj7 MDM: 06:58 Patient medically screened. kdr 08:05 Data reviewed: vital signs, nurses notes, lab test result(s), EKG, radiologic studies, rn CT scan, plain films, and as a result, I will discharge patient. Counseling: I had a detailed discussion with the patient and/or guardian regarding: the historical points, exam findings, and any diagnostic results supporting the discharge/admit diagnosis, lab results, radiology results, the need for outpatient follow up, to return to the emergency department if symptoms worsen or persist or if there are any questions or concerns that arise at home. Response to treatment: the patient's symptoms have mildly improved after treatment, and as a result, I will discharge patient. Special discussion: I discussed with the patient/guardian in detail that at this point there is no indication for admission to the hospital. It is understood, however, that if the symptoms persist or worsen the patient needs to return immediately for re-evaluation. ED course: No acute findings on CT head/cspine. Symptoms present for atleast 2 years. Will dc home with steroids and return precautions. . 08:07 Special discussion: Further emergent ED testing is not indicated at this point in time. rn I discussed with the patient/guardian in detail the need to arrange with the PCP or specialist further outpatient testing, MRI. 01/27 06:42 Order name: Basic Metabolic Panel; Complete Time: 08:04 kdr 01/27 06:42 Order name: CBC with Diff; Complete Time: 08:04 kdr 01/27 06:42 Order name: D-Dimer; Complete Time: 08:04 kdr 01/27 06:42 Order name: NT PRO-BNP; Complete Time: 08:04 kdr 01/27 06:42 Order name: Troponin HS; Complete Time: 08:04 kdr 01/27 06:42 Order name: XRAY Chest (1 view); Complete Time: 07:40 kdr 01/27 06:42 Order name: EKG; Complete Time: 06:43 kdr 01/27 06:42 Order name: EKG - Nurse/Tech; Complete Time: 07:29 kdr 01/27 06:42 Order name: IV Saline Lock; Complete Time: 07:28 kdr 01/27 06:42 Order name: Labs collected and sent; Complete Time: 07:29 kdr 01/27 06:42 Order name: O2 Per Protocol; Complete Time: 07:29 kdr 01/27 06:50 Order name: CT Head C Spine; Complete Time: 07:40 kdr 01/27 06:42 Order name: O2 Sat Monitoring; Complete Time: 07:29 kdr Administered Medications: 08:19 Not Given (pt refused IV): SOLU-Medrol (methylPrednisoLONE) 125 mg IVP once jl7 Disposition Summary: 01/27/22 08:07 Discharge Ordered Location: Home rn Problem: an ongoing problem rn Symptoms: have improved rn Condition: Stable rn Diagnosis - Radiculopathy, lumbosacral region rn - Radiculopathy, cervical region rn - Paresthesia of skin rn Followup: rn - With: Private Physician - When: As needed - Reason: Recheck today's complaints, Re-evaluation by your physician Discharge Instructions: - Discharge Summary Sheet rn - Cervical Radiculopathy rn - Lumbosacral Radiculopathy rn - Neuropathic Pain rn - Paresthesia rn Forms: - Medication Reconciliation Form rn - Thank You Letter rn - Antibiotic real estate internship - Prescription Opioid Use rn Prescriptions: - Medrol (Josep) 4 mg Oral Tablets, Dose Pack - take 1 tablet by ORAL route as directed - follow package instructions; 1 rn packet; Refills: 0, Product Selection Permitted Signatures: Dispatcher [employer] EDMS Brian Morales MD MD kdr Nieto, Roman, MD MD rn Leal, Jahala RN RN jl7 Waqar Estrada RN RN ja4
--- NOTE | 2022-01-27 17:07 | EKG ---
Test Date: 2022-01-27 Test Time: 06:26:57 Sewer: ISIDRO MEASUREMENT RESULTS: Intervals: Rate: 111 TX: 132 QRSD: 84 QT: 376 QTc: 511 [place]: P: -90 TX: 132 QRS: 40 T: -61 INTERPRETIVE STATEMENTS: Unusual P axis and short TX, probable junctional tachycardia Low voltage QRS T wave abnormality, consider anterior ischemia Abnormal ECG Compared to ECG 12/02/2021 07:24:26 Low QRS voltage now present T-wave abnormality now present Possible ischemia now present Sinus tachycardia no longer present ST (T wave) deviation no longer present Electronically Signed On 01-27-22 17:06:32 CDT by Avelino Park
[2022-01-27 22:50] VITALS: TEMP 98.9
[2022-01-27 22:53] VITALS: BP 104/49; O2SAT 97
== END 2022-01-27 08:29 | disposition home or self-care (01) ==
LOC: ER 06:05
DX: M54.12 Radiculopathy, cervical region (principal); M54.17 Radiculopathy, lumbosacral region; R07.89 Other chest pain; Z88.0 Allergy status to penicillin
CPT/HCPCS: 93005; 85025; 80048; 36415; 85379; 84484; 83880; 70450; 72125; 71045; 99284; J2930

== ENCOUNTER 2024-03-07 17:22 | Emergency (ER) | payer OTHER ==
[2024-03-07 18:00] LABS: Absolute Lymphocytes (CBC) 1.9 K/uL (0.7-4.9); Absolute Monocytes 0.5 K/uL (0.1-1.3); Absolute Neutrophil 7.9 K/uL (1.8-8.0); Basophils % 0.3 % (0-1.3); Eosinophils % 0.2 % (0-4.4); Hemoglobin 12.2 g/dL (12.0-15.0); Lymphocytes % 18.4 % (15.3-44.8); MCH 31.9 pg (27.0-35.0); MCHC 33.8 g/dL (32.0-36.0); MCV 94.3 fL (80-100); MPV 7.2 fL (7.6-11.3); Monocytes % 5.1 % (3.3-12.3); Platelets 298 thou/uL (152-406); RBC Red Blood Cell Count 3.82 M/uL (3.86-4.86); Red Cell Distribution Width 12.7 % (12.1-15.2)
[2024-03-07 18:09] LABS: D-Dimer < 0.215 FEUug/mL (0-0.500); PT Prothrombin Time 10.1 SECONDS (9.4-12.5); PTT, Activated Partial Thromb 26.3 SECONDS (24.3-36.9)
[2024-03-07] MEDS ORDERED: NA CHLORIDE 0.9% 1,000 ML ONE (18:10)
[2024-03-07 18:30] LABS: ALT/SGPT 18 U/L (13-56); Albumin 3.4 g/dL (3.4-5.0); Albumin/Globulin Ratio 1.1 (1.1-1.8); Alkaline Phosphatase 56 U/L (45-117); Anion Gap 8.1 mEq/L (5.0-15.0); BUN Blood Urea Nitrogen 18 mg/dL (7-18); Bicarbonate 27 mEq/L (21-32); Bilirubin Total 0.3 mg/dL (0.2-1.0); Globulin 3.2 g/dL (2.3-3.5); Glomerular Filtration Rate 107 ml/min (=/>90); Glucose Level 107 mg/dL (74-106); Magnesium 2.2 mg/dL (1.6-2.4); NT PRO-BNP 20 pg/mL (<125); Potassium 4.1 mEq/L (3.5-5.1); Protein, Total 6.6 g/dL (6.4-8.2); Sodium Level 137 mEq/L (136-145)
--- NOTE | 2024-03-07 18:30 | RAD REPORT ---
Procedure: Chest Single View HISTORY: Chest pain COMPARISON: 2021 FINDINGS: The lungs appear clear of acute infiltrate. No significant pleural effusion noted. The heart is normal size. IMPRESSION: No acute abnormality is displayed.
[2024-03-07 18:51] LABS: AST/SGOT < 10 U/L (15-37); Bilirubin Direct < 0.2 mg/dL (0-0.2); Bilirubin Indirect, Calculated 0.1 mg/dL (0.2-0.8); Troponin High Sensitivity < 3.0 pg/mL (<58.9)
--- NOTE | 2024-03-07 20:04 | ER ---
Nurse's Notes [facility] Name: Negin Earl Age: 49 yrs Sex: Female : 1975 Arrival Date: 03/07/2024 Time: 17:22 Bed 3 Private MD: Diagnosis: Palpitations Presentation: 03/07 17:36 Chief complaint: Patient states: Left sided chest pain that radiates down left arm cm10 onset 2 days ago. Pt states that her pulse has been elevated. Pt also reports dizziness. Coronavirus screen: Client denies travel out of the [place] in the last 14 days. Ebola Screen: Patient denies travel to an Ebola-affected area in the 21 days before illness onset. No symptoms or risks identified at this time. Initial Sepsis Screen: Does the patient meet any 2 criteria? No. Patient's initial sepsis screen is negative. Does the patient have a suspected source of infection? No. Patient's initial sepsis screen is negative. Risk Assessment: Do you want to hurt yourself or someone else? Patient reports no desire to harm self or others. Onset of symptoms was March 07, 2024. 17:36 Method Of Arrival: Ambulatory cm10 17:36 Acuity: EVERT 2 cm10 Triage Assessment: 17:37 General: Appears in no apparent distress. comfortable, Behavior is calm, cooperative. cm10 Neuro: No deficits noted. Level of Consciousness is awake, alert, obeys commands, Oriented to person, place, time, situation, Appropriate for age. Respiratory: No deficits noted. Airway is patent Respiratory effort is even, unlabored, Respiratory pattern is regular, symmetrical. Historical: - Allergies: 17:38 PENICILLINS; cm10 - PMHx: 17:38 Bipolar disorder; Depression; insomnia; Kidney stones; Hypercholesterolemia; cm10 - Immunization history:: Adult Immunizations not up to date. - Infectious Disease History:: Denies. - Social history:: Smoking status: Reported history of juuling and/or vaping. Screenin:56 [facility] ED Fall Risk Assessment (Adult) History of falling in the last 3 months, hb including since admission No falls in past 3 months (0 pts) Confusion or Disorientation No (0 pts) Intoxicated or Sedated No (0 pts) Impaired Gait No (0 pts) Mobility Assist Device Used No (0 pt) Altered Elimination No (0 pt) Score/Fall Risk Level 0 - 2 = Low Risk Oriented to surroundings, Maintained a safe environment, Educated pt \T\ family on fall prevention, incl call for assistance when getting out of bed. Abuse screen: Denies threats or abuse. Denies injuries from another. Nutritional screening: No deficits noted. Tuberculosis screening: No symptoms or risk factors identified. Assessment: 17:55 General: Appears in no apparent distress. Behavior is calm, cooperative. Pain: Pain hb currently is 8 out of 10 on a pain scale. Neuro: Level of Consciousness is awake, alert, obeys commands, Oriented to person, place, time, situation. Cardiovascular: Reports chest pain, Patient's skin is warm and dry. Rhythm is regular. Respiratory: Respiratory effort is even, unlabored, Respiratory pattern is regular, symmetrical. GI: No signs and/or symptoms were reported involving the gastrointestinal system. : No signs and/or symptoms were reported regarding the genitourinary system. EENT: No signs and/or symptoms were reported regarding the EENT system. Derm: Skin is pink, warm \T\ dry. Musculoskeletal: No signs and/or symptoms reported regarding the musculoskeletal system. 18:40 Reassessment: Patient appears in no apparent distress at this time. Patient and/or hb family updated on plan of care and expected duration. Pain level reassessed. Patient is alert, oriented x 3, equal unlabored respirations, skin warm/dry/pink. Vital Signs: 17:36 BP 112 / 64; Pulse 69; Resp 16; Temp 98.8(O); Pulse Ox 98% on R/A; Weight 79.38 kg; cm10 Height 5 ft. 5 in. ; Pain 8/10; 17:56 BP 111 / 72 Supine; Pulse 66; Resp 16; Pulse Ox 97% on R/A; hb 18:00 BP 108 / 78 Sitting; Pulse 68; hb 18:04 BP 110 / 74 Standing; Pulse 126; hb 18:40 BP 123 / 73; Pulse 61; Resp 15; Pulse Ox 99% on R/A; hb 17:36 Body Mass Index 29.12 (79.38 kg, 165.1 cm) cm10 17:36 Pain Scale: Adult cm10 ED Course: 17:24 Patient arrived in ED. mr 17:26 Gemma Macias FNP-C is PHCP. kb 17:26 Diogenes Culver MD is Attending Physician. kb 17:31 Gordon Kern, RN is Primary Nurse. bp 17:37 Triage completed. cm10 17:37 Arm band placed on Patient placed in an exam room, on a stretcher, on quality assurance monitor final, cm10 on pulse oximetry. EKG completed in triage. Results shown to MD. 17:38 EKG done, by ED staff, reviewed by Gemma RICH. cm10 17:52 Initial lab(s) drawn, by me, sent to lab. Inserted saline lock: 20 gauge in right hb forearm, using aseptic technique. Blood collected. Flushed with 10 mL NS. 17:56 Patient has correct armband on for positive identification. Placed in gown. Bed in low hb position. Call light in reach. Side rails up X 1. Provided Education on: USE OF CALL LIGHT. Client placed on continuous cardiac and pulse oximetry monitoring. NIBP monitoring applied. quality assurance monitor final on. Pulse ox on. NIBP on. 18:15 Chest Single View XRAY In Process Unspecified. EDMS 20:17 No provider procedures requiring assistance completed. pt removed own IV. vc1 Administered Medications: 18:12 Drug: NS 0.9% IV 1000 ml IV at 1000 ml once; to be given as a bolus over 60 minutes hb Route: IV; Rate: 1000 ml; Site: right forearm; 19:27 Follow up: IV Status: Completed infusion cp4 Medication: 17:56 VIS not applicable for this client. hb Outcome: 20:03 Discharge ordered by . kb 20:18 Discharged to home ambulatory, vc1 20:18 Condition: good 20:18 Instructed on informed discharge 20:19 Patient left the ED. vc1 Signatures: Dispatcher [employer] EDMS Gemma Macias FNP-C FNP-Ckb Khalida Sargent, Reg Reg mr Jeimy Monaco, RN RN hb Gordon Kern, RN RN bp Pamela St RN RN vc1 Breana Harding RN RN cm10 Valerie Nolan cp4 Corrections: (The following items were deleted from the chart) 18:04 17:56 BP 111 / 72; Pulse 66bpm; Resp 16bpm; Pulse Ox 97% RA; hb hb
--- NOTE | 2024-03-07 20:04 | EDPHYS ---
Physician Documentation [facility] Name: Negin Earl Age: 49 yrs Sex: Female : 1975 Arrival Date: 03/07/2024 Time: 17:22 Bed 3 Private MD: ED Physician Diogenes Culver HPI: 03/07 23:01 This 49 yrs old Female presents to ER via Ambulatory with complaints of Chest Pain, kb High Pulse Rate. 23:01 Patient is a 49-year-old female who presents for intermittent chest pain with kb palpitations (rapid heart rate) for 2 days. States her pulse was the highest today which is what prompted her visit to the ER. Reports she has been using kratom recently and that is new. Denies shortness of breath, nausea, vomiting, fever. Historical: - Allergies: 17:38 PENICILLINS; cm10 - PMHx: 17:38 Bipolar disorder; Depression; insomnia; Kidney stones; Hypercholesterolemia; cm10 - Immunization history:: Adult Immunizations not up to date. - Infectious Disease History:: Denies. - Social history:: Smoking status: Reported history of juuling and/or vaping. ROS: 23:01 Constitutional: As per HPI kb Exam: 17:34 Constitutional: This is a well developed, well nourished patient who is awake, alert, kb and in no acute distress. Head/Face: Normocephalic, atraumatic. ENT: Moist Mucous membranes Cardiovascular: Regular rate Respiratory: Respirations even and unlabored. No increased work of breathing. Talking in full sentences Abdomen/GI: Soft, non-tender. No distention Skin: Warm, dry with normal turgor. Normal color. MS/ Extremity: Pulses equal, no cyanosis. Neurovascular intact. Full, normal range of motion. Neuro: Awake and alert, GCS 15, oriented to person, place, time, and situation. 17:34 ECG was reviewed by the Attending Physician. Vital Signs: 17:36 BP 112 / 64; Pulse 69; Resp 16; Temp 98.8(O); Pulse Ox 98% on R/A; Weight 79.38 kg; cm10 Height 5 ft. 5 in. ; Pain 8/10; 17:56 BP 111 / 72 Supine; Pulse 66; Resp 16; Pulse Ox 97% on R/A; hb 18:00 BP 108 / 78 Sitting; Pulse 68; hb 18:04 BP 110 / 74 Standing; Pulse 126; hb 18:40 BP 123 / 73; Pulse 61; Resp 15; Pulse Ox 99% on R/A; hb 17:36 Body Mass Index 29.12 (79.38 kg, 165.1 cm) cm10 17:36 Pain Scale: Adult cm10 MDM: 17:26 Medical Screening Exam initiated kb 23:00 Differential diagnosis: Arrhythmia, OR, abnormal electrolytes, dehydration, substance kb abuse. Data reviewed: vital signs, nurses notes. ED course: Patient elected to leave room prior to discussing results were giving discharge instructions.. 03/07 17:33 Order name: Basic Metabolic Panel; Complete Time: 19:01 kb 03/07 17:33 Order name: CBC with Diff; Complete Time: 18:08 kb 03/07 17:33 Order name: Hepatic Function; Complete Time: 19:01 kb 03/07 17:33 Order name: Magnesium; Complete Time: 19:01 kb 03/07 17:33 Order name: Protime (+inr); Complete Time: 18:18 kb 03/07 17:33 Order name: Ptt, Activated; Complete Time: 18:18 kb 03/07 17:33 Order name: Troponin High Sensitivity; Complete Time: 19:01 kb 03/07 17:33 Order name: D-Dimer; Complete Time: 18:18 kb 03/07 17:33 Order name: NT PRO-BNP; Complete Time: 19:01 kb 03/07 17:33 Order name: Chest Single View XRAY; Complete Time: 18:33 kb 03/07 17:33 Order name: Cardiac monitoring; Complete Time: 17:38 kb 03/07 17:33 Order name: EKG - Nurse/Tech; Complete Time: 17:38 kb 03/07 17:33 Order name: IV Saline Lock; Complete Time: 17:57 kb 03/07 17:33 Order name: Labs collected and sent; Complete Time: 17:57 kb 03/07 17:33 Order name: NPO; Complete Time: 17:57 kb 03/07 17:33 Order name: O2 Per Protocol; Complete Time: 17:38 kb 03/07 17:33 Order name: O2 Sat Monitoring; Complete Time: 17:38 kb 03/07 17:33 Order name: Orthostatics; Complete Time: 18:02 kb EC:34 Rate is 68 beats/min. Rhythm is regular. QRS [place] is Normal. GA interval is normal at kb 182 msec. QRS interval is normal at 82 msec. QT interval is normal at 410 msec. Administered Medications: 18:12 Drug: NS 0.9% IV 1000 ml IV at 1000 ml once; to be given as a bolus over 60 minutes hb Route: IV; Rate: 1000 ml; Site: right forearm; 19:27 Follow up: IV Status: Completed infusion cp4 Disposition Summary: 03/07/24 20:03 Discharge Ordered Notes: Location: Home kb Condition: Stable kb Diagnosis - Palpitations kb Followup: kb - With: Emergency Department - When: As needed - Reason: Worsening of condition Followup: kb - With: Private Physician - When: 2 - 3 days - Reason: Recheck today's complaints, Continuance of care, Re-evaluation by your physician Discharge Instructions: - Discharge Summary Sheet kb - Palpitations, [id number] kb Forms: - Medication Reconciliation Form kb - Antibiotic Education kb - Prescription Opioid Use kb - Patient Portal Instructions kb - Leadership Thank You Letter kb Signatures: Dispatcher [employer] EDMS Gemma Macias, CELL MAKER-C CELL MAKER-Ckb Jeimy Monaco RN RN Breana Harding RN RN cm10 Valerie Nolan cp4 Corrections: (The following items were deleted from the chart) 17:34 17:33 BASIC METABOLIC PANEL+C.LAB.BRZ ordered. EDMS EDMS 17:34 17:33 CBC+H.LAB.BRZ ordered. EDMS EDMS 17:34 17:33 HEPATIC FUNCTION+C.LAB.BRZ ordered. EDMS EDMS 17:34 17:33 MAGNESIUM+C.LAB.BRZ ordered. EDMS EDMS 17:34 17:33 PROTIME (+INR)+COAG.LAB.BRZ ordered. EDMS EDMS 17:34 17:33 PTT, ACTIVATED+COAG.LAB.BRZ ordered. EDMS EDMS 17:34 17:33 Troponin High Sensitivity+C.LAB.BRZ ordered. EDMS EDMS 17:34 17:33 URINE DRUG SCREEN+UC.LAB.BRZ ordered. EDMS EDMS 17:34 17:33 Urinalysis+U.LAB.BRZ ordered. EDMS EDMS 17:34 17:33 D-DIMER+COAG.LAB.BRZ ordered. EDMS EDMS 17:34 17:33 PROBNP+C.LAB.BRZ ordered. EDMS EDMS
[2024-03-08 04:20] VITALS: TEMP 98.8
[2024-03-08 04:31] VITALS: BP 123/73; O2SAT 99
== END 2024-03-07 20:19 | disposition home or self-care (01) ==
LOC: ER 17:22
DX: R00.2 Palpitations (principal); R07.9 Chest pain, unspecified; E78.00 Pure hypercholesterolemia, unspecified
CPT/HCPCS: 85025; 80048; 36415; 83735; 85610; 85379; 80076; 85730; 84484; 83880; 71045; 96360; 99285; J7030

== ENCOUNTER 2025-02-22 17:28 | Emergency (ER) | payer OTHER ==
[2025-02-22] MEDS ORDERED: DIPHENHYDRAMINE 50 MG/ML VIAL ONE (18:13)
[2025-02-22] MEDS ORDERED: METOCLOPRAMIDE 10 MG/2mL INJ ONE (18:13)
[2025-02-22] MEDS ORDERED: NA CHLORIDE 0.9% 1,000 ML ONE ×2 (18:13→20:50)
[2025-02-22] MEDS ORDERED: NA CHLORIDE 0.9% 50 ML ONE (18:15)
[2025-02-22 18:23] LABS: Absolute Lymphocytes (CBC) 1.7 K/uL (0.7-4.9); Hematocrit 38.2 % (36.0-45.0); Hemoglobin 12.3 g/dL (12.0-15.0); MCH 28.7 pg (27.0-35.0); MCHC 32.3 g/dL (32.0-36.0); MCV 89.1 fL (80-100); MPV 8.1 fL (7.6-11.3); Nucleated RBC Absolute Count 0.0 (0-0); Nucleated Red Blood Cells % 0.0 % (0-0); RBC Red Blood Cell Count 4.29 M/uL (3.86-4.86); White Blood Count 11.80 thou/uL (4.3-10.9)
[2025-02-22 18:31] LABS: D-Dimer 0.291 FEUug/mL (0-0.500); PT Prothrombin Time 11.6 SECONDS (10-13.0); Protime INR 1.03
[2025-02-22 18:42] LABS: ALT/SGPT 26 U/L (13-56); AST/SGOT 15 U/L (15-37); Albumin 3.4 g/dL (3.4-5.0); Albumin/Globulin Ratio 0.9 (1.1-1.8); Alkaline Phosphatase 94 U/L (45-117); Anion Gap 10.4 mEq/L (5.0-15.0); BUN Blood Urea Nitrogen 10 mg/dL (7-18); Globulin 3.7 g/dL (2.3-3.5); Glucose Level 110 mg/dL (74-106); Magnesium 1.9 mg/dL (1.6-2.4); NT PRO-BNP 11 pg/mL (<125); Potassium 3.4 mEq/L (3.5-5.1)
[2025-02-22 18:43] LABS: Bilirubin Indirect, Calculated 0.2 mg/dL (0.2-0.8); Troponin High Sensitivity < 3.0 pg/mL (<58.9)
[2025-02-22 18:55] LABS: Urine Culture Reflex Order REFLEXED; Urine Microscopic Reflex YN ORDER UMIC
[2025-02-22 18:59] LABS: METHAMPHETAM POSITIVE (NEGATIVE); THC Cannibis NEGATIVE (NEGATIVE)
--- NOTE | 2025-02-22 20:08 | RAD REPORT ---
EXAMINATION: ONE VIEW CHEST XR CLINICAL INDICATION: PALPITATIONS TECHNIQUE: Frontal chest projection is submitted. Examination is limited by patient positioning and t echnique. COMPARISON: 03/07/2024 FINDINGS: Mild bilateral pulmonary edema is suspected. The heart is mildly enlarged. No displaced fractures nena ntified. IMPRESSION: Mild CHF versus volume overload pattern is suspected.
[2025-02-22] MEDS ORDERED: NITROFURAN MACRO 100 MG CAP PO ONE (22:46)
[2025-02-22] MEDS ORDERED: POTASSIUM 25 MEQ EFFERV TAB ONE (22:47)
--- NOTE | 2025-02-22 22:51 | ER ---
Nurse's Notes [facility] Name: Negin Earl Age: 50 yrs Sex: Female : 1975 Arrival Date: 02/22/2025 Time: 17:28 Bed 16 Private MD: Diagnosis: Headache;Palpitations;UTI/ Urinary tract infection, site not specified;Adverse effect of amphetamines;Hypokalemia Presentation: 02/22 17:38 Chief complaint: Patient states: migraine (pain 9/10) x 3 days with n/v and sensitivity me1 to light. Also reports palpitations x 2 days. Denies chest pain. HR 132 in triage. Coronavirus screen: Vaccine status:. Ebola Screen: No symptoms or risks identified at this time. Initial Sepsis Screen: Does the patient meet any 2 criteria? HR > 90 bpm. Does the patient have a suspected source of infection? No. Patient's initial sepsis screen is negative. Risk Assessment: Do you want to hurt yourself or someone else? Patient reports no desire to harm self or others. Onset of symptoms was February 19, 2025. 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 - Infectious Disease History:: Denies. - Social history:: Smoking status: Reported history of juuling and/or vaping. Screenin:47 [facility] ED Fall Risk Assessment (Adult) History of falling in the last 3 months, af3 including since admission No falls in past 3 months (0 pts) Confusion or Disorientation No (0 pts) Intoxicated or Sedated No (0 pts) Impaired Gait No (0 pts) Mobility Assist Device Used No (0 pt) Altered Elimination No (0 pt) Score/Fall Risk Level 0 - 2 = Low Risk Oriented to surroundings, Maintained a safe environment, Hourly rounding (assess needs \T\ fall precautionary measures) done. Abuse screen: Denies threats or abuse. Denies injuries from another. Nutritional screening: No deficits noted. Tuberculosis screening: No symptoms or risk factors identified. Assessment: 18:47 General: Appears in no apparent distress. uncomfortable, Behavior is calm, cooperative. af3 Pain: Complains of pain in head. Neuro: Level of Consciousness is awake, alert, obeys commands, Oriented to person, place, time, situation, Reports headache photophobia. Cardiovascular: Reports palpitations, Denies chest pain, Capillary refill < 3 seconds in bilateral fingers Patient's skin is warm and dry. Rhythm is sinus tachycardia. Respiratory: Airway is patent Respiratory effort is even, unlabored, Respiratory pattern is regular, symmetrical. GI: Reports nausea, Patient currently denies abdominal pain, vomiting. Derm: Skin is pink, warm \T\ dry. Musculoskeletal: Circulation, motion, and sensation intact. Range of motion: intact in all extremities. 19:04 General: received report from roselia yanez, all questions answered. kt5 19:17 General: tech at for pcr. kt5 19:40 Reassessment: Patient appears in no apparent distress at this time. Patient and/or kt5 family updated on plan of care and expected duration. Pain level reassessed. Patient is alert, oriented x 3, equal unlabored respirations, skin warm/dry/pink. pt sleeping, easily arousable, nad, pt on monitors, v/s/s, call buutton in reach, piv fluids infusing w/o complications, will cont to monitor, waiting dispo Patient states symptoms have improved. 20:43 Reassessment: Patient appears in no apparent distress at this time. No changes from kt5 previously documented assessment. Patient and/or family updated on plan of care and expected duration. Pain level reassessed. Patient is alert, oriented x 3, equal unlabored respirations, skin warm/dry/pink. no change in status Patient states symptoms have improved. 21:42 Reassessment: Patient appears in no apparent distress at this time. No changes from kt5 previously documented assessment. Patient and/or family updated on plan of care and expected duration. Pain level reassessed. Patient is alert, oriented x 3, equal unlabored respirations, skin warm/dry/pink. Patient states symptoms have improved. 22:31 Reassessment: Patient appears in no apparent distress at this time. No changes from kt5 previously documented assessment. Patient and/or family updated on plan of care and expected duration. Pain level reassessed. Patient is alert, oriented x 3, equal unlabored respirations, skin warm/dry/pink. Patient states feeling better. Patient states symptoms have improved. 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 22:50 General: pt left before discharge paperwork, provider and charge nurse aware. kt5 Vital Signs: 17:38 BP 106 / 69; Pulse 132; Resp 20; Temp 98.2; Pulse Ox 99% ; Weight 104.33 kg; Height 5 me1 ft. 5 in. ; Pain 9/10; 18:46 BP 121 / 54; Pulse 132; Resp 18; Pulse Ox 99% on R/A; af3 19:40 BP 91 / 50; Pulse 120; Resp 16; Pulse Ox 96% ; Pain 0/10; kt5 20:43 BP 100 / 54; Pulse 117; Resp 16; Pulse Ox 96% ; Pain 0/10; kt5 21:42 BP 99 / 55; Pulse 88; Resp 16; Pulse Ox 93% ; Pain 0/10; kt5 22:31 BP 94 / 65; Pulse 87; Resp 16; Pulse Ox 97% ; Pain 0/10; kt5 17:38 Body Mass Index 38.27 (104.33 kg, 165.1 cm) me1 17:38 Pain Scale: Adult me1 19:40 Pain Scale: Adult kt5 20:43 Pain Scale: Adult kt5 21:42 Pain Scale: Adult kt5 22:31 Pain Scale: Adult kt5 ED Course: 17:30 Patient arrived in ED. cj3 17:35 Roselia Cisneros, RN is Primary Nurse. ph 17:37 Diogenes Ortiz PA-C is PHCP. cp 17:37 Diogenes Culver MD is Attending Physician. cp 17:40 Triage completed. me1 17:40 Arm band placed on Patient placed in an exam room. me1 17:46 Initial lab(s) drawn, by me, sent to lab. EKG done, by ED staff, reviewed by Diogenes Culver MD. Inserted saline lock: 22 gauge in left antecubital area, using aseptic technique. Blood collected. Flushed with 10 mL NS. 17:47 Patient has correct armband on for positive identification. Bed in low position. Call af3 light in reach. Side rails up X2. electronic device monitor on. Pulse ox on. NIBP on. Door closed. Noise minimized. Lights dimmed. Warm blanket given. 19:29 XRAY Chest (1 view) In Process Unspecified. EDMS 22:51 IV discontinued, intact, bleeding controlled, No redness/swelling at site. Pressure kt5 dressing applied. 22:51 No provider procedures requiring assistance completed. kt5 Administered Medications: 18:25 Drug: Droperidol IVP 1.25 mg IVP once Route: IVP; Site: left antecubital; af3 18:52 Follow up: Response: No adverse reaction af3 18:25 Drug: metoCLOPramide IVP 10 mg IVP once; over 1 to 2 minutes Route: IVP; Site: left af3 antecubital; 18:52 Follow up: Response: No adverse reaction af3 18:25 Drug: diphenhydrAMINE IVP 25 mg IVP once Route: IVP; Site: left antecubital; af3 18:52 Follow up: Response: No adverse reaction af3 18:46 Drug: NS 0.9% IV 1000 ml IV at 1000 ml once; to be given as a bolus over 60 minutes af3 Route: IV; Rate: 1000 ml; Site: left antecubital; 20:46 CANCELLED (Physician Discretion): ativan1 mg IVP once cp 20:52 Drug: NS 0.9% IV 1000 ml IV at 1000 ml once; to be given as a bolus over 60 minutes kt5 Route: IV; Rate: 1000 ml; Site: left antecubital; 22:43 Follow up: IV Status: Completed infusion; IV Intake: 1000ml kt5 22:48 Not Given (refused): potassiumeffervescent tablet 25 meq PO once; dissolve in 4 ounces cp of water or juice 22:48 Not Given (refused): [id number] mg PO once; administer with food cp Medication: 17:47 VIS not applicable for this client. af3 Intake: 22:43 IV: 1000ml; Total: 1000ml. kt5 Outcome: 22:51 Discharge ordered by . cp 22:51 Discharged to pt left before discharge paperwork with brother, pt did not want to wait kt5 22:51 Condition: improved 22:51 Discharge instructions given to not given Instructed on not given Demonstrated understanding of not given 22:54 Patient left the ED. kt5 Signatures: Dispatcher [employer] Roselia Brown, RN RN Diogenes Becker, PAManuelC PAManuelC Britney Carpio RN RN me1 Akosua Zhang RN RN 3 Loida Liang 3 Tita Gutierrez RN RN kt5
--- NOTE | 2025-02-22 22:51 | EDPHYS ---
Physician Documentation [facility] Name: Negin Earl Age: 50 yrs Sex: Female : 1975 Arrival Date: 02/22/2025 Time: 17:28 Bed 16 Private MD: FARZANEH Physician Diogenes Culver HPI: 02/22 18:15 This 50 yrs old Female presents to ER via Ambulatory with complaints of Migraine, cp Palpitations. 18:15 The patient complains of pain to the top of head and forehead. The patient describes cp the headache as aching. Onset: The symptoms/episode began/occurred 3 day(s) ago. 18:15 The patient presents with a history of heart racing. Context: The symptoms occur at cp rest, times 2 days. Duration: The patient or guardian reports a single episode, that is still ongoing. Associated signs and symptoms: Pertinent positives: nausea, vomiting, Pertinent negatives: fever, chest pain. Headache History: The patient has had previous headaches and this one is similar to previous episodes. 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 - Infectious Disease History:: Denies. - Social history:: Smoking status: Reported history of juuling and/or vaping. ROS: 18:20 Neuro: Positive for headache, Negative for altered mental status, dizziness, speech cp changes, weakness, 18:20 ENT: Negative for injury, pain, and discharge, cp 18:20 Constitutional: Negative for body aches, chills, fever, poor PO intake, 18:20 Eyes: Positive for photophobia, Negative for vision loss, 18:20 Cardiovascular: Positive for palpitations, Negative for chest pain, 18:20 Abdomen/GI: Positive for nausea and vomiting, Negative for abdominal pain, diarrhea, constipation, active vomiting, 18:20 All other systems are negative, cp Exam: 17:50 ECG was reviewed by the Attending Physician. cp 18:25 Constitutional: The patient appears in no acute distress, alert, awake, cp non-diaphoretic, non-toxic, well developed, well nourished, uncomfortable, 18:25 Head/Face: Normocephalic, atraumatic. cp 18:25 Eyes: Periorbital structures: appear normal, Pupils: equal, round, and reactive to light and accomodation, Extraocular movements: intact throughout, Conjunctiva: normal, no exudate, no injection, Lids and lashes: appear normal, bilaterally, 18:25 ENT: External ear(s): are unremarkable, Nose: is normal, Mouth: Lips: moist, Oral mucosa: moist, Posterior pharynx: Airway: no evidence of obstruction, patent, 18:25 Neck: ROM/movement: is normal, is supple, without pain, no range of motions limitations, no nuchal rigidity, 18:25 Chest/axilla: Inspection: normal, Palpation: is normal, 18:25 Cardiovascular: Rate: tachycardic, Rhythm: regular, Edema: is not appreciated, JVD: is not appreciated, 18:25 Respiratory: the patient does not display signs of respiratory distress, Respirations: normal, no use of accessory muscles, no retractions, labored breathing, is not present, Breath sounds: are clear throughout, no decreased breath sounds, no stridor, no wheezing, 18:25 Abdomen/GI: Inspection: abdomen appears normal, Bowel sounds: active, all quadrants, Palpation: abdomen is soft and non-tender, in all quadrants, 18:25 Back: ROM is normal, 18:25 Neuro: Orientation: to person, place \T\ time. Mentation: is normal, Cerebellar function: is grossly normal, Motor: moves all fours, strength is normal, Sensation: is normal, Vital Signs: 17:38 BP 106 / 69; Pulse 132; Resp 20; Temp 98.2; Pulse Ox 99% ; Weight 104.33 kg; Height 5 me1 ft. 5 in. ; Pain 9/10; 18:46 BP 121 / 54; Pulse 132; Resp 18; Pulse Ox 99% on R/A; af3 19:40 BP 91 / 50; Pulse 120; Resp 16; Pulse Ox 96% ; Pain 0/10; kt5 20:43 BP 100 / 54; Pulse 117; Resp 16; Pulse Ox 96% ; Pain 0/10; kt5 21:42 BP 99 / 55; Pulse 88; Resp 16; Pulse Ox 93% ; Pain 0/10; kt5 22:31 BP 94 / 65; Pulse 87; Resp 16; Pulse Ox 97% ; Pain 0/10; kt5 17:38 Body Mass Index 38.27 (104.33 kg, 165.1 cm) me1 17:38 Pain Scale: Adult me1 19:40 Pain Scale: Adult kt5 20:43 Pain Scale: Adult kt5 21:42 Pain Scale: Adult kt5 22:31 Pain Scale: Adult kt5 MDM: 17:37 Medical Screening Exam initiated cp 22:50 Data reviewed: vital signs, nurses notes, lab test result(s), EKG, radiologic studies, cp plain films, and as a result, I will discharge patient. 22:50 Differential diagnosis: arrythmia, dehydration, intracerebral hemorrhage, meningitis, cp meningoencephalitis, migraine, tension headache, traumatic injuries. I considered the following discharge prescriptions or medication management in the emergency department Medications were administered in the Emergency Department. See MAR. Independent interpretation of the following test(s) in the Emergency Department EKG: See my EKG interpretation above. Counseling: I had a detailed discussion with the patient and/or guardian regarding the historical points, exam findings, and any diagnostic results supporting the discharge/admit diagnosis, lab results, to return to the emergency department if symptoms worsen or persist or if there are any questions or concerns that arise at home. 02/22 18:09 Order name: Basic Metabolic Panel; Complete Time: 19:00 cp 02/22 22:39 Interpretation: Normal except: K 3.4; GLUC 110; GFR 85. cp 02/22 18:09 Order name: CBC with Diff; Complete Time: 19:00 cp 02/22 22:39 Interpretation: Normal except: WBC 11.80; MARTHA% 78.3; LYM% 14.8; NEUT A 9.2. cp 02/22 18:09 Order name: D-Dimer; Complete Time: 19:00 cp 02/22 18:09 Order name: LFT's; Complete Time: 19:00 cp 02/22 18:09 Order name: Magnesium; Complete Time: 19:00 cp 02/22 18:09 Order name: NT PRO-BNP; Complete Time: 19:00 cp 02/22 18:09 Order name: PT-INR; Complete Time: 19:00 cp 02/22 18:09 Order name: Troponin HS; Complete Time: 19:00 cp 02/22 18:09 Order name: UDS; Complete Time: 19:00 cp 02/22 18:09 Order name: UA Rfx Antione Cult if indicated; Complete Time: 19:00 cp 02/22 18:09 Order name: CK; Complete Time: 19:00 cp 02/22 19:01 Order name: Urine Culture EDMS 02/22 18:09 Order name: XRAY Chest (1 view); Complete Time: 21:57 cp 02/22 21:57 Interpretation: Report review. cp 02/22 18:09 Order name: EKG; Complete Time: 18:10 cp 02/22 18:09 Order name: Cardiac monitoring; Complete Time: 18:10 cp 02/22 18:09 Order name: EKG - Nurse/Tech; Complete Time: 18:10 cp 02/22 18:09 Order name: IV Saline Lock; Complete Time: 18:10 cp 02/22 18:09 Order name: Labs collected and sent; Complete Time: 18:10 cp 02/22 18:09 Order name: O2 Per Protocol; Complete Time: 18:10 cp 02/22 18:09 Order name: O2 Sat Monitoring; Complete Time: 18:10 cp EC:50 Rate is 97 beats/min. Rhythm is regular. MO interval is normal. QRS interval is normal. cp QT interval is normal. T waves are Inverted in lead aVR. Interpreted by me. Reviewed by me. Administered Medications: 18:25 Drug: Droperidol IVP 1.25 mg IVP once Route: IVP; Site: left antecubital; af3 18:52 Follow up: Response: No adverse reaction af3 18:25 Drug: metoCLOPramide IVP 10 mg IVP once; over 1 to 2 minutes Route: IVP; Site: left af3 antecubital; 18:52 Follow up: Response: No adverse reaction af3 18:25 Drug: diphenhydrAMINE IVP 25 mg IVP once Route: IVP; Site: left antecubital; af3 18:52 Follow up: Response: No adverse reaction af3 18:46 Drug: NS 0.9% IV 1000 ml IV at 1000 ml once; to be given as a bolus over 60 minutes af3 Route: IV; Rate: 1000 ml; Site: left antecubital; 20:46 CANCELLED (Physician Discretion): ativan1 mg IVP once cp 20:52 Drug: NS 0.9% IV 1000 ml IV at 1000 ml once; to be given as a bolus over 60 minutes kt5 Route: IV; Rate: 1000 ml; Site: left antecubital; 22:43 Follow up: IV Status: Completed infusion; IV Intake: 1000ml kt5 22:48 Not Given (refused): potassiumeffervescent tablet 25 meq PO once; dissolve in 4 ounces cp of water or juice 22:48 Not Given (refused): [id number] mg PO once; administer with food cp Disposition Summary: 02/22/25 22:51 Discharge Ordered Notes: Location: Home cp Problem: new cp Symptoms: have improved cp Condition: Stable cp Diagnosis - Headache cp - Palpitations cp - UTI/ Urinary tract infection, site not specified cp - Adverse effect of amphetamines cp - Hypokalemia cp Followup: cp - With: Private Physician - When: 2 - 3 days - Reason: Recheck today's complaints Discharge Instructions: - Discharge Summary Sheet cp - Migraine Headache cp - Palpitations cp - Urinary Tract Infection, Adult cp - Methamphetamines Use Disorder cp - Aspirin and Your Heart cp - Hypokalemia cp - Ambulatory Cardiac Monitoring cp Forms: - Medication Reconciliation Form cp - Antibiotic Education cp - Prescription Opioid Use cp - Patient Portal Instructions cp - Leadership Thank You Letter cp Prescriptions: - Macrobid 100 mg Oral Capsule - take 1 capsule ORAL route every 12 hours for 7 days; 14 capsule; Refills: 0, cp Product Selection Permitted Addendum: 02/27/2025 07:56 Co-signature as Attending Physician, Diogenes Culver MD I agree with the assessment and c coker plan of care. Signatures: Dispatcher [employer] Diogenes Maurice MD MD cha Page, Corey, PA-C PA-C cp Britney Colunga, RN RN me1 Akosua Zhang RN RN af3 Tita Gutierrez RN RN kt5 Corrections: (The following items were deleted from the chart) 02/22 18:10 18:09 BASIC METABOLIC PANEL+C.LAB.BRZ ordered. EDMS EDMS 18:10 18:09 CBC+H.LAB.BRZ ordered. EDMS EDMS 18:10 18:09 D-DIMER+COAG.LAB.BRZ ordered. EDMS EDMS 18:10 18:09 HEPATIC FUNCTION+C.LAB.BRZ ordered. EDMS EDMS 18:10 18:10 MAGNESIUM+C.LAB.BRZ ordered. EDMS EDMS 18:10 18:10 PROBNP+C.LAB.BRZ ordered. EDMS EDMS 18:10 18:10 PROTIME (+INR)+COAG.LAB.BRZ ordered. EDMS EDMS 18:10 18:10 Troponin High Sensitivity+C.LAB.BRZ ordered. EDMS EDMS 18:10 18:10 URINE DRUG SCREEN+UC.LAB.BRZ ordered. EDMS EDMS 18:10 18:10 UA Rfx Antione Cult if indicated+U.LAB.BRZ ordered. EDMS EDMS 18:10 18:10 CREATINE PHOSPHOKINASE+C.LAB.BRZ ordered. EDMS EDMS 20:46 19:18 Ativan IVP 1 mg IVP once ordered. cp cp
[2025-02-22 23:48] VITALS: TEMP 98.2
[2025-02-22 23:55] VITALS: BP 94/65; O2SAT 97
== END 2025-02-22 22:54 | disposition home or self-care (01) ==
LOC: ER 17:28
DX: R51.9 Headache, unspecified (principal); N39.0 Urinary tract infection, site not specified; E87.6 Hypokalemia; T43.625A Adverse effect of amphetamines, initial encounter; R00.2 Palpitations
CPT/HCPCS: 96361; 93005; 87088; 85025; 81001; 87086; 80048; 36415; 83735; 82550; 85610; 85379; 80076; 87077; 87186; 84484; 83880; 80307; 71045; 96375; 96374; 99285; J2765; J1200; J1790; J7030 ×2

== ENCOUNTER 2025-02-24 00:49 | Emergency (ER) | payer OTHER ==
[2025-02-24] MEDS ORDERED: CEFTRIAXONE 1000 MG/VIAL ONE (01:21)
[2025-02-24] MEDS ORDERED: METOCLOPRAMIDE 10 MG/2mL INJ ONE (01:21)
[2025-02-24] MEDS ORDERED: NA CHLORIDE 0.9% 3,000 ML ONE (01:22)
[2025-02-24] MEDS ORDERED: ACETAMINOPHEN 500 MG TAB ONE (01:22)
[2025-02-24] MEDS ORDERED: KETOROLAC 30 MG/ML INJ ONE (01:22)
[2025-02-24] MEDS ORDERED: DIPHENHYDRAMINE 50 MG/ML VIAL ONE (01:22)
[2025-02-24] MEDS ORDERED: FAMOTIDINE 20 MG/2 ML VIAL IV ONE (01:22)
[2025-02-24 02:14] LABS: Absolute Lymphocytes (CBC) 1.9 K/uL (0.7-4.9); Hematocrit 34.9 % (36.0-45.0); Hemoglobin 11.8 g/dL (12.0-15.0); MCH 29.9 pg (27.0-35.0); MCHC 33.8 g/dL (32.0-36.0); MCV 88.4 fL (80-100); MPV 8.0 fL (7.6-11.3); Nucleated RBC Absolute Count 0.0 (0-0); Nucleated Red Blood Cells % 0.1 % (0-0); RBC Red Blood Cell Count 3.94 M/uL (3.86-4.86); White Blood Count 12.80 thou/uL (4.3-10.9)
[2025-02-24 02:20] LABS: PT Prothrombin Time 12.2 SECONDS (10-13.0); Protime INR 1.08
[2025-02-24 02:30] LABS: Sqamous Epithelial <5 /HPF (None Seen); Urine Culture Reflex Order NOT NEEDED; Urine Microscopic Reflex YN ORDER UMIC
[2025-02-24 02:33] LABS: Influenza A Ag Negative; Influenza B Ag Negative; SARS-CoV-2 Antigen Rapid Res Negative (Negative)
[2025-02-24 02:42] LABS: ALT/SGPT 27 U/L (13-56); Albumin 3.2 g/dL (3.4-5.0); Albumin/Globulin Ratio 0.8 (1.1-1.8); Alkaline Phosphatase 96 U/L (45-117); Anion Gap 9.3 mEq/L (5.0-15.0); BUN Blood Urea Nitrogen 9 mg/dL (7-18); Globulin 3.9 g/dL (2.3-3.5); Glucose Level 85 mg/dL (74-106); Lipase 67 U/L (13-75); NT PRO-BNP 176 pg/mL (<125); Potassium 4.3 mEq/L (3.5-5.1); Troponin High Sensitivity 3.3 pg/mL (<58.9)
[2025-02-24 02:43] LABS: AST/SGOT 26 U/L (15-37); Bilirubin Indirect, Calculated 0.4 mg/dL (0.2-0.8); Magnesium 2.1 mg/dL (1.6-2.4)
--- NOTE | 2025-02-24 03:58 | EDPHYS ---
Physician Documentation [facility] Name: Negin Earl Age: 50 yrs Sex: Female : 1975 Arrival Date: 02/24/2025 Time: 00:49 Bed 12 Private MD: FARZANEH Physician Diogenes Culver HPI: 02/24 01:11 This 50 yrs old Female presents to ER via EMS with complaints of coker, sob , elizabeth uri. 01:11 The patient has shortness of breath at rest, with light activity. Onset: The elizabeth symptoms/episode began/occurred 2 day(s) ago. Duration: The symptoms are continuous, and are steadily getting worse. The patient's shortness of breath has no apparent modifying factors. The patient complains of pain to the top of head, forehead, left frontal area, left side of the back of head, right frontal area and right side of the back of head. The patient describes the headache as aching, constant. Associated signs and symptoms: Pertinent positives: nausea. Severity of symptoms: At its worst the pain was mild, moderate, in the emergency department the pain is unchanged. Headache History: The patient has had previous headaches and this one is similar to previous episodes. Associated signs and symptoms: Pertinent positives: non-productive cough, fever, nausea. Severity of symptoms: At their worst the symptoms were mild moderate in the emergency department the symptoms are unchanged. Historical: - Allergies: 01:03 PENICILLINS; br2 - PMHx: 01:03 Anxiety; Atrial fibrillation; Atrial fibrillation; Bipolar disorder; Depression; Heart br2 Murmur; Hypercholesterolemia; insomnia; MANIC DEPRESSION (Unknown); Migraine; Kidney stones; Post Traumatic Stress Disorder (Unknown); tubal (Unknown); - PSHx: 01:03 left fallopian tube resection; Total abdominal hysterectomy; br2 - Immunization history:: Adult Immunizations not up to date. - Infectious Disease History:: Denies. - Social history:: Smoking status: Reported history of juuling and/or vaping. Patient/guardian denies using tobacco, Patient/guardian denies using alcohol, street drugs. - Family history:: not pertinent. ROS: 01:11 Eyes: Negative for injury, pain, redness, and discharge, ENT: Negative for injury, elizabeth pain, and discharge, Neck: Negative for injury, pain, and swelling, Cardiovascular: Negative for chest pain, palpitations, and edema, Abdomen/GI: Negative for abdominal pain, nausea, vomiting, diarrhea, and constipation, Back: Negative for injury and pain, : Negative for injury, bleeding, discharge, and swelling, MS/Extremity: Negative for injury and deformity, Skin: Negative for injury, rash, and discoloration, Psych: Negative for depression, anxiety, suicide ideation, homicidal ideation, and hallucinations, Allergy/Immunology: Negative for hives, rash, and allergies, Endocrine: Negative for neck swelling, polydipsia, polyuria, polyphagia, and marked weight changes, : Constitutional: Positive for body aches, chills, fatigue, fever, Respiratory: Positive for cough, shortness of breath, at rest. Neuro: Positive for headache, weakness, Exam: Constitutional: This is a well developed, well nourished patient who is awake, alert, elizabeth and in no acute distress. Head/Face: Normocephalic, atraumatic. Eyes: Pupils equal round and reactive to light, extra-ocular motions intact. Lids and lashes normal. Conjunctiva and sclera are non-icteric and not injected. Cornea within normal limits. Periorbital areas with no swelling, redness, or edema. ENT: Nares patent. No nasal discharge, no septal abnormalities noted. Tympanic membranes are normal and external auditory canals are clear. Oropharynx with no redness, swelling, or masses, exudates, or evidence of obstruction, uvula midline. Mucous membranes moist. Neck: Trachea midline, no thyromegaly or masses palpated, and no cervical lymphadenopathy. Supple, full range of motion without nuchal rigidity, or vertebral point tenderness. No Meningismus. Chest/axilla: Normal chest wall appearance and motion. Nontender with no deformity. No lesions are appreciated. Abdomen/GI: Soft, non-tender, with normal bowel sounds. No distension or tympany. No guarding or rebound. No evidence of tenderness throughout. Back: No spinal tenderness. No costovertebral tenderness. Full range of motion. Female : Normal external genitalia. Skin: Warm, dry with normal turgor. Normal color with no rashes, no lesions, and no evidence of cellulitis. MS/ Extremity: Pulses equal, no cyanosis. Neurovascular intact. Full, normal range of motion., bilateral aka Neuro: Awake and alert, GCS 15, oriented to person, place, time, and situation. Cranial nerves II-XII grossly intact. Motor strength 5/5 in all extremities. Sensory grossly intact. Cerebellar exam normal. Normal gait. 01:11 Cardiovascular: Rate: tachycardic, actual rate is 123 bpm, Rhythm: regular, Pulses: Pulses are 4+ in bilateral radial, brachial, femoral, popliteal, posterior tibial and and dorsalis pedis arteries.. Heart sounds: normal, normal S1and S2, no S3 or S4, no murmur, no rub, no gallop, Edema: is not appreciated, JVD: is not appreciated, 01:11 ECG was reviewed by the Attending Physician. 02:51 ECG was reviewed by the Attending Physician. [facility] Vital Signs: 00:58 BP 116 / 73; Pulse 123; Resp 18; Temp 99.6; Pulse Ox 100% ; Weight 104.33 kg; Height 5 br2 ft. 5 in. ; Pain 10/10; 02:00 BP 111 / 76; Pulse 118; Resp 20; Pulse Ox 97% ; br2 04:00 BP 110 / 78; Pulse 113; Resp 20; Pulse Ox 96% ; br2 05:44 BP 112 / 80; Pulse 108; Resp 16; Temp 97.1; Pulse Ox 98% on R/A; Pain 3/10; br2 00:58 Body Mass Index 38.27 (104.33 kg, 165.1 cm) br2 00:58 Pain Scale: Adult br2 05:44 Pain Scale: Adult br2 Roselia Coma Score: 01:14 Eye Response: spontaneous(4). Motor Response: obeys commands(6). Verbal Response: [facility] oriented(5). Total: 15. MDM: 00:56 Medical Screening Exam initiated elizabeth 01:14 Antibiotic administration: The patient is discharged and will get outpatient [facility] antibiotics, Zithromax, cefdinir. Differential diagnosis: Anemia asthma, cluster headache, hypertensive headache, hyponatremia, migraine, sinusitis, tension headache, Myocardial Infarction pneumonia, Pneumothorax pulmonary edema, Pulmonary Embolism reactive airway disease, Sepsis Unstable Angina. Differential Diagnosis: Obstructed Airway Bronchitis Influenza Upper Respiratory Infection Sinusitis Pharyngitis Allergic Rhinitis Asthma Exacerbation Viral Syndrome Pneumonia. Immunization status:. Data reviewed: vital signs, nurses notes, lab test result(s), EKG, radiologic studies, CT scan, plain films. Consideration of Admission/Observation Patient was admitted/placed on observation. Escalation of care including admission/observation considered. I considered the following discharge prescriptions or medication management in the emergency department Medications were administered in the Emergency Department. See MAR. Independent interpretation of the following test(s) in the Emergency Department EKG: See my EKG interpretation above. Care significantly affected by the following chronic conditions: murmur, bipolar, a fib, depression. Counseling: I had a detailed discussion with the patient and/or guardian regarding the historical points, exam findings, and any diagnostic results supporting the discharge/admit diagnosis, lab results, radiology results, the need for outpatient follow up, for definitive care, 02/24 01:10 Order name: Basic Metabolic Panel; Complete Time: 02:45 [facility] 02/24 01:10 Order name: CBC with Diff; Complete Time: 02:31 [facility] 02/24 01:10 Order name: LFT's; Complete Time: 02:45 [facility] 02/24 01:10 Order name: Magnesium; Complete Time: 02:45 [facility] 02/24 01:10 Order name: NT PRO-BNP; Complete Time: 02:45 [facility] 02/24 01:10 Order name: PT-INR; Complete Time: 02:31 [facility] 02/24 01:10 Order name: Troponin HS; Complete Time: 02:45 [facility] 02/24 01:10 Order name: Lipase; Complete Time: 02:45 [facility] 02/24 01:10 Order name: UA Rfx Antione Cult if indicated; Complete Time: 02:36 [facility] 02/24 01:10 Order name: Blood Culture Adult (2) [facility] 02/24 01:10 Order name: Lactate w/ 2H reflex if indic.; Complete Time: 02:36 [facility] 02/24 01:10 Order name: COVID-19 Ag + Flu A+B Ag; Complete Time: 02:36 [facility] 02/24 01:10 Order name: Group A Streptococcus Rapid; Complete Time: 02:36 [facility] 02/24 02:36 Order name: Throat Culture EDPA 02/24 01:10 Order name: XRAY Chest (1 view) [facility] 02/24 01:10 Order name: CT Head Brain wo Cont [facility] 02/24 01:10 Order name: CT Chest For PE Angio [facility] 02/24 01:10 Order name: Cardiac monitoring; Complete Time: 02:11 [facility] 02/24 01:10 Order name: EKG - Nurse/Tech; Complete Time: 02: [facility] 02/24 01:10 Order name: IV Saline Lock; Complete Time: 02: [facility] 02/24 01:10 Order name: Labs collected and sent; Complete Time: 02: [facility] 02/24 01:10 Order name: O2 Per Protocol; Complete Time: 02: [facility] 02/24 01:10 Order name: O2 Sat Monitoring; Complete Time: 02: [facility] EC:51 Rate is 116 beats/min. Rhythm is regular. QRS [place] is Normal. OR interval is normal. [facility] QRS interval is normal. QT interval is normal. No Q waves. T waves are Normal. No ST changes noted. Clinical impression: Sinus tachycardia and No evidence of ischemia. Interpreted by me. Reviewed by me. Administered Medications: 02:20 Drug: diphenhydrAMINE IVP 50 mg IVP once Route: IVP; Site: right forearm; br2 03:00 Follow up: Response: No adverse reaction br2 02:20 Drug: metoCLOPramide IVP 10 mg IVP once; over 1 to 2 minutes Route: IVP; Site: right br2 forearm; 03:00 Follow up: Response: No adverse reaction br2 02:20 Drug: Famotidine IVP 20 mg IVP once; dilute with 10 mL 0.9% NaCl; give over 2 minutes br2 Route: IVP; Site: right forearm; 03:00 Follow up: Response: No adverse reaction br2 02:20 Drug: Rocephin IV 1 grams IV at per protocol once; Given slow IV push per pharmacy br2 instructions Route: IV; Rate: per protocol; Site: right forearm; 03:00 Follow up: Response: No adverse reaction; IV Intake: 10ml br2 02:21 Drug: NS 0.9% IV (30 ml/kg) 30 ml/kg IV at bolus once; Sepsis Protocol; to be given as br2 a bolus over 90 minutes Route: IV; Rate: bolus; Site: right forearm; 05:42 Follow up: IV Status: Completed infusion; IV Intake: 3000ml br2 02:21 Drug: Acetaminophen PO 1000 mg PO once Route: PO; br2 03:00 Follow up: Response: No adverse reaction br2 02:21 Drug: Ketorolac IVP 30 mg IVP once Route: IVP; Site: right forearm; br2 03:00 Follow up: Response: No adverse reaction br2 Disposition Summary: 02/24/25 03:57 Discharge Ordered Notes: Location: Home elizabeth Problem: new elizabeth Symptoms: have improved elizabeth Condition: Stable elizabeth Diagnosis - Fever, unspecified elizabeth - Acute upper respiratory infection, unspecified elizabeth - Headache elizabeth - Elevated white blood cell count elizabeth Followup: elizabeth - With: Private Physician - When: 2 - 3 days - Reason: Recheck today's complaints, Continuance of care, Re-evaluation by your physician Discharge Instructions: - Discharge Summary Sheet elizabeth - Fever, Adult elizabeth - General Headache Without Cause elizabeth - Cool Mist Vaporizer elizabeth - Upper Respiratory Infection, Adult, [id number] elizabeth - General Headache Without Cause, [id number] elizabeth Forms: - Medication Reconciliation Form elizabeth - Antibiotic Education elizabeth - Prescription Opioid Use elizabeth - Patient Portal Instructions elizabeth - Leadership Thank You Letter [facility] Prescriptions: - cefdinir 300 mg Oral capsule - take 1 capsule ORAL route 2 times per day for 7 days; 14 capsule; Refills: 0, elizabeth Product Selection Permitted - Ibuprofen 600 mg Oral Tablet - take 1 tablet ORAL route every 6 hours As needed take with food; 30 tablet; elizabeth Refills: 0, Product Selection Permitted - Zithromax 500 mg Oral Tablet - take 1 tablet ORAL route once daily for 5 days; 5 tablet; Refills: 0, Product elizabeth Selection Permitted Signatures: Dispatcher [employer] EDDiogenes Vaca MD MD cha Riddle, Belinda RN RN br2 Corrections: (The following items were deleted from the chart) 01:10 01:10 BASIC METABOLIC PANEL+C.LAB.BRZ ordered. EDMS EDMS 01:10 01:10 CBC+H.LAB.BRZ ordered. EDMS EDMS 01:10 01:10 HEPATIC FUNCTION+C.LAB.BRZ ordered. EDMS EDMS 01:10 01:10 MAGNESIUM+C.LAB.BRZ ordered. EDMS EDMS 01:10 01:10 PROBNP+C.LAB.BRZ ordered. EDMS EDMS 01:10 01:10 PROTIME (+INR)+COAG.LAB.BRZ ordered. EDMS EDMS 01:10 01:10 Troponin High Sensitivity+C.LAB.BRZ ordered. EDMS EDMS 01:10 01:10 LIPASE+C.LAB.BRZ ordered. EDMS EDMS 01: 01:10 UA Rfx Antione Cult if indicated+U.LAB.BRZ ordered. EDMS EDMS 01: 01:10 BLOOD CULTURE*+BA.LAB.BRZ ordered. EDMS EDMS 01:10 01:10 LACTATE+C.LAB.BRZ ordered. EDMS EDMS 01:10 01:10 Chest Single View+RAD.RAD.BRZ ordered. EDMS EDMS : 01:11 Head Brain Wo Cont+CT.RAD.BRZ ordered. EDMS EDMS : 01:11 Chest For PE Angio+CT.RAD.BRZ ordered. EDMS EDMS : 01:11 COVID-19 Ag + Flu A+B Ag+I.LAB.BRZ ordered. EDMS EDMS : 01:11 Group A Streptococcus Rapid Sc+I.LAB.BRZ ordered. EDMS EDMS
--- NOTE | 2025-02-24 03:58 | ER ---
Nurse's Notes [facility] Name: Negin Earl Age: 50 yrs Sex: Female : 1975 Arrival Date: 02/24/2025 Time: 00:49 Bed 12 Private MD: Diagnosis: Fever, unspecified;Acute upper respiratory infection, unspecified;Headache;Elevated white blood cell count Presentation: 02/24 00:58 Chief complaint: Patient states: PT C/O MIGRAINE, CP, SORE THROAT, BODYACHES. br2 Coronavirus screen: Client denies travel out of the [place] in the last 14 days. Ebola Screen: Patient denies exposure to infectious person. Initial Sepsis Screen: Does the patient meet any 2 criteria? HR > 90 bpm. Does the patient have a suspected source of infection? No. Patient's initial sepsis screen is negative. Risk Assessment: Do you want to hurt yourself or someone else?. Onset of symptoms was February 23, 2025. 00:58 Method Of Arrival: EMS: [facility] br2 00:58 Acuity: EVERT 3 br2 Triage Assessment: 01:03 General: Appears uncomfortable, Behavior is calm, cooperative. Pain: Complains of pain br2 in forehead. 03:06 EENT: Reports SORE THROAT. Neuro: Wan Agitation-Sedation Scale (RASS): 0 - Alert br2 and Calm Level of Consciousness is awake, alert, obeys commands, Oriented to person, place, time, situation. Cardiovascular: Reports chest pain. Respiratory: Reports shortness of breath on exertion. GI: Abdomen is obese. : Denies burning with urination. Derm: No signs and/or symptoms reported regarding the dermatologic system. Musculoskeletal: Reports BODYACHES. Historical: - Allergies: 01:03 PENICILLINS; br2 - PMHx: 01:03 Anxiety; Atrial fibrillation; Atrial fibrillation; Bipolar disorder; Depression; Heart br2 Murmur; Hypercholesterolemia; insomnia; MANIC DEPRESSION (Unknown); Migraine; Kidney stones; Post Traumatic Stress Disorder (Unknown); tubal (Unknown); - PSHx: 01:03 left fallopian tube resection; Total abdominal hysterectomy; br2 - Immunization history:: Adult Immunizations not up to date. - Infectious Disease History:: Denies. - Social history:: Smoking status: Reported history of juuling and/or vaping. Patient/guardian denies using tobacco, Patient/guardian denies using alcohol, street drugs. - Family history:: not pertinent. Screenin:58 [facility] ED Fall Risk Assessment (Adult) History of falling in the last 3 months, br2 including since admission No falls in past 3 months (0 pts) Confusion or Disorientation No (0 pts) Intoxicated or Sedated No (0 pts) Impaired Gait No (0 pts) Mobility Assist Device Used No (0 pt) Altered Elimination No (0 pt) Score/Fall Risk Level 0 - 2 = Low Risk Oriented to surroundings. Abuse screen: Denies threats or abuse. Denies injuries from another. Nutritional screening: No deficits noted. Tuberculosis screening: No symptoms or risk factors identified. Assessment: 01:00 Reassessment: SEE TRIAGE ASSESSMET. br2 02:30 Reassessment: Patient and/or family updated on plan of care and expected duration. Pain br2 level reassessed. Patient is alert, oriented x 3, equal unlabored respirations, skin warm/dry/pink. Patient states feeling better. 04:00 Reassessment: Patient and/or family updated on plan of care and expected duration. Pain br2 level reassessed. Patient is alert, oriented x 3, equal unlabored respirations, skin warm/dry/pink. Patient states feeling better. Patient states symptoms have improved. 05:44 Reassessment: Patient and/or family updated on plan of care and expected duration. Pain br2 level reassessed. Reassessment: RESTING WITH EYES CLOSED. General: Appears in no apparent distress. comfortable. Respiratory: Airway is patent Respiratory effort is even, unlabored, Respiratory pattern is regular, symmetrical. Vital Signs: 00:58 BP 116 / 73; Pulse 123; Resp 18; Temp 99.6; Pulse Ox 100% ; Weight 104.33 kg; Height 5 br2 ft. 5 in. ; Pain 10/10; 02:00 BP 111 / 76; Pulse 118; Resp 20; Pulse Ox 97% ; br2 04:00 BP 110 / 78; Pulse 113; Resp 20; Pulse Ox 96% ; br2 05:44 BP 112 / 80; Pulse 108; Resp 16; Temp 97.1; Pulse Ox 98% on R/A; Pain 3/10; br2 00:58 Body Mass Index 38.27 (104.33 kg, 165.1 cm) br2 00:58 Pain Scale: Adult br2 05:44 Pain Scale: Adult br2 Roselia Coma Score: 01:14 Eye Response: spontaneous(4). Motor Response: obeys commands(6). Verbal Response: elizabeth oriented(5). Total: 15. ED Course: 00:54 Patient arrived in ED. rv1 00:56 Diogenes Culver MD is Attending Physician. elizabeth 00:58 Bed in low position. Call light in reach. Side rails up X 1. Provided Education on: br2 PLAN OF CARE. 01:03 Triage completed. br2 01:03 Arm band placed on right wrist. br2 01:42 XRAY Chest (1 view) In Process Unspecified. EDMS 02:09 EKG done, by ED staff, reviewed by Diogenes Culver MD. oe 02:20 Group A Streptococcus Rapid Sent. br2 02:20 COVID-19 Ag + Flu A+B Ag Sent. br2 02:21 Lactate w/ 2H reflex if indic. Sent. br2 02:21 Blood Culture Adult (2) Sent. br2 02:21 UA Rfx Antione Cult if indicated Sent. br2 02:21 Basic Metabolic Panel Sent. br2 02:21 LFT's Sent. br2 02:21 Magnesium Sent. br2 02:21 NT PRO-BNP Sent. br2 03:19 CT Head Brain wo Cont In Process Unspecified. EDMS 03:19 CT Chest For PE Angio In Process Unspecified. EDMS 05:45 No provider procedures requiring assistance completed. br2 06:01 IV discontinued, intact, bleeding controlled, No redness/swelling at site. Pressure br2 dressing applied. Administered Medications: 02:20 Drug: diphenhydrAMINE IVP 50 mg IVP once Route: IVP; Site: right forearm; br2 03:00 Follow up: Response: No adverse reaction br2 02:20 Drug: metoCLOPramide IVP 10 mg IVP once; over 1 to 2 minutes Route: IVP; Site: right br2 forearm; 03:00 Follow up: Response: No adverse reaction br2 02:20 Drug: Famotidine IVP 20 mg IVP once; dilute with 10 mL 0.9% NaCl; give over 2 minutes br2 Route: IVP; Site: right forearm; 03:00 Follow up: Response: No adverse reaction br2 02:20 Drug: Rocephin IV 1 grams IV at per protocol once; Given slow IV push per pharmacy br2 instructions Route: IV; Rate: per protocol; Site: right forearm; 03:00 Follow up: Response: No adverse reaction; IV Intake: 10ml br2 02:21 Drug: NS 0.9% IV (30 ml/kg) 30 ml/kg IV at bolus once; Sepsis Protocol; to be given as br2 a bolus over 90 minutes Route: IV; Rate: bolus; Site: right forearm; 05:42 Follow up: IV Status: Completed infusion; IV Intake: 3000ml br2 02:21 Drug: Acetaminophen PO 1000 mg PO once Route: PO; br2 03:00 Follow up: Response: No adverse reaction br2 02:21 Drug: Ketorolac IVP 30 mg IVP once Route: IVP; Site: right forearm; br2 03:00 Follow up: Response: No adverse reaction br2 Intake: 03:00 IV: 10ml; Total: 10ml. br2 05:42 IV: 3000ml; Total: 3010ml. br2 Outcome: 03:57 Discharge ordered by . elizabeth 06:02 Discharged to home ambulatory, br2 06:02 Condition: stable 06:02 Discharge instructions given to patient, Instructed on discharge instructions, follow up and referral plans. Demonstrated understanding of instructions, follow-up care, medications, Prescriptions given X 3, 06:02 Patient left the ED. br2 Signatures: Dispatcher [employer] EDDiogenes Vaca MD MD cha Espinosa, Orlando oe Villegas, Rebecca rv1 Candelaria Mullins RN RN br2 Corrections: (The following items were deleted from the chart) 02:09 02:08 EKG done, by ED staff, issac davenport
--- NOTE | 2025-02-24 05:27 | RAD REPORT ---
CLINICAL HISTORY: Cough. COMPARISON: CT Chest 05/29/2024 and XR Chest 05/29/2024. TECHNIQUE: XR CHEST 1 VIEW 02/24/2025 1:10 AM CDT FINDINGS: The heart is enlarged. Lungs are clear without consolidation, atelectasis, mass or edema. There is no pleural effusion. There is no pneumothorax. There are no acute osseous findings. IMPRESSION: Clear lungs. Electronically signed by: Walker Arrington MD 02/24/2025 05:22 AM CDT RP Due to temporary technical issues with the PACS/[employer] reporting system, reports are being toma d by the in-house radiologist without review as a courtesy to ensure prompt reporting the interpreting radiologist is fully responsible for the content of the report. Transcribed Date/Time: 02/24/2025 5:26 AM
--- NOTE | 2025-02-24 05:45 | RAD REPORT ---
CLINICAL HISTORY: Headache. COMPARISON: CT Head 01/27/2022. TECHNIQUE: CT HEAD WITHOUT IV CONTRAST on 02/24/2025 1:10 AM CDT This exam was performed according to our departmental dose-optimization program, which includes autom ated exposure control, adjustment of the mA and/or kV according to patient size and/or use of iterative reconstruction technique. FINDINGS: There is no acute hemorrhage, mass effect or midline shift. Cerrato-white differentiation is preserved. There is no hydrocephalus. There is no significant volume loss for age. The calvarium is intact. Orbits and globes are unremarkable. The paranasal sinuses are clear. Mastoid air cells are clear. IMPRESSION: No acute intracranial findings. Electronically signed by: Walker Arrington MD 02/24/2025 05:36 AM CDT Due to temporary technical issues with the [email or web address] reporting system, reports are being toma d by the in-house radiologist without review as a courtesy to ensure prompt reporting the interpreting radiologist is fully responsible for the content of the report. Transcribed Date/Time: 02/24/2025 5:45 AM
--- NOTE | 2025-02-24 05:45 | RAD REPORT ---
CLINICAL HISTORY: Chest pain, dyspnea. COMPARISON: CT Chest 05/29/2024. TECHNIQUE: CT CHEST ANGIOGRAPHY WITH IV CONTRAST on 02/24/2025 1:10 AM CDT. MIPS reconstructions were generated. This exam was performed according to our departmental dose-optimization program, which includes autom ated exposure control, adjustment of the mA and/or kV according to patient size and/or use of iterative reconstruction technique. MIP images were generated. FINDINGS: Thoracic aorta is normal in course and caliber without aneurysm or dissection. Pulmonary arteries are adequately opacified without acute or chronic filling defects. The heart is normal in size. There is no pericardial effusion. Intrathoracic lymph nodes are not enla rged. There is no pleural effusion, pleural thickening or pneumothorax. Central airways are patent. Lungs a re clear with no consolidation, mass or interstitial lung disease. There are no acute abnormalities within the limited images of the upper abdomen. There are no acute osseous findings. No suspicious bony lesions. IMPRESSION: No aortic dissection or aneurysm. No pulmonary embolus. No pneumonia. Electronically signed by: Walker Arrington MD 02/24/2025 05:41 AM CDT RP Due to temporary technical issues with the PACS/[employer] reporting system, reports are being toma d by the in-house radiologist without review as a courtesy to ensure prompt reporting the interpreting radiologist is fully responsible for the content of the report. Transcribed Date/Time: 02/24/2025 5:45 AM
[2025-02-24 10:43] VITALS: BP 112/80; TEMP 97.1; O2SAT 98
== END 2025-02-24 06:02 | disposition home or self-care (01) ==
LOC: ER 00:49
DX: J06.9 Acute upper respiratory infection, unspecified (principal); R51.9 Headache, unspecified; D72.829 Elevated white blood cell count, unspecified; Z11.52 Encounter for screening for COVID-19
CPT/HCPCS: 96365; 93005; 87040 ×2; 87070; 85025; 81001; 80048; 36415; 83735; 85610; 80076; 83605; 84484; 83690; 83880; 70450; 71275; 71045; 96375; 99284; 96366; 87428; Q9967; J1885; J2765; J1200; J7030; J0696